=== PATIENT | female | born 1950 | race Caucasian/White ===

== ENCOUNTER 2022-04-27 09:15 | Outpatient (RCR) | payer MEDICARE, BC, SELFPAY | END 2022-07-11 15:43 | disposition home or self-care (01) | PROVIDERS: Visit Provider Family Medicine | DX: M79.605 Pain in left leg (principal); R26.9 Unspecified abnormalities of gait and mobility; Z51.89 Encounter for other specified aftercare | CPT/HCPCS: 97110; 97112 ==

== ENCOUNTER 2022-12-07 07:51 | Outpatient (CLI) | payer MEDICARE, BC, SELFPAY ==
--- NOTE | 2022-12-07 08:15 | CRLHL7_ITS ---
For Patients: As a result of the Century Cures Act, medical imaging exams and procedure reports are released immediately into your electronic medical record. You may view this report before your referring provider. If you have questions, please contact your health care provider. INDICATION: Seizure disorder. Arteriovenous malformation. TECHNIQUE: Multiplanar multisequence MR imaging acquired through the brain prior to and following intravenous contrast. COMPARISON: MRI brain 11/24/2021. FINDINGS: Arteriovenous malformation within the posterolateral left frontal lobe with nidus measuring approximately 1.8 cm in transverse dimension, not significantly changed when accounting for differences in exam and measurement technique. No evidence for recent hemorrhage. Multiple enlarged cortical veins are visualized in the left greater than right cerebral hemispheres. Small adjacent parenchymal gliosis, as well as susceptibility likely related to calcification, are not significantly changed. The ventricles are not enlarged for patient age. No midline shift or hydrocephalus. Stable punctate FLAIR hyperintensity within the right frontal operculum, potentially related to minimal chronic microvascular ischemic change. No recent intracranial hemorrhage or pathologic extra-axial fluid collection. No diffusion restriction to suggest acute infarction. Enhancing 1.1 cm lesion within the right internal auditory canal with extension near the fundus, not significantly changed. The major arterial flow voids of the skullbase are preserved. The globes are symmetric. Mild left maxillary sinus mucosal thickening. The mastoid air cells are clear. IMPRESSION: 1. No acute intracranial abnormality. No significant change compared to 11/24/2021. 2. Stable arteriovenous malformation within the posterolateral left frontal lobe associated with small adjacent parenchymal gliosis. 3. Stable enhancing 1.1 cm lesion within the right internal auditory canal, most compatible with vestibular schwannoma. Dictated by Bret Domínguez MD @ 12/07/2022 5:55:02 PM (Electronically Signed)
== END 2022-12-07 07:52 | disposition home or self-care (01) ==
LOC: MRI 07:54
PROVIDERS: PCP Student in an Organized Health Care Education/Training Program; Visit Provider Student in an Organized Health Care Education/Training Program
DX: G40.909 Epilepsy, unspecified, not intractable, without status epilepticus (principal); G93.9 Disorder of brain, unspecified
CPT/HCPCS: 70553; A9575

== ENCOUNTER 2023-06-02 14:41 | Outpatient (CLI) | payer MEDICARE, BC, SELFPAY | END 2023-06-02 14:42 | disposition home or self-care (01) | LOC: AMB 06-03 08:27 | PROVIDERS: PCP Student in an Organized Health Care Education/Training Program; Visit Provider Family Medicine | DX: R07.89 Other chest pain (principal) | CPT/HCPCS: A0425; A0427 ==

== ENCOUNTER 2023-06-02 15:24 | Observation (INO) | payer MEDICARE, BC, SELFPAY ==
[2023-06-02] VITALS (26 sets, daily range): BP systolic 116–154; BP diastolic 76–90; PULSE 76–115; RESP 16–20; TEMP 36.4–36.7; O2SAT 88–97; BMI 36.0; BMI 35.9
--- NOTE | 2023-06-02 16:11 | CRLHL7_ITS ---
For Patients: As a result of the Century Cures Act, medical imaging exams and procedure reports are released immediately into your electronic medical record. You may view this report before your referring provider. If you have questions, please contact your health care provider. INDICATION: Chest pain TECHNIQUE: Chest 2 views COMPARISON: July 02, 2021 FINDINGS: Cardiovascular and mediastinum: Heart size and vasculature are enlarged in caliber and appearance. Lungs and pleural spaces: Lungs demonstrate increased interstitial density and peripheral Rogelio B-lines, consistent with interstitial/pulmonary edema. Otherwise are clear. No sign of infiltrate or mass. No sign of pleural effusion. No pneumothorax. Bones and soft tissues: Stable thoracolumbar compression deformity. No significant new findings. IMPRESSION: Cardiomegaly and pulmonary interstitial edema, suggesting CHF, clinical correlation recommended. Dictated by Julián Henry MD @ 06/02/2023 6:15:50 PM (Electronically Signed)
[2023-06-02 16:17] LABS: Basophils Absolute Auto 0.04 K/uL (0.00-0.30); Basophils Percent Auto 0.5 % (0.0-3.0); Eosinophils Absolute Auto 0.14 K/uL (0.00-0.50); Eosinophils Percent Auto 1.9 % (0.0-7.0); Hematocrit 38.1 % (33.0-51.0); Hemoglobin* 12.9 gm/dL (12.0-16.0); Immature Granulocytes Abs Auto 0.01 K/uL (0.00-0.30); Immature Granulocytes Pct Auto 0.1 %; Lymphocytes Percent Auto 18.1 % (20-44); Mean Corpuscular HGB Conc 34 gm/dL (32-36); Mean Corpuscular Hemoglobin 32 pg (26-34); Mean Corpuscular Volume 93 fL (80-100); Monocytes Percent Auto 6.2 % (0.0-11.0); Neutrophils Percent Auto 73.2 % (42.0-72.0); Platelet Count* 208 K/uL (140-440); Red Blood Count 4.08 m/uL (4.00-5.20); White Blood Count* 7.53 K/uL (4.50-11.00)
[2023-06-02 16:19] LABS: Albumin* 4.5 g/dL (3.3-5.0); Slide Review Reflex No
[2023-06-02 16:20] LABS: Chloride* 93 mmol/L (96-114); Potassium* 3.8 mmol/L (3.6-5.1); Sodium* 129 mmol/L (135-149)
[2023-06-02 16:22] LABS: Alkaline Phosphatase* 83 U/L (40-150); Anion Gap 7 mEq/L (7-15); Aspartate Amino Transferase* 31 U/L (12-35); Bilirubin Total* 0.9 mg/dL (0.1-1.5); Carbon Dioxide* 29 mmol/L (20-32); Est. Creatinine Clearance* 43.27; Estimated Glomerular Filt Rate 59 ml/min; Total Protein* 7.7 g/dL (6.0-8.3)
[2023-06-02 16:23] LABS: Alanine Aminotransferase* 23 U/L (4-35); Blood Urea Nitrogen* 10 mg/dL (7-30); Calcium* 9.4 mg/dL (8.4-10.6); Glucose* 105 mg/dL (60-115); Magnesium* 1.9 mg/dL (1.5-2.6)
--- NOTE | 2023-06-02 16:24 | ED.GENADULT ---
HPI - General Adult General Date Seen: 06/02/23 Chief complaint: Chest Pain Stated complaint: Difficulty breathing Time Seen by Provider: 06/02/23 16:00 Source: patient Mode of arrival: EMS Limitations: no limitations History of Present Illness HPI narrative: Patient is a 72-year-old female with a history of AFib, hypertension, AV malformation presenting to the emergency department for chest pain, shortness of breath, lightheadedness. Patient states she woke up this morning feeling fine but as the day has been going on she has been having intermittent chest pain, shortness of breath, lightheadedness. States symptoms are worse when she is up and moving around but does note they initially started when she was sitting in a chair. She states when I 1st started she tried to get up but felt very lightheaded. Symptoms have been on and off all day. She states she is currently feeling asymptomatic. She does have AFib but is not on any blood thinners due to AV malformation. She does take aspirin which she states she took today. States she has had symptoms like this in the past roughly a year ago when she was diagnosed with AFib. Denies fevers, chills, chest pain, shortness of breath, abdominal pain, diarrhea, constipation, fevers, chills. She does state she has been having dysuria since this morning and feels like she is having a UTI. She does states she has intermittent lower extremity swelling but is currently not having any swelling. Related Data Home Medications Medication Instructions Recorded Confirmed albuterol sulfate 90 mcg/actuation 1 - 2 puff inhalation Q4H PRN 06/02/23 06/02/23 aerosol inhaler dyspnea alendronate 70 mg tablet 70 mg PO 06/02/23 amlodipine 5 mg tablet 5 mg PO DAILY 06/02/23 06/02/23 aspirin 81 mg capsule 81 mg PO DAILY 06/02/23 06/02/23 atorvastatin 40 mg tablet 40 mg PO QPM 06/02/23 06/02/23 fluticasone propionate 50 2 spray intranasal DAILY 06/02/23 06/02/23 mcg/actuation nasal spray,suspension hydrochlorothiazide 12.5 mg tablet 12.5 mg PO DAILY 06/02/23 06/02/23 lamotrigine 100 mg tablet mg PO 06/02/23 mirtazapine 7.5 mg tablet 7.5 mg PO QPM 06/02/23 06/02/23 Allergies Allergy/AdvReac Type Severity Reaction Status Date / Time No Known Drug Allergies Allergy Verified 06/02/23 15:34 Review of Systems Status of ROS: Reports: 10 or more systems reviewed and unremarkable except as noted in History and below [facility] Medical History (Updated 06/02/23 @ 21:42 by Joel Alatorre MD) Osteoporosis ?M81.0 - Age-related osteoporosis without current pathological fracture (ICD-10) TIA (transient ischemic attack) ?G45.9 - Transient cerebral ischemic attack, unspecified (ICD-10) Atrial fibrillation ?I48.91 - Unspecified atrial fibrillation (ICD-10) Anxiety ?F41.9 - Anxiety disorder, unspecified (ICD-10) Depression ?F32.A - Depression, unspecified (ICD-10) Hypertension ?I10 - Essential (primary) hypertension (ICD-10) 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 of cranial nerves (ICD-10) Lower extremity edema ?R60.0 - Localized edema (ICD-10) Obstructive sleep apnea ?G47.33 - Obstructive sleep apnea (adult) (pediatric) (ICD-10) Seizure disorder ?G40.909 - Epilepsy, unspecified, not intractable, without status epilepticus (ICD-10) AVM (arteriovenous malformation) brain ?Q28.2 - Arteriovenous malformation of cerebral vessels (ICD-10) Surgical History (Updated 06/02/23 @ 21:35 by Joel Alatorre MD) History of tubal ligation ?Z98.51 - Tubal ligation status (ICD-10) History of D&C ?Z98.890 - Other specified postprocedural states (ICD-10) History of breast biopsy ?Z98.890 - Other specified postprocedural states (ICD-10) History of cholecystectomy ?Z90.49 - Acquired absence of other specified parts of digestive tract (ICD-10) History of bilateral hip arthroplasty ?Z96.643 - Presence of artificial hip joint, bilateral (ICD-10) Family History (Updated 06/02/23 @ 21:35 by Joel Alatorre MD) Other High blood pressure Seizure disorder Social History (Updated 06/02/23 @ 21:36 by Joel Alatorre MD) Narrative: She lives independently in her own home in [place]. Her daughter and multiple other family members live nearby. Her daughter Elke is healthcare power of [employer]. Her code status is full. She is a nonsmoker. She does not drink alcohol. She does drive her own car. She does not use assistive device when she walks. She is able to manage her own affairs. Smoking Status: Never smoker How often do you have a drink containing alcohol: never AUDIT-C Alcohol total score: 0 Non-prescribed substance use: denies use service: No Exam Narrative: Exam Narrative: Const: Well-nourished, Well-developed, in mild distress Eyes: PERRL, no conjunctival injection, and symmetrical lids ENMT: Atraumatic external nose and ears. Moist mucous membranes. Neck: Symmetric, trachea midline, No thyromegaly. CVS: RRR, No murmurs or gallops. Peripheral pulses 2+ and equal in all extremities RESP: Unlabored respiratory effort. Clear to auscultation bilaterally. GI: Nontender/Nondistended, No rebound or guarding. MSK:Extremities w/o deformity, Normal Active ROM Skin: Warm, Dry. No rashes or lesions. Neuro: Normal Muscle tone, No focal neurological deficits. Psych: Awake, Alert, & Oriented x3. Appropriate mood and affect. Const: Vital Signs, click to edit/add: Vital Signs - 24 hr 06/02/23 15:30 06/02/23 15:56 06/02/23 16:00 Temperature 97.5 F L Pulse Rate 95 92 Pulse Rate [Pulse Oximeter] 96 Respiratory Rate 16 Blood Pressure Blood Pressure [Ri ght Upper Arm] 129/76 Pulse Oximetry 97 91 91 Oxygen Delivery Me thod Room Air 06/02/23 16:15 06/02/23 16:39 06/02/23 16:45 Temperature Pulse Rate 97 112 H 93 Pulse Rate [Pulse Oximeter] Respiratory Rate Blood Pressure Blood Pressure [Ri ght Upper Arm] Pulse Oximetry 96 92 91 Oxygen Delivery Me thod 06/02/23 17:00 06/02/23 17:15 06/02/23 17:30 Temperature Pulse Rate 115 H 96 81 Pulse Rate [Pulse Oximeter] Respiratory Rate Blood Pressure Blood Pressure [Ri ght Upper Arm] Pulse Oximetry 89 90 93 Oxygen Delivery Me thod 06/02/23 17:45 06/02/23 18:00 06/02/23 18:15 Temperature Pulse Rate 97 109 H 76 Pulse Rate [Pulse Oximeter] Respiratory Rate Blood Pressure Blood Pressure [Ri ght Upper Arm] Pulse Oximetry 90 89 95 Oxygen Delivery Me thod 06/02/23 18:30 06/02/23 18:31 06/02/23 18:45 Temperature Pulse Rate 94 93 97 Pulse Rate [Pulse Oximeter] Respiratory Rate Blood Pressure 154/90 H Blood Pressure [Ri ght Upper Arm] Pulse Oximetry 93 93 93 Oxygen Delivery Me thod 06/02/23 19:00 06/02/23 19:15 06/02/23 19:30 Temperature Pulse Rate 89 101 H 99 Pulse Rate [Pulse Oximeter] Respiratory Rate Blood Pressure Blood Pressure [Ri ght Upper Arm] Pulse Oximetry 96 88 95 Oxygen Delivery Me thod 06/02/23 19:45 06/02/23 20:00 06/02/23 20:15 Temperature Pulse Rate 97 92 98 Pulse Rate [Pulse Oximeter] Respiratory Rate Blood Pressure Blood Pressure [Ri ght Upper Arm] Pulse Oximetry 94 96 92 Oxygen Delivery Me thod 06/02/23 20:30 06/02/23 20:45 Temperature Pulse Rate 92 92 Pulse Rate [Pulse Oximeter] Respiratory Rate Blood Pressure Blood Pressure [Ri ght Upper Arm] Pulse Oximetry 91 96 Oxygen Delivery Me thod Course Vital Signs Vital signs: Initial Vital Signs Temperature 97.5 F L 06/02/23 15:30 Temperature Source Temporal Artery Scan 06/02/23 15:30 Pulse Rate 96 06/02/23 15:30 Pulse Rhythm Regular 06/02/23 15:30 Respiratory Rate 16 06/02/23 15:30 Blood Pressure 129/76 06/02/23 15:30 Blood Pressure Mean 93 06/02/23 15:30 Blood Pressure Position Sitting 06/02/23 15:30 Pulse Oximetry 97 06/02/23 15:30 Oxygen Delivery Method Room Air 06/02/23 15:30 Vital Signs Temperature 97.5 F L 06/02/23 15:30 Pulse Rate 96 06/02/23 15:30 Respiratory Rate 16 06/02/23 15:30 Blood Pressure 129/76 06/02/23 15:30 Pulse Oximetry 97 06/02/23 15:30 Oxygen Delivery Method Room Air 06/02/23 15:30 Temperature 97.5 F L 06/02/23 15:30 Pulse Rate 92 06/02/23 20:45 Respiratory Rate 16 06/02/23 15:30 Blood Pressure 154/90 H 06/02/23 18:30 Pulse Oximetry 96 06/02/23 20:45 Oxygen Delivery Method Room Air 06/02/23 15:30 Medical Decision Making MDM Narrative Medical decision making narrative: Patient is a 72-year-old female presenting to emergency department for chest pain, shortness of breath, lightheadedness. She is currently asymptomatic. Symptoms started this morning intermittent. Most part they are worse when she is up and moving around. She is not on any blood thinners for AFib due to her AV malformation. Differential at this time includes pulmonary embolism, ACS, dehydration, pneumothorax, UTI. Further dysuria urinalysis was ordered. Cardiac workup including EKG, CBC, CMP, troponin, magnesium, Co was as flu, D-dimer all ordered on this patient. Since patient's clinical dehydration has a history of low sodium I did give patient 1 L of normal saline. Chest x-ray returned and showed some signs of CHF and she mentions she is having orthopnea. A BNP was ordered. That returned at 4500. Patient has already received 1 L of fluids by this time. Initial troponin was normal. EKG shows no concerning abnormalities. She does have bigeminy. Repeat troponin was also within normal limits. ACS is unlikely. D-dimer was within normal limits the pulmonary embolism was unlikely. CBC was within normal limits. CMP returned at 0129 for sodium. This is only mildly low as unlikely to be causing his symptoms but she does have a history of hyponatremia. Of note I did review her records on [facility] and her last several sodiums are in the mid 130s. Even though this might be a chronic issue for her I did order lab work for hyponatremia. She does appear to have a UTI based on symptoms and urinalysis. Patient was given 1 dose of Rocephin. I did look their [facility] records again and she had a echo 2 years ago that was normal. Of note she was diagnosed with AFib last year and has not had an echo since then and has never been diagnosed with CHF. She is on hydrochlorothiazide. One dose of Lasix were given. She says she was due for a lamotrigine so that was ordered. COVID/flu was negative. I spoke to the patient about admission versus discharge. She states she is still feeling lightheaded and lives home alone was concerned to go home like this. Do this I did speak to Dr. Alatorre of the hospitalist service and he accepted her for admission. Lab Data Labs: Lab Results 06/02/23 06/02/23 06/02/23 Range/Units 15:50 16:19 16:34 WBC 7.53 (4.50-11.00) K/uL RBC 4.08 (4.00-5.20) m/uL Hgb 12.9 (12.0-16.0) gm/dL Hct 38.1 (33.0-51.0) % MCV 93 (80-100) fL MCH 32 (26-34) pg MCHC 34 (32-36) gm/dL RDW Coeff of Koko 13.0 (11.5-15.5) % Plt Count 208 (140-440) K/uL Neut % (Auto) 73.2 H (42.0-72.0) % Lymph % (Auto) 18.1 L (20-44) % [place] % (Auto) 6.2 (0.0-11.0) % Eos % (Auto) 1.9 (0.0-7.0) % Baso % (Auto) 0.5 (0.0-3.0) % Neut # (Auto) 5.50 (1.7-7.0) K/uL Lymph # (Auto) 1.40 (0.90-2.90) K/uL [place] # (Auto) 0.50 (0.00-0.90) K/UL Eos # (Auto) 0.14 (0.00-0.50) K/uL Baso # (Auto) 0.04 (0.00-0.30) K/uL Abs Immat Gran (auto) 0.01 (0.00-0.30) K/uL Imm/Tot Granulo (auto) 0.1 % D-Dimer Quant (PE/DVT) 0.44 (0.00-0.50) ug/ml Sodium 129 L (135-149) mmol/L Potassium 3.8 (3.6-5.1) mmol/L Chloride 93 L (96-114) mmol/L Carbon Dioxide 29 (20-32) mmol/L Anion Gap 7 (7-15) mEq/L BUN 10 (7-30) mg/dL Creatinine 1.0 (0.5-1.5) mg/dL Estimated Creat Clear 43.27 Estimated GFR 59 ml/min Glucose 105 (60-115) mg/dL Calcium 9.4 (8.4-10.6) mg/dL Magnesium 1.9 (1.5-2.6) mg/dL Total Bilirubin 0.9 (0.1-1.5) mg/dL AST 31 (12-35) U/L ALT 23 (4-35) U/L Alkaline Phosphatase 83 (40-150) U/L Troponin I < 0.01 L (0.01-0.04) ng/mL NT-Pro-B Natriuret Pep 4570 pg/mL Total Protein 7.7 (6.0-8.3) g/dL Albumin 4.5 (3.3-5.0) g/dL TSH 1.600 (0.270-4.20) uIU/mL Urine Color Yellow (Yellow) Urine Appearance Clear (Clear) Urine pH 7.0 (5.0-8.5) Ur Specific [place] 1.010 (1.000-1.030) Urine Protein Negative (Negative) Urine Glucose (UA) Negative (Negative) Urine Ketones Negative (Negative) Urine Blood 2+ A (Negative) Urine Nitrite Negative (Negative) Urine Bilirubin Negative (Negative) Urine Urobilinogen 0.2 (0.2-1.0) Ur Leukocyte Esterase 1+ A (Negative) Urine RBC 5-10 A (0-2) Urine WBC 10-25 A (0-5) Ur Squamous Epith Cells Few (None-Few) Urine Bacteria Few A (None) SARS-CoV-2 (PCR) Negative SARS-CoV-2 (Negative) Influenza Type A (PCR) Negative PCR FLU A (Negative) Influenza Type B (PCR) Negative PCR FLU B (Negative) Lab Acknowledgement 06/02/23 06/02/23 06/02/23 Range/Units 16:44 18:12 18:48 WBC (4.50-11.00) K/uL RBC (4.00-5.20) m/uL Hgb (12.0-16.0) gm/dL Hct (33.0-51.0) % MCV (80-100) fL MCH (26-34) pg MCHC (32-36) gm/dL RDW Coeff of [place] (11.5-15.5) % Plt Count (140-440) K/uL Neut % (Auto) (42.0-72.0) % Lymph % (Auto) (20-44) % [place] % (Auto) (0.0-11.0) % Eos % (Auto) (0.0-7.0) % Baso % (Auto) (0.0-3.0) % Neut # (Auto) (1.7-7.0) K/uL Lymph # (Auto) (0.90-2.90) K/uL [place] # (Auto) (0.00-0.90) K/UL Eos # (Auto) (0.00-0.50) K/uL Baso # (Auto) (0.00-0.30) K/uL Abs Immat Gran (auto) (0.00-0.30) K/uL Imm/Tot Granulo (auto) % D-Dimer Quant (PE/DVT) (0.00-0.50) ug/ml Sodium (135-149) mmol/L Potassium (3.6-5.1) mmol/L Chloride (96-114) mmol/L Carbon Dioxide (20-32) mmol/L Anion Gap (7-15) mEq/L BUN (7-30) mg/dL Creatinine (0.5-1.5) mg/dL Estimated Creat Clear Estimated GFR ml/min Glucose (60-115) mg/dL Calcium (8.4-10.6) mg/dL Magnesium (1.5-2.6) mg/dL Total Bilirubin (0.1-1.5) mg/dL AST (12-35) U/L ALT (4-35) U/L Alkaline Phosphatase (40-150) U/L Troponin I < 0.01 L (0.01-0.04) ng/mL NT-Pro-B Natriuret Pep pg/mL Total Protein (6.0-8.3) g/dL Albumin (3.3-5.0) g/dL TSH (0.270-4.20) uIU/mL Urine Color (Yellow) Urine Appearance (Clear) Urine pH (5.0-8.5) Ur Specific [place] (1.000-1.030) Urine Protein (Negative) Urine Glucose (UA) (Negative) Urine Ketones (Negative) Urine Blood (Negative) Urine Nitrite (Negative) Urine Bilirubin (Negative) Urine Urobilinogen (0.2-1.0) Ur Leukocyte Esterase (Negative) Urine RBC (0-2) Urine WBC (0-5) Ur Squamous Epith Cells (None-Few) Urine Bacteria (None) SARS-CoV-2 (PCR) (Negative) Influenza Type A (PCR) (Negative) Influenza Type B (PCR) (Negative) Lab Acknowledgement Test Added Test Added Imaging Data Chest x-ray: Radiologist's impression: INDICATION: Chest pain TECHNIQUE: Chest 2 views COMPARISON: July 02, 2021 FINDINGS: Cardiovascular and mediastinum: Heart size and vasculature are enlarged in caliber and appearance. Lungs and pleural spaces: Lungs demonstrate increased interstitial density and peripheral Rogelio B-lines, consistent with interstitial/pulmonary edema. Otherwise are clear. No sign of infiltrate or mass. No sign of pleural effusion. No pneumothorax. Bones and soft tissues: Stable thoracolumbar compression deformity. No significant new findings. IMPRESSION: Cardiomegaly and pulmonary interstitial edema, suggesting CHF, clinical correlation recommended. Dictated by Julián Henry MD @ 06/02/2023 6:15:50 PM ECG Data Attestation: I personally reviewed and interpreted this ECG as follows: Prior ECG tracings: not available for review Interpretation: AFib with frequent PVCs an apparent bigeminy pattern, rate of 95 beats per minute. no ST or T-wave abnormalities Discharge Plan Discharge Clinical Impression: Hyponatremia, Acute UTI CHF (congestive heart failure) Qualifiers: Heart failure type: unspecified Heart failure chronicity: acute Qualified Code(s): I50.9 - Heart failure, unspecified
[2023-06-02 16:36] LABS: Troponin I* < 0.01 ng/mL (0.01-0.04)
[2023-06-02 16:42] LABS: Appearance Urine Clear (Clear); Bilirubin Urine Negative (Negative); Blood Urine 2+ (Negative); Color Urine Yellow (Yellow); Glucose Urine Negative (Negative); Ketones Urine Negative (Negative); Leukocyte Esterase Urine 1+ (Negative); Nitrite Urine Negative (Negative); Protein Urine Negative (Negative); Urobilinogen Urine 0.2 (0.2-1.0)
[2023-06-02 16:44] LABS: D Dimer Quantitative* 0.44 ug/ml (0.00-0.50)
[2023-06-02] MEDS: LACTATED RINGERS 1000 ML 1,000 ML IV (16:44)
[2023-06-02 16:55] LABS: Bacteria Urine Few; Squamous Epithelial Cell Urine Few (None-Few)
[2023-06-02 17:02] LABS: PCR FLU A Negative PCR FLU A (Negative); PCR FLU B Negative PCR FLU B (Negative); SARS PCR* Negative SARS-CoV-2 (Negative)
[2023-06-02 17:07] LABS: NT Pro B Type NatriureticPept* 4570 pg/mL
[2023-06-02 19:28] LABS: Troponin I* < 0.01 ng/mL (0.01-0.04)
[2023-06-02] MEDS: lamoTRIgine 100 MG TABLET PO (20:11)
[2023-06-02] MEDS: FUROSEMIDE 10 MG/ML inj 40 MG IVP (20:39)
[2023-06-02] MEDS: cefTRIAXone 1 GM in 0.9 % SODIUM CHLORIDE Mini-bag 100 ML IVPB (20:54)
--- NOTE | 2023-06-02 21:23 | P.IMHP_ITS ---
Hospitalist- H&P: HPI History of Present Illness Date Seen: 06/02/23 Chief complaint: Difficulty breathing Narrative: Lydia Cooper is a 72 year old female with atrial fibrillation, hypertension, seizure disorder, cerebral AV malformation who presents with onset today of feeling chest pain, shortness of breath, lightheadedness and dysuria. She reports she was feeling well yesterday and even felt well when she awoke this morning. Shortly after waking up she noted that she had dysuria. She had urge to void and was able to void but it was uncomfortable. She has not had a fever or flank pain. She does have a history of previous urinary infections. She then noted that she was having some chest pain and some unusual dyspnea. Because of this she presents emergency room for evaluation. She does have a history of chronic atrial fibrillation. She is not on medication for anticoagulation or rate control. She has been told anticoagulation is contraindicated due to her AVM. She has not needed rate control. She does take aspirin daily. She has no history of heart failure. Echocardiogram obtained July of 2021 showed a preserved ejection fraction of 59% without significant valvular disease or other structural abnormalities. She is not aware of having any coronary disease. She does report that she has had a cough that is been going on for about a year. Is relatively nonproductive. It is maybe a little bit worse today. She has not had any other associated pulmonary problems. She denies a history of COPD or asthma. She is on an inhaler that she uses as needed. No other diagnosis of pulmonary disease such as pulmonary fibrosis. No other obvious exposures. She does have a history of chronic lower extremity edema. She has been advised to wear compression stockings but does not tolerate these. She has been on hydrochlorothiazide for blood pressure control and to help her edema. She does have a history of hyponatremia in the past. She has sleep apnea but does not tolerate CPAP Review of Systems Narrative: Prior today she reports she has been feeling well [facility] Medical History (Updated 06/02/23 @ 21:42 by Joel Alatorre MD) Osteoporosis ?M81.0 - Age-related osteoporosis without current pathological fracture (ICD- 10) TIA (transient ischemic attack) ?G45.9 - Transient cerebral ischemic attack, unspecified (ICD-10) Atrial fibrillation ?I48.91 - Unspecified atrial fibrillation (ICD-10) Anxiety ?F41.9 - Anxiety disorder, unspecified (ICD-10) Depression ?F32.A - Depression, unspecified (ICD-10) Hypertension ?I10 - Essential (primary) hypertension (ICD-10) 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 of cranial nerves (ICD-10) Lower extremity edema ?R60.0 - Localized edema (ICD-10) Obstructive sleep apnea ?G47.33 - Obstructive sleep apnea (adult) (pediatric) (ICD-10) Seizure disorder ?G40.909 - Epilepsy, unspecified, not intractable, without status epilepticus (ICD-10) AVM (arteriovenous malformation) brain ?Q28.2 - Arteriovenous malformation of cerebral vessels (ICD-10) Surgical History (Updated 06/02/23 @ 21:35 by Joel Alatorre MD) History of tubal ligation ?Z98.51 - Tubal ligation status (ICD-10) History of D&C ?Z98.890 - Other specified postprocedural states (ICD-10) History of breast biopsy ?Z98.890 - Other specified postprocedural states (ICD-10) History of cholecystectomy ?Z90.49 - Acquired absence of other specified parts of digestive tract (ICD- 10) History of bilateral hip arthroplasty ?Z96.643 - Presence of artificial hip joint, bilateral (ICD-10) Family History (Updated 06/02/23 @ 21:35 by Joel Alatorre MD) Other High blood pressure Seizure disorder Social History (Updated 06/02/23 @ 21:36 by Joel Alatorre MD) Narrative: She lives independently in her own home in [place]. Her daughter and multiple other family members live nearby. Her daughter Elke is [employer] professor. Her code status is full. She is a nonsmoker. She does not drink alcohol. She does drive her own car. She does not use assistive device when she walks. She is able to manage her own affairs. Smoking Status: Never smoker How often do you have a drink containing alcohol: never AUDIT-C Alcohol total score: 0 Non-prescribed substance use: denies use service: No Meds Home Medications and Allergies Home Medications Medication Instructions Recorded Confirmed Type albuterol sulfate 90 mcg/actuation 1 - 2 puff inhalation Q4H PRN 06/02/23 History aerosol inhaler dyspnea alendronate 70 mg tablet 70 mg PO 06/02/23 History amlodipine 5 mg tablet 5 mg PO DAILY 06/02/23 06/02/23 History aspirin 81 mg capsule 81 mg PO DAILY 06/02/23 06/02/23 History atorvastatin 40 mg tablet 40 mg PO QPM 06/02/23 06/02/23 History fluticasone propionate 50 2 spray intranasal DAILY 06/02/23 06/02/23 History mcg/actuation nasal spray,suspension hydrochlorothiazide 12.5 mg tablet 12.5 mg PO DAILY 06/02/23 06/02/23 History lamotrigine 100 mg tablet mg PO 06/02/23 History mirtazapine 7.5 mg tablet 7.5 mg PO QPM 06/02/23 06/02/23 History Allergies Allergy/AdvReac Type Severity Reaction Status Date / Time No Known Drug Allergies Allergy Verified 06/02/23 15:34 Exam Narrative: Exam Narrative: She is alert and appears in no distress. Eyes are normal. Oropharynx with sma ll airway. Neck is supple without mass or adenopathy. No jugular distension. Respirations are clear to auscultation except for a few basilar crackles. No wheezing. Cardiovascular: S1, S2, irregularly irregular. No murmur gallop or rub. Abdomen is soft without tenderness or mass. External genitalia normal. Extremities with 1+ edema bilaterally. She has intact pedal pulses. Skin is without rash. Good peripheral perfusion. Const: Vital Signs, click to edit/add: Vital Signs - 24 hr 06/02/23 15:30 06/02/23 15:56 06/02/23 16:00 Temperature 97.5 F L Pulse Rate 95 92 Pulse Rate [Pulse Oximeter] 96 Respiratory Rate 16 Blood Pressure Blood Pressure [Ri ght Upper Arm] 129/76 Pulse Oximetry 97 91 91 Oxygen Delivery Me thod Room Air 06/02/23 16:15 06/02/23 16:39 06/02/23 16:45 Temperature Pulse Rate 97 112 H 93 Pulse Rate [Pulse Oximeter] Respiratory Rate Blood Pressure Blood Pressure [Ri ght Upper Arm] Pulse Oximetry 96 92 91 Oxygen Delivery Me thod 06/02/23 17:00 06/02/23 17:15 06/02/23 17:30 Temperature Pulse Rate 115 H 96 81 Pulse Rate [Pulse Oximeter] Respiratory Rate Blood Pressure Blood Pressure [Ri ght Upper Arm] Pulse Oximetry 89 90 93 Oxygen Delivery Me thod 06/02/23 17:45 06/02/23 18:00 06/02/23 18:15 Temperature Pulse Rate 97 109 H 76 Pulse Rate [Pulse Oximeter] Respiratory Rate Blood Pressure Blood Pressure [Ri ght Upper Arm] Pulse Oximetry 90 89 95 Oxygen Delivery Me thod 06/02/23 18:30 06/02/23 18:31 06/02/23 18:45 Temperature Pulse Rate 94 93 97 Pulse Rate [Pulse Oximeter] Respiratory Rate Blood Pressure 154/90 H Blood Pressure [Ri ght Upper Arm] Pulse Oximetry 93 93 93 Oxygen Delivery Me thod 06/02/23 19:00 06/02/23 19:15 06/02/23 19:30 Temperature Pulse Rate 89 101 H 99 Pulse Rate [Pulse Oximeter] Respiratory Rate Blood Pressure Blood Pressure [Ri ght Upper Arm] Pulse Oximetry 96 88 95 Oxygen Delivery Me thod 06/02/23 19:45 06/02/23 20:00 06/02/23 20:15 Temperature Pulse Rate 97 92 98 Pulse Rate [Pulse Oximeter] Respiratory Rate Blood Pressure Blood Pressure [Ri ght Upper Arm] Pulse Oximetry 94 96 92 Oxygen Delivery Me thod 06/02/23 20:30 06/02/23 20:45 Temperature Pulse Rate 92 92 Pulse Rate [Pulse Oximeter] Respiratory Rate Blood Pressure Blood Pressure [Ri ght Upper Arm] Pulse Oximetry 91 96 Oxygen Delivery Me thod Documenting provider has reviewed patient's vital signs: yes Hospitalist - H&P: Result Labs Labs: Short CBC 06/02/23 Range/Units 15:50 WBC 7.53 (4.50-11.00) K/uL Hgb 12.9 (12.0-16.0) gm/dL Hct 38.1 (33.0-51.0) % Plt Count 208 (140-440) K/uL BMP 06/02/23 15:50 Sodium 129 L Potassium 3.8 Chloride 93 L Carbon Dioxide 29 BUN 10 Creatinine 1.0 Glucose 105 Calcium 9.4 Cardiac Enzymes 06/02/23 06/02/23 Range/Units 15:50 18:48 Troponin I < 0.01 L < 0.01 L (0.01-0.04) ng/mL Liver Function 06/02/23 Range/Units 15:50 Total Bilirubin 0.9 (0.1-1.5) mg/dL AST 31 (12-35) U/L ALT 23 (4-35) U/L Alkaline Phosphatase 83 (40-150) U/L Albumin 4.5 (3.3-5.0) g/dL Urine 06/02/23 Range/Units 16:34 Urine Color Yellow (Yellow) Urine Appearance Clear (Clear) Urine pH 7.0 (5.0-8.5) Ur Specific [place] 1.010 (1.000-1.030) Urine Protein Negative (Negative) Urine Glucose (UA) Negative (Negative) ECG Attestation: I personally reviewed and interpreted this ECG as follows: (Atrial fibrillation with ventricular bigeminy giving a rate of a approximately 95. No acute ST-T changes) ECG interpretation date: 06/02/23 Imaging Chest x-ray: Radiologist's impression: INDICATION: Chest pain TECHNIQUE: Chest 2 views COMPARISON: July 02, 2021 FINDINGS: Cardiovascular and mediastinum: Heart size and vasculature are enlarged in caliber and appearance. Lungs and pleural spaces: Lungs demonstrate increased interstitial density and peripheral Rogelio B-lines, consistent with interstitial/pulmonary edema. Otherwise are clear. No sign of infiltrate or mass. No sign of pleural effusion. No pneumothorax. Bones and soft tissues: Stable thoracolumbar compression deformity. No significant new findings. IMPRESSION: Cardiomegaly and pulmonary interstitial edema, suggesting CHF, clinical correlation recommended. MR Brain: Radiologist's impression: Brain MRI from November 2022: INDICATION: Seizure disorder. Arteriovenous malformation. TECHNIQUE: Multiplanar multisequence MR imaging acquired through the brain prior to and following intravenous contrast. COMPARISON: MRI brain 11/24/2021. FINDINGS: Arteriovenous malformation within the posterolateral left frontal lobe with nidus measuring approximately 1.8 cm in transverse dimension, not significantly changed when accounting for differences in exam and measurement technique. No evidence for recent hemorrhage. Multiple enlarged cortical veins are visualized in the left greater than right cerebral hemispheres. Small adjacent parenchymal gliosis, as well as susceptibility likely related to calcification, are not significantly changed. The ventricles are not enlarged for patient age. No midline shift or hydrocephalus. Stable punctate FLAIR hyperintensity within the right frontal operculum, potentially related to minimal chronic microvascular ischemic change. No recent intracranial hemorrhage or pathologic extra-axial fluid collection. No diffusion restriction to suggest acute infarction. Enhancing 1.1 cm lesion within the right internal auditory canal with extension near the fundus, not significantly changed. The major arterial flow voids of the skullbase are preserved. The globes are symmetric. Mild left maxillary sinus mucosal thickening. The mastoid air cells are clear. IMPRESSION: 1. No acute intracranial abnormality. No significant change compared to 11/24/2021. 2. Stable arteriovenous malformation within the posterolateral left frontal lobe associated with small adjacent parenchymal gliosis. 3. Stable enhancing 1.1 cm lesion within the right internal auditory canal, most compatible with vestibular schwannoma. Assessment and Plan Assessment and plan (1) CHF (congestive heart failure): Problem comment: Diuresis with IV furosemide and then oral torsemide. Obtain echo. Optimize medications for heart failure management. Status: Acute (2) Atrial fibrillation: Problem comment: Chronic, anticoagulation contraindicated due to AVM. No rate control required. Watchman device recommended. Status: Acute (3) Hyponatremia: Problem comment: Likely due to hydrochlorothiazide. Discontinue hydrochlorothiazide and switch to loop diuretic, torsemide for volume control and blood pressure control. Status: Acute (4) Acute UTI: Problem comment: Given ceftriaxone in the ED. Switch to cephalexin orally pending cultures. Status: Acute (5) AVM (arteriovenous malformation) brain: Problem comment: Thought to be the cause of her seizure disorder. Anticoagulation for AFib is contraindicated due to AVM. Status: Acute (6) Seizure disorder: Problem comment: On Lamictal. No recent seizures. Thought secondary to AVM Status: Acute (7) Lower extremity edema: Problem comment: Does not tolerate compression stockings Status: Acute Plan Patient is admitted for management of heart failure, hyponatremia and UTI with IV furosemide and monitoring of symptoms and vital signs. Possible discharge in 1-2 days depending on clinical course. Total time spent is 70 minutes, 50 minutes in coordination of care discussing with patient and family ongoing evaluation management of heart failure and hyponatremia
[2023-06-02] MEDS: POTASSIUM BICARB 25 MEQ EFFERVESCENT TAB 50 MEQ PO (22:08)
[2023-06-02] MEDS: ATORVASTATIN CALCIUM 40 MG TABLET PO (22:09)
[2023-06-02] MEDS: lamoTRIgine 25 MG TABLET 50 MG PO (22:09)
[2023-06-02] MEDS: MIRTAZAPINE 15 MG TABLET 7.5 MG PO (22:10)
[2023-06-02] MEDS: SODIUM CHLORIDE 0.9 % (FLUSH) 10 ML SYRINGE 5 ML IVF (22:10)
[2023-06-03 03:13] VITALS: BP 114/73; PULSE 81; RESP 18; TEMP 36.4; O2SAT 93
--- NOTE | 2023-06-03 05:14 | PC.NURSE ---
Patient to the unit at 2100. A&Ox3. Denies chest pain/SOB. Diuresed over 3300mL of urine during shift. Independent in room. Denies dizziness/N/V. Denies generalized pain.
[2023-06-03 06:48] LABS: Chloride* 96 mmol/L (96-114); Potassium* 3.3 mmol/L (3.6-5.1); Sodium* 134 mmol/L (135-149)
[2023-06-03 06:51] LABS: Anion Gap 8 mEq/L (7-15); Blood Urea Nitrogen* 9 mg/dL (7-30); Calcium* 9.5 mg/dL (8.4-10.6); Carbon Dioxide* 30 mmol/L (20-32); Est. Creatinine Clearance* 43.27; Estimated Glomerular Filt Rate 59 ml/min; Glucose* 93 mg/dL (60-115)
[2023-06-03 07:00] VITALS: BP 121/90; PULSE 84; RESP 16; TEMP 36.3; O2SAT 93
[2023-06-03 08:07] VITALS: PULSE 94
[2023-06-03] MEDS: polyethylene glycoL 3350 17 GM PACK PO (08:34)
[2023-06-03] MEDS: lamoTRIgine 100 MG TABLET 150 MG PO (08:34)
[2023-06-03] MEDS: cephALEXin 500 MG CAPSULE PO ×2 (08:34→13:52)
[2023-06-03] MEDS: TORSEMIDE 20 MG TABLET PO (08:34)
[2023-06-03] MEDS: POTASSIUM CHLORIDE 10 MEQ CAPSULE ER 20 MEQ PO (08:34)
[2023-06-03] MEDS: ASPIRIN 81 MG TABLET EC PO (08:34)
[2023-06-03] MEDS: SODIUM CHLORIDE 0.9 % (FLUSH) 10 ML SYRINGE 5 ML IVF (08:45)
[2023-06-03 10:47] VITALS: BP 123/79; PULSE 87; RESP 18; TEMP 36.3; O2SAT 94
--- NOTE | 2023-06-03 13:33 | P.IMPN_ITS ---
Progress Note: A&P Assessment and plan (1) CHF (congestive heart failure): Problem details: -BNP 4500, received 1 L NS IVF in the ED for UTI -urine output >3L following IV furosemide -continue oral torsemide, strict I&Os, daily weights -echo today -mild hypokalemia 3.3, replace with oral supplement, recheck in a.m. Status: Acute (2) Acute UTI: Problem details: -UC pending, continue cephalexin following single-dose ceftriaxone in ED Status: Acute (3) Hyponatremia: Problem details: -sodium 134 this morning -Likely due to hydrochlorothiazide - discontinued - switched to torsemide -continue torsemide for volume control and blood pressure control -recheck in a.m. Status: Acute (4) Atrial fibrillation: Problem details: -Chronic, currently rate controlled -anticoagulation contraindicated due to AVM. Consider Watchman device. Follow- up with outpatient Cardiology. Status: Acute (5) Seizure disorder: Problem details: -with history of known AVM (arteriovenous malformation). Anticoagulation contraindicated -On Lamictal. No recent seizures. Thought secondary to AVM Status: Acute Plan CODE: Full VTE PPX: SCDs Disposition: Likely discharge 06/04/2023 Time Spent With Patient Total time spent: Total time spent caring for the patient today was 45 minutes. This includes time spent for the visit reviewing the chart, time spent during the visit, time spent after the visit and documentation and planning in coordination of care. Subjective Date Seen: 06/03/23 Interval history: Patient reports feeling better this morning. Breathing has improved. Denies any chest pain tightness. Denies headache or dizziness. No fevers. Tolerating orals without nausea or vomiting. Following IV diuresis, >3L urine output. Exam Narrative: Exam Narrative: PHYSICAL EXAM General: Pleasant, conversant, NAD HEENT: Normocephalic, atraumatic, sclera white, EOMI, oral mucosa moist Cardiovascular: IRRR. Trace pitting edema Pulmonary: CTA bilaterally without rhonchi, rales, expiratory wheezes. No dyspnea on room air Neurological: Alert, answering questions appropriately, cranial nerves intact, no focal findings Extremities: No gross joint deformity or swelling. AROMI Skin: Warm, dry. No rash Const: Vital Signs, click to edit/add: Vital Signs - 24 hr 06/02/23 15:30 06/02/23 15:56 06/02/23 16:00 Temperature 97.5 F L Pulse Rate 95 92 Pulse Rate [Pulse Oximeter] 96 Respiratory Rate 16 Blood Pressure Blood Pressure [Ri ght Arm] Blood Pressure [Ri ght Upper Arm] 129/76 Pulse Oximetry 97 91 91 Oxygen Delivery Me thod Room Air 06/02/23 16:15 06/02/23 16:39 06/02/23 16:45 Temperature Pulse Rate 97 112 H 93 Pulse Rate [Pulse Oximeter] Respiratory Rate Blood Pressure Blood Pressure [Ri ght Arm] Blood Pressure [Ri ght Upper Arm] Pulse Oximetry 96 92 91 Oxygen Delivery Me thod 06/02/23 17:00 06/02/23 17:15 06/02/23 17:30 Temperature Pulse Rate 115 H 96 81 Pulse Rate [Pulse Oximeter] Respiratory Rate Blood Pressure Blood Pressure [Ri ght Arm] Blood Pressure [Ri ght Upper Arm] Pulse Oximetry 89 90 93 Oxygen Delivery Me thod 06/02/23 17:45 06/02/23 18:00 06/02/23 18:15 Temperature Pulse Rate 97 109 H 76 Pulse Rate [Pulse Oximeter] Respiratory Rate Blood Pressure Blood Pressure [Ri ght Arm] Blood Pressure [Ri ght Upper Arm] Pulse Oximetry 90 89 95 Oxygen Delivery Me thod 06/02/23 18:30 06/02/23 18:31 06/02/23 18:45 Temperature Pulse Rate 94 93 97 Pulse Rate [Pulse Oximeter] Respiratory Rate Blood Pressure 154/90 H Blood Pressure [Ri ght Arm] Blood Pressure [Ri ght Upper Arm] Pulse Oximetry 93 93 93 Oxygen Delivery Me thod 06/02/23 19:00 06/02/23 19:15 06/02/23 19:30 Temperature Pulse Rate 89 101 H 99 Pulse Rate [Pulse Oximeter] Respiratory Rate Blood Pressure Blood Pressure [Ri ght Arm] Blood Pressure [Ri ght Upper Arm] Pulse Oximetry 96 88 95 Oxygen Delivery Me thod 06/02/23 19:45 06/02/23 20:00 06/02/23 20:15 Temperature Pulse Rate 97 92 98 Pulse Rate [Pulse Oximeter] Respiratory Rate Blood Pressure Blood Pressure [Ri ght Arm] Blood Pressure [Ri ght Upper Arm] Pulse Oximetry 94 96 92 Oxygen Delivery Me thod 06/02/23 20:30 06/02/23 20:45 06/02/23 22:00 Temperature 97.6 F Pulse Rate 92 92 Pulse Rate [Pulse Oximeter] 104 H Respiratory Rate 20 Blood Pressure Blood Pressure [Ri ght Arm] 134/87 Blood Pressure [Ri ght Upper Arm] Pulse Oximetry 91 96 96 Oxygen Delivery Me thod Room Air 06/02/23 22:54 06/02/23 23:00 06/03/23 03:13 Temperature 98.1 F 97.5 F L Pulse Rate 107 H Pulse Rate [Pulse Oximeter] 94 81 Respiratory Rate 18 18 Blood Pressure Blood Pressure [Ri ght Arm] 116/83 114/73 Blood Pressure [Ri ght Upper Arm] Pulse Oximetry 94 93 Oxygen Delivery Me thod Room Air Room Air 06/03/23 07:00 06/03/23 08:07 06/03/23 10:47 Temperature 97.4 F L 97.4 F L Pulse Rate 94 Pulse Rate [Pulse Oximeter] 84 87 Respiratory Rate 16 18 Blood Pressure Blood Pressure [Ri ght Arm] 121/90 H 123/79 Blood Pressure [Ri ght Upper Arm] Pulse Oximetry 93 94 Oxygen Delivery Me thod Room Air Room Air Labs Labs: Laboratory Results - last 24 hr 06/02/23 06/02/23 06/02/23 15:50 16:19 16:34 WBC 7.53 RBC 4.08 Hgb 12.9 Hct 38.1 MCV 93 MCH 32 MCHC 34 RDW Coeff of [place]oko 13.0 Plt Count 208 Neut % (Auto) 73.2 H Lymph % (Auto) 18.1 L [place] % (Auto) 6.2 Eos % (Auto) 1.9 Baso % (Auto) 0.5 Neut # (Auto) 5.50 Lymph # (Auto) 1.40 [place] # (Auto) 0.50 Eos # (Auto) 0.14 Baso # (Auto) 0.04 Abs Immat Gran (auto) 0.01 Imm/Tot Granulo (auto) 0.1 D-Dimer Quant (PE/DVT) 0.44 Sodium 129 L Potassium 3.8 Chloride 93 L Carbon Dioxide 29 Anion Gap 7 BUN 10 Creatinine 1.0 Estimated Creat Clear 43.27 Estimated GFR 59 Glucose 105 Calcium 9.4 Magnesium 1.9 Total Bilirubin 0.9 AST 31 ALT 23 Alkaline Phosphatase 83 Troponin I < 0.01 L NT-Pro-B Natriuret Pep 4570 Total Protein 7.7 Albumin 4.5 TSH 1.600 Urine Color Yellow Urine Appearance Clear Urine pH 7.0 Ur Specific [place] 1.010 Urine Protein Negative Urine Glucose (UA) Negative Urine Ketones Negative Urine Blood 2+ A Urine Nitrite Negative Urine Bilirubin Negative Urine Urobilinogen 0.2 Ur Leukocyte Esterase 1+ A Urine RBC 5-10 A Urine WBC 10-25 A Ur Squamous Epith Cells Few Urine Bacteria Few A SARS-CoV-2 (PCR) Negative SARS-CoV-2 Influenza Type A (PCR) Negative PCR FLU A Influenza Type B (PCR) Negative PCR FLU B Lab Acknowledgement 06/02/23 06/02/23 06/02/23 16:44 18:12 18:48 WBC RBC Hgb Hct MCV MCH MCHC RDW Coeff of [place] Plt Count Neut % (Auto) Lymph % (Auto) [place] % (Auto) Eos % (Auto) Baso % (Auto) Neut # (Auto) Lymph # (Auto) [place] # (Auto) Eos # (Auto) Baso # (Auto) Abs Immat Gran (auto) Imm/Tot Granulo (auto) D-Dimer Quant (PE/DVT) Sodium Potassium Chloride Carbon Dioxide Anion Gap BUN Creatinine Estimated Creat Clear Estimated GFR Glucose Calcium Magnesium Total Bilirubin AST ALT Alkaline Phosphatase Troponin I < 0.01 L NT-Pro-B Natriuret Pep Total Protein Albumin TSH Urine Color Urine Appearance Urine pH Ur Specific [place] Urine Protein Urine Glucose (UA) Urine Ketones Urine Blood Urine Nitrite Urine Bilirubin Urine Urobilinogen Ur Leukocyte Esterase Urine RBC Urine WBC Ur Squamous Epith Cells Urine Bacteria SARS-CoV-2 (PCR) Influenza Type A (PCR) Influenza Type B (PCR) Lab Acknowledgement Test Added Test Added 06/03/23 05:48 WBC RBC Hgb Hct MCV MCH MCHC RDW Coeff of [place]oko Plt Count Neut % (Auto) Lymph % (Auto) [place] % (Auto) Eos % (Auto) Baso % (Auto) Neut # (Auto) Lymph # (Auto) [place] # (Auto) Eos # (Auto) Baso # (Auto) Abs Immat Gran (auto) Imm/Tot Granulo (auto) D-Dimer Quant (PE/DVT) Sodium 134 L Potassium 3.3 L Chloride 96 Carbon Dioxide 30 Anion Gap 8 BUN 9 Creatinine 1.0 Estimated Creat Clear 43.27 Estimated GFR 59 Glucose 93 Calcium 9.5 Magnesium Total Bilirubin AST ALT Alkaline Phosphatase Troponin I NT-Pro-B Natriuret Pep Total Protein Albumin TSH Urine Color Urine Appearance Urine pH Ur Specific [place] Urine Protein Urine Glucose (UA) Urine Ketones Urine Blood Urine Nitrite Urine Bilirubin Urine Urobilinogen Ur Leukocyte Esterase Urine RBC Urine WBC Ur Squamous Epith Cells Urine Bacteria SARS-CoV-2 (PCR) Influenza Type A (PCR) Influenza Type B (PCR) Lab Acknowledgement
--- NOTE | 2023-06-03 14:01 | PC.NURSE ---
Shift Summary: Patient pleasant and cooperative. Up independently, calls staff when she voids for measurement. Vitals stable and WNL. Denies pain or nausea. Alert and oriented. Tele continues to show a-fib.
[2023-06-03] MEDS: BENZOCAINE/MENTHOL 1 EACH LOZENGE MUCOUS MEM (14:45)
[2023-06-03 15:00] VITALS: BP 132/102; PULSE 79; RESP 18; TEMP 36.5; O2SAT 95
--- NOTE | 2023-06-03 15:54 | PM.DS1 ---
DS: Providers Provider Date Seen: 06/03/23 Date of admission: 06/02/23 21:06 Primary care physician: ZOLTAN WATKINS DO Admitting Clinician: Joel Alatorre MD Attending Physician on discharge: Madonna Candelaria [facility] Hospitalist Date of Discharge: 06/03/23 DS: Diagnosis Discharge Diagnosis (1) CHF (congestive heart failure): Status: Acute Problem details: -BNP 4500 on admission -urine output >3L following IV furosemide. Hydrochlorothiazide discontinued. -transitioned to oral torsemide and will continue this at discharge. Recommend patient weighing herself daily. -echo on 06/03/2023 shows worsening ejection fraction, 49%. Full detailed report pending at time of discharge. -dietary consult completed, recommending heart healthy low-sodium diet. -mild hypokalemia 3.3, replaced with oral supplement. Discharged with 3 days oral supplementation, to be recheck by PCP. -will need outpatient follow-up with Cardiology - [facility] and PCP (2) Atrial fibrillation: Status: Acute Problem details: -Chronic, currently rate controlled -anticoagulation contraindicated due to AVM. Previously evaluated by [facility] and recommended for Watchmann device, however patient declined. -risk factor for worsening heart failure as well as stroke/heart attack discussed (3) Acute UTI: Status: Acute Problem details: -UC pending at time of discharge -received single dose of IV ceftriaxone in ED, transitioned to oral cephalexin and discharged with same to complete 5 day antibiotic course (4) Hyponatremia: Status: Acute Problem details: -sodium improved to 134, suspected related to hydrochlorothiazide which was discontinued -switched to torsemide -follow-up with recheck with PCP post hospital stay DS: Summary Hospital Course Hospital Course: [age] year old female past medical history significant for atrial fibrillation chronic anticoagulation contraindicated secondary to AVM, hypertension, chronic cough was admitted to the medical floor for chest pain and shortness of breath with bilateral lower extremity edema. Course of care and details as noted above. Remainder of chronic medical comorbidities were monitored and managed with home medications. Status at Discharge Overall status at discharge: patient is back to baseline Time Spent with Patient Time attestation: Total time spent providing and/or coordinating discharge services: Time spent: Greater than 30 minutes Exam Narrative: Exam Narrative: PHYSICAL EXAM General: Pleasant, conversant, NAD HEENT: Normocephalic, atraumatic, sclera white, EOMI, oral mucosa moist Cardiovascular: IRRR. Trace pitting edema Pulmonary: CTA bilaterally without rhonchi, rales, expiratory wheezes. No dyspnea Abdominal: Soft, nondistended, NTTP Neurological: Alert, answering questions appropriately, cranial nerves intact, no focal findings Extremities: No gross joint deformity or swelling. AROMI Skin: Warm, dry. No rash Const: Vital Signs, click to edit/add: Vital Signs - 24 hr 06/02/23 15:56 06/02/23 16:00 06/02/23 16:15 Temperature Pulse Rate 95 92 97 Pulse Rate [Pulse Oximeter] Respiratory Rate Blood Pressure Blood Pressure [Ri ght Arm] Pulse Oximetry 91 91 [facility] 16:39 06/02/23 16:45 06/02/23 17:00 Temperature Pulse Rate 112 H 93 115 H Pulse Rate [Pulse Oximeter] Respiratory Rate Blood Pressure Blood Pressure [Ri ght Arm] Pulse Oximetry 92 91 89 [facility] 06/02/23 17:15 06/02/23 17:30 06/02/23 17:45 Temperature Pulse Rate 96 81 97 Pulse Rate [Pulse Oximeter] Respiratory Rate Blood Pressure Blood Pressure [Ri ght Arm] Pulse Oximetry 90 93 90 [facility] 06/02/23 18:00 06/02/23 18:15 06/02/23 18:30 Temperature Pulse Rate 109 H 76 94 Pulse Rate [Pulse Oximeter] Respiratory Rate Blood Pressure 154/90 H Blood Pressure [Ri ght Arm] Pulse Oximetry 89 95 93 [facility] 06/02/23 18:31 06/02/23 18:45 06/02/23 19:00 Temperature Pulse Rate 93 97 89 Pulse Rate [Pulse Oximeter] Respiratory Rate Blood Pressure Blood Pressure [Ri ght Arm] Pulse Oximetry 93 93 96 [facility] 06/02/23 19:15 06/02/23 19:30 06/02/23 19:45 Temperature Pulse Rate 101 H 99 97 Pulse Rate [Pulse Oximeter] Respiratory Rate Blood Pressure Blood Pressure [Ri ght Arm] Pulse Oximetry 88 95 94 [facility] 06/02/23 20:00 06/02/23 20:15 06/02/23 20:30 Temperature Pulse Rate 92 98 92 Pulse Rate [Pulse Oximeter] Respiratory Rate Blood Pressure Blood Pressure [Ri ght Arm] Pulse Oximetry 96 92 91 Oxygen Delivery Me thod 06/02/23 20:45 06/02/23 22:00 06/02/23 22:54 Temperature 97.6 F 98.1 F Pulse Rate 92 Pulse Rate [Pulse Oximeter] 104 H 94 Respiratory Rate 20 18 Blood Pressure Blood Pressure [Ri ght Arm] 134/87 116/83 Pulse Oximetry 96 96 94 Oxygen Delivery Me thod Room Air Room Air 06/02/23 23:00 06/03/23 03:13 06/03/23 07:00 Temperature 97.5 F L 97.4 F L Pulse Rate 107 H Pulse Rate [Pulse Oximeter] 81 84 Respiratory Rate 18 16 Blood Pressure Blood Pressure [Ri ght Arm] 114/73 121/90 H Pulse Oximetry 93 93 Oxygen Delivery Me thod Room Air Room Air 06/03/23 08:07 06/03/23 10:47 Temperature 97.4 F L Pulse Rate 94 Pulse Rate [Pulse Oximeter] 87 Respiratory Rate 18 Blood Pressure Blood Pressure [Ri ght Arm] 123/79 Pulse Oximetry 94 Oxygen Delivery Me thod Room Air DS: Data Data Completed and Pending Labs on day of discharge: Labs from last 24 hours 06/03/23 06/02/23 06/02/23 05:48 18:48 18:12 WBC RBC Hgb Hct MCV MCH MCHC RDW Coeff of Koko Plt Count Neut % (Auto) Lymph % (Auto) [place] % (Auto) Eos % (Auto) Baso % (Auto) Neut # (Auto) Lymph # (Auto) [place] # (Auto) Eos # (Auto) Baso # (Auto) Abs Immat Gran (auto) Imm/Tot Granulo (auto) D-Dimer Quant (PE/DVT) Sodium 134 L Potassium 3.3 L Chloride 96 Carbon Dioxide 30 Anion Gap 8 BUN 9 Creatinine 1.0 Estimated Creat Clear 43.27 Estimated GFR 59 Glucose 93 Serum Osmolality Calcium 9.5 Magnesium Total Bilirubin AST ALT Alkaline Phosphatase Troponin I < 0.01 L NT-Pro-B Natriuret Pep Total Protein Albumin TSH Urine Color Urine Appearance Urine pH Ur Specific [place]ford Urine Protein Urine Glucose (UA) Urine Ketones Urine Blood Urine Nitrite Urine Bilirubin Urine Urobilinogen Ur Leukocyte Esterase Urine RBC Urine WBC Ur Squamous Epith Cells Urine Bacteria Ur Random Osmolality SARS-CoV-2 (PCR) Influenza Type A (PCR) Influenza Type B (PCR) Lab Acknowledgement Test Added 06/02/23 06/02/23 06/02/23 16:44 16:34 16:19 WBC RBC Hgb Hct MCV MCH MCHC RDW Coeff of Koko Plt Count Neut % (Auto) Lymph % (Auto) [place] % (Auto) Eos % (Auto) Baso % (Auto) Neut # (Auto) Lymph # (Auto) [place] # (Auto) Eos # (Auto) Baso # (Auto) Abs Immat Gran (auto) Imm/Tot Granulo (auto) D-Dimer Quant (PE/DVT) Sodium Potassium Chloride Carbon Dioxide Anion Gap BUN Creatinine Estimated Creat Clear Estimated GFR Glucose Serum Osmolality Calcium Magnesium Total Bilirubin AST ALT Alkaline Phosphatase Troponin I NT-Pro-B Natriuret Pep Total Protein Albumin TSH Urine Color Yellow Urine Appearance Clear Urine pH 7.0 Ur Specific [place] 1.010 Urine Protein Negative Urine Glucose (UA) Negative Urine Ketones Negative Urine Blood 2+ A Urine Nitrite Negative Urine Bilirubin Negative Urine Urobilinogen 0.2 Ur Leukocyte Esterase 1+ A Urine RBC 5-10 A Urine WBC 10-25 A Ur Squamous Epith Cells Few Urine Bacteria Few A Ur Random Osmolality Pending SARS-CoV-2 (PCR) Negative SARS-CoV-2 Influenza Type A (PCR) Negative PCR FLU A Influenza Type B (PCR) Negative PCR FLU B Lab Acknowledgement Test Added 06/02/23 15:50 WBC 7.53 RBC 4.08 Hgb 12.9 Hct 38.1 MCV 93 MCH 32 MCHC 34 RDW Coeff of Koko 13.0 Plt Count 208 Neut % (Auto) 73.2 H Lymph % (Auto) 18.1 L Dup[place] % (Auto) 6.2 Eos % (Auto) 1.9 Baso % (Auto) 0.5 Neut # (Auto) 5.50 Lymph # (Auto) 1.40 [place] # (Auto) 0.50 Eos # (Auto) 0.14 Baso # (Auto) 0.04 Abs Immat Gran (auto) 0.01 Imm/Tot Granulo (auto) 0.1 D-Dimer Quant (PE/DVT) 0.44 Sodium 129 L Potassium 3.8 Chloride 93 L Carbon Dioxide 29 Anion Gap 7 BUN 10 Creatinine 1.0 Estimated Creat Clear 43.27 Estimated GFR 59 Glucose 105 Serum Osmolality Pending Calcium 9.4 Magnesium 1.9 Total Bilirubin 0.9 AST 31 ALT 23 Alkaline Phosphatase 83 Troponin I < 0.01 L NT-Pro-B Natriuret Pep 4570 Total Protein 7.7 Albumin 4.5 TSH 1.600 Urine Color Urine Appearance Urine pH Ur Specific [place] Urine Protein Urine Glucose (UA) Urine Ketones Urine Blood Urine Nitrite Urine Bilirubin Urine Urobilinogen Ur Leukocyte Esterase Urine RBC Urine WBC Ur Squamous Epith Cells Urine Bacteria Ur Random Osmolality SARS-CoV-2 (PCR) Influenza Type A (PCR) Influenza Type B (PCR) Lab Acknowledgement Preliminary micro results at discharge 06/02/23 Unknown Urine Culture - Preliminary Urine,Clean Catch Discharge Plan Discharge Disposition: Home, Self-Care Date of Admission: 06/02/23 21:06 Attending Physician on Admission: Joel Alatorre Attending Provider on Discharge: Madonna Candelaria Primary Care Provider: ZOLTAN WATKINS Condition: Stable Anticipated Discharge Date/Time: 06/03/23 15:42 Discharge Medications: New cephalexin 500 mg Capsule 500 mg PO TID 4 Days Qty: 12 0RF potassium chloride 10 mEq Capsule, Extended Release 20 meq PO DAILYWM 3 Days Qty: 6 0RF torsemide 10 mg tablet 10 mg PO DAILY Qty: 30 0RF Continued atorvastatin 40 mg tablet 40 mg PO HS albuterol sulfate 90 mcg/actuation HFA aerosol inhaler 1 - 2 puff INHALATION Q4H PRN (Reason: dyspnea) fluticasone propionate 50 mcg/actuation spray,suspension 2 spray INTRANASAL DAILY lamotrigine 100 mg tablet 150 mg PO BID mirtazapine 7.5 mg tablet 7.5 mg PO HS aspirin 81 mg capsule 81 mg PO DAILY triamcinolone acetonide 0.1 % cream 1 applic topical 3XD PRN calcium carbonate-vitamin D3 [Calcium 600 + D(3)] 600 mg-10 mcg (400 unit) tablet 1 tab PO BID Prolia 60 mg/mL syringe 60 mg subcut [id number] Discontinued hydrochlorothiazide 12.5 mg tablet 12.5 mg PO DAILY Discharge Orders: Discharge Order (Routine); Ordered 06/03/23 Ordered By: Madonna Candelaria Patient Education: Heart Failure (DC), Urinary Tract Infection in Older Adults (DC) Additional Instructions: Continue to take her torsemide once daily, weighing yourself daily. Follow the heart healthy, low-sodium diet as discussed with the dietitian. You will need outpatient follow-up with your PCP and Cardiology for further evaluation and medication management recommendations for your blood pressure and heart failure. You have been given a short course of potassium replacement as well. You will need your potassium level checked with her PCP. Finish the course of antibiotics for urinary tract infection. A urine culture was pending at the time of discharge. Make sure to get your flu vaccine at your clinic or a local pharmacy. Activity Level: No Restrictions Discharge Diet: Heart Healthy (2 gm sodium, low fat) Diet Detail: per Dietary recommendations Follow Up Appointments: [facility] [Provider Group] - 06/10/23 (Post hospital follow-up heart failure, worsening ejection fraction, medication management) ZOLTAN WATKINS DO [Primary Care Provider] - 06/10/23 (Post hospital follow-up for resolution UTI, further evaluation and management of heart failure. Recheck BMP, potassium. Hypertension management. Recommend outpatient Cardiology follow-up) Forms: NSC Info Instructions Hospital Course: [age] year old female past medical history significant for atrial fibrillation chronic anticoagulation contraindicated secondary to AVM, hypertension, chronic cough was admitted to the medical floor for chest pain and shortness of breath with bilateral lower extremity edema. Course of care and details as noted above. Remainder of chronic medical comorbidities were monitored and managed with home medications.
--- NOTE | 2023-06-03 16:00 | NUTR.NU ---
RDN with nutrition screen for 2gm sodium diet. Nutrition education provided on a low sodium diet related to new diagnosis of congestive heart failure to patient and designated caregiver.? Verbal and written information provided. Recommend limiting sodium to 2,000 mg per day.? Discussed foods recommended and to avoid.? Handouts provided from [facility] on heart failure nutrition therapy, sodium content of foods, heart healthy label reading tips, sodium-free flavoring tips and heart healthy cooking and shopping tips.? Patient and designated caregiver verbalized understanding.?? RDN's contact information was provided and patient was encouraged to call with questions.?
--- NOTE | 2023-06-03 17:55 | PC.NURSE ---
Discharge Note: Pt A&O, pleasant and cooperative. Denies pain, SOB, CP, and N/V. VSS on RA. Tele d/c, read a-fib. IV discontinued with cath intact. Daughter present at discharge, discharge instructions given with pt and pt's daughter acknowledging understanding. All belongings and discharge instructions sent with pt, pt signed pt belongings form. Pt given wheelchair ride out to daughter's vehicle.
[2023-06-05 00:36] LABS: Urine Osmolality 148 mOsm/kg (50-800)
== END 2023-06-03 17:05 | disposition home or self-care (01) ==
LOC: ED 17:00 → MEDSURG 21:07
PROVIDERS: Admitting Provider Family Medicine; Emergency Provider Student in an Organized Health Care Education/Training Program; PCP Student in an Organized Health Care Education/Training Program; Visit Provider Family Medicine
DX: I50.31 Acute diastolic (congestive) heart failure (principal); E87.1 Hypo-osmolality and hyponatremia; N39.0 Urinary tract infection, site not specified; Q28.2 Arteriovenous malformation of cerebral vessels; R60.0 Localized edema; I11.0 Hypertensive heart disease with heart failure; I48.91 Unspecified atrial fibrillation; R30.0 Dysuria; D33.3 Benign neoplasm of cranial nerves; G40.909 Epilepsy, unspecified, not intractable, without status epilepticus; M81.0 Age-related osteoporosis without current pathological fracture; R00.8 Other abnormalities of heart beat; R05.9 Cough, unspecified; R06.01 Orthopnea; G47.33 Obstructive sleep apnea (adult) (pediatric); R07.9 Chest pain, unspecified; R06.02 Shortness of breath; R42 Dizziness and giddiness; Z79.82 Long term (current) use of aspirin; Z98.51 Tubal ligation status; Z98.890 Other specified postprocedural states; Z90.49 Acquired absence of other specified parts of digestive tract; Z96.643 Presence of artificial hip joint, bilateral; Z20.822 Contact with and (suspected) exposure to COVID-19; Z87.440 Personal history of urinary (tract) infections
CPT/HCPCS: 36415; 71046; 80048; 80053; 81001; 82436; 83735; 83880; 83930; 83935; 84133; 84300; 84443; 84484; 85025; 85379; 87086; 87631; 93005; 93306; 96361; 96374; 96375; 99283; 99285; G0378; A9270; J0696; J1940; J7120

== ENCOUNTER 2023-06-08 01:23 | Outpatient (CLI) | payer MEDICARE, BC, SELFPAY | END 2023-06-08 01:24 | disposition home or self-care (01) | LOC: AMB 06-13 14:35 | PROVIDERS: PCP Student in an Organized Health Care Education/Training Program; Visit Provider Family Medicine | DX: R07.89 Other chest pain (principal) | CPT/HCPCS: A0425; A0427 ==

== ENCOUNTER 2023-06-08 02:07 | Emergency (ER) | payer MEDICARE, BC, SELFPAY ==
[2023-06-08] VITALS (10 sets, daily range): BP systolic 107–137; BP diastolic 62–102; PULSE 53–90; RESP 18; TEMP 36.2; O2SAT 93–95
--- NOTE | 2023-06-08 02:33 | CRLHL7_ITS ---
For Patients: As a result of the Cures Act, medical imaging exams and procedure reports are released immediately into your electronic medical record. You may view this report before your referring provider. If you have questions, please contact your health care provider. INDICATION: Chest pain TECHNIQUE: Chest radiograph 2 views COMPARISON: 06/02/2023 FINDINGS: Mediastinum: The mediastinum is normal in appearance. The heart silhouette is normal in size and morphology. Lung: Both lungs are unremarkable in appearance with small lung volumes. No sign of pleural effusion seen. No pneumothorax is identified. Bone and Soft tissue: Unremarkable for age. IMPRESSION: 1. No acute cardiopulmonary disease is seen. Dictated by: Desmond Morales MD @ 06/08/2023 03:12:37 (Electronically Signed)
--- NOTE | 2023-06-08 02:35 | ED_ITS ---
HPI - General Adult General Chief complaint: Chest Pain Stated complaint: chest pain Time Seen by Provider: 06/08/23 02:30 Source: patient Mode of arrival: EMS Limitations: no limitations History of Present Illness HPI narrative: 72-year-old female presents the emergency department for evaluation of chest pain. Chest pain started approximately 1 hour prior to arrival at rest. Located in the right chest, then begin moving to the left side. It then started radiating into the neck and left arm. It is not accompanied by dizziness or shortness of breath. No fevers, no falls or trauma. No cough. She called EMS. She was given aspirin in the rig and 3 nitroglycerin. She reports that those interventions did not help her symptoms but then also tells me that her chest pain is improving, I am not sure what to make of this. Appetite has been fine, no nausea or vomiting. She reports that she was hospitalized last week. She does not remember the details of this but tells me she does not have a history of coronary artery disease. I attempt to probe in ask very specific questions and she is completely unable to answer these. She cannot list her medications and it is clear that she does have some memory lapses. She does not seem surprised by these however. 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 She was diagnosed with congestive heart failure and was diuresed, then started on oral diuretics. It sounds like she might be taking those but when she lists her morning medications for me, she does not list a water pill. I did get the impression that she does not manage her own medications. She cannot give me any more details regarding the chest pain this. Past medical history is reviewed from recent hospitalization and discharge summary. Recent echo reviewed as well, overall reassuring. Past medical history is most notable for hyperlipidemia, AFib, CHF. Sounds like it is night had class 2 at this time. She also reports a history of seizure disorder. No prior coronary artery disease, bypass or stents. ROS is notable for the chest symptoms as described above, otherwise denies times 12 systems. I reviewed her echo as well and this showed an EF of only 48% but was not that dissimilar to the 1 she had had a couple of years prior. No obvious acute valvular disease at that time, it was taken on the day of admission and she was a little fluid overloaded at the time. Related Data Home Medications Medication Instructions Recorded Confirmed albuterol sulfate 90 mcg/actuation 1 - 2 puff inhalation Q4H PRN 06/02/23 06/02/23 aerosol inhaler dyspnea aspirin 81 mg capsule 81 mg PO DAILY 06/02/23 06/02/23 atorvastatin 40 mg tablet 40 mg PO HS 06/02/23 06/03/23 fluticasone propionate 50 2 spray intranasal DAILY 06/02/23 06/02/23 mcg/actuation nasal spray,suspension lamotrigine 100 mg tablet 150 mg PO BID 06/02/23 06/03/23 mirtazapine 7.5 mg tablet 7.5 mg PO HS 06/02/23 06/03/23 calcium carbonate 600 mg-vitamin 1 tab PO BID 06/03/23 06/03/23 D3 10 mcg (400 unit) tablet (Calcium 600 + D(3)) denosumab 60 mg/mL subcutaneous 60 mg subcut [id number] 06/03/23 06/03/23 syringe (Prolia) triamcinolone acetonide 0.1 % 1 applic topical 3XD PRN 06/03/23 06/03/23 topical cream Previous Rx's Medication Instructions Recorded cephalexin 500 mg capsule 500 mg PO TID 4 days #12 caps 06/03/23 potassium chloride 10 mEq 20 meq (2 x 10 mEq) PO DAILYWM 3 06/03/23 capsule,extended release days #6 caps torsemide 10 mg tablet 10 mg PO DAILY #30 tabs 06/03/23 Allergies Allergy/AdvReac Type Severity Reaction Status Date / Time No Known Drug Allergies Allergy Verified 06/02/23 15:34 [facility] Medical History Osteoporosis ?M81.0 - Age-related osteoporosis without current pathological fracture (ICD- 10) TIA (transient ischemic attack) ?G45.9 - Transient cerebral ischemic attack, unspecified (ICD-10) Atrial fibrillation ?I48.91 - Unspecified atrial fibrillation (ICD-10) Anxiety ?F41.9 - Anxiety disorder, unspecified (ICD-10) Depression ?F32.A - Depression, unspecified (ICD-10) Hypertension ?I10 - Essential (primary) hypertension (ICD-10) 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 of cranial nerves (ICD-10) Lower extremity edema ?R60.0 - Localized edema (ICD-10) Obstructive sleep apnea ?G47.33 - Obstructive sleep apnea (adult) (pediatric) (ICD-10) Seizure disorder ?G40.909 - Epilepsy, unspecified, not intractable, without status epilepticus (ICD-10) AVM (arteriovenous malformation) brain ?Q28.2 - Arteriovenous malformation of cerebral vessels (ICD-10) Surgical History History of tubal ligation ?Z98.51 - Tubal ligation status (ICD-10) History of D&C ?Z98.890 - Other specified postprocedural states (ICD-10) History of breast biopsy ?Z98.890 - Other specified postprocedural states (ICD-10) History of cholecystectomy ?Z90.49 - Acquired absence of other specified parts of digestive tract (ICD- 10) History of bilateral hip arthroplasty ?Z96.643 - Presence of artificial hip joint, bilateral (ICD-10) Family History Other High blood pressure Seizure disorder Social History Narrative: She lives independently in her own home in [place]. Her daughter and multiple other family members live nearby. Her daughter Elke is healthcare power of assistant prosecuting attorney. Her code status is full. She is a nonsmoker. She does not drink alcohol. She does drive her own car. She does not use assistive device when she walks. She is able to manage her own affairs. What is your current living situation?: I presently have a place to live Problems where you live: no known problems Problems where you live details: n/a In the past 12 months, utilities in danger of being shut off: no In past 12 months, lack of transportation kept you from medical appts, meetings, work, or getting things needed for daily living: no In the past 12 mos, have been you worried that your food would run out before you had money to buy more?: never true In the past 12 mos, the food you bought just didn't last and you didn't have money to buy more?: never true Highest level of school completed/degree received: high school graduate Smoking Status: Never smoker Do you use any of these nicotine containing products: None How often do you have a drink containing alcohol: never AUDIT-C Alcohol total score: 0 Non-prescribed substance use: denies use Caffeine: Yes How often does anyone, including family, friends and others, physically hurt you : never How often does anyone, including family, friends and others, insult or talk down to you: never How often does anyone, including family, friends and others, threaten you with harm: never How often does anyone, including family, friends and others, scream or curse at you: never service: No Exam Const: Vital Signs, click to edit/add: Vital Signs - 24 hr 06/08/23 02:20 06/08/23 02:32 06/08/23 02:47 Temperature 97.1 F L Pulse Rate 84 55 L Pulse Rate [Right Pulse Oximeter] 86 Respiratory Rate 18 18 18 Blood Pressure 137/76 124/85 Blood Pressure [Le ft Upper Arm] 136/76 Pulse Oximetry 94 94 95 Oxygen Delivery Me thod Room Air 06/08/23 03:02 06/08/23 03:17 06/08/23 03:31 Temperature Pulse Rate 89 89 53 L Pulse Rate [Right Pulse Oximeter] Respiratory Rate 18 18 18 Blood Pressure 128/80 117/64 107/81 Blood Pressure [Le ft Upper Arm] Pulse Oximetry 95 95 93 Oxygen Delivery Me thod 06/08/23 03:47 Temperature Pulse Rate 80 Pulse Rate [Right Pulse Oximeter] Respiratory Rate 18 Blood Pressure 126/71 Blood Pressure [Le ft Upper Arm] Pulse Oximetry 94 Oxygen Delivery Me thod Documenting provider has reviewed patient's vital signs: yes Common normals: no apparent distress and alert Orientation/consciousness: Yes awake Other: Mild memory impairment evident. Appears well-nourished, well-hydrated, no evidence of agitation or delirium. HENMT: Common normals: normocephalic and head/scalp atraumatic Head and scalp: normocephalic and atraumatic Mouth: oral and palatal mucosa normal Eye: Common normals: conjunctivae normal General eye: normal appearance of both eyes Conjunctiva: conjunctiva(e) normal Neck & C-Spine: Common normals: full ROM and no lymphadenopathy Resp: Common normals: normal respiratory effort, no use of accessory muscles and clear to auscultation bilaterally Effort & inspection: able to speak in complete sentences Auscultation: clear to auscultation bilaterally Cardio: Other: Irregularly irregular with positive S1 and S2. No obvious gallop. No murmur. GI: Common normals: Normal to inspection, nondistended, normoactive bowel sounds present, soft to palpation, non-tender, no hepatosplenomegaly and no masses Palpation: soft and no hepatosplenomegaly Extremity: Other: Trace bilateral edema which she states is normal for her. Neuro: Sensorium/orientation: awake and alert Speech: speech normal Motor exam: no movement abnormalities noted Psych: Attitude: engaged Activity/motor behavior: appropriate eye contact Mood and affect: euthymic mood Other: Mild memory impairment Skin: Common normals: no rashes or lesions noted General skin exam: no rashes or lesions noted Course Course ED Course: Chest pain at rest with history of AFib and congestive heart failure, recent hospitalization medication adjustments. Uncertain if she improved with the nitroglycerin based on her description. I do think that her memory impairment is a barrier to interpreting this. Recommend chest x-ray, troponin, serial labs and library monitor. Chest x-ray. Await results. Reevaluation(s) Time of Reevaluation #1: 04:23 Reevaluation #1: Patient reports that the pain has continued to improve and is now gone. Denies heartburn, nausea, dizziness, shortness of breath or any other symptoms. I spent some time reviewing her sodium levels. One hundred twenty-seven is similar to the 129 that she came in with last week to the hospital. She is not showing any signs of significant worsening CHF or fluid overload. At 1:27 a.m. today, she does not meet criteria to come into the hospital. Chest x-ray looks reassuring. EKG does not show any changes. Troponins remained stable. We had her stand for an accurate weight. This is similar to her discharge weight which is down from her previous admission. Family is now present, we discussed the findings. We reviewed the alarm symptoms that would warrant repeat ED presentation, they verbalized understanding and agreement. They are agreeable to keeping their follow-up appointment on Saturday which is 2 days from now to recheck the sodium and potassium levels. They will also recheck weight and blood pressure. She has her cardiology appointment coming up in about 2 weeks. She is to keep a symptom diary and if she continues to have chest pain, make sure she brings it up at that appointment. Any severe symptoms would need to be evaluated right away. No signs of any rapid AFib. Vital Signs Vital signs: Initial Vital Signs Temperature 97.1 F L 06/08/23 02:20 Temperature Source Temporal Artery Scan 06/08/23 02:20 Pulse Rate 86 06/08/23 02:20 Pulse Rhythm Irregular 06/08/23 02:20 Respiratory Rate 18 06/08/23 02:20 Blood Pressure 136/76 06/08/23 02:20 Blood Pressure Mean 96 06/08/23 02:20 Blood Pressure Position Semi-Fowlers 06/08/23 02:20 Pulse Oximetry 94 06/08/23 02:20 Oxygen Delivery Method Room Air 06/08/23 02:20 Vital Signs Temperature 97.1 F L 06/08/23 02:20 Pulse Rate 86 06/08/23 02:20 Respiratory Rate 18 06/08/23 02:20 Blood Pressure 136/76 06/08/23 02:20 Pulse Oximetry 94 06/08/23 02:20 Oxygen Delivery Method Room Air 06/08/23 02:20 Temperature 97.1 F L 06/08/23 02:20 Pulse Rate 80 06/08/23 03:47 Respiratory Rate 18 06/08/23 03:47 Blood Pressure 126/71 06/08/23 03:47 Pulse Oximetry 94 06/08/23 03:47 Oxygen Delivery Method Room Air 06/08/23 02:20 Medical Decision Making Lab Data Lab results reviewed: Yes I reviewed the patient's lab results Labs: Lab Results 06/08/23 06/08/23 Range/Units 02:44 04:15 WBC 5.23 (4.50-11.00) K/uL RBC 4.12 (4.00-5.20) m/uL Hgb 12.9 (12.0-16.0) gm/dL Hct 37.1 (33.0-51.0) % MCV 90 (80-100) fL MCH 31 (26-34) pg MCHC 35 (32-36) gm/dL RDW Coeff of [place] 12.6 (11.5-15.5) % Plt Count 207 (140-440) K/uL Neut % (Auto) 62.6 (42.0-72.0) % Lymph % (Auto) 24.1 (20-44) % [place] % (Auto) 9.8 (0.0-11.0) % Eos % (Auto) 3.1 (0.0-7.0) % Baso % (Auto) 0.4 (0.0-3.0) % Neut # (Auto) 3.28 (1.7-7.0) K/uL Lymph # (Auto) 1.26 (0.90-2.90) K/uL [place] # (Auto) 0.50 (0.00-0.90) K/UL Eos # (Auto) 0.16 (0.00-0.50) K/uL Baso # (Auto) 0.02 (0.00-0.30) K/uL Abs Immat Gran (auto) 0.00 (0.00-0.30) K/uL Imm/Tot Granulo (auto) 0.0 % D-Dimer Quant (PE/DVT) 0.47 (0.00-0.50) ug/ml Sodium 127 L (135-149) mmol/L Potassium 3.9 (3.6-5.1) mmol/L Chloride 93 L (96-114) mmol/L Carbon Dioxide 24 (20-32) mmol/L Anion Gap 10 (7-15) mEq/L BUN 14 (7-30) mg/dL Creatinine 1.1 (0.5-1.5) mg/dL Estimated GFR 53 ml/min Glucose 101 (60-115) mg/dL Calcium 9.5 (8.4-10.6) mg/dL Troponin I < 0.01 L (0.01-0.04) ng/mL NT-Pro-B Natriuret Pep 2510 pg/mL POC Troponin I 0.01 0.00 L (0.01-0.04) ng/ml Imaging Data Chest x-ray: Attestation: I have reviewed the pertinent imaging results. My impression: Normal chest x-ray, less CHF than last week Radiologist's impression: IMPRESSION: 1. No acute cardiopulmonary disease is seen. ECG Data Attestation: I personally reviewed and interpreted this ECG as follows: Prior ECG tracings: available for review (Comparison earlier this month) Interpretation: Sinus rhythm with lots of PVCs, rate 93. [place] is slightly deviated to the left. No obvious ischemic changes compared to last month. Discharge Plan Discharge Clinical Impression: Hyponatremia, Chest pain at rest Patient Disposition: Home w/ Parent or Adult Condition: Improved Instructions: Chest Pain (DC) Additional Instructions: As we discussed, there are no signs of a heart attack or worsening heart failure today. Your sodium levels are a little low which is an ongoing issue for you. I would like these rechecked at your upcoming appointment Saturday. Your potassium levels have improved which is reassuring. Keep taking your water pills and your other medications as prescribed. Your chest x-ray and other labs look great today. I am not sure what caused this episode of chest pain but it could be related to something with the musculoskeletal system, heartburn or a short episode of rapid heart rate from your AFib. Overall though, no changes need to be made. Keep track of any chest pain and update your development professional at your upcoming appointment. If you have any severe chest pain, especially if accompanied by shortness of breath, dizziness or neurological changes, come back to the emergency room. Activity Level: Activity as Tolerated Discharge Diet: Regular Prescriptions: No Action atorvastatin 40 mg tablet 40 mg PO HS albuterol sulfate 90 mcg/actuation HFA aerosol inhaler 1 - 2 puff INHALATION Q4H PRN (Reason: dyspnea) fluticasone propionate 50 mcg/actuation spray,suspension 2 spray INTRANASAL DAILY lamotrigine 100 mg tablet 150 mg PO BID mirtazapine 7.5 mg tablet 7.5 mg PO HS aspirin 81 mg capsule 81 mg PO DAILY triamcinolone acetonide 0.1 % cream 1 applic topical 3XD PRN calcium carbonate-vitamin D3 [Calcium 600 + D(3)] 600 mg-10 mcg (400 unit) tablet 1 tab PO BID Prolia 60 mg/mL syringe 60 mg subcut [id number] cephalexin 500 mg Capsule 500 mg PO TID 4 Days Qty: 12 0RF potassium chloride 10 mEq Capsule, Extended Release 20 meq PO DAILYWM 3 Days Qty: 6 0RF torsemide 10 mg tablet 10 mg PO DAILY Qty: 30 0RF Follow Up/Referrals: ZOLTAN WATKINS DO [Primary Care Provider] - Stand Alone [facility]: [facility] Info Instructions
[2023-06-08 02:51] LABS: Basophils Absolute Auto 0.02 K/uL (0.00-0.30); Basophils Percent Auto 0.4 % (0.0-3.0); Eosinophils Absolute Auto 0.16 K/uL (0.00-0.50); Eosinophils Percent Auto 3.1 % (0.0-7.0); Hematocrit 37.1 % (33.0-51.0); Hemoglobin* 12.9 gm/dL (12.0-16.0); Lymphocytes Absolute Auto 1.26 K/uL (0.90-2.90); Lymphocytes Percent Auto 24.1 % (20-44); Mean Corpuscular HGB Conc 35 gm/dL (32-36); Mean Corpuscular Hemoglobin 31 pg (26-34); Mean Corpuscular Volume 90 fL (80-100); Monocytes Percent Auto 9.8 % (0.0-11.0); Neutrophils Absolute Auto 3.28 K/uL (1.7-7.0); Neutrophils Percent Auto 62.6 % (42.0-72.0); Platelet Count* 207 K/uL (140-440); RDW Coefficient of Variation % 12.6 % (11.5-15.5); Red Blood Count 4.12 m/uL (4.00-5.20); White Blood Count* 5.23 K/uL (4.50-11.00)
[2023-06-08 02:55] LABS: Slide Review Reflex No
[2023-06-08 02:56] LABS: Troponin, Point-of-Care* 0.01 ng/ml (0.01-0.04)
[2023-06-08 03:01] LABS: Chloride* 93 mmol/L (96-114)
[2023-06-08 03:02] LABS: Potassium* 3.9 mmol/L (3.6-5.1); Sodium* 127 mmol/L (135-149)
[2023-06-08 03:04] LABS: Creatinine* 1.1 mg/dL (0.5-1.5); Estimated Glomerular Filt Rate 53 ml/min
[2023-06-08 03:05] LABS: Anion Gap 10 mEq/L (7-15); Blood Urea Nitrogen* 14 mg/dL (7-30); Calcium* 9.5 mg/dL (8.4-10.6); Carbon Dioxide* 24 mmol/L (20-32); Glucose* 101 mg/dL (60-115)
[2023-06-08 03:16] LABS: NT Pro B Type NatriureticPept* 2510 pg/mL
[2023-06-08 03:18] LABS: Troponin I* < 0.01 ng/mL (0.01-0.04)
[2023-06-08 03:39] LABS: D Dimer Quantitative* 0.47 ug/ml (0.00-0.50)
--- NOTE | 2023-06-08 04:55 | PC.NURSE ---
patient DC with family, no further questions. patient ambulatory and alert
== END 2023-06-08 04:54 | disposition home or self-care (01) ==
LOC: ED 04:50
PROVIDERS: Emergency Provider Family Medicine; PCP Student in an Organized Health Care Education/Training Program
DX: R07.9 Chest pain, unspecified (principal); E87.1 Hypo-osmolality and hyponatremia
CPT/HCPCS: 36415; 71046; 80048; 83880; 84484; 85025; 85379; 93005; 99284

== ENCOUNTER 2023-06-20 11:09 | Emergency (ER) | payer MEDICARE, BC, SELFPAY ==
[2023-06-20] VITALS (27 sets, daily range): BP systolic 118–137; BP diastolic 69–90; PULSE 64–89; RESP 18; TEMP 36.5; O2SAT 93–99; BMI 32.3
--- NOTE | 2023-06-20 11:28 | CRLHL7_ITS ---
For Patients: As a result of the Century Cures Act, medical imaging exams and procedure reports are released immediately into your electronic medical record. You may view this report before your referring provider. If you have questions, please contact your health care provider. INDICATION: Chest pain TECHNIQUE: Chest 2 views COMPARISON: 06/08/2023 FINDINGS: Cardiac silhouette is enlarged. Aortic tortuosity. Mild areas of scarring are present bilaterally. No infiltrate or edema. No effusion or pneumothorax. Degenerative changes. IMPRESSION: No acute findings. Dictated by Kwabena Eden MD @ 06/20/2023 12:03:22 PM (Electronically Signed)
--- NOTE | 2023-06-20 11:29 | ED.CHESTPAIN ---
HPI - Chest Pain General Date Seen: 06/20/23 Chief Complaint: Chest Pain Stated Complaint: Chest pain, pain down L arm Time Seen by Provider: 06/20/23 11:16 Source: patient Mode of arrival: ambulatory Limitations: no limitations History of Present Illness HPI narrative: Patient is a 72-year-old female with history of CHF, hyperlipidemia, hypertension presenting to the emergency department for chest pain. Patient states she woke up this morning with right-sided chest pain is radiating into left side of the chest and down her left arm. Since then the left arm numbness and pain has gone away in all the pain is now on the right side of the chest again. She denies having symptoms like this before. Denies fevers, chills, shortness of breath, weakness, fatigue. She does state while she was walking to the ED room she became lightheaded and family states she looked pale. She was sat down and states the lightheadedness is improvement but it is still there. She does states she has been having discolored urine for past few days but does also states she was put on an antibiotic for UTI couple weeks ago. Denies any dysuria. Denies abdominal pain, nausea, vomiting, diarrhea, constipation. Related Data Home Medications Medication Instructions Recorded Confirmed albuterol sulfate 90 mcg/actuation 1 - 2 puff inhalation Q4H PRN 06/02/23 06/02/23 aerosol inhaler dyspnea aspirin 81 mg capsule 81 mg PO DAILY 06/02/23 06/02/23 atorvastatin 40 mg tablet 40 mg PO HS 06/02/23 06/03/23 fluticasone propionate 50 2 spray intranasal DAILY 06/02/23 06/02/23 mcg/actuation nasal spray,suspension lamotrigine 100 mg tablet 150 mg PO BID 06/02/23 06/03/23 mirtazapine 7.5 mg tablet 7.5 mg PO HS 06/02/23 06/03/23 calcium carbonate 600 mg-vitamin 1 tab PO BID 06/03/23 06/03/23 D3 10 mcg (400 unit) tablet (Calcium 600 + D(3)) denosumab 60 mg/mL subcutaneous 60 mg subcut [id number] 06/03/23 06/03/23 syringe (Prolia) triamcinolone acetonide 0.1 % 1 applic topical 3XD PRN 06/03/23 06/03/23 topical cream Previous Rx's Medication Instructions Recorded cephalexin 500 mg capsule 500 mg PO TID 4 days #12 caps 06/03/23 potassium chloride 10 mEq 20 meq (2 x 10 mEq) PO DAILYWM 3 06/03/23 capsule,extended release days #6 caps torsemide 10 mg tablet 10 mg PO DAILY #30 tabs 06/03/23 Allergies Allergy/AdvReac Type Severity Reaction Status Date / Time No Known Drug Allergies Allergy Verified 06/02/23 15:34 Review of Systems Status of ROS Reports: 10 or more systems reviewed and unremarkable except as noted in History and below [facility] Medical History Osteoporosis ?M81.0 - Age-related osteoporosis without current pathological fracture (ICD-10) TIA (transient ischemic attack) ?G45.9 - Transient cerebral ischemic attack, unspecified (ICD-10) Atrial fibrillation ?I48.91 - Unspecified atrial fibrillation (ICD-10) Anxiety ?F41.9 - Anxiety disorder, unspecified (ICD-10) Depression ?F32.A - Depression, unspecified (ICD-10) Hypertension ?I10 - Essential (primary) hypertension (ICD-10) 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 of cranial nerves (ICD-10) Lower extremity edema ?R60.0 - Localized edema (ICD-10) Obstructive sleep apnea ?G47.33 - Obstructive sleep apnea (adult) (pediatric) (ICD-10) Seizure disorder ?G40.909 - Epilepsy, unspecified, not intractable, without status epilepticus (ICD-10) AVM (arteriovenous malformation) brain ?Q28.2 - Arteriovenous malformation of cerebral vessels (ICD-10) Surgical History History of tubal ligation ?Z98.51 - Tubal ligation status (ICD-10) History of D&C ?Z98.890 - Other specified postprocedural states (ICD-10) History of breast biopsy ?Z98.890 - Other specified postprocedural states (ICD-10) History of cholecystectomy ?Z90.49 - Acquired absence of other specified parts of digestive tract (ICD-10) History of bilateral hip arthroplasty ?Z96.643 - Presence of artificial hip joint, bilateral (ICD-10) Family History Other High blood pressure Seizure disorder Social History Narrative: She lives independently in her own home in [place]. Her daughter and multiple other family members live nearby. Her daughter Elke is healthcare power of machine operator hop picker. Her code status is full. She is a nonsmoker. She does not drink alcohol. She does drive her own car. She does not use assistive device when she walks. She is able to manage her own affairs. What is your current living situation?: I presently have a place to live Problems where you live: no known problems Problems where you live details: n/a In the past 12 months, utilities in danger of being shut off: no In past 12 months, lack of transportation kept you from medical appts, meetings, work, or getting things needed for daily living: no In the past 12 mos, have been you worried that your food would run out before you had money to buy more?: never true In the past 12 mos, the food you bought just didn't last and you didn't have money to buy more?: never true Highest level of school completed/degree received: high school graduate Smoking Status: Never smoker Do you use any of these nicotine containing products: None How often do you have a drink containing alcohol: never AUDIT-C Alcohol total score: 0 Non-prescribed substance use: denies use Caffeine: Yes How often does anyone, including family, friends and others, physically hurt you: never How often does anyone, including family, friends and others, insult or talk down to you: never How often does anyone, including family, friends and others, threaten you with harm: never How often does anyone, including family, friends and others, scream or curse at you: never service: No Exam Narrative Exam Narrative: Const: Well-nourished, Well-developed, in mild distress Eyes: PERRL, no conjunctival injection, and symmetrical lids HENT: Atraumatic external nose and ears. Moist mucous membranes. Neck: Symmetric, trachea midline, No thyromegaly. CVS: RRR, No murmurs or gallops. Peripheral pulses 2+ and equal in all extremities RESP: Unlabored respiratory effort. Clear to auscultation bilaterally. GI: Suprapubic tenderness, Nondistended, No rebound or guarding. MSK:Extremities w/o deformity, Normal Active ROM Skin: Warm, Dry. No rashes or lesions. Neuro: Normal Muscle tone, No focal neurological deficits. Psych: Awake, Alert, & Oriented x3. Appropriate mood and affect. Const Vital Signs, click to edit/add: Vital Signs - 24 hr 06/20/23 11:17 06/20/23 11:33 06/20/23 11:45 Temperature 97.7 F Pulse Rate 64 81 Pulse Rate [Right Pulse Oximeter] 70 Respiratory Rate 18 Blood Pressure Blood Pressure [Right Upper Arm] 137/90 H Pulse Oximetry 97 97 96 Oxygen Delivery Method Room Air 06/20/23 11:48 06/20/23 11:56 06/20/23 12:00 Temperature Pulse Rate 88 79 Pulse Rate [Right Pulse Oximeter] Respiratory Rate Blood Pressure 134/79 Blood Pressure [Right Upper Arm] Pulse Oximetry 98 97 Oxygen Delivery Method 06/20/23 12:02 06/20/23 12:15 06/20/23 12:30 Temperature Pulse Rate 75 79 82 Pulse Rate [Right Pulse Oximeter] Respiratory Rate Blood Pressure 125/84 Blood Pressure [Right Upper Arm] Pulse Oximetry 98 97 98 Oxygen Delivery Method 06/20/23 12:32 06/20/23 12:45 06/20/23 13:00 Temperature Pulse Rate 81 76 89 Pulse Rate [Right Pulse Oximeter] Respiratory Rate Blood Pressure 122/73 Blood Pressure [Right Upper Arm] Pulse Oximetry 96 96 98 Oxygen Delivery Method 06/20/23 13:02 06/20/23 13:03 06/20/23 13:15 Temperature Pulse Rate 78 81 77 Pulse Rate [Right Pulse Oximeter] Respiratory Rate Blood Pressure 132/90 H Blood Pressure [Right Upper Arm] Pulse Oximetry 97 98 Oxygen Delivery Method 06/20/23 13:34 06/20/23 13:35 06/20/23 13:45 Temperature Pulse Rate 67 77 69 Pulse Rate [Right Pulse Oximeter] Respiratory Rate Blood Pressure 136/72 Blood Pressure [Right Upper Arm] Pulse Oximetry 98 98 98 Oxygen Delivery Method 06/20/23 14:00 06/20/23 14:02 06/20/23 14:15 Temperature Pulse Rate 70 84 85 Pulse Rate [Right Pulse Oximeter] Respiratory Rate Blood Pressure 126/75 Blood Pressure [Right Upper Arm] Pulse Oximetry 98 96 98 Oxygen Delivery Method 06/20/23 14:30 06/20/23 14:32 06/20/23 14:45 Temperature Pulse Rate 69 83 86 Pulse Rate [Right Pulse Oximeter] Respiratory Rate Blood Pressure 118/71 Blood Pressure [Right Upper Arm] Pulse Oximetry 96 99 96 Oxygen Delivery Method Course Vital Signs Vital signs: Initial Vital Signs Temperature 97.7 F 06/20/23 11:17 Temperature Source Temporal Artery Scan 06/20/23 11:17 Pulse Rate 70 06/20/23 11:17 Respiratory Rate 18 06/20/23 11:17 Blood Pressure 137/90 H 06/20/23 11:17 Blood Pressure Mean 105 06/20/23 11:17 Blood Pressure Position Sitting 06/20/23 11:17 Pulse Oximetry 97 06/20/23 11:17 Oxygen Delivery Method Room Air 06/20/23 11:17 Vital Signs Temperature 97.7 F 06/20/23 11:17 Pulse Rate 70 06/20/23 11:17 Respiratory Rate 18 06/20/23 11:17 Blood Pressure 137/90 H 06/20/23 11:17 Pulse Oximetry 97 06/20/23 11:17 Oxygen Delivery Method Room Air 06/20/23 11:17 Temperature 97.7 F 06/20/23 11:17 Pulse Rate 86 06/20/23 14:45 Respiratory Rate 18 06/20/23 11:17 Blood Pressure 118/71 06/20/23 14:32 Pulse Oximetry 96 06/20/23 14:45 Oxygen Delivery Method Room Air 06/20/23 11:17 MDM - Chest Pain MDM Narrative Medical decision making narrative: Patient 72-year-old female presented emergency department for chest pain. Pain is in the right side of the chest initially went to the left-sided dominant left arm. That has since resolved and now she just has the right-sided chest pain again. She is tender palpation the chest in when I pressed on her chest she states that reproduces symptoms exactly. We will do a cardiac workup to rule out ACS. PE seems unlikely at this time. She is otherwise a good stable aortic dissection appears unlikely. Chest x-ray will be ordered to rule out pneumothorax and pneumonia which both seem unlikely. COVID and flu also ordered. CBC, CMP, urinalysis, COVID/flu also no concerning abnormalities. BNP was ordered and was same as it was a few weeks ago. She is not having any signs of CHF. EKG appears similar to previous EKGs on file His troponin within normal limits. We did do a repeat delta troponin that was also normal. The repeat troponin had to be a point of care because the machine was down would be done several hours. She states the symptoms have fully resolved and she feels well. Considering the symptoms and appears to be most more likely musculoskeletal. She probably has been over working herself at work since she just started up again over the past couple days. She will be discharged home she agrees with this plan. Lab Data Labs: Lab Results 06/20/23 06/20/23 06/20/23 Range/Units 11:20 11:35 14:44 WBC 5.71 (4.50-11.00) K/uL RBC 4.54 (4.00-5.20) m/uL Hgb 14.1 (12.0-16.0) gm/dL Hct 42.3 (33.0-51.0) % MCV 93 (80-100) fL MCH 31 (26-34) pg MCHC 33 (32-36) gm/dL RDW Coeff of [place] 13.2 (11.5-15.5) % Plt Count 300 (140-440) K/uL Neut % (Auto) 66.0 (42.0-72.0) % Lymph % (Auto) 24.5 (20-44) % [place] % (Auto) 6.1 (0.0-11.0) % Eos % (Auto) 3.0 (0.0-7.0) % Baso % (Auto) 0.4 (0.0-3.0) % Neut # (Auto) 3.77 (1.7-7.0) K/uL Lymph # (Auto) 1.40 (0.90-2.90) K/uL [place] # (Auto) 0.30 (0.00-0.90) K/UL Eos # (Auto) 0.17 (0.00-0.50) K/uL Baso # (Auto) 0.02 (0.00-0.30) K/uL Abs Immat Gran (auto) 0.00 (0.00-0.30) K/uL Imm/Tot Granulo (auto) 0.0 % Sodium 136 (135-149) mmol/L Potassium 4.1 (3.6-5.1) mmol/L Chloride 100 (96-114) mmol/L Carbon Dioxide 26 (20-32) mmol/L Anion Gap 10 (7-15) mEq/L BUN 16 (7-30) mg/dL Creatinine 1.3 (0.5-1.5) mg/dL Estimated Creat Clear 36.08 Estimated GFR 43 ml/min Glucose 96 (60-115) mg/dL Calcium 9.5 (8.4-10.6) mg/dL Magnesium 2.2 (1.5-2.6) mg/dL Total Bilirubin 1.2 (0.1-1.5) mg/dL AST 27 (12-35) U/L ALT 19 (4-35) U/L Alkaline Phosphatase 65 (40-150) U/L Troponin I < 0.01 L (0.01-0.04) ng/mL NT-Pro-B Natriuret Pep 2610 pg/mL Total Protein 8.3 (6.0-8.3) g/dL Albumin 4.9 (3.3-5.0) g/dL Urine Color Yellow (Yellow) Urine Appearance Clear (Clear) Urine pH 6.5 (5.0-8.5) Ur Specific [place] <= 1.005 (1.000-1.030) Urine Protein Negative (Negative) Urine Glucose (UA) Negative (Negative) Urine Ketones Negative (Negative) Urine Blood Negative (Negative) Urine Nitrite Negative (Negative) Urine Bilirubin Negative (Negative) Urine Urobilinogen 0.2 (0.2-1.0) Ur Leukocyte Esterase Trace A (Negative) Urine RBC 0-2 (0-2) Urine WBC 2-5 (0-5) Ur Squamous Epith Cells Few (None-Few) Urine Bacteria None (None) SARS-CoV-2 (PCR) Negative SARS-CoV-2 (Negative) Influenza Type A (PCR) Negative PCR FLU A (Negative) Influenza Type B (PCR) Negative PCR FLU B (Negative) POC Troponin I 0.00 L (0.01-0.04) ng/ml Imaging Data Chest x-ray: Radiologist's impression: INDICATION: Chest pain TECHNIQUE: Chest 2 views COMPARISON: 06/08/2023 FINDINGS: Cardiac silhouette is enlarged. Aortic tortuosity. Mild areas of scarring are present bilaterally. No infiltrate or edema. No effusion or pneumothorax. Degenerative changes. IMPRESSION: No acute findings. Dictated by Kwabena Eden MD @ 06/20/2023 12:03:22 PM ECG Data Attestation: I personally reviewed and interpreted this ECG as follows: Prior ECG tracings: available for review Interpretation: A flutter with a variable AV block with a rate of 83 beats per minute, otherwise normal intervals, normal axis, no ST or T-wave abnormalities. Occasional PVCs the the similar previous EKG Discharge Plan Discharge Clinical Impression: Costalchondritis Patient Disposition: Home, Self-Care Condition: Improved Instructions: Costochondritis (ED) Additional Instructions: If symptoms continue to follow-up with the primary care provider. Take Tylenol and ibuprofen for pain. Your pain appears to be musculoskeletal in nature it is likely associated with your recent restart and activity. Prescriptions: No Action atorvastatin 40 mg tablet 40 mg PO HS albuterol sulfate 90 mcg/actuation HFA aerosol inhaler 1 - 2 puff INHALATION Q4H PRN (Reason: dyspnea) fluticasone propionate 50 mcg/actuation spray,suspension 2 spray INTRANASAL DAILY lamotrigine 100 mg tablet 150 mg PO BID mirtazapine 7.5 mg tablet 7.5 mg PO HS aspirin 81 mg capsule 81 mg PO DAILY triamcinolone acetonide 0.1 % cream 1 applic topical 3XD PRN calcium carbonate-vitamin D3 [Calcium 600 + D(3)] 600 mg-10 mcg (400 unit) tablet 1 tab PO BID Prolia 60 mg/mL syringe 60 mg subcut [id number] cephalexin 500 mg Capsule 500 mg PO TID 4 Days Qty: 12 0RF potassium chloride 10 mEq Capsule, Extended Release 20 meq PO DAILYWM 3 Days Qty: 6 0RF torsemide 10 mg tablet 10 mg PO DAILY Qty: 30 0RF Follow Up/Referrals: ZOLTAN WATKINS DO [Primary Care Provider] - Stand Alone Forms: MyHealth Info Instructions
[2023-06-20 12:06] LABS: Basophils Absolute Auto 0.02 K/uL (0.00-0.30); Basophils Percent Auto 0.4 % (0.0-3.0); Eosinophils Absolute Auto 0.17 K/uL (0.00-0.50); Hematocrit 42.3 % (33.0-51.0); Hemoglobin* 14.1 gm/dL (12.0-16.0); Lymphocytes Percent Auto 24.5 % (20-44); Mean Corpuscular HGB Conc 33 gm/dL (32-36); Mean Corpuscular Hemoglobin 31 pg (26-34); Mean Corpuscular Volume 93 fL (80-100); Monocytes Percent Auto 6.1 % (0.0-11.0); Neutrophils Absolute Auto 3.77 K/uL (1.7-7.0); RDW Coefficient of Variation % 13.2 % (11.5-15.5); Red Blood Count 4.54 m/uL (4.00-5.20); White Blood Count* 5.71 K/uL (4.50-11.00)
[2023-06-20 12:11] LABS: Albumin* 4.9 g/dL (3.3-5.0); Chloride* 100 mmol/L (96-114); Potassium* 4.1 mmol/L (3.6-5.1); Sodium* 136 mmol/L (135-149)
[2023-06-20 12:11] LABS: Appearance Urine Clear (Clear); Bilirubin Urine Negative (Negative); Blood Urine Negative (Negative); Color Urine Yellow (Yellow); Glucose Urine Negative (Negative); Ketones Urine Negative (Negative); Leukocyte Esterase Urine Trace (Negative); Nitrite Urine Negative (Negative); Protein Urine Negative (Negative); Specific Gravity Urine <= 1.005 (1.000-1.030); Urobilinogen Urine 0.2 (0.2-1.0); pH Urine 6.5 (5.0-8.5)
[2023-06-20 12:13] LABS: Creatinine* 1.3 mg/dL (0.5-1.5); Est. Creatinine Clearance* 36.08; Estimated Glomerular Filt Rate 43 ml/min
[2023-06-20 12:14] LABS: Alanine Aminotransferase* 19 U/L (4-35); Alkaline Phosphatase* 65 U/L (40-150); Anion Gap 10 mEq/L (7-15); Aspartate Amino Transferase* 27 U/L (12-35); Bilirubin Total* 1.2 mg/dL (0.1-1.5); Blood Urea Nitrogen* 16 mg/dL (7-30); Calcium* 9.5 mg/dL (8.4-10.6); Carbon Dioxide* 26 mmol/L (20-32); Glucose* 96 mg/dL (60-115); Total Protein* 8.3 g/dL (6.0-8.3)
[2023-06-20 12:15] LABS: Magnesium* 2.2 mg/dL (1.5-2.6)
[2023-06-20 12:25] LABS: NT Pro B Type NatriureticPept* 2610 pg/mL
[2023-06-20 12:28] LABS: Troponin I* < 0.01 ng/mL (0.01-0.04)
[2023-06-20 12:32] LABS: RBC Urine 0-2 (0-2); Squamous Epithelial Cell Urine Few (None-Few)
[2023-06-20 12:36] LABS: Platelet Count* 300 K/uL (140-440)
[2023-06-20 12:37] LABS: PCR FLU A Negative PCR FLU A (Negative); PCR FLU B Negative PCR FLU B (Negative)
[2023-06-20 12:40] LABS: SARS PCR* Negative SARS-CoV-2 (Negative)
--- NOTE | 2023-06-20 14:52 | ED.NURSE ---
Lab draw troponin switched to POC trop result 0.00. okay without lab draw troponin level. Pt continues to decline CP at time.
[2023-06-20 16:36] LABS: Slide Review Reflex No
== END 2023-06-20 15:08 | disposition home or self-care (01) ==
PROVIDERS: Emergency Provider Student in an Organized Health Care Education/Training Program; PCP Student in an Organized Health Care Education/Training Program
DX: M94.0 Chondrocostal junction syndrome [Tietze] (principal)
CPT/HCPCS: 36415; 71046; 80053; 81001; 83735; 83880; 84484; 85025; 87631; 93005; 99283; 99284; 99285

== ENCOUNTER 2023-09-10 10:33 | Outpatient (CLI) | payer MEDICARE, BC, SELFPAY ==
--- OUTSIDE RECORDS SUMMARY | 2023-10-07 11:04 | XMS_ITS | Clinical Summary ---
Author Name Unknown Organization [facility] Address [place], [place] [address] Care Team Providers Care Bait Man Name Role Phone Vincent Dawkins DO Primary Care Provider [phone] Allergies Active Allergy Reactions Criticality Noted Date Comments Amlodipine Edema Medium 04/03/2023 Latex *Unknown 02/06/2015 Per outside notes Lisinopril Cough Low 04/03/2023 Losartan Cough Low 04/03/2023 Adhesive Rash 07/09/2014 Medications Medication Sig Dispensed Refills Start Date End Date Status albuterol HFA (PRO-AIR; VENTOLIN; PROVENTIL) 90 mcg/actuation inhalerIndications:C hronic cough Inhale 1-2 Puffs by mouth every 4 hours while awake. 8.5 g 0 08/23/2023 Active aspirin chewable 81 mg chewable tabletIndications:Pa roxysmal atrial fibrillation (HC),Transient ischemic attack Chew 1 Tablet (81 mg) by mouth once daily with a meal. 90 Tablet 3 08/23/2023 Active atorvastatin (LIPITOR) 40 mg tabletIndications:Hy perlipidemia, unspecified hyperlipidemia type Take 1 Tablet (40 mg) by mouth at bedtime. 90 Tablet 2 08/23/2023 Active fluticasone (50 mcg per actuation) nasal solution (FLONASE)Indications :Nasal congestion,Postnasal drip Inhale 2 Sprays to both nostrils once daily. 48 g 0 08/23/2023 Active furosemide (LASIX) 20 mg tabletIndications:Ac [place] on chronic systolic CHF (congestive heart failure) (HC) Take 1 Tablet (20 mg) by mouth every morning. 30 Tablet 2 08/23/2023 Active inhalational spacing deviceIndications:Ch ronic cough For home use. 1 Each 0 08/23/2023 Active lamoTRIgine (LAMICTAL) 100 mg tabletIndications:Se izure disorder (HC) Take 1.5 Tablets (150 mg) by mouth two times daily. 270 Tablet 0 08/23/2023 Active mirtazapine (REMERON) 7.5 mg tabletIndications:De pression, major, single episode, moderate (HC),Depression, major, in remission (HC) Take 1 Tablet (7.5 mg) by mouth at bedtime. 60 Tablet 0 08/23/2023 Active potassium chloride (Klor-Con M20) 20 mEq extended-release tablet (part/cryst)Indicati ons:Irregular heart rhythm Take 1 Tablet (20 mEq) by mouth once daily with a meal. 90 Tablet 2 08/23/2023 Active triamcinolone (ARISTOCORT; KENALOG) 0.1 % creamIndications:Maxwell matitis Apply topically to affected area(s) three times daily. 80 g 0 08/23/2023 Active calcium carbonate-vitamin D3, 600 mg-400 unit, (Calcium 600 + D) 600 mg-10 mcg (400 unit) tabletIndications:Ag e-related osteoporosis without current pathological fracture Take 1 Tablet by mouth two times daily with meals. 60 Tablet 11 08/23/2023 Active metoprolol succinate (Toprol XL) 25 mg Sustained-Release tabletIndications:PV C's (premature ventricular contractions) Take 0.5 Tablets (12.5 mg) by mouth once daily. 90 Tablet 3 08/23/2023 Active amiodarone (CORDARONE) 200 mg tabletIndications:Pa roxysmal atrial fibrillation (HC),PVC's (premature ventricular contractions) Take 1 Tablet (200 mg) by mouth once daily. Take two tablets (400 mg) for 14 days and then take one tablet (200 mg) daily 90 Tablet 3 09/23/2023 Active amiodarone (CORDARONE) 200 mg tabletIndications:Pa roxysmal atrial fibrillation (HC),PVC's (premature ventricular contractions) Take 1 Tablet (200 mg) by mouth once daily. Take two tablets (400 mg) for 14 days and then take one tablet (200 mg) daily 60 Tablet 1 08/30/2023 Discontinue d(Reorder (E-cancel not sent)) Hospital, Clinic, or Other Facility Administered Medication Ordered Dose Route Frequency Start Date End Date Status denosumab (PROLIA) injection 60 mgIndications:Age-re lated osteoporosis without current pathological fracture 60 mg SubQ Q 6 MONTHS (24 WEEKS) 02/09/2023 09/13/2023 Ended Active Problems Problem Noted Date Diagnosed Date Stage 3b chronic kidney disease 04/03/2023 Age-related osteoporosis wit hout current pathological fracture 02/08/2023 Overview: Currently on Fosamax. Transitioning to prolia Anxiety 08/03/2021 Afib 08/03/2021 Transient ischemic attack 08/03/2021 Reflux laryngitis 08/03/2021 Dysarthria 08/03/2021 Depression, major, in remission 03/01/2021 Essential hypertension 01/30/2021 Vestibular schwannoma 07/26/2020 Health care directive on file 06/12/2019 MINDI 08/10/2017 AHI/RDI:52 08/15/2017 H/O total hip arthroplasty 01/19/2016 Fracture of bone of hip 02/05/2015 Thrombocytopenia 02/05/2015 AVM (arteriovenous malformation) 07/10/2014 Seizure disorder 07/10/2014 Encounters Date Type Department Care Team Description 09/24/2023 Telephone [facility] [address] [place] [address] Dr Hendrickson [facility] [place] [address] Clementine Watson NP OTHER (Chest discomfort/possible Rx SE) 09/23/2023 1:40 PM AUTOMOTIVE MACHINIST APPRENTICE Office Visit [facility] [address] [place] [address] Vincent Dawkins DO ER Follow up (09.10.23, [place], chest pain) 09/23/2023 Travel 09/19/2023 Telephone [facility] [address] [place] [address] Vincent Dawkins DO Results 09/13/2023 10:45 AM AUTOMOTIVE MACHINIST APPRENTICE Nurse/Clinic Staff Only [facility] [address] [facility] [address] Immunization/Injecti on (PROLIA) 09/12/2023 1:00 PM AUTOMOTIVE MACHINIST APPRENTICE Ancillary Procedure [facility] [address] [place] [address] 09/12/2023 Travel 09/10/2023 Orders Only [facility] Scanner 1 scan: (1-Ord) DELL, CHEST 1VW, 09/10/2023 09/10/2023 Nurse Triage [facility] [address] [place] [facility] [address] Vincent Dawkins DO Chest Pain (/) 09/10/2023 Telephone [facility] [address] [address] [place] [facility] [place] [address] Vincent Dawkins DO Medication Management (amiodarone (CORDARONE) 200 mg tablet //) 09/04/[address] H[address] [facility] [place] [address] Clementine Watson, VERONIKA Results 08/30/2023 3:30 PM AUTOMOTIVE MACHINIST APPRENTICE Office Visit [address] [place] [address] Clementine Watson, VERONIKA CV General Cardiology Est (F/u to review testing. Reports some chest discomfort but attributes to medications, reports feeling lightheaded on occ. ) 08/30/2023 Travel 08/23/2023 10:10 AM AUTOMOTIVE MACHINIST APPRENTICE Office Visit [facility] [address] Vincent Dawkins DO Medicare ANNUAL (subsequent) Visit (72 year old) 08/23/2023 9:40 AM AUTOMOTIVE MACHINIST APPRENTICE Ancillary Procedure [facility] [place] [address] 08/23/2023 Travel 08/07/2023 Refill [facility] [address] Vincent Dawkins DO Refill Request (Torsemide) 07/19/2023 Refill [facility] [address] [place] [address] Vincent Dawkins DO Refill Request (Klor-con M20, Mirtazapine, Atorvastatin, Lamotrigine) 07/19/2023 Telephone [facility] [address] [place] [address] Vincent Dawkins DO Results 07/16/2023 Telephone [facility] [address] [place] [address] Vincent Dawkins DO Medication Management (metoprolol succinate (Toprol XL) 25 mg Sustained-Release tablet) 07/12/2023 2:05 PM CDT Office Visit [facility] [address] [place] [address] Vincent Dawkins DO Follow Up 07/12/2023 Travel 07/09/2023 Telephone [facility] [address] [place] [address] Dr Ibrahim [place] [facility] [place] [address] Clementine Watson, VERONIKA Results from Last 3 Months Immunizations Name Administration Dates Next Due COVID-19 Vaccine Spikevax (M oderna 50mcg/0.5mL) 12YO+ [id number] Formula PF 07/12/2023 COVID-19 vaccine (gokit-Bio NTech 30mcg/0.3mL) 12YO+ BIVALENT PF, MDV 08/10/2022 COVID-19 vaccine (gokit-Bio NTech 30mcg/0.3mL) PF, MDV 07/06/2021,12/09/2020,11/18/2020 Influenza Virus, Unspecified 06/16/2013 Influenza, High-dose Inactivated 06/22/2016,10/2014,06/16/2013 Influenza, High-dose Quadriv alent Inactivated 07/03/2021 Influenza, IIV3 (Age >=3 years) 06/01/20 14,06/26/2013,06/20/2012,06/15,06/09/2010,06/07/2008 Influenza, Inactivated AIIV4 (Age 65+ Years) Preserv Free 06/10/2023,08/10/2022,07/26/2020 Influenza, Inactivated IIV3 (Age 65+ Years) Preserv Free 07/14/2019,07/04/2018,06/19/2017 Pneumococcal Poly,23-Valent (Pneumovax) 06/22/2016 Pneumococcal conj 13-Valent (Prevnar 13) 06/17/2015 RSV, Recombinant ADJ Reconst ituted (Arexvy 120MCG/0.5mL) 07/21/2023 Tdap 08/04/2021,03/15/2008 Zoster (Shingrix-RZV, recombinant) 02/18/2021, Zoster (Zostavax-ZVL, live) 07/06/2017 Family History Medical History Relation Name Comments Hypertension Father Other Father possible bowel obstruction Other Mother gastric cancer, Seizures Mother Arthritis Other rheumatoid Cancer-breast No Family History Relation Name Status Comments Father Mother Other Social History Tobacco Use Types Packs/Day Years Used Date Smoking Tobacco: Never Smokeless Tobacco: Never Tobacco Cessation:Counseling Given: Yes Alcohol Use Standard Drinks/Week Comments No 0 (1 standard drink = 0.6 oz pur e alcohol) PHQ-2 Answer Date Recorded PHQ-2 TOTAL SCORE 1 08/23/2023 Social Connections Answer Date Recorded Frequency of Communication with Friends and Fami ly Not on file 05/07/2023 Financial Resource Strain Answer Date R ecorded Difficulty of Paying Living Expenses 3 04/27/2022 Difficulty of Paying Living Expenses Not on file 04/27/2022 Food Insecurity Answer Date Recorded Worried About Running Out of Food in the Last Ye ar 1 04/27/2022 Transportation Needs Answer Date Record ed Lack of Transportation (Medical) 1 04/27/2022 Housing Stability Answer Date Recorded Unable to Pay for Housing in the Last Year 1 04/27/2022 Sex and Gender Information Value Date Recorded Sex Assigned at Not on file Gender Identity Not on file Sexual Orientation Not on file Obstetrics History Para Term AB IAB SAB Ectopic Multiple Livin g Live Births 2 2 Date Outcome GA Total Labor Labor/2nd/3rd Weight Sex Delivery Anes PTL Ree A1 A5 Name Cl in Para Para Last Filed Vital Signs Vital Sign Reading Time Taken Comments Blood Pressure 135/72 09/23/2023 1:37 PM AUTOMOTIVE MACHINIST APPRENTICE Pulse 80 09/23/2023 1:37 PM AUTOMOTIVE MACHINIST APPRENTICE Temperature 36.4 ??C (97.6 ??F) 09/23/2023 1:37 PM CS T Respiratory Rate 16 11/01/2021 8:22 AM AUTOMOTIVE MACHINIST APPRENTICE Oxygen Saturation 97% 09/23/2023 1:37 PM AUTOMOTIVE MACHINIST APPRENTICE Inhaled Oxygen Concentration - - Weight 90.4 kg (199 lb 6.4 oz) 09/23/2023 1:37 P M AUTOMOTIVE MACHINIST APPRENTICE Height 162.6 cm (5' 4) 09/23/2023 1:37 PM AUTOMOTIVE MACHINIST APPRENTICE Body Mass Index 34.23 09/23/2023 1:37 PM AUTOMOTIVE MACHINIST APPRENTICE Plan of Treatment Upcoming Encounters Date Type Department Care Team (Late st Contact Info) Description 11/13/2023 8:00 AM AUTOMOTIVE MACHINIST APPRENTICE Office Visit [facility] [address] [facility] [address] [place] [address] Teofilo Rey MD [address] [facility] [address] [place] [address] 11/21/2023 10:35 AM AUTOMOTIVE MACHINIST APPRENTICE Office Visit [facility] [address] [place] [address] Vincent Dawkins DO [address] [place] [address] 01/07/2024 10:00 AM CDT Office Visit [facility] [address] [place] [address] Teofilo Narvaez MD [address] [place] [address] Health Maintenance Due Date Last Done Comments Medicare Wellness for age 65+ 08/22/2024, 08/10/2022, 08/03/2021, Additional history exists Depression screening for age 12+ 08/23/2024 08/23/2023, 08/10/2022, 08/10/2022, Additional history exists Mammogram for age 45-75 08/23/2024 08/23/20 23, 08/10/2022, 08/03/2021, Additional history exists BMI (ht and wt on same day) for age 18+ 09/23/2024 09/23/2023, 08/30/2023, 08/23/2023, Additional history exists Lipids for age 45-75 06/17/2025 06/17/2020, 07/14/2019, 06/22/2016, Additional history exists Fecal testing sDNA-FIT (Cologuard) for age 45-75 06/16/2026 06/16/2023 Tetanus booster 08/04/2031 08/04/2021, 03/15/2008 Pneumococcal series for age 65+ Completed 6, 06/17/2015 Zoster (shingles) series for age 50+ Completed 02/18/2021, 08/26/2020, 07/06/2017 Hepatitis C screening for ag e 18-79 Completed 08/03/2021 Tdap Completed 08/04/2021, 02/16, 03/15/2008 (Completed outside of [facility]) Fecal testing non-DNA (FIT,FOBT,iFOBT) for age 45-75 Discontinued 05/06/2022, 08/26/2020, 07/16/2019, Additional history exists Influenza for age 65+ Completed 06/10/2023 , 08/10/2022, 07/03/2021, Additional history exists COVID-19 vaccine series Completed 07/12/20 23, 08/10/2022, 07/06/2021, Additional history exists DEXA/DXA scan for age 65+ Completed 2022, 08/03/2021, 06/30/2015, Additional history exists Medical Devices Implanted Type Area Hard Metals Engraver Hand Device Identifier Shelf Expiration Date Model / Serial / Lot Screw Sm Joint 6.5x25mm Canclls Bone - [id number] Implanted:Qty: 1 on 02/06/[address] [facility] Ortho Imp.,Screw s & Plates Right: Hip [employer] [id number] -1# / / [id number] Shell Hip Od50mm Trident Psl Cluster Arias - [id number] Implanted:Qty: 1 on 02/06/[address] [facility] Right: Hip [employer] 542-11-50 E# / / [id number] Screw Sm Joint 6.5x50mm Canclls Bone - [id number] Implanted:Qty: 1 on 02/06/[address] [facility] Right: Hip [employer] [id number] -1# / / [id number] Liner Hip Id36mm Lolly 0deg Trident X3 - [id number] Implanted:Qty: 1 on 02/06/[address] [facility] Right: Hip [employer] 623-00-36 E# / / [id number] Stem Hip Sz7 127deg Accolade Ii - [id number] Implanted:Qty: 1 on 02/06/[address] [facility] Right: Hip [employer] [id number] # / / [id number] Head Hip Od36mm +5 Biolox Delta C-Taper Alumina Cer - [id number] Implanted:Qty: 1 on 02/06/[address] [facility] Right: Hip [employer] 6570-0-23 6# / / [id number] Procedures Procedure Name Priority Date/Time Associated Diagnosis Comments XR DXA BONE DENSITY 1 SITE AXIAL AND 1 SITE PERIPHERAL Routine 09/12/2023 1:30 PM AUTOMOTIVE MACHINIST APPRENTICE Age related osteoporosis, unspecified pathological fracture presence SCAN-RADIOLOGY REPORT 09/10/2023 12:00 AM AUTOMOTIVE MACHINIST APPRENTICE HEPATIC FUNCTION PANEL Routine 08/30/2023 4:23 PM AUTOMOTIVE MACHINIST APPRENTICE Paroxysmal atrial fibrillation (HC) PVC's (premature ventricular contractions) TSH Routine 08/30/2023 4:23 PM AUTOMOTIVE MACHINIST APPRENTICE Paroxysmal atrial fibrillation (HC) PVC's (premature ventricular contractions) BASIC METABOLIC PANEL Routine 08/23/2023 11:11 AM AUTOMOTIVE MACHINIST APPRENTICE Stage 3b chronic kidney disease (HC) XR MAMMO JOLIE BILAT SCREEN Routine 08/23/2023 9:55 AM AUTOMOTIVE MACHINIST APPRENTICE Visit for screening mammogram BASIC METABOLIC PANEL Routine 07/12/2023 3:03 PM CDT Elevated serum creatinine from Last 3 Months Results * (ABNORMAL) XR DXA BONE DENSITY 1 SITE AXIAL AND 1 SITE PERIPHERAL (09/12/2023 1:30 PM AUTOMOTIVE MACHINIST APPRENTICE) Anatomical Region Laterality Modality LUMBAR SPINE Other Impressions 09/18/2023 4:42 PM AUTOMOTIVE MACHINIST APPRENTICE Osteoporosis. Due to the stability of the bone density, continue present medication if indicated. RECOMMENDATIONS: The National Osteoporosis Foundation recommends pharmacologic treatment for patients with T-scores of -2.5 or less, patients with prior history of fragility fractures, or patients with 10-year probability of greater than 3% at hips or greater than 20% of suffering major osteoporotic fractures. Recommend continued optimization of calcium and vitamin D intake through dietary means and/or supplementation and regular exercise. Continue current Denosumab (Prolia) medication treatment. ??Repeat scan in 2 years. Allison Tran PA-C [facility] 09/18/2023 Narrative 09/18/2023 4:42 PM AUTOMOTIVE MACHINIST APPRENTICE For Patients: Results are automatically released to your [facility] ([facility]) account once available, in compliance with federal regulations. This means that you may see your results before your provider has had a chance to review them. Please allow 2-3 business days for your provider to comment on the results. XR DXA Bone Mineral Density (BMD) EXAM LOCATION: [address] [address] PATIENT NAME: Lydia Cooper DATE OF : 1950 EXAM DATE: 09/12/2023 REQUESTING PROVIDER: Vincent Dawkins DO GENDER AT : female HEIGHT: 5' 4.02 (08/30/2023) WEIGHT: ??197 lb 3.2 oz (08/30/2023) MENOPAUSAL STATUS: Postmenopausal RACE/ETHNICITY: White RISK FACTORS: Alcohol > 3 drinks/day (prior), Height Loss (2 inches or more), and White Race CURRENT MEDICATION FOR BONE LOSS: Denosumab (Prolia) INDICATION: Follow-up of existing osteoporosis COMPARISON DATE(S): 2020 DXA scans are compared to prior studies for a patient only when the two (or more) studies were performed on the same scanner. It is not possible to compare data generated on one scanner to data from another because there are not standards in DXA equipment. This applies even if the two scanners are made by the same physicist solid earth. PROCEDURE: Dual-energy x-ray absorptiometry performed with routine technique. Reporting is completed in the form of a T-score. The T-score represents the standard deviation from peak bone mass based on young healthy adult. A Z-score is used for diagnosis in premenopausal women, and for men under the age of 50. FINDINGS: RESULT LUMBAR SPINE L1 - L4 BMD: 0.941 g/cm2 T-Score: - 2.1 Z-Score: - 1.1 Change from prior in 2020: ??Increase 8.2%. RESULT FOREARM Left Forearm distal radius BMD: 0.535 g/cm2 T-Score: - 2.3 Z-Score: - 0.1 Change from prior in 2020: ??Increase 9.6%. WHO criteria: Normal: T-score at or above -1 SD Osteopenia: T-score between -1.1 and -2.4 SD Osteoporosis: T-score at or below -2.5 SD Vincent Dawkins DO DEXA * SCAN-RADIOLOGY REPORT (09/10/2023 12:00 AM AUTOMOTIVE MACHINIST APPRENTICE) Anatomical Region Laterality Modality Other Scanner OTHER * TSH (08/30/2023 4:23 PM AUTOMOTIVE MACHINIST APPRENTICE) TSH 1.99 0.27 - 4.20 uIU/mL 09/02/2023 1:39 PM AUTOMOTIVE MACHINIST APPRENTICE [facility] Blood BLOOD SPECIMEN / Unknown Venipuncture / Unknown 08/30/2023 4:23 PM AUTOMOTIVE MACHINIST APPRENTICE 08/30/2023 4:23 PM AUTOMOTIVE MACHINIST APPRENTICE Narrative [facility] - 09/02/2023 1:39 PM AUTOMOTIVE MACHINIST APPRENTICE In Adults, TSH values between 5.00 and 10.00 uIU/ml do not necessarily indicate the presence of Hypothyroidism. Correlation with clinical findings such as presence of goiter and/or Thyroperoxidase (TPO) Antibody may be helpful. For more information please refer to ANNE-MARIE 2004; 291: [phone]. Clementine Watson NP CHEMISTRY [facility] [address] [place] [address], * HEPATIC FUNCTION PANEL (08/30/2023 4:23 PM AUTOMOTIVE MACHINIST APPRENTICE) ALBUMIN 4.6 4.0 - 4.9 g/dL 09/02/2023 1:39 PM AUTOMOTIVE MACHINIST APPRENTICE [facility] PROTEIN,TOTAL 7.4 6.0 - 8.0 g/dL 09/02/2023 1:39 PM AUTOMOTIVE MACHINIST APPRENTICE [facility] BILIRUBIN,TOTAL 0.5 0.0 - 1.2 mg/dL 09/02/2023 1:39 PM AUTOMOTIVE MACHINIST APPRENTICE [facility] BILIRUBIN,DIRECT <0.2 0.0 - 0.3 mg/dL 09/02/2023 1:39 PM AUTOMOTIVE MACHINIST APPRENTICE [facility] BILIRUBIN,INDIRE CT 09/02/2023 1:39 PM AUTOMOTIVE MACHINIST APPRENTICE [facility] Comment:Unable to calculate, Direct Bili <0.2 ALK PHOSPHATASE 74 35 - 104 IU/L 09/02/2023 1:39 PM AUTOMOTIVE MACHINIST APPRENTICE [facility] ALT (SGPT) 19 10 - 35 IU/L 09/02/2023 1:39 PM AUTOMOTIVE MACHINIST APPRENTICE [facility] AST (SGOT) 28 10 - 35 IU/L 09/02/2023 1:39 PM AUTOMOTIVE MACHINIST APPRENTICE [facility] Blood BLOOD SPECIMEN / Unknown Venipuncture / Unknown 08/30/2023 4:23 PM AUTOMOTIVE MACHINIST APPRENTICE 08/30/2023 4:23 PM AUTOMOTIVE MACHINIST APPRENTICE Clementine Watson NP CHEMISTRY [facility] [address] [place] [address], * (ABNORMAL) BASIC METABOLIC PANEL (08/23/2023 11:11 AM AUTOMOTIVE MACHINIST APPRENTICE) Only the most recent of2 resultswithin the time period is included. SODIUM 139 136 - 145 mmol/L 08/23/2023 4:30 PM AUTOMOTIVE MACHINIST APPRENTICE [facility] POTASSIUM 5.1 3.5 - 5.1 mmol/L 08/23/2023 4:30 PM [facility] CHLORIDE 101 98 - 107 mmol/L 08/23/2023 4:30 PM [facility] CO2,TOTAL 28 22 - 29 mmol/L 08/23/2023 4:30 PM [facility] ANION GAP 10 5 - 18 08/23/2023 4:30 PM [facility] GLUCOSE 97 70 - 99 mg/dL 08/23/2023 4:30 PM [facility] CALCIUM 10.4(H) 8.8 - 10.2 mg/dL 08/23/2023 4:30 PM [facility] BUN 20 8 - 23 mg/dL 08/23/2023 4:30 PM [facility] CREATININE 1.33(H) 0.50 - 0.90 mg/dL 08/23/2023 4:30 PM [facility] BUN/CREAT RATIO 15 10 - 20 4:30 PM [facility] eGFR 42(L) >90 mL/min/1.7 3m2 08/23/2023 4:30 PM [facility] Comment:As of 2021, eG FR is calculated by the CKD-EPI creatinine equation without race adjustment. ??eGFR can be influenced by muscle mass, exercise, and diet. ??The reported eGFR is an estimation only and is only applicable if the renal function is stable. Blood BLOOD SPECIMEN / Unknown Venipuncture / Unknown 08/23/2023 11:11 AM AUTOMOTIVE MACHINIST APPRENTICE 08/23/2023 11:11 AM AUTOMOTIVE MACHINIST APPRENTICE Vincent Dawkins DO CHEMISTRY [facility] [address] [place] [address], [place] * XR MAMMO JOLIE BILAT SCREEN (08/23/2023 9:55 AM AUTOMOTIVE MACHINIST APPRENTICE) Anatomical Region Laterality Modality BREASTS, Breast Left, Breast Right Bilateral Mammography Impressions 08/23/2023 3:47 PM AUTOMOTIVE MACHINIST APPRENTICE ??There is no radiographic evidence for malignancy. ??Recommend annual mammograms. MAMMOGRAM ASSESSMENT: ??ACR 1 Negative PATIENTS: You will also receive a letter with your examination results in an easy to read format. ??If you have questions about your results, please contact your referring provider. Narrative 08/23/2023 3:47 PM AUTOMOTIVE MACHINIST APPRENTICE For Patients: As a result of the Century Cures Act, medical imaging exams and procedure reports are released immediately into your electronic medical record. You may view this report before your referring provider. If you have questions, please contact your health care provider. XR MAMMO JOLIE BILAT SCREEN [[id number]] CLINICAL HISTORY: ??This is an asymptomatic 72 y.o. patient. INDICATION FOR EXAM: Mammogram Screening. TECHNIQUE: CC & MLO views were obtained. ??This study was evaluated with the assistance of Computer-Aided Detection. Breast Tomosynthesis was used in interpretation. COMPARISON FILM: Yes 08/10/22 [facility] 08/03/21 [facility] FINDINGS: ??The breasts are heterogeneously dense, which may obscure small masses. There are no dominant masses, suspicious micro calcifications or areas of architectural distortion. Vincent Dawkins DO MAMMO from Last 3 Months Additional Health Concerns Infection Onset Date Last Indicated Rule-Out C.diff 08/06/2019 08/06/2019 Advance Directives Documents on File Type Date Recorded Patient Flap Presser Expl anation Healthcare Directive 02/05/2015 12:00 AM 1 11/02/2013 Latest Code Status on File Code Status Date Activated Date Inactivated Comments Full Code 02/06/2015 5:21 PM 02/09/2015 3:42 PM Code Status History Code Status Date Activated Date Inactivated Comments Full Code 02/06/2015 9:39 AM 02/06/2015 5:21 PM Full Code 02/05/2015 10:47 PM 02/06/2015 9:39 AM Question Answer Comments Code Status Discussion: Discussed Care Teams Bait Man Relationship Specialty Start Date End Date Vincent Dawkins DO [address] [facility] [address] PCP - General Family Practice 04/06/22
== END 2023-09-10 10:34 | disposition home or self-care (01) ==
LOC: AMB 10-07 10:51
PROVIDERS: PCP Student in an Organized Health Care Education/Training Program; Visit Provider Emergency Medicine Emergency Medical Services
DX: R07.89 Other chest pain (principal)
CPT/HCPCS: A0425; A0427

== ENCOUNTER 2023-09-10 11:06 | Emergency (ER) | payer MEDICARE, BC, SELFPAY ==
[2023-09-10] VITALS (30 sets, daily range): BP systolic 112–146; BP diastolic 77–89; PULSE 68–86; RESP 16; TEMP 36.7; O2SAT 93–99; BMI 29.3
--- NOTE | 2023-09-10 11:37 | CRLHL7_ITS ---
For Patients: As a result of the Cures Act, medical imaging exams and procedure reports are released immediately into your electronic medical record. You may view this report before your referring provider. If you have questions, please contact your health care provider. INDICATION: Chest pain. TECHNIQUE: Chest 1 views. COMPARISON: June 2023. FINDINGS: Lungs: Lower lung volumes. No consolidation. The tracheobronchial tree and hilar structures are unremarkable. Pleura: No pleural effusion or pneumothorax. Heart and Mediastinum: Normal heart size. The great vessels of the thorax are unremarkable. Bones: No acute displaced osseous process. IMPRESSION: No consolidation. Dictated by Kwabena Cloud MD @ 09/10/2023 1:10:32 PM (Electronically Signed)
--- NOTE | 2023-09-10 11:47 | ED.GENADULT ---
HPI - General Adult General Date Seen: 09/10/23 Chief complaint: Chest Pain Stated complaint: Chest pain Time Seen by Provider: 09/10/23 11:25 Source: patient, family and EMS Mode of arrival: EMS Limitations: no limitations History of Present Illness HPI narrative: Patient is a 73-year-old woman who presents via EMS for evaluation of chest tightness which started last night. Initially she says she thought it was may be stomach acid but she tried some acid medicines and says she did not improve. She says she tossed and turned all night. She further tells me that this feels similar to the previous times that we have seen her here for chest pain, workup at those times has been unrevealing. She had an echo in May which was reassuring. She saw Cardiology mid August for her atrial fibrillation and was started on amiodarone, she is on day 10. She is wondering if the amiodarone or her atrial fibrillation might be causing her symptoms. She says she always has pain in the left side of her chest when she leans forward to tie her shoes but does not always have chest tightness like this. She denies difficulty breathing, cough, fever, leg swelling or pain, nausea or vomiting. She feels that her blood pressure has been quite elevated and that that is probably also contributing to her symptoms. Family does note that she has some anxiety that sometimes presents with similar symptoms. She does not smoke. Lives independently. She is not anticoagulated secondary to underlying AVM in the brain. She is slated to follow up with Cardiology in October, daughter believes that they were considering some procedure, not sure what that was, patient says they do not want to do an ablation as she cannot be anticoagulated. Related Data Home Medications Medication Instructions Recorded Confirmed albuterol sulfate 90 mcg/actuation 1 - 2 puff inhalation Q4H PRN 06/02/23 06/02/23 aerosol inhaler dyspnea aspirin 81 mg capsule 81 mg PO DAILY 06/02/23 06/02/23 atorvastatin 40 mg tablet 40 mg PO HS 06/02/23 06/03/23 fluticasone propionate 50 2 spray intranasal DAILY 06/02/23 06/02/23 mcg/actuation nasal spray,suspension lamotrigine 100 mg tablet 150 mg PO BID 06/02/23 06/03/23 mirtazapine 7.5 mg tablet 7.5 mg PO HS 06/02/23 06/03/23 calcium carbonate 600 mg-vitamin 1 tab PO BID 06/03/23 06/03/23 D3 10 mcg (400 unit) tablet (Calcium 600 + D(3)) denosumab 60 mg/mL subcutaneous 60 mg subcut [id number] 06/03/23 06/03/23 syringe (Prolia) triamcinolone acetonide 0.1 % 1 applic topical 3XD PRN 06/03/23 06/03/23 topical cream Previous Rx's Medication Instructions Recorded potassium chloride 10 mEq 20 meq (2 x 10 mEq) PO DAILYWM 3 06/03/23 capsule,extended release days #6 caps torsemide 10 mg tablet 10 mg PO DAILY #30 tabs 06/03/23 Allergies Allergy/AdvReac Type Severity Reaction Status Date / Time No Known Drug Allergies Allergy Verified 06/02/23 15:34 Review of Systems Status of ROS: Reports: 10 or more systems reviewed and unremarkable except as noted in History and below [facility] Medical History Osteoporosis ?M81.0 - Age-related osteoporosis without current pathological fracture (ICD-10) TIA (transient ischemic attack) ?G45.9 - Transient cerebral ischemic attack, unspecified (ICD-10) Atrial fibrillation ?I48.91 - Unspecified atrial fibrillation (ICD-10) Anxiety ?F41.9 - Anxiety disorder, unspecified (ICD-10) Depression ?F32.A - Depression, unspecified (ICD-10) Hypertension ?I10 - Essential (primary) hypertension (ICD-10) 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 of cranial nerves (ICD-10) Lower extremity edema ?R60.0 - Localized edema (ICD-10) Obstructive sleep apnea ?G47.33 - Obstructive sleep apnea (adult) (pediatric) (ICD-10) Seizure disorder ?G40.909 - Epilepsy, unspecified, not intractable, without status epilepticus (ICD-10) AVM (arteriovenous malformation) brain ?Q28.2 - Arteriovenous malformation of cerebral vessels (ICD-10) Surgical History History of tubal ligation ?Z98.51 - Tubal ligation status (ICD-10) History of D&C ?Z98.890 - Other specified postprocedural states (ICD-10) History of breast biopsy ?Z98.890 - Other specified postprocedural states (ICD-10) History of cholecystectomy ?Z90.49 - Acquired absence of other specified parts of digestive tract (ICD-10) History of bilateral hip arthroplasty ?Z96.643 - Presence of artificial hip joint, bilateral (ICD-10) Family History Other High blood pressure Seizure disorder Social History Narrative: She lives independently in her own home in [place]. Her daughter and multiple other family members live nearby. Her daughter Elke is healthcare power of ip attorney. Her code status is full. She is a nonsmoker. She does not drink alcohol. She does drive her own car. She does not use assistive device when she walks. She is able to manage her own affairs. What is your current living situation?: I presently have a place to live Problems where you live: no known problems Problems where you live details: n/a In the past 12 months, utilities in danger of being shut off: no In past 12 months, lack of transportation kept you from medical appts, meetings, work, or getting things needed for daily living: no In the past 12 mos, have been you worried that your food would run out before you had money to buy more?: never true In the past 12 mos, the food you bought just didn't last and you didn't have money to buy more?: never true Highest level of school completed/degree received: high school graduate Smoking Status: Never smoker Do you use any of these nicotine containing products: None How often do you have a drink containing alcohol: never AUDIT-C Alcohol total score: 0 Non-prescribed substance use: denies use Caffeine: Yes How often does anyone, including family, friends and others, physically hurt you: never How often does anyone, including family, friends and others, insult or talk down to you: never How often does anyone, including family, friends and others, threaten you with harm: never How often does anyone, including family, friends and others, scream or curse at you: never service: No Exam Narrative: Exam Narrative: Vital signs as noted above. In general, an alert, well-appearing patient. Head: Normocephalic, atraumatic. Eyes: Pupils are equal reactive. Extraocular movements are full. Conjunctivae are normal. ENT: Mucous membranes are moist. Throat is normal. Neck: Supple without lymphadenopathy. Heart: Irregularly irregular, rate controlled. No significant murmur. Lungs: Clear bilaterally. No increased work of breathing, crackles or wheezes. Abdomen: Soft and nontender. No organomegaly. Extremities: Well perfused. No edema. No calf tenderness. Pulses intact. Neurologic: Patient is alert and oriented to person and place. Speech is fluent. Face is symmetric. Moves all extremities equally. Affect: Normal. Skin: Warm and dry. Well perfused. Const: Vital Signs, click to edit/add: Vital Signs - 24 hr 09/10/23 11:14 09/10/23 11:15 09/10/23 11:16 Temperature 98.0 F Pulse Rate 79 84 Pulse Rate [Pulse Oximeter] 83 Respiratory Rate 16 Blood Pressure 141/89 H Blood Pressure [Ri ght Upper Arm] 141/89 H Pulse Oximetry 96 97 97 Oxygen Delivery Me thod Room Air 09/10/23 11:30 09/10/23 11:45 09/10/23 12:00 Temperature Pulse Rate 86 78 78 Pulse Rate [Pulse Oximeter] Respiratory Rate Blood Pressure Blood Pressure [Ri ght Upper Arm] Pulse Oximetry 95 98 98 Oxygen Delivery Me thod 09/10/23 12:19 09/10/23 12:24 09/10/23 12:31 Temperature Pulse Rate 86 85 81 Pulse Rate [Pulse Oximeter] Respiratory Rate Blood Pressure 135/80 142/81 H Blood Pressure [Ri ght Upper Arm] Pulse Oximetry 95 93 98 Oxygen Delivery Me thod 09/10/23 12:32 09/10/23 12:45 09/10/23 12:46 Temperature Pulse Rate 76 78 80 Pulse Rate [Pulse Oximeter] Respiratory Rate Blood Pressure 123/88 Blood Pressure [Ri ght Upper Arm] Pulse Oximetry 97 96 97 Oxygen Delivery Me thod 09/10/23 12:47 09/10/23 13:00 09/10/23 13:01 Temperature Pulse Rate 76 76 83 Pulse Rate [Pulse Oximeter] Respiratory Rate Blood Pressure 127/81 Blood Pressure [Ri ght Upper Arm] Pulse Oximetry 96 96 95 Oxygen Delivery Me thod 09/10/23 13:15 09/10/23 13:16 09/10/23 13:17 Temperature Pulse Rate 77 83 75 Pulse Rate [Pulse Oximeter] Respiratory Rate Blood Pressure 112/82 Blood Pressure [Ri ght Upper Arm] Pulse Oximetry 94 94 97 Oxygen Delivery Me thod 09/10/23 13:30 09/10/23 13:31 09/10/23 13:45 Temperature Pulse Rate 74 73 72 Pulse Rate [Pulse Oximeter] Respiratory Rate Blood Pressure 126/77 Blood Pressure [Ri ght Upper Arm] Pulse Oximetry 95 95 95 Oxygen Delivery Me thod 09/10/23 13:46 09/10/23 13:47 09/10/23 14:00 Temperature Pulse Rate 68 75 75 Pulse Rate [Pulse Oximeter] Respiratory Rate Blood Pressure 134/80 Blood Pressure [Ri ght Upper Arm] Pulse Oximetry 97 95 95 Oxygen Delivery Me thod 09/10/23 14:01 09/10/23 14:16 09/10/23 14:40 Temperature Pulse Rate 71 80 Pulse Rate [Pulse Oximeter] Respiratory Rate Blood Pressure 131/89 127/78 Blood Pressure [Ri ght Upper Arm] Pulse Oximetry 99 96 Oxygen Delivery Me thod 09/10/23 14:45 09/10/23 14:46 Temperature Pulse Rate 72 74 Pulse Rate [Pulse Oximeter] Respiratory Rate Blood Pressure 146/89 H Blood Pressure [Ri ght Upper Arm] Pulse Oximetry 98 97 Oxygen Delivery Me thod Documenting provider has reviewed patient's vital signs: yes Course Course ED Course: EKG by my review showed atrial fibrillation, controlled rate of 88 beats per minute. No acute ST segment changes. I reviewed her records, previous EKGs, echo. Diagnostic considerations include acute coronary syndrome or angina, pneumonia, pneumothorax, PE, reflux, GI sources felt to be less likely such as pancreatitis, cholecystitis, etcetera in the absence of abdominal pain or tenderness. Workup here fairly unremarkable. Initial troponin was 0, 2 hour point of care troponin was 0.06 but a repeat lab draw was 0 so I think that the point of care troponin was erroneously mildly elevated. Other labs show normal white blood cell count and hemoglobin, D-dimer was 0.43, metabolic panel entirely within normal limits. LFTs normal, CRP 0.6. She improved in terms of how she was feeling, i.e. gave her some nitroglycerin although she was not sure that that really made a difference. At some point however her chest symptoms did improve. Discussed with her that at this point I do not have any evidence to suggest that this is related to myocardial ischemia, would recommend that she try a trial of Prilosec to see if this improves her symptoms. Primary care follow-up if not improved over the next week or so, Cardiology follow-up regarding her atrial fibrillation/amiodarone as planned in October. Vital Signs Vital signs: Initial Vital Signs Temperature 98.0 F 09/10/23 11:14 Temperature Source Temporal Artery Scan 09/10/23 11:14 Pulse Rate 83 09/10/23 11:14 Pulse Rhythm Regular 09/10/23 11:14 Respiratory Rate 16 09/10/23 11:14 Blood Pressure 141/89 H 09/10/23 11:14 Blood Pressure Mean 106 H 09/10/23 11:14 Blood Pressure Position Sitting 09/10/23 11:14 Pulse Oximetry 96 09/10/23 11:14 Oxygen Delivery Method Room Air 09/10/23 11:14 Vital Signs Temperature 98.0 F 09/10/23 11:14 Pulse Rate 83 09/10/23 11:14 Respiratory Rate 16 09/10/23 11:14 Blood Pressure 141/89 H 09/10/23 11:14 Pulse Oximetry 96 09/10/23 11:14 Oxygen Delivery Method Room Air 09/10/23 11:14 Temperature 98.0 F 09/10/23 11:14 Pulse Rate 74 09/10/23 14:46 Respiratory Rate 16 09/10/23 11:14 Blood Pressure 146/89 H 09/10/23 14:46 Pulse Oximetry 97 09/10/23 14:46 Oxygen Delivery Method Room Air 09/10/23 11:14 Medications Administered Medications: Discontinued Medications Generic Name Dose Route Start Last Admin Trade Name Freq PRN Reason Stop Dose Admin Aspirin 324 mg 09/10/23 11:37 09/10/23 12:16 Aspirin 81 Mg Tab.Chew PO 09/10/23 11:38 324 mg ONCE ONE Administration Nitroglycerin 0.4 mg 09/10/23 11:37 09/10/23 12:15 Nitroglycerin 0.4 Mg Tab.Subl SUBLINGUAL 09/10/23 11:38 0.4 mg ONCE ONE Administration Medical Decision Making Lab Data Labs: Lab Results 09/10/23 09/10/23 09/10/23 Range/Units 11:38 12:25 13:40 WBC 6.26 (4.50-11.00) K/uL RBC 4.52 (4.00-5.20) m/uL Hgb 14.7 (12.0-16.0) gm/dL Hct 43.0 (33.0-51.0) % MCV 95 (80-100) fL MCH 33 (26-34) pg MCHC 34 (32-36) gm/dL RDW Coeff of Koko 13.6 (11.5-15.5) % Plt Count 254 (140-440) K/uL Neut % (Auto) 70.2 (42.0-72.0) % Lymph % (Auto) 21.7 (20-44) % Burke % (Auto) 5.3 (0.0-11.0) % Eos % (Auto) 2.1 (0.0-7.0) % Baso % (Auto) 0.5 (0.0-3.0) % Neut # (Auto) 4.40 (1.7-7.0) K/uL Lymph # (Auto) 1.36 (0.90-2.90) K/uL Burke # (Auto) 0.30 (0.00-0.90) K/UL Eos # (Auto) 0.13 (0.00-0.50) K/uL Baso # (Auto) 0.03 (0.00-0.30) K/uL Abs Immat Gran (auto) 0.01 (0.00-0.30) K/uL Imm/Tot Granulo (auto) 0.2 % D-Dimer Quant (PE/DVT) 0.43 (0.00-0.50) ug/ml Sodium 139 (135-149) mmol/L Potassium 4.5 (3.6-5.1) mmol/L Chloride 102 (96-114) mmol/L Carbon Dioxide 28 (20-32) mmol/L Anion Gap 9 (7-15) mEq/L BUN 16 (7-30) mg/dL Creatinine 1.2 (0.5-1.5) mg/dL Estimated Creat Clear 32.53 Estimated GFR 48 ml/min Glucose 97 (60-115) mg/dL Calcium 10.6 (8.4-10.6) mg/dL Total Bilirubin 0.8 (0.1-1.5) mg/dL Direct Bilirubin 0.0 (0.0-0.5) mg/dL AST 23 (12-35) U/L ALT 21 (4-35) U/L Alkaline Phosphatase 79 (40-150) U/L C-Reactive Protein 0.6 (0.5-1.0) mg/dL Total Protein 8.2 (6.0-8.3) g/dL Albumin 5.0 (3.3-5.0) g/dL POC Troponin I 0.00 L 0.06 H (0.01-0.04) ng/ml 09/10/23 Range/Units 14:00 WBC (4.50-11.00) K/uL RBC (4.00-5.20) m/uL Hgb (12.0-16.0) gm/dL Hct (33.0-51.0) % MCV (80-100) fL MCH (26-34) pg MCHC (32-36) gm/dL RDW Coeff of Koko (11.5-15.5) % Plt Count (140-440) K/uL Neut % (Auto) (42.0-72.0) % Lymph % (Auto) (20-44) % Burke % (Auto) (0.0-11.0) % Eos % (Auto) (0.0-7.0) % Baso % (Auto) (0.0-3.0) % Neut # (Auto) (1.7-7.0) K/uL Lymph # (Auto) (0.90-2.90) K/uL Burke # (Auto) (0.00-0.90) K/UL Eos # (Auto) (0.00-0.50) K/uL Baso # (Auto) (0.00-0.30) K/uL Abs Immat Gran (auto) (0.00-0.30) K/uL Imm/Tot Granulo (auto) % D-Dimer Quant (PE/DVT) (0.00-0.50) ug/ml Sodium (135-149) mmol/L Potassium (3.6-5.1) mmol/L Chloride (96-114) mmol/L Carbon Dioxide (20-32) mmol/L Anion Gap (7-15) mEq/L BUN (7-30) mg/dL Creatinine (0.5-1.5) mg/dL Estimated Creat Clear Estimated GFR ml/min Glucose (60-115) mg/dL Calcium (8.4-10.6) mg/dL Total Bilirubin (0.1-1.5) mg/dL Direct Bilirubin (0.0-0.5) mg/dL AST (12-35) U/L ALT (4-35) U/L Alkaline Phosphatase (40-150) U/L C-Reactive Protein (0.5-1.0) mg/dL Total Protein (6.0-8.3) g/dL Albumin (3.3-5.0) g/dL POC Troponin I 0.00 L (0.01-0.04) ng/ml Discharge Plan Discharge Clinical Impression: Atrial fibrillation, chronic, Chest pain Patient Disposition: Home, Self-Care Condition: Improved Instructions: Chest Pain (DC) Additional Instructions: Your evaluation today is reassuring, I do not see any evidence of heart attack, pneumonia, blood clot or other serious problem. Follow-up with cardiology as planned, continue your current medications. Return for new or worsening symptoms. Prescriptions: No Action atorvastatin 40 mg tablet 40 mg PO HS albuterol sulfate 90 mcg/actuation HFA aerosol inhaler 1 - 2 puff INHALATION Q4H PRN (Reason: dyspnea) fluticasone propionate 50 mcg/actuation spray,suspension 2 spray INTRANASAL DAILY lamotrigine 100 mg tablet 150 mg PO BID mirtazapine 7.5 mg tablet 7.5 mg PO HS aspirin 81 mg capsule 81 mg PO DAILY triamcinolone acetonide 0.1 % cream 1 applic topical 3XD PRN calcium carbonate-vitamin D3 [Calcium 600 + D(3)] 600 mg-10 mcg (400 unit) tablet 1 tab PO BID Prolia 60 mg/mL syringe 60 mg subcut [id number] potassium chloride 10 mEq Capsule, Extended Release 20 meq PO DAILYWM 3 Days Qty: 6 0RF torsemide 10 mg tablet 10 mg PO DAILY Qty: 30 0RF Follow Up/Referrals: ZOLTAN WATKINS DO [Primary Care Provider] - Stand Alone Forms: [employer] Info Instructions
[2023-09-10] MEDS: NITROGLYCERIN 0.4 MG TAB.SUBL SUBLINGUAL (12:15)
[2023-09-10] MEDS: ASPIRIN 81 MG TAB.CHEW 324 MG PO (12:16)
[2023-09-10 12:31] LABS: Basophils Absolute Auto 0.03 K/uL (0.00-0.30); Basophils Percent Auto 0.5 % (0.0-3.0); Eosinophils Absolute Auto 0.13 K/uL (0.00-0.50); Eosinophils Percent Auto 2.1 % (0.0-7.0); Hemoglobin* 14.7 gm/dL (12.0-16.0); Immature Granulocytes Abs Auto 0.01 K/uL (0.00-0.30); Immature Granulocytes Pct Auto 0.2 %; Lymphocytes Absolute Auto 1.36 K/uL (0.90-2.90); Lymphocytes Percent Auto 21.7 % (20-44); Mean Corpuscular HGB Conc 34 gm/dL (32-36); Mean Corpuscular Hemoglobin 33 pg (26-34); Mean Corpuscular Volume 95 fL (80-100); Monocytes Percent Auto 5.3 % (0.0-11.0); Neutrophils Percent Auto 70.2 % (42.0-72.0); Platelet Count* 254 K/uL (140-440); RDW Coefficient of Variation % 13.6 % (11.5-15.5); Red Blood Count 4.52 m/uL (4.00-5.20); White Blood Count* 6.26 K/uL (4.50-11.00)
[2023-09-10 12:34] LABS: Slide Review Reflex No
[2023-09-10 12:47] LABS: Chloride* 102 mmol/L (96-114); Potassium* 4.5 mmol/L (3.6-5.1); Sodium* 139 mmol/L (135-149)
[2023-09-10 12:49] LABS: Alkaline Phosphatase* 79 U/L (40-150); Aspartate Amino Transferase* 23 U/L (12-35); Bilirubin Total* 0.8 mg/dL (0.1-1.5); Total Protein* 8.2 g/dL (6.0-8.3)
[2023-09-10 12:50] LABS: Alanine Aminotransferase* 21 U/L (4-35); Creatinine* 1.2 mg/dL (0.5-1.5); Est. Creatinine Clearance* 32.53; Estimated Glomerular Filt Rate 48 ml/min
[2023-09-10 12:51] LABS: Anion Gap 9 mEq/L (7-15); Blood Urea Nitrogen* 16 mg/dL (7-30); Calcium* 10.6 mg/dL (8.4-10.6); Carbon Dioxide* 28 mmol/L (20-32); Glucose* 97 mg/dL (60-115)
[2023-09-10 12:53] LABS: C Reactive Protein* 0.6 mg/dL (0.5-1.0); D Dimer Quantitative* 0.43 ug/ml (0.00-0.50)
[2023-09-10 13:47] LABS: Troponin, Point-of-Care* 0.06 ng/ml (0.01-0.04)
--- NOTE | 2023-09-10 13:59 | ED.NURSE ---
POC trop drawn off IV was 0.06. Lab coming down to redraw off stick.
== END 2023-09-10 15:04 | disposition home or self-care (01) ==
PROVIDERS: Emergency Provider Emergency Medicine; PCP Student in an Organized Health Care Education/Training Program
DX: I48.20 Chronic atrial fibrillation, unspecified (principal); R07.9 Chest pain, unspecified
CPT/HCPCS: 36415; 71045; 80048; 80076; 84484; 85025; 85379; 86140; 94761; 99284; A9270

== ENCOUNTER 2023-10-14 07:54 | Emergency (ER) | payer MEDICARE, BC, SELFPAY ==
[2023-10-14] VITALS (15 sets, daily range): BP systolic 119–138; BP diastolic 72–91; PULSE 66–99; RESP 18; TEMP 36.9; O2SAT 84–99; BMI 32.4
--- NOTE | 2023-10-14 08:16 | CRLHL7_ITS ---
For Patients: As a result of the Cures Act, medical imaging exams and procedure reports are released immediately into your electronic medical record. You may view this report before your referring provider. If you have questions, please contact your health care provider. INDICATION: Chest pain TECHNIQUE: Chest 1 view COMPARISON: 09/10/2023 FINDINGS: Cardiac silhouette enlarged. Aortic tortuosity. Degenerative changes. Stable right main PA. Mild areas of atelectasis/scarring. Low lung volumes. No pleural effusion. No pneumothorax. IMPRESSION: No acute findings. Dictated by Kwabena Eden MD @ 10/14/2023 8:53:07 AM (Electronically Signed)
[2023-10-14 08:25] LABS: Basophils Absolute Auto 0.02 K/uL (0.00-0.30); Basophils Percent Auto 0.4 % (0.0-3.0); Eosinophils Absolute Auto 0.22 K/uL (0.00-0.50); Eosinophils Percent Auto 4.1 % (0.0-7.0); Hematocrit 41.1 % (33.0-51.0); Hemoglobin* 13.6 gm/dL (12.0-16.0); Immature Granulocytes Abs Auto 0.01 K/uL (0.00-0.30); Immature Granulocytes Pct Auto 0.2 %; Mean Corpuscular HGB Conc 33 gm/dL (32-36); Mean Corpuscular Hemoglobin 32 pg (26-34); Mean Corpuscular Volume 97 fL (80-100); Monocytes Percent Auto 7.6 % (0.0-11.0); Neutrophils Absolute Auto 3.32 K/uL (1.7-7.0); Neutrophils Percent Auto 61.7 % (42.0-72.0); Platelet Count* 216 K/uL (140-440); RDW Coefficient of Variation % 13.4 % (11.5-15.5); Red Blood Count 4.25 m/uL (4.00-5.20); White Blood Count* 5.38 K/uL (4.50-11.00)
[2023-10-14 08:27] LABS: Slide Review Reflex No
--- OUTSIDE RECORDS SUMMARY | 2023-10-14 08:36 | XMS_ITS | Clinical Summary ---
Author Name Unknown Organization [facility] Address [place], [place] [address] Care Team Providers Care Office Automation Technician Name Role Phone Vincent Dawkins DO Primary Care Provider [phone] Allergies Active Allergy Reactions Criticality Noted Date [...] 08/23/2023 Active furosemide (LASIX) 20 mg tabletIndications:Ac douglas on chronic systolic CHF (congestive heart failure) [...] (200 mg) daily 60 Tablet 1 08/30/2023 4 Discontinue d(Reorder (E-cancel not sent)) Active Problems Problem Noted Date Diagnosed Date [...] Encounters Date Type Department Care Team Description 10/09/2023 Nurse Triage [facility] [address] [place] [address] Vincent Dawkins DO Rectal Pain 09/24/[address] Houser [address] [place] [id number] Clementine Watson NP OTHER (Chest discomfort/possible Rx SE) 09/23/2023 1:40 PM SENIOR TALENT ACQUISITION SPECIALIST Office Visit [facility] [address] [place] [address] Vincent Dawkins, ER Follow up (09.10., [place], chest pain) 09/23/2023 Travel 09/19/[address] [address] Vincent Dawkins DO Results 09/13/2023 10:45 AM SENIOR TALENT ACQUISITION SPECIALIST Nurse/Clinic Staff Only [facility] [address] [place] [address] Immunization/Injecti on (PROLIA) 09/12/2023 1:00 PM SENIOR TALENT ACQUISITION SPECIALIST Ancillary Procedure [facility] [address] [facility] [address] 09/12/2023 Travel 09/10/2023 Orders Only [facility] Scanner 1 scan: (1-Ord) EDUARD, CHEST 1VW, 09/10/2023 09/10/2023 Nurse Triage [facility] [address] [facility] [place] [address] Vincent Dawkins DO Chest Pain (/) 09/10/[address] [facility] [place] [address] Vincent Dawkins DO Medication Management (amiodarone (CORDARONE) 200 mg tablet //) 09/04/[address]er [address] [place] [address] Clementine Watson NP Results 08/30/2023 3:30 PM SENIOR TALENT ACQUISITION SPECIALIST Office Visit [address] Houser [address] [place] [address] Clementine Watson NP CV General Cardiology Est (F/u to review testing. Reports some chest discomfort but attributes to medications, reports feeling lightheaded on occ. ) 08/30/2023 Travel 08/23/2023 10:10 AM SENIOR TALENT ACQUISITION SPECIALIST Office Visit [facility] Jessy [facility] [place] [address] Vincent Dawkins DO Medicare ANNUAL (subsequent) Visit (72 year old) 08/23/2023 9:40 AM SENIOR TALENT ACQUISITION SPECIALIST Ancillary Procedure [facility] [place] [address] 08/23/2023 Travel 08/07/[address] [facility] [place] [address] Vincent Dawkins DO Refill Request (Torsemide) 07/19/[address] [facility] [place] [address] Vincent Dawkins, Refill Request (Klor-con M20, Mirtazapine, Atorvastatin, Lamotrigine) 07/19/2023 Telephone [facility] [address] [place] [address] Vincent Dawkins, Results 07/16/2023 Telephone [facility] [address] [place] [address] Vincent Dawkins, Medication Management (metoprolol succinate (Toprol XL) 25 mg Sustained-Release tablet) from Last 3 Months Immunizations Name Administration Dates Next Due COVID-19 Vaccine Spikevax (M oderna 50mcg/0.5mL) 12YO+ 5911-9965 Formula PF 07/12/2023 COVID-19 vaccine (Pfizer-Bio NTech 30mcg/0.3mL) 12YO+ BIVALENT PF, MDV 08/10/2022 COVID-19 vaccine (Pfizer-Bio NTech 30mcg/0.3mL) PF, MDV 07/06/2021,12/09/2020,11/18/2020 Influenza Virus, [...] Comments Blood Pressure 135/72 09/23/2023 1:37 PM SENIOR TALENT ACQUISITION SPECIALIST Pulse 80 09/23/2023 1:37 PM SENIOR TALENT ACQUISITION SPECIALIST Temperature 36.4 ??C (97.6 ??F) 09/23/2023 1:37 PM CS T Respiratory Rate 16 11/01/2021 8:22 AM SENIOR TALENT ACQUISITION SPECIALIST Oxygen Saturation 97% 09/23/2023 1:37 PM SENIOR TALENT ACQUISITION SPECIALIST Inhaled Oxygen Concentration - - Weight 90.4 kg (199 lb 6.4 oz) 09/23/2023 1:37 P M SENIOR TALENT ACQUISITION SPECIALIST Height 162.6 cm (5' 4) 09/23/2023 1:37 PM SENIOR TALENT ACQUISITION SPECIALIST Body Mass Index 34.23 09/23/2023 1:37 PM SENIOR TALENT ACQUISITION SPECIALIST Plan of Treatment Upcoming Encounters Date Type Department Care Team (Late st Contact Info) Description 11/13/2023 8:00 AM SENIOR TALENT ACQUISITION SPECIALIST Office Visit [facility] [address] [place] [address] Teofilo Rey MD [address] [place] [address] 11/21/2023 10:35 AM SENIOR TALENT ACQUISITION SPECIALIST Office Visit [facility] [address] [place] [address] Vincent Dawkins DO [address] [place] [address] 01/07/2024 10:00 AM CDT Office Visit [facility] [address] [place] [address] Teofilo Narvaez MD [address] [place] [address] Health Maintenance Due Date Last Done Comments Medicare Wellness for age 65+ 08/22/2024, 08/10/2022, 08/03/2021, Additional history exists Depression screening for age 12+ 08/23/2024 08/23/2023, 08/10/2022, 08/10/2022, Additional history exists Mammogram for age 45-75 08/23/2024 08/23/20, 08/10/2022, 08/03/2021, Additional history exists BMI (ht [...] Completed 08/04/2021, 02/16, 03/15/2008 (Completed outside of [facility]) Fecal testing non-DNA (FIT,FOBT,iFOBT) for age 45-75 Discontinued 05/06/2022, 08/26/2020, 07/16/2019, Additional history exists Influenza for age 65+ Completed 06/10/2023 , 08/10/2022, 07/03/2021, Additional history exists COVID-19 vaccine series Completed 07/12/20, 08/10/2022, 07/06/2021, Additional history exists DEXA/DXA scan for age 65+ Completed 2022, 08/03/2021, 06/30/2015, Additional history exists Medical Devices Implanted Type Area Sheet Ironworker Device Identifier Shelf Expiration Date Model / Serial / Lot Screw Sm Joint 6.5x25mm Canclls Bone - [id number] Implanted:Qty: 1 on 02/06/[address] [facility] Ortho Imp.,Screw s & Plates Right: Hip [employer] [id number] -1# / / [id number] Shell Hip Od50mm Trident Psl Cluster Arias - [id number] Implanted:Qty: 1 on 02/06/[address] [facility] Right: Hip [facility] [employer] 542-11-50 E# / / [id number] Screw Sm Joint 6.5x50mm Canclls Bone - [id number] Implanted:Qty: 1 on 02/06/[address] [facility] Right: Hip [employer] [id number] -1# / / [id number] Liner Hip Id36mm Lolly 0deg Trident X3 - [id number] Implanted:Qty: 1 on 02/06/[address] [facility] Right: Hip [facility] [employer] 623-00-36 E# / / [id number] Stem Hip Sz7 127deg Accolade Ii - [id number] Implanted:Qty: 1 on 02/06/[address] [facility] Right: Hip Whi [id number] # / / [id number] Head Hip Od36mm +5 Biolox Delta C-Taper Alumina Cer - [id number] Implanted:Qty: 1 on 02/06/[address] [facility] Right: Hip [facility] 6570-0-23 6# / / [id number] Procedures Procedure Name Priority Date/Time Associated Diagnosis Comments XR DXA BONE DENSITY 1 SITE AXIAL AND 1 SITE PERIPHERAL Routine 09/12/2023 1:30 PM SENIOR TALENT ACQUISITION SPECIALIST Age related osteoporosis, unspecified pathological fracture presence SCAN-RADIOLOGY REPORT 09/10/2023 12:00 AM SENIOR TALENT ACQUISITION SPECIALIST HEPATIC FUNCTION PANEL Routine 08/30/2023 4:23 PM SENIOR TALENT ACQUISITION SPECIALIST Paroxysmal atrial fibrillation (HC) PVC's (premature ventricular contractions) TSH Routine 08/30/2023 4:23 PM SENIOR TALENT ACQUISITION SPECIALIST Paroxysmal atrial fibrillation (HC) PVC's (premature ventricular contractions) BASIC METABOLIC PANEL Routine 08/23/2023 11:11 AM SENIOR TALENT ACQUISITION SPECIALIST Stage 3b chronic kidney disease (HC) XR MAMMO JOLIE BILAT SCREEN Routine 08/23/2023 9:55 AM SENIOR TALENT ACQUISITION SPECIALIST Visit for screening mammogram from Last 3 Months Results * (ABNORMAL) XR DXA BONE DENSITY 1 SITE AXIAL AND 1 SITE PERIPHERAL (09/12/2023 1:30 PM SENIOR TALENT ACQUISITION SPECIALIST) Anatomical Region Laterality Modality LUMBAR SPINE Other Impressions 09/18/2023 4:42 PM SENIOR TALENT ACQUISITION SPECIALIST Osteoporosis. Due to the stability of the [...] scan in 2 years. Allison Tran PA-C [facility] 09/18/2023 Narrative 09/18/2023 4:42 PM SENIOR TALENT ACQUISITION SPECIALIST For Patients: Results are automatically released to your [facility] ([employer]) account once available, in compliance with federal regulations. This means that you may see your results before your provider has had a chance to review them. Please allow 2-3 business days for your provider to comment on the results. XR DXA Bone Mineral Density (BMD) EXAM LOCATION: [facility] [address] [facility] [address] PATIENT NAME: Lydia Cooper DATE OF : [...] two scanners are made by the same entry level sales associate. PROCEDURE: Dual-energy x-ray absorptiometry performed with routine [...] Osteoporosis: T-score at or below -2.5 SD Yeseniai Uvaldoeneida DO DEXA * SCAN-RADIOLOGY REPORT (09/10/2023 12:00 AM SENIOR TALENT ACQUISITION SPECIALIST) Anatomical Region Laterality Modality Other Scanner OTHER * TSH (08/30/2023 4:23 PM SENIOR TALENT ACQUISITION SPECIALIST) TSH 1.99 0.27 - 4.20 uIU/mL 09/02/2023 1:39 PM SENIOR TALENT ACQUISITION SPECIALIST [facility] Blood BLOOD SPECIMEN / Unknown Venipuncture / Unknown 08/30/2023 4:23 PM SENIOR TALENT ACQUISITION SPECIALIST 08/30/2023 4:23 PM SENIOR TALENT ACQUISITION SPECIALIST Narrative [facility] - 09/02/2023 1:39 PM SENIOR TALENT ACQUISITION SPECIALIST In Adults, TSH values between 5.00 and 10.00 uIU/ml do not necessarily indicate the presence of Hypothyroidism. Correlation with clinical findings such as presence of goiter and/or Thyroperoxidase (TPO) Antibody may be helpful. For more information please refer to ANNE-MARIE 2004; 291: 228-238. Clementine Watson NP CHEMISTRY [facility] [address] [place] [address], * HEPATIC FUNCTION PANEL (08/30/2023 4:23 PM SENIOR TALENT ACQUISITION SPECIALIST) ALBUMIN 4.6 4.0 - 4.9 g/dL 09/02/2023 1:39 PM SENIOR TALENT ACQUISITION SPECIALIST [facility] PROTEIN,TOTAL 7.4 6.0 - 8.0 g/dL 09/02/2023 1:39 PM SENIOR TALENT ACQUISITION SPECIALIST [facility] BILIRUBIN,TOTAL 0.5 0.0 - 1.2 mg/dL 09/02/2023 1:39 PM SENIOR TALENT ACQUISITION SPECIALIST [facility] BILIRUBIN,DIRECT <0.2 0.0 - 0.3 mg/dL 09/02/2023 1:39 PM SENIOR TALENT ACQUISITION SPECIALIST [facility] BILIRUBIN,INDIRE CT 09/02/2023 1:39 PM SENIOR TALENT ACQUISITION SPECIALIST [facility] Comment:Unable to calculate, Direct Bili <0.2 ALK PHOSPHATASE 74 35 - 104 IU/L 09/02/2023 1:39 PM SENIOR TALENT ACQUISITION SPECIALIST [facility] ALT (SGPT) 19 10 - 35 IU/L 09/02/2023 1:39 PM SENIOR TALENT ACQUISITION SPECIALIST [facility] AST (SGOT) 28 10 - 35 IU/L 09/02/2023 1:39 PM SENIOR TALENT ACQUISITION SPECIALIST [facility] Blood BLOOD SPECIMEN / Unknown Venipuncture / Unknown 08/30/2023 4:23 PM SENIOR TALENT ACQUISITION SPECIALIST 08/30/2023 4:23 PM SENIOR TALENT ACQUISITION SPECIALIST Clementine Watson NP CHEMISTRY [facility] [address] [place] [address], * (ABNORMAL) BASIC METABOLIC PANEL (08/23/2023 11:11 AM SENIOR TALENT ACQUISITION SPECIALIST) SODIUM 139 136 - 145 mmol/L 08/23/2023 4:30 PM [facility] POTASSIUM 5.1 3.5 - 5.1 mmol/L 08/23/2023 4:30 PM [facility] CHLORIDE 101 98 - 107 mmol/L 08/23/2023 4:30 PM [facility] CO2,TOTAL 28 22 - 29 mmol/L 08/23/2023 4:30 PM SENIOR TALENT ACQUISITION SPECIALIST [facility] ANION GAP 10 5 - 18 08/23/2023 4:30 PM [facility] GLUCOSE 97 70 - 99 mg/dL 08/23/2023 4:30 PM [facility] CALCIUM 10.4(H) 8.8 - 10.2 mg/dL 08/23/2023 4:30 PM [facility] BUN 20 8 - 23 mg/dL 08/23/2023 4:30 PM SENIOR TALENT ACQUISITION SPECIALIST [facility] CREATININE 1.33(H) 0.50 - 0.90 mg/dL 08/23/2023 4:30 PM SENIOR TALENT ACQUISITION SPECIALIST [facility] BUN/CREAT RATIO 15 10 - 20 3 4:30 PM SENIOR TALENT ACQUISITION SPECIALIST [facility] eGFR 42(L) >90 mL/min/1.7 3m2 08/23/2023 4:30 PM SENIOR TALENT ACQUISITION SPECIALIST [facility] Comment:As of 2021, eG FR is calculated by the CKD-EPI creatinine equation without race adjustment. ??eGFR can be influenced by muscle mass, exercise, and diet. ??The reported eGFR is an estimation only and is only applicable if the renal function is stable. Blood BLOOD SPECIMEN / Unknown Venipuncture / Unknown 08/23/2023 11:11 AM SENIOR TALENT ACQUISITION SPECIALIST 08/23/2023 11:11 AM SENIOR TALENT ACQUISITION SPECIALIST Vincent Dawkins DO [facility] [address] [place] [address], [place] * XR MAMMO JOLIE BILAT SCREEN (08/23/2023 9:55 AM SENIOR TALENT ACQUISITION SPECIALIST) Anatomical Region Laterality Modality BREASTS, Breast Left, Breast Right Bilateral Mammography Impressions 08/23/2023 3:47 PM SENIOR TALENT ACQUISITION SPECIALIST ??There is no radiographic evidence for malignancy. ??Recommend annual mammograms. MAMMOGRAM ASSESSMENT: ??ACR 1 Negative PATIENTS: You will also receive a letter with your examination results in an easy to read format. ??If you have questions about your results, please contact your referring provider. Narrative 08/23/2023 3:47 PM SENIOR TALENT ACQUISITION SPECIALIST For Patients: As a result of the 21st Century Cures Act, medical imaging exams and procedure reports are released immediately into your electronic medical record. You may view this report before your referring provider. If you have questions, please contact your health care provider. XR MAMMO JOLIE BILAT SCREEN [[id number]] CLINICAL HISTORY: ??This is an asymptomatic 72 [...] micro calcifications or areas of architectural distortion. 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
[2023-10-14 08:39] LABS: Albumin* 4.5 g/dL (3.3-5.0); Chloride* 99 mmol/L (96-114); Sodium* 135 mmol/L (135-149)
[2023-10-14 08:41] LABS: Creatinine* 1.4 mg/dL (0.5-1.5); Estimated Glomerular Filt Rate 39 ml/min
[2023-10-14 08:42] LABS: Alanine Aminotransferase* 20 U/L (4-35); Alkaline Phosphatase* 55 U/L (40-150); Anion Gap 9 mEq/L (7-15); Aspartate Amino Transferase* 24 U/L (12-35); Bilirubin Direct* 0.1 mg/dL (0.0-0.5); Bilirubin Total* 0.9 mg/dL (0.1-1.5); Blood Urea Nitrogen* 18 mg/dL (7-30); Carbon Dioxide* 27 mmol/L (20-32); Glucose* 103 mg/dL (60-115); Total Protein* 7.4 g/dL (6.0-8.3)
--- NOTE | 2023-10-14 08:42 | ED.GENADULT ---
HPI - General Adult General Date Seen: 10/14/23 Chief complaint: Chest Pain Stated complaint: chest pain Time Seen by Provider: 10/14/23 08:12 Source: patient, family, RN notes reviewed and old records reviewed Mode of arrival: ambulatory Limitations: no limitations History of Present Illness HPI narrative: Patient is a 73-year-old woman with underlying CHF and atrial fibrillation here for burning chest pain that started at about 5:00 a.m.. She says it woke her from sleep. She presents to the ER several hours later with his daughter for evaluation. She does have a history of multiple visits to the ER for similar symptoms, I saw her about a month ago and workup was negative. She has an upcoming appointment with cardiology in October, continues to take amiodarone for her atrial fibrillation. Her daughter does note that her weight is up several lb over the past couple of days and wonders about her CHF. Patient says she was feeling a little short of breath earlier but not now. She was also little dizzy earlier but not now. Notes a burning-type chest pain. Related Data Home Medications Medication Instructions Recorded Confirmed albuterol sulfate 90 mcg/actuation 1 - 2 puff inhalation Q4H PRN 06/02/23 10/14/23 aerosol inhaler dyspnea aspirin 81 mg capsule 81 mg PO DAILY 06/02/23 10/14/23 atorvastatin 40 mg tablet 40 mg PO HS 06/02/23 10/14/23 fluticasone propionate 50 2 spray intranasal DAILY 06/02/23 10/14/23 mcg/actuation nasal spray,suspension lamotrigine 100 mg tablet 150 mg PO BID 06/02/23 10/14/23 mirtazapine 7.5 mg tablet 7.5 mg PO HS 06/02/23 10/14/23 calcium carbonate 600 mg-vitamin 1 tab PO BID 06/03/23 10/14/23 D3 10 mcg (400 unit) tablet (Calcium 600 + D(3)) denosumab 60 mg/mL subcutaneous 60 mg subcut [id number] 06/03/23 10/14/23 syringe (Prolia) triamcinolone acetonide 0.1 % 1 applic topical 3XD PRN 06/03/23 06/03/23 topical cream Previous Rx's Medication Instructions Recorded potassium chloride 10 mEq 20 meq (2 x 10 mEq) PO DAILYWM 3 06/03/23 capsule,extended release days #6 caps torsemide 10 mg tablet 10 mg PO DAILY #30 tabs 06/03/23 Allergies Allergy/AdvReac Type Severity Reaction Status Date / Time No Known Drug Allergies Allergy Verified 06/02/23 15:34 Review of Systems Status of ROS: Reports: 10 or more systems reviewed and unremarkable except as noted in History and below [facility] Medical History Osteoporosis ?M81.0 - Age-related osteoporosis without current pathological fracture (ICD-10) TIA (transient ischemic attack) ?G45.9 - Transient cerebral ischemic attack, unspecified (ICD-10) Atrial fibrillation ?I48.91 - Unspecified atrial fibrillation (ICD-10) Anxiety ?F41.9 - Anxiety disorder, unspecified (ICD-10) Depression ?F32.A - Depression, unspecified (ICD-10) Hypertension ?I10 - Essential (primary) hypertension (ICD-10) 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 of cranial nerves (ICD-10) Lower extremity edema ?R60.0 - Localized edema (ICD-10) Obstructive sleep apnea ?G47.33 - Obstructive sleep apnea (adult) (pediatric) (ICD-10) Seizure disorder ?G40.909 - Epilepsy, unspecified, not intractable, without status epilepticus (ICD-10) AVM (arteriovenous malformation) brain ?Q28.2 - Arteriovenous malformation of cerebral vessels (ICD-10) Surgical History History of tubal ligation ?Z98.51 - Tubal ligation status (ICD-10) History of D&C ?Z98.890 - Other specified postprocedural states (ICD-10) History of breast biopsy ?Z98.890 - Other specified postprocedural states (ICD-10) History of cholecystectomy ?Z90.49 - Acquired absence of other specified parts of digestive tract (ICD-10) History of bilateral hip arthroplasty ?Z96.643 - Presence of artificial hip joint, bilateral (ICD-10) Family History Other High blood pressure Seizure disorder Social History Narrative: She lives independently in her own home in [place]. Her daughter and multiple other family members live nearby. Her daughter Elke is healthcare power of patent prosecution attorney. Her code status is full. She is a nonsmoker. She does not drink alcohol. She does drive her own car. She does not use assistive device when she walks. She is able to manage her own affairs. What is your current living situation?: I presently have a place to live Problems where you live: no known problems Problems where you live details: n/a In the past 12 months, utilities in danger of being shut off: no In past 12 months, lack of transportation kept you from medical appts, meetings, work, or getting things needed for daily living: no In the past 12 mos, have been you worried that your food would run out before you had money to buy more?: never true In the past 12 mos, the food you bought just didn't last and you didn't have money to buy more?: never true Highest level of school completed/degree received: high school graduate Smoking Status: Never smoker Do you use any of these nicotine containing products: None How often do you have a drink containing alcohol: never AUDIT-C Alcohol total score: 0 Non-prescribed substance use: denies use Caffeine: Yes How often does anyone, including family, friends and others, physically hurt you: never How often does anyone, including family, friends and others, insult or talk down to you: never How often does anyone, including family, friends and others, threaten you with harm: never How often does anyone, including family, friends and others, scream or curse at you: never service: No Exam Narrative: Exam Narrative: Vital signs as noted above. In general, an alert, well-appearing patient. Looks comfortable, breathing easily. Head: Normocephalic, atraumatic. Eyes: Pupils are equal reactive. Extraocular movements are full. Conjunctivae are normal. ENT: Mucous membranes are moist. Throat is normal. Neck: Supple without lymphadenopathy. Heart: Regular rate and rhythm. No murmur or rub. Lungs: Clear bilaterally. No increased work of breathing, crackles or wheezes. Abdomen: Soft and nontender. No organomegaly. Extremities: Well perfused. No edema. No calf tenderness. Pulses intact. Neurologic: Patient is alert and oriented to person and place. Speech is fluent. Face is symmetric. Moves all extremities equally. Affect: Normal. Skin: Warm and dry. Well perfused. Const: Vital Signs, click to edit/add: Vital Signs - 24 hr 10/14/23 08:02 10/14/23 08:22 10/14/23 09:14 Temperature 98.4 F Pulse Rate 70 Pulse Rate [Right Pulse Oximeter] 71 Respiratory Rate 18 Blood Pressure Blood Pressure [Ri ght Upper Arm] 138/91 H Pulse Oximetry 99 99 94 Oxygen Delivery Me od Room Air 10/14/23 09:15 10/14/23 09:30 10/14/23 09:32 Temperature Pulse Rate 70 76 66 Pulse Rate [Right Pulse Oximeter] Respiratory Rate Blood Pressure 131/72 Blood Pressure [Ri ght Upper Arm] Pulse Oximetry 91 85 L 95 Oxygen Delivery Me thod 10/14/23 09:32 10/14/23 09:32 10/14/23 09:45 Temperature Pulse Rate 66 66 72 Pulse Rate [Right Pulse Oximeter] Respiratory Rate Blood Pressure 131/72 131/72 Blood Pressure [Ri ght Upper Arm] Pulse Oximetry 95 [address] [facility] 10/14/23 10:00 10/14/23 10:02 10/14/23 10:15 Temperature Pulse Rate 70 73 99 Pulse Rate [Right Pulse Oximeter] Respiratory Rate Blood Pressure 125/81 Blood Pressure [Ri ght Upper Arm] Pulse Oximetry 90 98 84 L Oxygen Delivery Me od 10/14/23 10:30 Temperature Pulse Rate 76 Pulse Rate [Right Pulse Oximeter] Respiratory Rate Blood Pressure Blood Pressure [Ri ght Upper Arm] Pulse Oximetry [address] [facility] Documenting provider has reviewed patient's vital signs: yes Course Course ED Course: EKG by my review done on arrival shows atrial flutter with a controlled ventricular rate, variable block, 66 beats per minute. No acute ST segment changes, T-waves unremarkable. Will evaluate for possible acute coronary syndrome, check a troponin, D-dimer, get a chest x-ray. I also ordered BNP, do note that her lungs are clear, I do not see peripheral edema and her O2 sats are normal. Labs are wants more reassuring, initial troponin is 0, 2 hour troponin is 0. CRP is less than 0.5, D-dimer is 0.38. White count is normal, hemoglobin normal, metabolic panel entirely within normal limits as are LFTs. Her BNP is elevated at 19 90 but looking back through her records this is actually slightly better than usual. Clinically, I do not see any evidence of congestive heart failure exacerbation. I did recommend that she check her weight daily, if it is continuing to trend up or she is noticing swelling in her legs difficulty breathing etcetera, she can double up on her Lasix or return for re-evaluation. Otherwise I would recommend cardiology follow-up as planned, discussed with her that her cardiac workup today is again reassuring but I would mention these episodes of chest pain to her white hat hacker when she sees them as well. Vital Signs Vital signs: Initial Vital Signs Temperature 98.4 F 10/14/23 08:02 Temperature Source Temporal Artery Scan 10/14/23 08:02 Pulse Rate 71 10/14/23 08:02 Respiratory Rate 18 10/14/23 08:02 Blood Pressure 138/91 H 10/14/23 08:02 Blood Pressure Mean 106 H 10/14/23 08:02 Blood Pressure Position Sitting 10/14/23 08:02 Pulse Oximetry 99 10/14/23 08:02 Oxygen Delivery Method Room Air 10/14/23 08:02 Vital Signs Temperature 98.4 F 10/14/23 08:02 Pulse Rate 71 10/14/23 08:02 Respiratory Rate 18 10/14/23 08:02 Blood Pressure 138/91 H 10/14/23 08:02 Pulse Oximetry 99 10/14/23 08:02 Oxygen Delivery Method Room Air 10/14/23 08:02 Temperature 98.4 F 10/14/23 08:02 Pulse Rate 76 10/14/23 10:30 Respiratory Rate 18 10/14/23 08:02 Blood Pressure 125/81 10/14/23 10:02 Pulse Oximetry 94 10/14/23 10:30 Oxygen Delivery Method Room Air 10/14/23 08:02 Medical Decision Making Lab Data Labs: Lab Results 10/14/23 10/14/23 10/14/23 Range/Units 08:12 08:15 10:04 WBC 5.38 (4.50-11.00) K/uL RBC 4.25 (4.00-5.20) m/uL Hgb 13.6 (12.0-16.0) gm/dL Hct 41.1 (33.0-51.0) % MCV 97 (80-100) fL MCH 32 (26-34) pg MCHC 33 (32-36) gm/dL RDW Coeff of Koko 13.4 (11.5-15.5) % Plt Count 216 (140-440) K/uL Neut % (Auto) 61.7 (42.0-72.0) % Lymph % (Auto) 26.0 (20-44) % Jenkins % (Auto) 7.6 (0.0-11.0) % Eos % (Auto) 4.1 (0.0-7.0) % Baso % (Auto) 0.4 (0.0-3.0) % Neut # (Auto) 3.32 (1.7-7.0) K/uL Lymph # (Auto) 1.40 (0.90-2.90) K/uL Jenkins # (Auto) 0.40 (0.00-0.90) K/UL Eos # (Auto) 0.22 (0.00-0.50) K/uL Baso # (Auto) 0.02 (0.00-0.30) K/uL Abs Immat Gran (auto) 0.01 (0.00-0.30) K/uL Imm/Tot Granulo (auto) 0.2 % D-Dimer Quant (PE/DVT) 0.38 (0.00-0.50) ug/ml Sodium 135 (135-149) mmol/L Potassium 4.0 (3.6-5.1) mmol/L Chloride 99 (96-114) mmol/L Carbon Dioxide 27 (20-32) mmol/L Anion Gap 9 (7-15) mEq/L BUN 18 (7-30) mg/dL Creatinine 1.4 (0.5-1.5) mg/dL Estimated Creat Clear 33.00 Estimated GFR 39 ml/min Glucose 103 (60-115) mg/dL Calcium 9.5 (8.4-10.6) mg/dL Total Bilirubin 0.9 (0.1-1.5) mg/dL Direct Bilirubin 0.1 (0.0-0.5) mg/dL AST 24 (12-35) U/L ALT 20 (4-35) U/L Alkaline Phosphatase 55 (40-150) U/L C-Reactive Protein < 0.5 L (0.5-1.0) mg/dL NT-Pro-B Natriuret Pep 1990 pg/mL Total Protein 7.4 (6.0-8.3) g/dL Albumin 4.5 (3.3-5.0) g/dL POC Troponin I 0.00 L 0.00 L (0.01-0.04) ng/ml Discharge Plan Discharge Clinical Impression: Chest pain Patient Disposition: Home, Self-Care Condition: Improved Instructions: Chest Pain (DC) Additional Instructions: Follow-up in clinic as planned. Your evaluation here today is reassuring, I do not see any specific evidence of problems with your heart, but I would recommend that you discuss her chest pain with her white hat hacker. Check your weight daily, if it continues to trend up or you notice swelling in her legs, shortness of breath anything like that, either return for evaluation or double up on your Lasix for a few days. As of today, I do not see any evidence of worsening heart failure. Prescriptions: No Action atorvastatin 40 mg tablet 40 mg PO HS albuterol sulfate 90 mcg/actuation HFA aerosol inhaler 1 - 2 puff INHALATION Q4H PRN (Reason: dyspnea) fluticasone propionate 50 mcg/actuation spray,suspension 2 spray INTRANASAL DAILY lamotrigine 100 mg tablet 150 mg PO BID mirtazapine 7.5 mg tablet 7.5 mg PO HS aspirin 81 mg capsule 81 mg PO DAILY triamcinolone acetonide 0.1 % cream 1 applic topical 3XD PRN calcium carbonate-vitamin D3 [Calcium 600 + D(3)] 600 mg-10 mcg (400 unit) tablet 1 tab PO BID Prolia 60 mg/mL syringe 60 mg subcut [id number] potassium chloride 10 mEq Capsule, Extended Release 20 meq PO DAILYWM 3 Days Qty: 6 0RF torsemide 10 mg tablet 10 mg PO DAILY Qty: 30 0RF Follow Up/Referrals: ZOLTAN WATKINS DO [Primary Care Provider] - Stand Alone Forms: MyHealth Info Instructions
[2023-10-14 08:43] LABS: Calcium* 9.5 mg/dL (8.4-10.6)
[2023-10-14 08:44] LABS: D Dimer Quantitative* 0.38 ug/ml (0.00-0.50)
[2023-10-14 08:45] LABS: C Reactive Protein* < 0.5 mg/dL (0.5-1.0)
[2023-10-14 08:51] LABS: NT Pro B Type NatriureticPept* 1990 pg/mL
== END 2023-10-14 11:12 | disposition home or self-care (01) ==
PROVIDERS: Emergency Provider Emergency Medicine; PCP Student in an Organized Health Care Education/Training Program
DX: R07.9 Chest pain, unspecified (principal)
CPT/HCPCS: 36415; 71045; 80048; 80076; 83880; 84484; 85025; 85379; 86140; 93005; 94761; 99284; 99285

== ENCOUNTER 2024-01-02 08:06 | Outpatient (CLI) | payer MEDICARE, BC, SELFPAY ==
--- OUTSIDE RECORDS SUMMARY | 2024-01-02 08:09 | XMS_ITS | Clinical Summary ---
Author Name Unknown Organization [facility] Address [place], [place] [address] Care Team Providers Care Cardroom Attendant Name Role Phone Vincent Dawkins DO Primary Care Provider [phone] Allergies Active Allergy Reactions Criticality Noted Date Comments Amlodipine Edema Medium 04/03/2023 Latex *Unknown 02/06/2015 Per outside notes Lisinopril Cough Low 04/03/2023 Losartan Cough Low 04/03/2023 Adhesive Rash 07/09/2014 Medications Medication Sig Dispensed Refills Start Date End Date Status albuterol HFA (PRO-AIR; VENTOLIN; PROVENTIL) 90 mcg/actuation inhalerIndications: Chronic cough Inhale 1-2 Puffs by mouth every 4 hours while awake. 8.5 g 08/23/2023 Active aspirin chewable 81 mg chewable tabletIndications:P aroxysmal atrial fibrillation (HC),Transient ischemic attack Chew 1 Tablet (81 mg) by mouth once daily with a meal. 90 Tablet 3 08/23/2023 Active atorvastatin (LIPITOR) 40 mg tabletIndications:H yperlipidemia, unspecified hyperlipidemia type Take 1 Tablet (40 mg) by mouth at bedtime. 90 Tablet 2 08/23/2023 Active fluticasone (50 mcg per actuation) nasal solution (FLONASE)Indication s:Nasal congestion,Postnasa l drip Inhale 2 Sprays to both nostrils once daily. 48 g 08/23/2023 Active inhalational spacing deviceIndications:C hronic cough For home use. 1 Each 08/23/2023 Active potassium chloride (Klor-Con M20) 20 mEq extended-release tablet (part/cryst)Indicat ions:Irregular heart rhythm Take 1 Tablet (20 mEq) by mouth once daily with a meal. 90 Tablet 2 08/23/2023 Active triamcinolone (ARISTOCORT; KENALOG) 0.1 % creamIndications:De rmatitis Apply topically to affected area(s) three times daily. 80 g 08/23/2023 Active calcium carbonate-vitamin D3, 600 mg-400 unit, (Calcium 600 + D) 600 mg-10 mcg (400 unit) tabletIndications:A ge-related osteoporosis without current pathological fracture Take 1 Tablet by mouth two times daily with meals. 60 Tablet 11 08/23/2023 08/17/20 24 Active metoprolol succinate (Toprol XL) 25 mg Sustained-Release tabletIndications:P VC's (premature ventricular contractions) Take 0.5 Tablets (12.5 mg) by mouth once daily. 90 Tablet 3 08/23/2023 Active amiodarone (CORDARONE) 200 mg tabletIndications:P aroxysmal atrial fibrillation (HC),PVC's (premature ventricular contractions) Take 1 Tablet (200 mg) by mouth once daily. Take two tablets (400 mg) for 14 days and then take one tablet (200 mg) daily 90 Tablet 3 09/23/2023 Active furosemide (LASIX) 20 mg tabletIndications:A cute on chronic systolic CHF (congestive heart failure) (HC) Take 1 Tablet (20 mg) by mouth every morning. 90 Tablet 2 11/21/2023 Active potassium chloride (K-ALEXI) 20 mEq packetIndications:H ypokalemia Mix 1 Packet (20 mEq) in liquid then take by mouth once daily with a meal. 90 Packet 3 11/21/2023 Active mirtazapine (REMERON) 7.5 mg tabletIndications:D epression, major, single episode, moderate (HC),Depression, major, in remission (HC) TAKE ONE TABLET BY MOUTH AT BEDTIME 30 Tablet 12/13/2023 Active lamoTRIgine (LAMICTAL) 100 mg tabletIndications:S eizure disorder (HC) TAKE ONE AND ONE-HALF TABLETS BY MOUTH TWICE DAILY 270 Tablet 1 12/13/2023 Active lamoTRIgine (LAMICTAL) 100 mg tabletIndications:S eizure disorder (HC) Take 1.5 Tablets (150 mg) by mouth two times daily. 270 Tablet 08/23/2023 12/13/19 24 Discontinued mirtazapine (REMERON) 7.5 mg tabletIndications:D epression, major, single episode, moderate (HC),Depression, major, in remission (HC) Take 1 Tablet (7.5 mg) by mouth at bedtime. 60 Tablet 08/23/2023 12/13/19 24 Discontinued Active Problems Problem Noted Date Diagnosed Date Acute on chronic systolic CHF (congestive heart failure) 11/13/2023 Depression, major, single episode, moderate 10/18 Stage 3b chronic kidney disease 04/03/2023 Age-related [...] Encounters Date Type Department Care Team Description 12/27/2023 Telephone [facility] [address] [place] [address] Vincent Dawkins DO other 12/12/2023 Refill [facility] [address] [place] [address] Vincent Dawkins DO Refill Request (Mirtazapine, Lamotrigine) 11/21/2023 10:35 AM FEDERAL APPELLATE LAW CLERK Office Visit [facility] [address] [facility] [place] [address] Vincent Dawkins DO Follow Up 11/21/2023 Travel 11/13/2023 8:00 AM FEDERAL APPELLATE LAW CLERK Office Visit [facility] [address] [place] [address] Teofilo Rey MD Consult (Initial Consult for PVCs/A Fib. ); Medication Management (Discuss Amiodarone) 11/13/2023 Travel 10/14/2023 Orders Only [facility] Scanner 1 scan: (1-Ord) [facility], XR CHEST 1V PORTABLE, 10/14/2023 10/09/2023 Nurse Triage [facility] [address] [place] [address] Vincent Dawkins, Rectal Pain from Last 3 Months Immunizations Name Administration Dates Next Due COVID-19 Vaccine Spikevax (M oderna 50mcg/0.5mL) 12YO+ [id number] Formula PF 07/12/2023 COVID-19 vaccine (bigtincan-Bio NTech 30mcg/0.3mL) 12YO+ BIVALENT PF, MDV 08/10/2022 [...] Sign Reading Time Taken Comments Blood Pressure 120/80 11/21/2023 10:43 AM FEDERAL APPELLATE LAW CLERK Pulse 77 11/21/2023 10:43 AM FEDERAL APPELLATE LAW CLERK Temperature 36.4 ??C (97.6 ??F) 09/23/2023 1:37 PM CS T Respiratory Rate 16 11/01/2021 8:22 AM FEDERAL APPELLATE LAW CLERK Oxygen Saturation 98% 11/21/2023 10:43 AM FEDERAL APPELLATE LAW CLERK Inhaled Oxygen Concentration - - Weight 91.8 kg (202 lb 4.8 oz) 11/21/2023 10:43 AM FEDERAL APPELLATE LAW CLERK Height 162.6 cm (5' 4) 11/13/2023 7:49 AM FEDERAL APPELLATE LAW CLERK Body Mass Index 34.72 11/13/2023 7:49 AM FEDERAL APPELLATE LAW CLERK Plan of Treatment Upcoming Encounters Date Type Department Care Team (Late st Contact Info) Description 01/07/2024 10:00 AM CDT Office Visit [facility] [place] [facility] [address] [place] [address] Teofilo Narvaez MD [address] [place] [address] Health Maintenance Due Date Last Done Comments Influenza for age 65+ 05/17/2024 06/10/2023 , 08/10/2022, 07/03/2021, Additional history exists Depression screening for age 12+ 08/23/2024 08/23/2023, 08/10/2022, 08/10/2022, Additional history exists Mammogram for age 45-75 08/23/2024 08/23/20, 08/10/2022, 08/03/2021, Additional history exists Medicare Wellness for age 65+ 08/23/2024, 08/10/2022, 08/03/2021, Additional history exists BMI (ht and wt on same day) for age 18+ 11/13/2024 11/13/2023, 09/23/2023, 08/30/2023, Additional history exists Lipids for age 45-75 06/17/2025 06/17/2020, 07/14/2019, 06/22/2016, Additional history exists Fecal testing sDNA-FIT (Cologuard) for age 45-75 06/16/2026 06/16/2023 Tetanus booster 08/04/2031 08/04/2021, 03/15/2008 Pneumococcal series for age 65+ Completed 6, 06/17/2015 Zoster (shingles) series for age 50+ Completed 02/18/2021, 08/26/2020, 07/06/2017 Hepatitis C screening for ag e 18-79 Completed 08/03/2021 Tdap Completed 08/04/2021, 02/16, 03/15/2008 (Completed outside of [facility]) Fecal testing non-DNA (FIT,FOBT,iFOBT) for age 45-75 Discontinued 05/06/2022, 08/26/2020, 07/16/2019, Additional history exists COVID-19 vaccine series Completed 07/12/20, 08/10/2022, 07/06/2021, Additional history exists DEXA/DXA scan for age 65+ Completed 2022, 08/03/2021, 06/30/2015, Additional history exists Medical Devices Implanted Type Area Animal Researcher Device Identifier Shelf Expiration Date Model / Serial / Lot Screw Sm Joint 6.5x25mm Canclls Bone - [id number] Implanted:Qty: 1 on 02/06/2015 at [facility] Ortho Imp.,Screw s & Plates Right: Hip [employer] [id number] -1# / / [id number] Shell Hip Od50mm Trident Psl Cluster Arias - [id number] Implanted:Qty: 1 on 02/06/2015 at [facility] Right: Hip [employer] 542-11-50 E# / / [id number] Screw Sm Joint 6.5x50mm Canclls Bone - [id number] Implanted:Qty: 1 on 02/06/2015 at [facility] Right: Hip [employer] [id number] -1# / / [id number] Liner Hip Id36mm Lolly 0deg Trident X3 - [id number] Implanted:Qty: 1 on 02/06/2015 at [facility] Right: Hip [employer] 623-00-36 E# / / [id number] Stem Hip Sz7 127deg Accolade Ii - [id number] Implanted:Qty: 1 on 02/06/2015 at [facility] Right: Hip [employer] [id number] # / / [id number] Head Hip Od36mm +5 Biolox Delta C-Taper Alumina Cer - [id number] Implanted:Qty: 1 on 02/06/2015 at [facility] Right: Hip [employer] 6570-0-23 6# / / [id number] Procedures Procedure Name Priority Date/Time Associated Diagnosis Comments EKG 12 LEAD Routine 11/14/2023 Paroxysmal atrial fibrillation (HC) PVC's (premature ventricular contractions) SCAN-RADIOLOGY REPORT 10/14/2023 12:00 AM FEDERAL APPELLATE LAW CLERK XR DXA BONE DENSITY 1 SITE AXIAL AND 1 SITE PERIPHERAL Routine 09/12/2023 1:30 PM FEDERAL APPELLATE LAW CLERK Age related osteoporosis, unspecified pathological fracture presence XR MAMMO JOLIE BILAT SCREEN Routine 08/23/2023 9:55 AM FEDERAL APPELLATE LAW CLERK Visit for screening mammogram SDNA-FIT EXTERNAL (COLOGUARD) Routine 06/16/2023 8:00 AM CDT Screening for colon cancer OCCULT BLOOD IFOBT STOOL Routine 05/06/2022 12:31 PM CDT Screening for colon cancer ANTI HCV Routine 08/03/2021 10:21 AM FEDERAL APPELLATE LAW CLERK Need for hepatitis C screening test LIPID PANEL W REFLEX MEASURED LDL Routine 06/17/2020 11:00 AM CDT Hyperlipidemia, unspecified hyperlipidemia type from Last 3 Months or Most Recently Relevant to Health Maintenance Results * EKG 12 LEAD (11/14/2023) Teofilo Rey MD EKG ORD * SCAN-RADIOLOGY REPORT (10/14/2023 12:00 AM FEDERAL APPELLATE LAW CLERK) Anatomical Region Laterality Modality Other Scanner OTHER * (ABNORMAL) XR DXA BONE DENSITY 1 SITE AXIAL AND 1 SITE PERIPHERAL (09/12/2023 1:30 PM FEDERAL APPELLATE LAW CLERK) Anatomical Region Laterality Modality LUMBAR SPINE Other Impressions 09/18/2023 4:42 PM FEDERAL APPELLATE LAW CLERK Osteoporosis. Due to the stability of the [...] scan in 2 years. Allison Tran PA-C [facility] 09/18/2023 Narrative 09/18/2023 4:42 PM FEDERAL APPELLATE LAW CLERK For Patients: Results are automatically released to your [facility] ([facility]) account once available, in compliance with federal regulations. This means that you may see your results before your provider has had a chance to review them. Please allow 2-3 business days for your provider to comment on the results. XR DXA Bone Mineral Density (BMD) EXAM LOCATION: [facility] [address] [facility] [address] PATIENT NAME: Lydia Cooper DATE OF : [...] two scanners are made by the same salesperson parts. PROCEDURE: Dual-energy x-ray absorptiometry performed with routine [...] T-score at or below -2.5 SD Yeseniai Uvaldoq DO DEXA * XR MAMMO JOLIE BILAT SCREEN (08/23/2023 9:55 AM FEDERAL APPELLATE LAW CLERK) Anatomical Region Laterality Modality BREASTS, Breast Left, Breast Right Bilateral Mammography Impressions 08/23/2023 3:47 PM FEDERAL APPELLATE LAW CLERK ??There is no radiographic evidence for malignancy. ??Recommend annual mammograms. MAMMOGRAM ASSESSMENT: ??ACR 1 Negative PATIENTS: You will also receive a letter with your examination results in an easy to read format. ??If you have questions about your results, please contact your referring provider. Narrative 08/23/2023 3:47 PM FEDERAL APPELLATE LAW CLERK For Patients: As a result of the Century Cures Act, medical imaging exams and procedure reports are released immediately into your electronic medical record. You may view this report before your referring provider. If you have questions, please contact your health care provider. XR MAMMO JOLIE BILAT SCREEN [[id number]] CLINICAL HISTORY: ??This is an asymptomatic 72 [...] micro calcifications or areas of architectural distortion. Yeseniasahara Bailonwilliam DO MAMMO * sDNA-FIT External (Cologuard) [[id number]] (06/16/2023 8:00 AM CDT) NONINV COLON CA DNA+OCC BLD SCRN STL-IMP Negative Negative 06/26/2023 4:34 PM CDT [employer] (CLIA #:[id number]) Comment: NEGATIVE TEST RESULT. A negative Cologuard result indicates a low likelihood that a colorectal cancer (CRC) or advanced adenoma (adenomatous polyps with more advanced pre-malignant features) ??is present. The chance that a person with a negative Cologuard test has a colorectal cancer is less than 1 in 1500 (negative predictive value >99.9%) or has an ??advanced adenoma is less than ??5.3% (negative predictive value 94.7%). These data are based on a prospective cross-sectional study of 10,000 individuals at average risk for colorectal cancer who were screened with both Cologuard and colonoscopy. (Nick Diaz et al, N Engl J Med 2014;370(14):1286- 1297) The normal value (reference range) for this assay is negative. COLOGUARD RE-SCREENING RECOMMENDATION: Periodic colorectal cancer screening is an important part of preventive healthcare for asymptomatic individuals at average risk for colorectal cancer. ??Following a negative Cologuard result, the [place] [employer] and U.S. Multi-Society Task Force screening guidelines recommend a Cologuard re-screening interval of 3 years. References: [place] [employer] Guideline for Colorectal Cancer Screening: https://www.cancer.org/cancer/omdcv-tkxhqi-ihptxu/tflhzznpl-nkfipuqrd-ovlpyku/ac s-rec ommendations.html.; Zaheer DEGROOT, Sam MARIEE, Gail TellezK, Colorectal Cancer Screening: Recommendations for Physicians and Patients from the U.S. Multi-Society Task Force on Colorectal Cancer Screening , Am J Gastroenterology 2017; 112:1621-4359. TEST DESCRIPTION: Composite algorithmic analysis of stool DNA-biomarkers with hemoglobin immunoassay. ?? Quantitative values of individual biomarkers are not reportable and are not associated with individual biomarker result reference ranges. Cologuard is intended for colorectal cancer screening of adults of either sex, 45 years or older, who are at average-risk for colorectal cancer (CRC). Cologuard has been approved for use by the U.S. FDA. The performance of Cologuard was established in a cross sectional study of average-risk adults aged 50-84. Cologuard performance in patients ages 45 to 49 years was estimated by sub-group analysis of near-age groups. Colonoscopies performed for a positive result may find as the most clinically significant lesion: colorectal cancer [4.0%], advanced adenoma (including sessile serrated polyps greater than or equal to 1cm diameter) [20%] or non- advanced adenoma [31%]; or no colorectal neoplasia [45%]. These estimates are derived from a prospective cross-sectional screening study of 10,000 individuals at average risk for colorectal cancer who were screened with both Cologuard and colonoscopy. (Nick Hill al, N Engl J Med 2014;370(14):7397-4300.) Cologuard may produce a false negative or false positive result (no colorectal cancer or precancerous polyp present at colonoscopy follow up). A negative Cologuard test result does not guarantee the absence of CRC or advanced adenoma (pre-cancer). The current Cologuard screening interval is every 3 years. ([place] [employer] and U.S. Multi-Society Task Force). Cologuard performance data in a 10,000 patient pivotal study using colonoscopy as the reference method can be accessed at the following location: www.coRank/results. Additional description of the Cologuard test process, warnings and precautions can be found at www.cologuard.com. Stool specimen (specimen) (Rectum) 06/16/2023 8:00 AM CDT 06/18/2023 11:01 PM CDT Vincent Dawkins DO URINE [employer] (CLIA #:[id number]) [place] [address], * OCCULT BLOOD IFOBT STOOL [[id number]] (05/06/2022 12:31 PM CDT) STOOL BLOOD ,IFOBT Negative Negative 05/11/2022 9:58 AM CDT [facility] Stool STOOL SPECIMEN / Unknown Non-Blood / Unknown 05/06/2022 12:31 PM CDT 05/09/2022 12:31 PM CDT Vincent Dawkins DO LABORATORY [facility] [address] [place] [address], * ANTI HCV (08/03/2021 10:21 AM FEDERAL APPELLATE LAW CLERK) HEPATITIS C ANTIBODY Non-React arnol Non-React arnol 08/03/2021 7:04 PM FEDERAL APPELLATE LAW CLERK [facility] Comment:Antibodies to HCV no t detected; does not exclude the possibility of exposure to HCV. Blood BLOOD SPECIMEN / Unknown Venipuncture / Unknown 08/03/2021 10:21 AM FEDERAL APPELLATE LAW CLERK 08/03/2021 10:24 AM FEDERAL APPELLATE LAW CLERK Vincent Dawkins DO SEND OUTS Performing Organization Address City/[facility]/ZIP Co de Phone Number [facility] [address] [place] [address], * LIPID PANEL W REFLEX MEASURED LDL (06/17/2020 11:00 AM CDT) CHOLESTEROL,TOTAL 141 100 - 199 mg/dL 06/17/2020 6:12 PM CDT [facility] LAB[facility]AT[facility] TRIGLYCERIDES 50 <150 mg/dL 06/17/2020 6:12 PM CDT [facility] HDL CHOLESTEROL 65 >40 mg/dL 0 6:12 PM CDT [facility] NON-HDL CHOLESTEROL 76 <145 mg/dl 06/17/2020 6:12 PM CDT [facility] CHOL/HDL RATIO 2.17 <4.50 06/17/2020 6:12 PM CDT [facility] LDL CHOLESTEROL 66 <=130 mg/dL 06/17/2020 6:12 PM CDT [facility] TR[facility] PROVIDER ORDERED STATUS RANDOM 06/17/2020 6:12 PM CDT [facility] TR[facility] LAB[facility] Blood BLOOD SPECIMEN / Unknown Venipuncture / Unknown 06/17/2020 11:00 AM CDT 06/17/2020 11:07 AM CDT Kwabena Trejo MD CHEMISTRY [facility] [address] [place] [address], from Last 3 Months or Most Recently Relevant to Health Maintenance Additional Health Concerns Infection Onset Date Last Indicated Rule-Out C.diff 08/06/2019 08/06/2019 Advance Directives Documents on File Type Date Recorded Patient Telephone Station Installer Expl anation Healthcare Directive 02/05/2015 12:00 AM 1 11/02/2013 * Full Code (Latest Code Status on File) Date Activated Date Inactivated Comments 02/06/2015 5:21 PM 02/09/2015 3:42 PM * Full Code Date Activated Date Inactivated Comments 02/06/2015 9:39 AM 02/06/2015 5:21 PM * Full Code Date Activated Date Inactivated Comments 02/05/2015 10:47 PM 02/06/2015 9:39 AM Question Answer Comments Code Status Discussion: Discussed Care Teams Cardroom Attendant Relationship Specialty Start Date End Date [place] [address] PCP - General Family Practice 04/06/22
--- NOTE | 2024-01-02 08:15 | MR_ITS ---
Patient: RAFFI Shaw GEO Facility:?[facility] RIS Patient ID:?[id number] Site Patient ID:?[id number]. Site :?[id number] Study:?MRI-Head W/ and W/O Cont 20 CC DOATERM-01/02/2024 10:08:59 AM Ordering Physician:?CATHLEEN CORREIA Final Report: INDICATION: Vestibular schwannoma. Comparison 12/07/2022. TECHNIQUE: Multiplanar T1, T2, FLAIR and diffusion-weighted imaging.. Post gadolinium T1 weighted sequences. 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 Multiple prominent draining cortical veins. Surrounding T2/FLAIR signal hyperintensity consistent with gliosis. Otherwise, mild generalized volume loss. Scattered patchy foci of T2/FLAIR signal hyperintensity within the white matter both supra hemispheres most consistent with chronic deep white matter small ischemic changes. No intracranial hemorrhage. No abnormal ventricular dilatation. No mass effect. No midline shift. No restricted diffusion to suggest acute ischemia. Post gadolinium imaging again demonstrates a 11 x 4 mm enhancing lesion within the right IAC consistent with a vestibular schwannoma. Bilateral orbits are unremarkable. Normal appearing sella. Visualized paranasal sinuses and mastoid air cells are unremarkable. IMPRESSION: 1. No interval change 2. 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 Stable surrounding gliotic change in the adjacent parenchyma 3. No acute intracranial abnormality. 4. Stable vestibular schwannoma within the right IAC. Dictated by Miah Dooley MD @ 01/02/2024 12:57:24 PM Signed by:?Miah Dooley MD @01/02/2024 12:57:24 PM (Electronic Signature)
== END 2024-01-02 08:07 | disposition home or self-care (01) ==
PROVIDERS: PCP Student in an Organized Health Care Education/Training Program; Visit Provider Psychiatry & Neurology Neurology
DX: D33.3 Benign neoplasm of cranial nerves (principal)
CPT/HCPCS: 70553; A9575

== ENCOUNTER 2024-02-21 12:22 | Emergency (ER) | payer MEDICARE, BC, SELFPAY ==
[2024-02-21] VITALS (10 sets, daily range): BP systolic 121–135; BP diastolic 83–90; PULSE 67–83; RESP 16–18; TEMP 36.8; O2SAT 94–98; BMI 34.1
--- NOTE | 2024-02-21 13:08 | ED_ITS ---
HPI - General Adult General Chief complaint: Cough Stated complaint: Chest pain, light headed, cough Time Seen by Provider: 02/21/24 12:52 History of Present Illness HPI narrative: This 73-year-old female comes in reporting some congestion and occasional cough that began at about 2:00 a.m. this morning, about 10 hours prior to arrival here. She states that she felt some intermittent chest tightness that was sometimes related to coughing. She does not report any nausea, vomiting, li ghtheadedness, shortness of breath, or diaphoresis. She has not had any exercise intolerance. She does report a history of atrial fibrillation. Related Data Home Medications ?Medication ?Instructions ?Recorded ?Confirmed albuterol sulfate 90 mcg/actuation 1 - 2 puff inhalation Q4H PRN 06/02/23 10/14/23 aerosol inhaler dyspnea aspirin 81 mg capsule 81 mg PO DAILY 06/02/23 10/14/23 atorvastatin 40 mg tablet 40 mg PO HS 06/02/23 10/14/23 fluticasone propionate 50 2 spray intranasal DAILY 06/02/23 10/14/23 mcg/actuation nasal spray,suspension lamotrigine 100 mg tablet 150 mg PO BID 06/02/23 10/14/23 mirtazapine 7.5 mg tablet 7.5 mg PO HS 06/02/23 10/14/23 calcium carbonate 600 mg-vitamin 1 tab PO BID 06/03/23 10/14/23 D3 10 mcg (400 unit) tablet (Calcium 600 + D(3)) denosumab 60 mg/mL subcutaneous 60 mg subcut [id number] 06/03/23 10/14/23 syringe (Prolia) triamcinolone acetonide 0.1 % 1 applic topical 3XD PRN 06/03/23 06/03/23 topical cream Previous Rx's ?Medication ?Instructions ?Recorded potassium chloride 10 mEq 20 meq (2 x 10 mEq) PO DAILYWM 3 06/03/23 capsule,extended release days #6 caps torsemide 10 mg tablet 10 mg PO DAILY #30 tabs 06/03/23 Allergies Allergy/AdvReac Type Severity Reaction Status Date / Time No Known Drug Allergies Allergy Verified 06/02/23 15:34 Review of Systems Status of ROS: Reports: 10 or more systems reviewed and unremarkable except as noted in History and below Narrative: Constitutional: No fevers, no weight gain or loss. Eyes: No discharge. No vision changes. HENT: No congestion, no sore throat, no ear pain. Cardiovascular: No palpitations. Respiratory: No shortness of breath, no wheezes. Cough with congestion. Gastrointestinal: No abdominal pain, no vomiting, no diarrhea. Genitourinary: No dysuria, no hematuria. Musculoskeletal: Normal range of motion. Skin: No rashes, no pruritis. Neurological: No dizziness, weakness, sensory change, speech change. Endo/Heme/Allergies: No bruising or bleeding. No polydipsia. Pysch: no suicidality, no anxiety, no insomnia. All other systems reviewed and are negative. 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 cranial nerves (ICD-10) Lower extremity edema ?R60.0 - Localized edema (ICD-10) Obstructive sleep apnea ?G47.33 - Obstructive sleep apnea (adult) (pediatric) (ICD-10) Seizure disorder ?G40.909 - Epilepsy, unspecified, not intractable, without status epilepticus (ICD-10) AVM (arteriovenous malformation) brain ?Q28.2 - Arteriovenous malformation of cerebral vessels (ICD-10) Surgical History History of tubal ligation ?Z98.51 - Tubal ligation status (ICD-10) History of D&C ?Z98.890 - Other specified postprocedural states (ICD-10) History of breast biopsy ?Z98.890 - Other specified postprocedural states (ICD-10) History of cholecystectomy ?Z90.49 - Acquired absence of other specified parts of digestive tract (ICD- 10) History of bilateral hip arthroplasty ?Z96.643 - Presence of artificial hip joint, bilateral (ICD-10) Family History Other High blood pressure Seizure disorder Social History Narrative: She lives independently in her own home in [place]. Her daughter and multiple other family members live nearby. Her daughter Elke is healthcare power of assistant district attorney. Her code status is full. She is a nonsmoker. She does not drink alcohol. She does drive her own car. She does not use assistive device w hen she walks. She is able to manage her own affairs. What is your current living situation?: I presently have a place to live Problems where you live: no known problems Problems where you live details: n/a In the past 12 months, utilities in danger of being shut off: no In past 12 months, lack of transportation kept you from medical appts, meetings, work, or getting things needed for daily living: no In the past 12 mos, have been you worried that your food would run out before you had money to buy more?: never true In the past 12 mos, the food you bought just didn't last and you didn't have money to buy more?: never true Highest level of school completed/degree received: high school graduate Smoking Status: Never smoker Do you use any of these nicotine containing products: None How often do you have a drink containing alcohol: never AUDIT-C Alcohol total score: 0 Non-prescribed substance use: denies use Caffeine: Yes How often does anyone, including family, friends and others, physically hurt you : never How often does anyone, including family, friends and others, insult or talk down to you: never How often does anyone, including family, friends and others, threaten you with harm: never How often does anyone, including family, friends and others, scream or curse at you: never service: No Exam Narrative: Exam Narrative: Constitutional: Well-developed, well-nourished, no acute distress. HEENT: Normocephalic, atraumatic. Neck: Normal range of motion. Nontender. Supple. Heart: Regular. No murmurs. Normal rate. Intact distal pulses. Lungs: Clear to auscultation. No wheezes, rhonchi, or rales. Abdomen: Normal bowel sounds. Nontender. No rebound tenderness. Genitalia: Deferred. Back: No midline tenderness. Normal range of motion. Extremities: Normal range of motion. No injury. Skin: Intact. No rash. Warm. No erythema or pallor. Neurologic: No altered sensation. No weakness. Alert and oriented. Psychiatric: No suicidality. No anxiety or depression. No insomnia. Nursing notes and vitals signs are reviewed. Const: Vital Signs, click to edit/add: Vital Signs - 24 hr 02/21/24 12:24 Temperature 98.3 F Pulse Rate [Right Pulse Oximeter] 83 Respiratory Rate 18 Blood Pressure [Ri ght Upper Arm] 135/83 Pulse Oximetry 96 Oxygen Delivery Me thod Room Air Course Vital Signs Vital signs: Initial Vital Signs Temperature 98.3 F 02/21/24 12:24 Temperature Source Temporal Artery Scan 02/21/24 12:24 Pulse Rate 83 02/21/24 12:24 Respiratory Rate 18 02/21/24 12:24 Blood Pressure 135/83 02/21/24 12:24 Blood Pressure Mean 100 02/21/24 12:24 Blood Pressure Position Sitting 02/21/24 12:24 Pulse Oximetry 96 02/21/24 12:24 Oxygen Delivery Method Room Air 02/21/24 12:24 Vital Signs Temperature 98.3 F 02/21/24 12:24 Pulse Rate 83 02/21/24 12:24 Respiratory Rate 18 02/21/24 12:24 Blood Pressure 135/83 02/21/24 12:24 Pulse Oximetry 96 02/21/24 12:24 Oxygen Delivery Method Room Air 02/21/24 12:24 Temperature 98.3 F 02/21/24 12:24 Pulse Rate 83 02/21/24 12:24 Respiratory Rate 18 02/21/24 12:24 Blood Pressure 135/83 02/21/24 12:24 Pulse Oximetry 96 02/21/24 12:24 Oxygen Delivery Method Room Air 02/21/24 12:24 Medical Decision Making MDM Narrative Medical decision making narrative: This patient comes in reporting some cough and congestion reports some associated chest discomfort in the upper sternal area. She arrives here with normal vital signs. Her exam is also normal. EKG does show atrial fibrillation but rate is controlled. There are no signs of ST or T-wave abnormalities. Labs are acquired also and these returned with normal findings. Her troponin returns at 0. She does not have an elevated white count. Nasal pharyngeal swab is negative for viruses tested. The patient states that she is feeling better. She is reassured with these results and is okay to be discharged home. Her chest symptoms seem to be more musculoskeletal in nature. Lab Data Labs: Lab Results 02/21/24 02/21/24 02/21/24 Range/Units 13:07 13:17 13:22 WBC 5.67 (4.50-11.00) K/uL RBC 4.17 (4.00-5.20) m/uL Hgb 13.4 (12.0-16.0) gm/dL Hct 40.0 (33.0-51.0) % MCV 96 (80-100) fL MCH 32 (26-34) pg MCHC 34 (32-36) gm/dL RDW Coeff of Koko 13.1 (11.5-15.5) % Plt Count 193 (140-440) K/uL Neut % (Auto) 59.1 (42.0-72.0) % Lymph % (Auto) 26.8 (20-44) % Gilchrist % (Auto) 9.5 (0.0-11.0) % Eos % (Auto) 3.5 (0.0-7.0) % Baso % (Auto) 0.4 (0.0-3.0) % Neut # (Auto) 3.35 (1.7-7.0) K/uL Lymph # (Auto) 1.52 (0.90-2.90) K/uL Gilchrist # (Auto) 0.50 (0.00-0.90) K/UL Eos # (Auto) 0.20 (0.00-0.50) K/uL Baso # (Auto) 0.02 (0.00-0.30) K/uL Abs Immat Gran (auto) 0.04 (0.00-0.30) K/uL Imm/Tot Granulo (auto) 0.7 % Sodium 137 (135-149) mmol/L Potassium 4.5 (3.6-5.1) mmol/L Chloride 103 (96-114) mmol/L Carbon Dioxide 31 (20-32) mmol/L Anion Gap 3 L (7-15) mEq/L BUN 21 (7-30) mg/dL Creatinine 1.2 (0.5-1.5) mg/dL Estimated Creat Clear 37.01 Estimated GFR 48 ml/min Glucose 92 (60-115) mg/dL Calcium 9.8 (8.4-10.6) mg/dL SARS-CoV-2 (PCR) Negative SARS-CoV-2 (Negative) Influenza Type A (PCR) Negative PCR FLU A (Negative) Influenza Type B (PCR) Negative PCR FLU B (Negative) RSV (PCR) Negative PCR RSV (Negative) POC Troponin I 0.00 L (0.01-0.04) ng/ml ECG Data Attestation: I personally reviewed and interpreted this ECG as follows: Interpretation: Atrial fibrillation, rate 73 beats per minute. There are no specific ST or T- wave abnormalities. Discharge Plan Discharge Clinical Impression: Acute chest wall pain Patient Disposition: Home, Self-Care Condition: Stable Additional Instructions: Continue current plans. Follow up with MD or return if worsening. Prescriptions: No Action atorvastatin 40 mg tablet 40 mg PO HS albuterol sulfate 90 mcg/actuation HFA aerosol inhaler 1 - 2 puff INHALATION Q4H PRN (Reason: dyspnea) fluticasone propionate 50 mcg/actuation spray,suspension 2 spray INTRANASAL DAILY lamotrigine 100 mg tablet 150 mg PO BID mirtazapine 7.5 mg tablet 7.5 mg PO HS aspirin 81 mg capsule 81 mg PO DAILY triamcinolone acetonide 0.1 % cream 1 applic topical 3XD PRN calcium carbonate-vitamin D3 [Calcium 600 + D(3)] 600 mg-10 mcg (400 unit) tablet 1 tab PO BID Prolia 60 mg/mL syringe 60 mg subcut [id number] potassium chloride 10 mEq Capsule, Extended Release 20 meq PO DAILYWM 3 Days Qty: 6 0RF torsemide 10 mg tablet 10 mg PO DAILY Qty: 30 0RF Follow Up/Referrals: ZOLTAN WATKINS DO [Primary Care Provider] - Stand Alone Forms: MyHealth Info Instructions
[2024-02-21 13:25] LABS: Basophils Absolute Auto 0.02 K/uL (0.00-0.30); Basophils Percent Auto 0.4 % (0.0-3.0); Eosinophils Percent Auto 3.5 % (0.0-7.0); Hemoglobin* 13.4 gm/dL (12.0-16.0); Immature Granulocytes Abs Auto 0.04 K/uL (0.00-0.30); Immature Granulocytes Pct Auto 0.7 %; Lymphocytes Absolute Auto 1.52 K/uL (0.90-2.90); Lymphocytes Percent Auto 26.8 % (20-44); Mean Corpuscular HGB Conc 34 gm/dL (32-36); Mean Corpuscular Hemoglobin 32 pg (26-34); Mean Corpuscular Volume 96 fL (80-100); Monocytes Percent Auto 9.5 % (0.0-11.0); Neutrophils Absolute Auto 3.35 K/uL (1.7-7.0); Neutrophils Percent Auto 59.1 % (42.0-72.0); Platelet Count* 193 K/uL (140-440); RDW Coefficient of Variation % 13.1 % (11.5-15.5); Red Blood Count 4.17 m/uL (4.00-5.20); White Blood Count* 5.67 K/uL (4.50-11.00)
[2024-02-21 13:31] LABS: Slide Review Reflex No
[2024-02-21 13:39] LABS: Chloride* 103 mmol/L (96-114); Potassium* 4.5 mmol/L (3.6-5.1); Sodium* 137 mmol/L (135-149)
[2024-02-21 13:42] LABS: Anion Gap 3 mEq/L (7-15); Blood Urea Nitrogen* 21 mg/dL (7-30); Calcium* 9.8 mg/dL (8.4-10.6); Carbon Dioxide* 31 mmol/L (20-32); Creatinine* 1.2 mg/dL (0.5-1.5); Est. Creatinine Clearance* 37.01; Estimated Glomerular Filt Rate 48 ml/min; Glucose* 92 mg/dL (60-115)
--- OUTSIDE RECORDS SUMMARY | 2024-02-21 13:50 | XMS_ITS | Clinical Summary ---
Author Organization [facility] Address [place], [place] [address] Care Team Providers Care Android Ios Developer Name Role Phone Vincent Dawkins DO Primary Care Provider [phone] Allergies Active Allergy Reactions Criticality Noted Date [...] a meal. 90 Packet 3 11/21/2023 Active lamoTRIgine (LAMICTAL) 100 mg tabletIndications:S eizure disorder (HC) TAKE ONE AND ONE-HALF TABLETS BY MOUTH TWICE DAILY 270 Tablet 1 12/13/2023 Active mirtazapine (REMERON) 7.5 mg tabletIndications:D epression, major, single episode, moderate (HC),Depression, major, in remission (HC) Take 1 Tablet (7.5 mg) by mouth at bedtime. 30 Tablet 02/18/2024 Active mirtazapine (REMERON) 7.5 mg tabletIndications:D epression, major, single episode, moderate (HC),Depression, major, in remission (HC) TAKE ONE TABLET BY MOUTH AT BEDTIME 30 Tablet 12/13/2023 02/18/20 24 Discontinued Active Problems Problem Noted Date [...] Encounters Date Type Department Care Team Description 02/16/2024 Refill [facility] [address] [place] [address] Vincent Dawkins DO Refill Request (Mirtazapine) 01/21/2024 4:10 PM CDT Office Visit [facility] [address] [place] [address] Vincent Dawkins DO Concerns (Opinions on the watchmen ) 01/21/2024 Travel 01/16/2024 3:15 PM CDT Ancillary Procedure [facility] [address] [place] [address] 01/16/2024 2:30 PM CDT Ancillary Procedure [facility] [address] [place] [address] 01/16/2024 2:15 PM CDT Ancillary Procedure [facility] [address] [place] [address] 01/16/2024 1:40 PM CDT Office Visit [facility] [address] [place] [address] Marisol Carr PA Foot Problem 01/16/2024 Travel 01/07/2024 10:00 AM CDT Office Visit [facility] [address] [place] [address] Teofilo Narvaez MD Follow Up (Follow up vestibular schwannoma ) 01/07/2024 Travel 01/02/2024 Orders Only [facility] Scanner 1 scan: (1-Ord) [facility], HEAD W/AND W/O CONT, 01/02/2024 12/27/2023 Telephone [facility] [address] [place] [address] Vincent Dawkins DO other 12/12/2023 [facility] [address] [facility] [address] Vincent Dawkins DO Refill Request (Mirtazapine, Lamotrigine) 11/21/2023 10:35 AM [employer] Office Visit [facility] [address] [place] [address] Vincent Dawkins DO Follow Up 11/21/2023 Travel from Last 3 Months Immunizations Name Administration Dates Next Due COVID-19 Vaccine Spikevax (M oderna 50mcg/0.5mL) 12YO+ 7606-2571 Formula PF 07/12/2023 COVID-19 vaccine (Pfizer-Bio NTech [...] of Communication with Friends and Fami ly 0 01/16/2024 Financial Resource Strain Answer Date R ecorded Difficulty of Paying Living Expenses 3 01/16/2024 Difficulty of Paying Living Expenses Not on file 01/16/2024 Food Insecurity Answer Date Recorded Worried About Running Out of Food in the Last Ye ar 1 01/16/2024 Transportation Needs Answer Date Record ed Lack of Transportation (Medical) 1 01/16/2024 Housing Stability Answer Date Recorded Unable to Pay for Housing in the Last Year 1 01/16/2024 Sex and Gender Information Value Date Recorded [...] Sign Reading Time Taken Comments Blood Pressure 122/78 01/21/2024 4:06 PM CDT Pulse 80 01/21/2024 4:06 PM CDT Temperature 36.3 ??C (97.4 ??F) 01/16/2024 1:50 PM CD T Respiratory Rate 16 11/01/2021 8:22 AM [employer] SMO[employer] Oxygen Saturation 98% 01/21/2024 4:06 PM CDT Inhaled Oxygen Concentration - - Weight 93.5 kg (206 lb 3.2 oz) 01/21/2024 4:06 P M CDT Height 162.6 cm (5' 4) 11/13/2023 7:49 AM [employer] Body Mass Index 35.39 11/13/2023 7:49 AM [employer] Plan of Treatment Health Maintenance Due Date Last Done Comments Influenza for age 65+ 05/17/2024 06/10/2023 , 08/10/2022, 07/03/2021, Additional history exists Depression screening for age 12+ 08/23/2024 08/23/2023, 08/10/2022, 08/10/2022, Additional history exists Mammogram for age 45-75 08/23/2024 08/23/20 23, 08/10/2022, 08/03/2021, Additional history exists Medicare Wellness [...] Completed 08/04/2021, 02/16, 03/15/2008 (Completed outside of [facility]) Fecal testing non-DNA (FIT,FOBT,iFOBT) for age 45-75 Discontinued 05/06/2022, 08/26/2020, 07/16/2019, Additional history exists COVID-19 vaccine series Completed 07/12/20, 08/10/2022, 07/06/2021, Additional history exists DEXA/DXA scan for age 65+ Completed 2022, 08/03/2021, 06/30/2015, Additional history exists Medical Devices Implanted Type Area Internet Designer Device Identifier Shelf Expiration Date Model / Serial / Lot Screw Sm Joint 6.5x25mm Canclls Bone - [id number] Implanted:Qty: 1 on 02/06/[address] [facility] Ortho Imp.,Screw s & Plates Right: Hip [employer] [id number] -1# / / [id number] Shell Hip Od50mm Trident Psl Cluster Arias - [id number] Implanted:Qty: 1 on 02/06/[address] [facility] Right: Hip [employer] 542-11-50 E# / / [id number] Screw Sm Joint 6.5x50mm Canclls Bone - [id number] Implanted:Qty: 1 on 02/06/[address] [facility] Right: Hip [employer] [id number] -1# / / [id number] Liner Hip Id36mm Lolly 0deg Trident X3 - [id number] Implanted:Qty: 1 on 02/06/[address] [facility] Right: Hip [employer] 623-00-36 E# / / [id number] Stem Hip Sz7 127deg Accolade Ii - [id number] Implanted:Qty: 1 on 02/06/[address] [facility] Right: Hip MLW Squared [id number] # / / [id number] Head Hip Od36mm +5 Biolox Delta C-Taper Alumina Cer - [id number] Implanted:Qty: 1 on 02/06/[address] [facility] Right: Hip [employer] 6570-0-23 6# / / [id number] Procedures Procedure Name Priority Date/Time Associated Diagnosis Comments XR HIP 1 VIEW W PELVIS LEFT Routine 01/16/2024 2:47 PM CDT Left leg pain XR TIBIA AND FIBULA 2 VIEWS LEFT Routine 01/16/2024 2:47 PM CDT Left leg pain US VENOUS LOWER EXTREMITY LEFT Routine 01/16/2024 2:39 PM CDT Left leg pain SCAN-MRI INTERPRETATION 01/02/2024 12:00 AM CDT XR DXA BONE DENSITY 1 SITE AXIAL AND 1 SITE PERIPHERAL Routine 09/12/2023 1:30 PM [employer] Age related osteoporosis, unspecified pathological fracture presence XR MAMMO JOLIE BILAT SCREEN Routine 08/23/2023 9:55 AM [employer] SMO[employer] Visit for screening mammogram SDNA-FIT EXTERNAL (COLOGUARD) Routine 06/16/2023 8:00 AM CDT Screening for colon cancer OCCULT BLOOD IFOBT STOOL Routine 05/06/2022 12:31 PM CDT Screening for colon cancer ANTI HCV Routine 08/03/2021 10:21 AM [employer]TER SMO[employer] Need for hepatitis C screening test LIPID PANEL W REFLEX MEASURED LDL Routine 06/17/2020 11:00 AM CDT Hyperlipidemia, unspecified hyperlipidemia type from Last 3 Months or Most Recently Relevant to Health Maintenance Results * XR HIP 1 VIEW W PELVIS LEFT (01/16/2024 2:47 PM CDT) Anatomical Region Laterality Modality HIPS, HIPL, Pelvis Computed Radi ography 01/16/2024 3:48 PM CDT Narrative 01/16/2024 3:48 PM CDT For Patients: ??As a result of the 21st Century Cures Act, medical imaging exams and procedure reports are released immediately into your electronic medical record. ??You may view this report before your referring provider. ??If you have questions, please contact your health care provider. Indication: Left leg pain Technique: AP pelvis and one view left hip Comparison: 02/06/2022 Findings/Impression: Hardware from a joint arthroplasty is in satisfactory position without evidence of loosening or infection. Alignment is normal. No sign of acute fracture. No significant changes from the prior exam. Dictated by Kwabena Eden MD @ 01/16/2024 3:48:18 PM (Electronically Signed) Procedure Note Kwabena Eden MD - 01/16/2024 For Patients: As a result of the s , medical imagingexams and procedure reports are released immediately into your electronicmedical record. You may view this report before your referring provider.If you have questions, please contact your health care provider. Indication: Left leg pain Technique: AP pelvis and one view left hip Comparison: 02/06/2022 Findings/Impression: Hardware from a joint arthroplasty is in satisfactory position withoutevidence of loosening or infection. Alignment is normal. No sign of acutefracture. No significant changes from the prior exam. Dictated by Kwabena Eden MD @ 01/16/2024 3:48:18 PM (Electronically Signed) [facility] * XR TIBIA AND FIBULA 2 VIEWS LEFT (01/16/2024 2:47 PM CDT) Anatomical Region Laterality Modality Tibia Computed Radiogr aphy 01/16/2024 3:49 PM CDT Narrative 01/16/2024 3:49 PM CDT For Patients: ??As a result of the s , medical imaging exams and procedure reports are released immediately into your electronic medical record. ??You may view this report before your referring provider. ??If you have questions, please contact your health care provider. Indication: Left leg pain Technique: Two views left tibia and fibula Comparison: None Findings: No fracture or intrinsic lesion. Mild degenerative changes at the knee. Impression: No acute or significant findings. Dictated by Kwabena Eden MD @ 01/16/2024 3:49:06 PM (Electronically Signed) Procedure Note Kwabena Eden MD - 01/16/2024 For Patients: As a result of the Cures Act, medical imagingexams and procedure reports are released immediately into your electronicmedical record. You may view this report before your referring provider.If you have questions, please contact your health care provider. Indication: Left leg pain Technique: Two views left tibia and fibula Comparison: None Findings: No fracture or intrinsic lesion. Mild degenerative changes at the knee. Impression: No acute or significant findings. Dictated by Kwabena Eden MD @ 01/16/2024 3:49:06 PM (Electronically Signed) [facility] * US VENOUS LOWER EXTREMITY LEFT (01/16/2024 2:39 PM CDT) Anatomical Region Laterality Modality LEGS, LEG L, Abdomen Ultrasound 01/16/2024 3:47 PM CDT Impressions 01/16/2024 3:47 PM CDT No evidence of deep vein thrombosis within the left lower extremity. Dictated by Kwabena Eden MD @ 01/16/2024 3:47:16 PM (Electronically Signed) Narrative 01/16/2024 3:47 PM CDT For Patients: ??As a result of the Cures Act, medical imaging exams and procedure reports are released immediately into your electronic medical record. ??You may view this report before your referring provider. ??If you have questions, please contact your health care provider. INDICATION: Left leg pain COMPARISON: None. TECHNIQUE: A compression venous ultrasound exam was performed of the left lower extremity using cano-scale imaging, color Doppler and spectral Doppler analysis. FINDINGS: Sonographic imaging of the left lower extremity demonstrates normal compressibility and color Doppler venous blood flow within the common femoral vein, deep femoral vein, and the proximal greater saphenous vein. Within the thigh, the femoral vein is patent and compressible. At a lower level, the popliteal and posterior tibial veins also show normal compressibility and color Doppler venous blood flow. Limited imaging of the contralateral groin demonstrates a normal spectral waveform and color Doppler venous blood flow within the right common femoral vein. ?? Procedure Note Kwabena Eden MD - 01/16/2024 For Patients: As a result of the Cures Act, medical imagingexams and procedure reports are released immediately into your electronicmedical record. You may view this report before your referring provider.If you have questions, please contact your health care provider. INDICATION: Left leg pain COMPARISON: None. TECHNIQUE: A compression venous ultrasound exam was performed of the left lowerextremity using cano-scale imaging, color Doppler and spectral Doppleranalysis. FINDINGS: Sonographic imaging of the left lower extremity demonstrates normalcompressibility and color Doppler venous blood flow within the commonfemoral vein, deep femoral vein, and the proximal greater saphenous vein.Within the thigh, the femoral vein is patent and compressible. At a lowerlevel, the popliteal and posterior tibial veins also show normalcompressibility and color Doppler venous blood flow. Limited imaging of the contralateral groin demonstrates a normal spectralwaveform and color Doppler venous blood flow within the right commonfemoral vein. IMPRESSION: No evidence of deep vein thrombosis within the left lower extremity. Dictated by Kwabena Eden MD @ 01/16/2024 3:47:16 PM (Electronically Signed) [facility] * SCAN-MRI INTERPRETATION (01/02/2024 12:00 AM CDT) Anatomical Region Laterality Modality Other Scanner OTHER * (ABNORMAL) XR DXA BONE DENSITY 1 SITE AXIAL AND 1 SITE PERIPHERAL (09/12/2023 1:30 PM [employer] SMO[employer] PIPE) Anatomical Region Laterality Modality LUMBAR SPINE Other Impressions 09/18/2023 4:42 PM [employer] Osteoporosis. Due to the stability of the [...] scan in 2 years. Allison Tran PA-C [facility] 09/18/2023 Narrative 09/18/2023 4:42 PM [employer]OUNTER SMO[employer]IPE For Patients: Results are automatically released to your [facility] ([employer]) account once available, in compliance with federal regulations. This means that you may see your results before your provider has had a chance to review them. Please allow 2-3 business days for your provider to comment on the results. XR DXA Bone Mineral Density (BMD) EXAM LOCATION: [facility] [address] [facility] [address] PATIENT NAME: Lydia Cooper DATE OF : [...] two scanners are made by the same instrument shop supervisor. PROCEDURE: Dual-energy x-ray absorptiometry performed with routine [...] T-score at or below -2.5 SD Yeseniai Uvaldowilliam DO DEXA * XR MAMMO JOLIE BILAT SCREEN (08/23/2023 9:55 AM M[employer]TER SMOKING PIPE) Anatomical Region Laterality Modality BREASTS, Breast Left, Breast Right Bilateral Mammography Impressions 08/23/2023 3:47 PM MOUNTER SMO[employer] PIPE ??There is no radiographic evidence for malignancy. ??Recommend annual mammograms. MAMMOGRAM ASSESSMENT: ??ACR 1 Negative PATIENTS: You will also receive a letter with your examination results in an easy to read format. ??If you have questions about your results, please contact your referring provider. Narrative 08/23/2023 3:47 PM [employer] For Patients: As a result of the Century Cures Act, medical imaging exams and procedure reports are released immediately into your electronic medical record. You may view this report before your referring provider. If you have questions, please contact your health care provider. XR MAMMO JOLIE BILAT SCREEN [[id number]] CLINICAL HISTORY: ??This is an asymptomatic 72 y.o. patient. INDICATION FOR EXAM: Mammogram Screening. TECHNIQUE: CC & MLO views were obtained. ??This study was evaluated with the assistance of Computer-Aided Detection. Breast Tomosynthesis was used in interpretation. COMPARISON FILM: Yes 08/10/22 [facility] 08/03/21 [facility] FINDINGS: ??The breasts are heterogeneously dense, which may obscure small masses. There are no dominant masses, suspicious micro calcifications or areas of architectural distortion. Yeseniai Uvaldoq DO MAMMO * sDNA-FIT External (Cologuard) [[id number]] (06/16/2023 8:00 AM CDT) NONINV COLON CA DNA+OCC BLD SCRN STL-IMP Negative Negative 06/26/2023 4:34 PM CDT [facility] (CLIA #:[id number]) Comment: NEGATIVE TEST RESULT. A negative Cologuard [...] cancer. ??Following a negative Cologuard result, the [place] [employer] and U.S. Multi-Society Task Force screening guidelines recommend a Cologuard re-screening interval of 3 years. References: [place] [employer] Guideline for Colorectal Cancer Screening: https://www.cancer.org/cancer/vvklu-bqosgl-hwginl/curwhamhs-cokjgjidq-ufpvrce/ac s-rec ommendations.html.; Zaheer DEGROOT, Sam MARIEE, Gail TellezK, Colorectal Cancer Screening: Recommendations for Physicians and Patients from the U.S. Multi-Society Task Force on Colorectal Cancer Screening , Am J Gastroenterology 2017; 112:6476-9347. TEST DESCRIPTION: Composite algorithmic analysis of stool [...] Diaz et al, N Engl J Med 2014;370(14):9394-1559.) Cologuard may produce a false negative or false positive result (no colorectal cancer or precancerous polyp present at colonoscopy follow up). A negative Cologuard test result does not guarantee the absence of CRC or advanced adenoma (pre-cancer). The current Cologuard screening interval is every 3 years. ([place] [employer] and U.S. Multi-Society Task Force). Cologuard performance data in a 10,000 patient pivotal study using colonoscopy as the reference method can be accessed at the following location: www.[employer]/results. Additional description of the Cologuard test process, warnings and precautions can be found at www.cologuard.com. Stool specimen (specimen) (Rectum) 06/16/2023 8:00 AM CDT 06/18/2023 11:01 PM CDT Vincent Dawkins DO URINE [facility] (CLIA #:[id number]) [place] [address], * OCCULT BLOOD IFOBT STOOL [[id number]] (05/06/2022 12:31 PM CDT) STOOL BLOOD ,IFOBT Negative Negative 05/11/2022 9:58 AM CDT [facility] Stool STOOL SPECIMEN / Unknown Non-Blood / Unknown 05/06/2022 12:31 PM CDT 05/09/2022 12:31 PM CDT Vincent Dawkins DO LABORATORY [facility] [address] [place] [address], * ANTI HCV (08/03/2021 10:21 AM M[employer] SMO[employer]) HEPATITIS C ANTIBODY Non-React arnol Non-React arnol 08/03/2021 7:04 PM [employer] [facility] Comment:Antibodies to HCV no t detected; does not exclude the possibility of exposure to HCV. Blood BLOOD SPECIMEN / Unknown Venipuncture / Unknown 08/03/2021 10:21 AM [employer] 08/03/2021 10:24 AM [employer] SMO[employer] PIPE Vincent Dawkins DO SEND OUTS [facility] [address] [place] [address], [place] * LIPID PANEL W REFLEX MEASURED LDL (06/17/2020 11:00 AM CDT) CHOLESTEROL,TOTAL 141 100 - 199 mg/dL 06/17/2020 6:12 PM CDT [facility] TRIGLYCERIDES 50 <150 mg/dL 06/17/2020 6:12 PM CDT [facility] HDL CHOLESTEROL 65 >40 mg/dL 0 6:12 PM CDT [facility] NON-HDL CHOLESTEROL 76 <145 mg/dl 06/17/2020 6:12 PM CDT [facility] CHOL/HDL RATIO 2.17 <4.50 06/17/2020 6:12 PM CDT [facility] LDL CHOLESTEROL 66 <=130 mg/dL 06/17/2020 6:12 PM CDT [facility] PROVIDER ORDERED STATUS RANDOM 06/17/2020 6:12 PM CDT [facility] Blood BLOOD SPECIMEN / Unknown Venipuncture / Unknown 06/17/2020 11:00 AM CDT 06/17/2020 11:07 AM CDT Kwabena Trejo MD CHEMISTRY [facility] [address] [place] [address], from Last 3 Months or Most Recently Relevant to Health Maintenance Additional Health Concerns Infection Onset Date Last Indicated Rule-Out C.diff 08/06/2019 08/06/2019 Advance Directives Documents on File Type Date Recorded Patient Uniform Cap Operator Expl anation Healthcare Directive 02/05/2015 12:00 AM [...] Comments Code Status Discussion: Discussed Care Teams Android Ios Developer Relationship Specialty Start Date End Date [place] [address] PCP - General Family Practice 04/06/22
[2024-02-21 14:17] LABS: PCR FLU A Negative PCR FLU A (Negative); PCR FLU B Negative PCR FLU B (Negative); PCR RSV Negative PCR RSV (Negative); SARS PCR* Negative SARS-CoV-2 (Negative)
== END 2024-02-21 15:03 | disposition home or self-care (01) ==
PROVIDERS: Emergency Provider Emergency Medicine Emergency Medical Services; PCP Student in an Organized Health Care Education/Training Program
DX: R07.89 Other chest pain (principal)
CPT/HCPCS: 36415; 80048; 84484; 85025; 87631; 93005; 99284

== ENCOUNTER 2024-03-04 13:00 | Outpatient (RCR) | payer MEDICARE, BC, SELFPAY | END 2024-05-29 14:19 | disposition home or self-care (01) | PROVIDERS: PCP Student in an Organized Health Care Education/Training Program; Visit Provider Physician Assistant | DX: M79.605 Pain in left leg (principal); Z74.09 Other reduced mobility; R26.9 Unspecified abnormalities of gait and mobility; R29.898 Other symptoms and signs involving the musculoskeletal system; Z51.89 Encounter for other specified aftercare | CPT/HCPCS: 97110; 97140; 97161; 97530 ==

== ENCOUNTER 2024-04-23 13:41 | Outpatient (CLI) | payer MEDICARE, BC, SELFPAY ==
--- OUTSIDE RECORDS SUMMARY | 2024-04-25 13:38 | XMS_ITS | Clinical Summary ---
Author Organization [employer] [facility] Address [place], [place] [address] Care Team Providers Care Suction Drum Drier Operator Name Role Phone Vincent Dawkins DO Primary Care Provider [phone] Allergies Active Allergy Reactions Criticality Noted Date [...] Date Type Department Care Team Description 04/23/2024 Orders Only [facility] Scanner 1 scan: (1-Ord) SHERMAN, XR CHEST 2V, 04/23/2024 04/23/2024 Nurse Triage [facility] [address] [place] [address] Vincent Dawkins DO Medication Management (furosemide (LASIX) 20 mg tablet); Chest Pain/problem (CP all am. ) 04/15/2024 Refill [facility] [address] [place] [address] Vincent Dawkins DO Refill Request (Mirtazapine) 02/16/2024 Refill [facility] [address] [place] [address] Vincent Dawkins DO Refill Request (Mirtazapine) from Last 3 Months Immunizations Name Administration Dates Next Due COVID-19 Vaccine Spikevax (M oderna 50mcg/0.5mL) 12YO+ 8540-3004 Formula PF 07/12/2023 COVID-19 vaccine (PlumWillow NTech 30mcg/0.3mL) 12YO+ BIVALENT PF, MDV 08/10/2022 COVID-19 vaccine (Prime Focus TechnologiesBio NTech 30mcg/0.3mL) PF, MDV 07/06/2021,12/09/2020,11/18/2020 Influenza Virus, [...] T Respiratory Rate 16 11/01/2021 8:22 AM SHORE WORKING SUPERVISOR Oxygen Saturation 98% 01/21/2024 4:06 PM CDT Inhaled Oxygen Concentration - - Weight 93.5 kg (206 lb 3.2 oz) 01/21/2024 4:06 P M CDT Height 162.6 cm (5' 4) 11/13/2023 7:49 AM SHORE WORKING SUPERVISOR Body Mass Index 35.39 11/13/2023 7:49 AM SHORE WORKING SUPERVISOR Plan of Treatment Health Maintenance Due Date [...] 08/04/2021, 02/16, 03/15/2008 [facility] Fecal testing non-DNA (FIT,FOBT,iFOBT) for age 45-75 Discontinued 05/06/2022, 08/26/2020, 07/16/2019, Additional history exists DEXA/DXA scan for age 65+ Completed 2022, 08/03/2021, 06/30/2015, Additional history exists Medical Devices Implanted Type Area Short Order Cook Device Identifier Shelf Expiration Date Model / Serial / Lot Screw Sm Joint 6.5x25mm Canclls Bone - [id number] Implanted:Qty: 1 on 02/06/2015 at [facility] Ortho Imp.,Screw s & Plates Right: Hip [employer] [id number] -1# / / [id number] Shell Hip Od50mm Trident Psl Cluster Arias - [id number] Implanted:Qty: 1 on 02/06/2015 at [facility] Right: Hip [employer] 542-11-50 E# / / [id number] Screw Sm Joint 6.5x50mm Canclls Bone - [id number] Implanted:Qty: 1 on 02/06/2015 at [facility] Right: Hip [employer] [id number] -1# / / [id number] Liner Hip Id36mm Lolly 0deg Trident X3 - [id number] Implanted:Qty: 1 on 02/06/2015 at [facility] Right: Hip [employer] [id number] E# / / [id number] Stem Hip Sz7 127deg Accolade Ii - [id number] Implanted:Qty: 1 on 02/06/2015 at [facility] Right: Hip [employer] [id number] # / / [id number] Head Hip Od36mm +5 Biolox Delta C-Taper Alumina Cer - [id number] Implanted:Qty: 1 on 02/06/2015 at [facility] Right: Hip [employer] 6570-0-23 6# / / [id number] Procedures Procedure Name Priority Date/Time Associated Diagnosis Comments SCAN-RADIOLOGY REPORT 04/23/2024 12:00 AM CDT XR DXA BONE DENSITY 1 SITE AXIAL AND 1 SITE PERIPHERAL Routine 09/12/2023 1:30 PM SHORE WORKING SUPERVISOR Age related osteoporosis, unspecified pathological fracture presence XR MAMMO JOLIE BILAT SCREEN Routine 08/23/2023 9:55 AM SHORE WORKING SUPERVISOR Visit for screening mammogram SDNA-FIT EXTERNAL (COLOGUARD) Routine 06/16/2023 8:00 AM CDT Screening for colon cancer OCCULT BLOOD IFOBT STOOL Routine 05/06/2022 12:31 PM CDT Screening for colon cancer ANTI HCV Routine 08/03/2021 10:21 AM SHORE WORKING SUPERVISOR Need for hepatitis C screening test LIPID PANEL W REFLEX MEASURED LDL Routine 06/17/2020 11:00 AM CDT Hyperlipidemia, unspecified hyperlipidemia type from Last 3 Months or Most Recently Relevant to Health Maintenance Results * SCAN-RADIOLOGY REPORT (04/23/2024 12:00 AM CDT) Anatomical Region Laterality Modality Other Scanner OTHER * (ABNORMAL) XR DXA BONE DENSITY 1 SITE AXIAL AND 1 SITE PERIPHERAL (09/12/2023 1:30 PM SHORE WORKING SUPERVISOR) Anatomical Region Laterality Modality LUMBAR SPINE Other Impressions 09/18/2023 4:42 PM SHORE WORKING SUPERVISOR Osteoporosis. Due to the stability of the [...] scan in 2 years. Allison Tran PA-C [facility] 09/18/2023 Narrative 09/18/2023 4:42 PM SHORE WORKING SUPERVISOR For Patients: Results are automatically released to your [facility] account once available, in compliance with federal regulations. This means that you may see your results before your provider has had a chance to review them. Please allow 2-3 business days for your provider to comment on the results. XR DXA Bone Mineral Density (BMD) EXAM LOCATION: [address] [address] PATIENT NAME: Lydia Cooper DATE OF : 1950 EXAM DATE: 09/12/2023 REQUESTING PROVIDER: Vincent Dawkins, DO GENDER AT : female HEIGHT: 5' [...] two scanners are made by the same cast associate. PROCEDURE: Dual-energy x-ray absorptiometry performed with [...] T-score at or below -2.5 SD Vincent Uvaldowilliam DO DEXA * XR MAMMO JOLIE BILAT SCREEN (08/23/2023 9:55 AM SHORE WORKING SUPERVISOR) Anatomical Region Laterality Modality BREASTS, Breast Left, Breast Right Bilateral Mammography Impressions 08/23/2023 3:47 PM SHORE WORKING SUPERVISOR ??There is no radiographic evidence for malignancy. ??Recommend annual mammograms. MAMMOGRAM ASSESSMENT: ??ACR 1 Negative PATIENTS: You will also receive a letter with your examination results in an easy to read format. ??If you have questions about your results, please contact your referring provider. Narrative 08/23/2023 3:47 PM SHORE WORKING SUPERVISOR For Patients: As a result of the 21st Century Cures Act, medical imaging exams and procedure reports are released immediately into your electronic medical record. You may view this report before your referring provider. If you have questions, please contact your health care provider. XR MAMMO JOLIE BILAT SCREEN [[id number]] CLINICAL HISTORY: ??This is an asymptomatic 72 [...] of architectural distortion. Adei Mariza DO MAMMO * sDNA-FIT External (Cologuard) [[id number]] (06/16/2023 8:00 AM CDT) NONINV COLON CA DNA+OCC BLD SCRN STL-IMP Negative Negative 06/26/2023 4:34 PM CDT Close (CLIA #:[id number]) Comment: NEGATIVE TEST RESULT. A negative Cologuard [...] cancer. ??Following a negative Cologuard result, the [place] [employer] Society and U.S. Multi-Society Task Force screening guidelines recommend a Cologuard re-screening interval of 3 years. References: [place] [employer] Guideline for Colorectal Cancer Screening: https://www.cancer.org/cancer/qucod-quxxbp-mjhgxc/yzlofgdbi-oydeccssn-ieycxdl/ac s-rec ommendations.html.; Zaheer DK, Sam CR, Gail COHEN, Colorectal Cancer Screening: Recommendations for Physicians and Patients from the U.S. Multi-Society Task Force on Colorectal Cancer Screening , Am J Gastroenterology 2017; 112:3709-9069. TEST DESCRIPTION: Composite algorithmic analysis of stool [...] Cameron. et al, N Engl J Med 2014;370(14):2494-5616.) Cologuard may produce a false negative or false positive result (no colorectal cancer or precancerous polyp present at colonoscopy follow up). A negative Cologuard test result does not guarantee the absence of CRC or advanced adenoma (pre-cancer). The current Cologuard screening interval is every 3 years. ([place] [employer] Society and U.S. Multi-Society Task Force). Cologuard performance data in a 10,000 patient pivotal study using colonoscopy as the reference method can be accessed at the following location: www.[employer] [facility].24/7 Card/results. Additional description of the Cologuard test process, warnings and precautions can be found at www.[employer].com. Stool specimen (specimen) (Rectum) 06/16/2023 8:00 AM CDT 06/18/2023 11:01 PM CDT Vincent Dawkins DO URINE Performing Organization Address City/[facility]/ZIP Co de Phone Number [phone] (CLIA #:[id number]) [place] [address], * OCCULT BLOOD IFOBT STOOL [[id number]] (05/06/2022 12:31 PM CDT) STOOL BLOOD ,IFOBT Negative Negative 05/11/2022 9:58 AM CDT [place] Stool STOOL SPECIMEN / Unknown Non-Blood / Unknown 05/06/2022 12:31 PM CDT 05/09/2022 12:31 PM CDT [facility] LABORATORY Performing Organization Address City/[facility] Co de Phone Number [place] [address] [place] [address], * ANTI HCV (08/03/2021 10:21 AM SHORE WORKING SUPERVISOR) HEPATITIS C ANTIBODY Non-React arnol Non-React arnol 08/03/2021 7:04 PM SHORE WORKING SUPERVISOR [facility] Comment:Antibodies to HCV no t detected; does not exclude the possibility of exposure to HCV. Blood BLOOD SPECIMEN / Unknown Venipuncture / Unknown 08/03/2021 10:21 AM SHORE WORKING SUPERVISOR 08/03/2021 10:24 AM SHORE WORKING SUPERVISOR Yesen[facility] Bailonwilliam [facility] [employer] [employer] Performing Organization Address City/[facility]/ZIP Co de Phone Number [facility] [address] [place] [address], [place] * LIPID PANEL W REFLEX MEASURED LDL (06/17/2020 11:00 AM CDT) CHOLESTEROL,TOTAL 141 100 - 199 mg/dL 06/17/2020 6:12 PM CDT [facility] TRIGLYCERIDES 50 <150 mg/dL 06/17/2020 6:12 PM CDT [facility] HDL CHOLESTEROL 65 >40 mg/dL 0 6:12 PM CDT [facility] NON-HDL CHOLESTEROL 76 <145 mg/dl 06/17/2020 6:12 PM CDT [facility] CHOL/HDL RATIO 2.17 <4.50 06/17/2020 6:12 PM CDT [facility] LDL CHOLESTEROL 66 <=130 mg/dL 06/17/2020 6:12 PM CDT [facility] PROVIDER ORDERED STATUS RANDOM 06/17/2020 6:12 PM CDT [facility] Blood BLOOD SPECIMEN / Unknown Venipuncture / Unknown 06/17/2020 11:00 AM CDT 06/17/2020 11:07 AM CDT Kwabena Trejo MD CHEMISTRY [facility] [address] [place] [address], from Last 3 Months or Most Recently Relevant to Health Maintenance Additional Health Concerns Infection Onset Date Last Indicated Rule-Out C.diff 08/06/2019 08/06/2019 Advance Directives Documents on File Type Date Recorded Patient Nitrocellulose Maker Expl anation Healthcare Directive 02/05/2015 12:00 AM [...] Comments Code Status Discussion: Discussed Care Teams Suction Drum Drier Operator Relationship Specialty Start Date End Date Vincent Dawkins DO [place] [address] PCP - General Family Practice 04/06/22
== END 2024-04-23 13:42 | disposition home or self-care (01) ==
LOC: AMB 04-25 13:37
PROVIDERS: PCP Student in an Organized Health Care Education/Training Program; Visit Provider Student in an Organized Health Care Education/Training Program
DX: R07.89 Other chest pain (principal)
CPT/HCPCS: A0425; A0427

== ENCOUNTER 2024-04-23 14:29 | Emergency (ER) | payer MEDICARE, BC, SELFPAY ==
[2024-04-23] VITALS (15 sets, daily range): BP systolic 121–149; BP diastolic 72–86; PULSE 68–88; RESP 16; TEMP 37; O2SAT 90–98; BMI 36.7
--- NOTE | 2024-04-23 14:56 | CRLHL7_ITS ---
For Patients: As a result of the Cures Act, medical imaging exams and procedure reports are released immediately into your electronic medical record. You may view this report before your referring provider. If you have questions, please contact your health care provider. INDICATION: Chest pain. TECHNIQUE: Chest 2 views. COMPARISON: September 2023. FINDINGS: Lungs: Normal lung volume. No consolidation. The tracheobronchial tree and hilar structures are unremarkable. Pleura: No pleural effusion or pneumothorax. Heart and Mediastinum: Normal heart size. The great vessels of the thorax are unremarkable. Bones: No acute displaced osseous process. IMPRESSION: No consolidation. Dictated by Kwabena Cloud MD @ 04/23/2024 3:30:49 PM (Electronically Signed)
--- OUTSIDE RECORDS SUMMARY | 2024-04-23 15:00 | XMS_ITS | Clinical Summary ---
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 30 Tablet 02/18/2024 04/17/20 24 Discontinued Active Problems Problem Noted Date [...] Encounters Date Type Department Care Team Description 04/23/2024 Nurse Triage [facility] [address] [place] [address] Vincent Dawkins DO Medication Management (furosemide (LASIX) 20 mg tablet); Chest Pain/problem (CP all am. ) 04/15/2024 Refill [facility] [address] [place] [address] Vincent Dawkins DO Refill Request (Mirtazapine) 02/16/2024 Refill [facility] [address] [place] [address] Vincent Dawkins DO Refill Request (Mirtazapine) from Last 3 Months Immunizations Name Administration Dates Next Due COVID-19 Vaccine Spikevax (M oderna 50mcg/0.5mL) 12YO+ [id number] Formula PF 07/12/2023 COVID-19 vaccine (Yar[employer]aBio NTech 30mcg/0.3mL) 12YO+ BIVALENT PF, MDV 08/10/2022 COVID-19 vaccine ([employer]-Bio NTech 30mcg/0.3mL) PF, MDV 07/06/2021,12/09/2020,11/18/2020 Influenza Virus, [...] Outcome GA Total Labor Labor/2nd/3rd Weight Sex Type Anes PTL Ree A1 A5 Name Clin Para Para Last Filed Vital Signs Vital Sign Reading Time Taken Comments Blood Pressure 122/78 01/21/2024 4:06 PM CDT Pulse 80 01/21/2024 4:06 PM CDT Temperature 36.3 ??C (97.4 ??F) 01/16/2024 1:50 PM CD T Respiratory Rate 16 11/01/2021 8:22 AM ORE MIXER Oxygen Saturation 98% 01/21/2024 4:06 PM CDT Inhaled Oxygen Concentration - - Weight 93.5 kg (206 lb 3.2 oz) 01/21/2024 4:06 P M CDT Height 162.6 cm (5' 4) 11/13/2023 7:49 AM ORE MIXER Body Mass Index 35.39 11/13/2023 7:49 AM ORE MIXER Plan of Treatment Health Maintenance Due Date Last Done Comments COVID-19 vaccine series ( season) 2023 07/12/2023, 08/10/2022, 07/06/2021, Additional history exists Influenza for age 65+ 05/17/2024 06/10/2023 , [...] Completed 08/04/2021, 02/16, 03/15/2008 ([facility] Fecal testing non-DNA (FIT,FOBT,iFOBT) for age 45-75 Discontinued 05/06/2022, 08/26/2020, 07/16/2019, Additional history exists DEXA/DXA scan for age 65+ Completed 2022, 08/03/2021, 06/30/2015, Additional history exists Medical Devices Implanted Type Area Medical Scheduler Device Identifier Shelf Expiration Date Model / Serial / Lot Screw Sm Joint 6.5x25mm Canclls Bone - [id number] Implanted:Qty: 1 on 02/06/2015 at [facility] Ortho Imp.,Screw s & Plates Right: Hip [employer] [id number] -1# / / [id number] Shell Hip Od50mm Trident Psl Cluster Arias - [id number] Implanted:Qty: 1 on 02/06/2015 at [facility] Right: Hip [employer] 542-11-50 E# / / [id number] Screw Sm Joint 6.5x50mm Canclls Bone - [id number] Implanted:Qty: 1 on 02/06/2015 at [facility] Right: Hip [employer] [id number] -1# / / [id number] Liner Hip Id36mm Lolly 0deg Trident X3 - [id number] Implanted:Qty: 1 on 02/06/2015 at [facility] Right: Hip [employer] 623-00-36 E# / / [id number] Stem Hip Sz7 127deg Accolade Ii - [id number] Implanted:Qty: 1 on 02/06/2015 at [facility] Right: Hip [employer] [id number] # / / [id number] Head Hip Od36mm +5 Biolox Delta C-Taper Alumina Cer - [id number] Implanted:Qty: 1 on 02/06/2015 at [facility] Right: Hip [employer] 6570-0-23 6# / / [id number] Procedures Procedure Name Priority Date/Time Associated Diagnosis Comments XR DXA BONE DENSITY 1 SITE AXIAL AND 1 SITE PERIPHERAL Routine 09/12/2023 1:30 PM ORE MIXER Age related osteoporosis, unspecified pathological fracture presence XR MAMMO JOLIE BILAT SCREEN Routine 08/23/2023 9:55 AM ORE MIXER Visit for screening mammogram SDNA-FIT EXTERNAL (COLOGUARD) Routine 06/16/2023 8:00 AM CDT Screening for colon cancer OCCULT BLOOD IFOBT STOOL Routine 05/06/2022 12:31 PM CDT Screening for colon cancer ANTI HCV Routine 08/03/2021 10:21 AM ORE MIXER Need for hepatitis C screening test LIPID PANEL W REFLEX MEASURED LDL Routine 06/17/2020 11:00 AM CDT Hyperlipidemia, unspecified hyperlipidemia type from Last 3 Months or Most Recently Relevant to Health Maintenance Results * (ABNORMAL) XR DXA BONE DENSITY 1 SITE AXIAL AND 1 SITE PERIPHERAL (09/12/2023 1:30 PM ORE MIXER) Anatomical Region Laterality Modality LUMBAR SPINE Other Impressions 09/18/2023 4:42 PM ORE MIXER Osteoporosis. Due to the stability of the [...] scan in 2 years. Allison Tran PA-C [facility] 09/18/2023 Narrative 09/18/2023 4:42 PM ORE MIXER For Patients: Results are automatically released to your [facility] account once available, in compliance with federal regulations. This means that you may see your results before your provider has had a chance to review them. Please allow 2-3 business days for your provider to comment on the results. XR DXA Bone Mineral Density (BMD) EXAM LOCATION: [address] [address] PATIENT NAME: Lydia Cooper DATE OF : 1950 EXAM DATE: 09/12/2023 REQUESTING PROVIDER: Vincent Dawkins, GENDER AT : female HEIGHT: 5' 4.02 [...] two scanners are made by the same medical laboratory technicians. PROCEDURE: Dual-energy x-ray absorptiometry performed with routine [...] Osteoporosis: T-score at or below -2.5 SD Adei Shaqra DO DEXA * XR MAMMO JOLIE BILAT SCREEN (08/23/2023 9:55 AM ORE MIXER) Anatomical Region Laterality Modality BREASTS, Breast Left, Breast Right Bilateral Mammography Impressions 08/23/2023 3:47 PM ORE MIXER ??There is no radiographic evidence for malignancy. ??Recommend annual mammograms. MAMMOGRAM ASSESSMENT: ??ACR 1 Negative PATIENTS: You will also receive a letter with your examination results in an easy to read format. ??If you have questions about your results, please contact your referring provider. Narrative 08/23/2023 3:47 PM ORE MIXER For Patients: As a result of the Century Cures Act, medical imaging exams and procedure reports are released immediately into your electronic medical record. You may view this report before your referring provider. If you have questions, please contact your health care provider. XR MAMMO JOLIE BILAT SCREEN [[id number]] CLINICAL HISTORY: ??This is an asymptomatic 72 y.o. patient. INDICATION FOR EXAM: Mammogram Screening. TECHNIQUE: CC & MLO views were obtained. ??This study was evaluated with the assistance of Computer-Aided Detection. Breast Tomosynthesis was used in interpretation. COMPARISON FILM: Yes 08/10/22 [email or web address] 08/03/21 [facility] FINDINGS: ??The breasts are heterogeneously dense, which may obscure small masses. There are no dominant masses, suspicious micro calcifications or areas of architectural distortion. Adei Shaqra DO MAMMO * sDNA-FIT External (Cologuard) [[id number]] (06/16/2023 8:00 AM CDT) NONINV COLON CA DNA+OCC BLD SCRN STL-IMP Negative Negative 06/26/2023 4:34 PM CDT [employer] (CLIA #:[id number]) Comment: NEGATIVE TEST RESULT. A negative Cologuard [...] screened with both Cologuard and colonoscopy. (Nick Cameron. et al, N Engl J Med 2014;370(14):1286- 1297) The normal value (reference range) for this assay is negative. COLOGUARD RE-SCREENING RECOMMENDATION: Periodic colorectal cancer screening is an important part of preventive healthcare for asymptomatic individuals at average risk for colorectal cancer. ??Following a negative Cologuard result, the [place] Cancer Society and U.S. Multi-Society Task Force screening guidelines recommend a Cologuard re-screening interval of 3 years. References: [place] [employer] Guideline for Colorectal Cancer Screening: https://www.cancer.org/cancer/isgek-ewbdze-kyzrvw/aynihnikr-fowpxgkqe-hgkytvq/ac s-rec ommendations.html.; Zaheer DEGROOT, Sam MARIEE, Gail TellezK, Colorectal Cancer Screening: Recommendations for Physicians and Patients from the U.S. Multi-Society Task Force on Colorectal Cancer Screening , Am J Gastroenterology 2017; 112:6375-3322. TEST DESCRIPTION: Composite algorithmic analysis of stool [...] (Nick Hill al, N Engl J Med 2014;370(14):7597-5566.) Cologuard may produce a false negative or false positive result (no colorectal cancer or precancerous polyp present at colonoscopy follow up). A negative Cologuard test result does not guarantee the absence of CRC or advanced adenoma (pre-cancer). The current Cologuard screening interval is every 3 years. ([place] [employer] Society and U.S. Multi-Society Task Force). Cologuard performance data in a 10,000 patient pivotal study using colonoscopy as the reference method can be accessed at the following location: www.[employer]/results. Additional description of the Cologuard test process, warnings and precautions can be found at www.[employer].com. Stool specimen (specimen) (Rectum) 06/16/2023 8:00 AM CDT 06/18/2023 11:01 PM CDT Vincent Dawkins DO URINE [employer] (CLIA #:[id number]) [place] [address], * OCCULT BLOOD IFOBT STOOL [[id number]] (05/06/2022 12:31 PM CDT) STOOL BLOOD ,IFOBT Negative Negative 05/11/2022 9:58 AM CDT [facility] Stool STOOL SPECIMEN / Unknown Non-Blood / Unknown 05/06/2022 12:31 PM CDT 05/09/2022 12:31 PM CDT Vincent Dawkins DO LABORATORY [facility] [address] [place] [address], * ANTI HCV (08/03/2021 10:21 AM ORE MIXER) HEPATITIS C ANTIBODY Non-React arnol Non-React arnol 08/03/2021 7:04 PM ORE MIXER [facility] Comment:Antibodies to HCV no t detected; does not exclude the possibility of exposure to HCV. Blood BLOOD SPECIMEN / Unknown Venipuncture / Unknown 08/03/2021 10:21 AM ORE MIXER 08/03/2021 10:24 AM ORE MIXER Vincent Dawkins DO [facility] [address] [place] [address], * LIPID PANEL W REFLEX MEASURED LDL (06/17/2020 11:00 AM CDT) CHOLESTEROL,TOTAL 141 100 - 199 mg/dL 06/17/2020 6:12 PM CDT [facility] TRIGLYCERIDES 50 <150 mg/dL 06/17/2020 6:12 PM CDT [facility] HDL CHOLESTEROL 65 >40 mg/dL 0 6:12 PM CDT [facility] NON-HDL CHOLESTEROL 76 <145 mg/dl 06/17/2020 6:12 PM CDT [facility] CHOL/HDL RATIO 2.17 <4.50 06/17/2020 6:12 PM CDT [facility] LDL CHOLESTEROL 66 <=130 mg/dL 06/17/2020 6:12 PM CDT [facility] PROVIDER ORDERED STATUS RANDOM 06/17/2020 6:12 PM CDT [facility] Blood BLOOD SPECIMEN / Unknown Venipuncture / Unknown 06/17/2020 11:00 AM CDT 06/17/2020 11:07 AM CDT Kwabena Trejo MD CHEMISTRY [facility] [address] [place] [address], from Last 3 Months or Most Recently Relevant to Health Maintenance Additional Health Concerns Infection Onset Date Last Indicated Rule-Out C.diff 08/06/2019 08/06/2019 Advance Directives Documents on File Type Date Recorded Patient Entry Level Account Representative Expl anation Healthcare Directive 02/05/2015 12:00 AM [...] Comments Code Status Discussion: Discussed Care Teams Sewing Machinist Relationship Specialty Start Date End Date Vincent Dawkins DO [address] [place] [address] PCP - General Family Practice 04/06/22
--- NOTE | 2024-04-23 15:05 | ED.CHESTPAIN ---
HPI - Chest Pain General Chief Complaint: Chest Pain <Chino Lopez DO - Last Filed: 04/23/24 16:02> Stated Complaint: chest pain <Chino Lopez DO - Last Filed: 04/23/24 16:02> Time Seen by Provider: 04/23/24 14:33 <Chino Lopez DO - Last Filed: 04/23/24 16:02> Source: patient and EMS <Chino Lopez DO - Last Filed: 04/23/24 16:02> Mode of arrival: EMS <Chino Lopez - Last Filed: 04/23/24 16:02> Limitations: no limitations <Chino Lopez DO - Last Filed: 04/23/24 16:02> History of Present Illness HPI narrative: Patient is a 73-year-old female presenting to the emergency department with chest pain. Chest pain started around 08:00. Symptoms have not been improving so she came into the emergency department. Vital signs were stable for EMS. She states she has had chest pain at this before. Last had an echo May 2023. Her daughter states that she has had symptoms like this before and was from fluid overload from her heart failure. Last time she does had an extra 20 mg of Lasix and symptoms improved. Do note that she has gone up from 207-211 lb over the past day or 2. She weighs herself daily. No history of blood clots. No history of heart disease. States it feels like a pressure sensation in her chest. Denies shortness of breath. Does not radiate anywhere. Nothing seems to make the pain better or worse. He denies headache, lightheadedness, dizziness, weakness numbness, abdominal pain, diarrhea, constipation, fevers, chills. She is on aspirin for her AFib but is not on a blood thinner because of an AVM. Last our emergency care attendant in either November or December of 2023. <Chino Lopez DO - Last Filed: 04/23/24 16:02> Related Data Home Medications: Home Medications ?Medication ?Instructions ?Recorded ?Confirmed albuterol sulfate 90 mcg/actuation 1 - 2 puff inhalation Q4H PRN 06/02/23 10/14/23 aerosol inhaler dyspnea aspirin 81 mg capsule 81 mg PO DAILY 06/02/23 10/14/23 atorvastatin 40 mg tablet 40 mg PO HS 06/02/23 10/14/23 fluticasone propionate 50 2 spray intranasal DAILY 06/02/23 10/14/23 mcg/actuation nasal spray,suspension lamotrigine 100 mg tablet 150 mg PO BID 06/02/23 10/14/23 mirtazapine 7.5 mg tablet 7.5 mg PO HS 06/02/23 10/14/23 calcium carbonate 600 mg-vitamin 1 tab PO BID 06/03/23 10/14/23 D3 10 mcg (400 unit) tablet (Calcium 600 + D(3)) denosumab 60 mg/mL subcutaneous 60 mg subcut [id number] 06/03/23 10/14/23 syringe (Prolia) triamcinolone acetonide 0.1 % 1 applic topical 3XD PRN 06/03/23 06/03/23 topical cream Previous Rx's ?Medication ?Instructions ?Recorded potassium chloride 10 mEq 20 meq (2 x 10 mEq) PO DAILYWM 3 06/03/23 capsule,extended release days #6 caps torsemide 10 mg tablet 10 mg PO DAILY #30 tabs 06/03/23 <Chino Lopez DO - Last Filed: 04/23/24 16:02> Allergies/Adverse Reactions: Allergies Allergy/AdvReac Type Severity Reaction Status Date / Time No Known Drug Allergies Allergy Verified 06/02/23 15:34 <Chino Lopez DO - Last Filed: 04/23/24 16:02> Review of Systems Status of ROS Reports: 10 or more systems reviewed and unremarkable except as noted in History and below <Chino Lopez DO - Last Filed: 04/23/24 16:02> 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 of cranial nerves (ICD-10) Lower extremity edema ?R60.0 - Localized edema (ICD-10) Obstructive sleep apnea ?G47.33 - Obstructive sleep apnea (adult) (pediatric) (ICD-10) Seizure disorder ?G40.909 - Epilepsy, unspecified, not intractable, without status epilepticus (ICD-10) AVM (arteriovenous malformation) brain ?Q28.2 - Arteriovenous malformation of cerebral vessels (ICD-10) <Chino Lopez DO - Last Filed: 04/23/24 16:02> Surgical History: Surgical History History of tubal ligation ?Z98.51 - Tubal ligation status (ICD-10) History of D&C ?Z98.890 - Other specified postprocedural states (ICD-10) History of breast biopsy ?Z98.890 - Other specified postprocedural states (ICD-10) History of cholecystectomy ?Z90.49 - Acquired absence of other specified parts of digestive tract (ICD-10) History of bilateral hip arthroplasty ?Z96.643 - Presence of artificial hip joint, bilateral (ICD-10) <Chino Lopez DO - Last Filed: 04/23/24 16:02> Family History: Family History Other High blood pressure Seizure disorder <Chino Lopez DO - Last Filed: 04/23/24 16:02> Social History: Social History Narrative: She lives independently in her own home in [place]. Her daughter and multiple other family members live nearby. Her daughter Elke is healthcare power of commercial litigation attorney. Her code status is full. She is a nonsmoker. She does not drink alcohol. She does drive her own car. She does not use assistive device when she walks. She is able to manage her own affairs. What is your current living situation?: I presently have a place to live Problems where you live: no known problems Problems where you live details: n/a In the past 12 months, utilities in danger of being shut off: no In past 12 months, lack of transportation kept you from medical appts, meetings, work, or getting things needed for daily living: no In the past 12 mos, have been you worried that your food would run out before you had money to buy more?: never true In the past 12 mos, the food you bought just didn't last and you didn't have money to buy more?: never true Highest level of school completed/degree received: high school graduate Smoking Status: Never smoker Do you use any of these nicotine containing products: None How often do you have a drink containing alcohol: never AUDIT-C Alcohol total score: 0 Non-prescribed substance use: denies use Caffeine: Yes How often does anyone, including family, friends and others, physically hurt you: never How often does anyone, including family, friends and others, insult or talk down to you: never How often does anyone, including family, friends and others, threaten you with harm: never How often does anyone, including family, friends and others, scream or curse at you: never service: No <Chino Lopez DO - Last Filed: 04/23/24 16:02> Exam Narrative Exam Narrative: Const: Well-nourished, Well-developed, in mild distress Eyes: PERRL, no conjunctival injection, and symmetrical lids HENT: Atraumatic external nose and ears. Moist mucous membranes. Neck: Symmetric, trachea midline, No thyromegaly. CVS: RRR, No murmurs or gallops. Peripheral pulses 2+ and equal in all extremities RESP: Unlabored respiratory effort. Clear to auscultation bilaterally. GI: Nontender/Nondistended, No rebound or guarding. MSK:Extremities w/o deformity, Normal Active ROM Skin: Warm, Dry. No rashes or lesions. Neuro: Normal Muscle tone, No focal neurological deficits. Psych: Awake, Alert, & Oriented x3. Appropriate mood and affect. <Chino Lopez DO - Last Filed: 04/23/24 16:02> Const Vital Signs, click to edit/add: Vital Signs - 24 hr 04/23/24 14:33 04/23/24 14:37 04/23/24 14:45 Temperature 98.6 F Pulse Rate 73 68 Pulse Rate [Right Pulse Oximeter] 88 Respiratory Rate 16 Blood Pressure Blood Pressure [Right Upper Arm] 149/72 H Pulse Oximetry 96 90 97 Oxygen Delivery Method Room Air 04/23/24 15:00 04/23/24 15:15 04/23/24 15:30 Temperature Pulse Rate 77 79 84 Pulse Rate [Right Pulse Oximeter] Respiratory Rate Blood Pressure Blood Pressure [Right Upper Arm] Pulse Oximetry 95 95 93 Oxygen Delivery Method 04/23/24 15:45 04/23/24 16:00 04/23/24 16:11 Temperature Pulse Rate 77 83 71 Pulse Rate [Right Pulse Oximeter] Respiratory Rate Blood Pressure 122/81 Blood Pressure [Right Upper Arm] Pulse Oximetry 97 95 93 Oxygen Delivery Method 04/23/24 16:15 04/23/24 16:30 04/23/24 16:36 Temperature Pulse Rate 75 70 80 Pulse Rate [Right Pulse Oximeter] Respiratory Rate Blood Pressure 121/86 Blood Pressure [Right Upper Arm] Pulse Oximetry 97 96 96 Oxygen Delivery Method 04/23/24 16:45 04/23/24 17:00 04/23/24 17:15 Temperature Pulse Rate 70 73 79 Pulse Rate [Right Pulse Oximeter] Respiratory Rate Blood Pressure Blood Pressure [Right Upper Arm] Pulse Oximetry 97 98 94 Oxygen Delivery Method <Chino Lopez, DO - Last Filed: 04/23/24 16:02> Vital Signs - 24 hr 04/23/24 14:33 04/23/24 14:37 04/23/24 14:45 Temperature 98.6 F Pulse Rate 73 68 Pulse Rate [Right Pulse Oximeter] 88 Respiratory Rate 16 Blood Pressure Blood Pressure [Right Upper Arm] 149/72 H Pulse Oximetry 96 90 97 Oxygen Delivery Method Room Air 04/23/24 15:00 04/23/24 15:15 04/23/24 15:30 Temperature Pulse Rate 77 79 84 Pulse Rate [Right Pulse Oximeter] Respiratory Rate Blood Pressure Blood Pressure [Right Upper Arm] Pulse Oximetry 95 95 93 Oxygen Delivery Method 04/23/24 15:45 04/23/24 16:00 04/23/24 16:11 Temperature Pulse Rate 77 83 71 Pulse Rate [Right Pulse Oximeter] Respiratory Rate Blood Pressure 122/81 Blood Pressure [Right Upper Arm] Pulse Oximetry 97 95 93 Oxygen Delivery Method 04/23/24 16:15 04/23/24 16:30 04/23/24 16:36 Temperature Pulse Rate 75 70 80 Pulse Rate [Right Pulse Oximeter] Respiratory Rate Blood Pressure 121/86 Blood Pressure [Right Upper Arm] Pulse Oximetry 97 96 96 Oxygen Delivery Method 04/23/24 16:45 04/23/24 17:00 04/23/24 17:15 Temperature Pulse Rate 70 73 79 Pulse Rate [Right Pulse Oximeter] Respiratory Rate Blood Pressure Blood Pressure [Right Upper Arm] Pulse Oximetry 97 98 94 Oxygen Delivery Method <Alba Lugo MD - Last Filed: 04/23/24 17:53> Course Course ED Course: I was asked to Follow-up on the lab results of this patient. BNP around her baseline. D-dimer was within normal limits. Repeat troponin which was unremarkable. Re-evaluation reveals the patient is completely chest pain free. Patient discharged home at this time. <Alba Lugo MD - Last Filed: 04/23/24 17:53> Vital Signs Vital signs: Initial Vital Signs Temperature 98.6 F 04/23/24 14:33 Temperature Source Temporal Artery Scan 04/23/24 14:33 Pulse Rate 88 04/23/24 14:33 Pulse Rhythm Regular 04/23/24 14:33 Pulse Strength 3+ Normal 04/23/24 14:33 Respiratory Rate 16 04/23/24 14:33 Blood Pressure 149/72 H 04/23/24 14:33 Blood Pressure Mean 97 04/23/24 14:33 Blood Pressure Position Semi-Fowlers 04/23/24 14:33 Pulse Oximetry 96 04/23/24 14:33 Oxygen Delivery Method Room Air 04/23/24 14:33 Vital Signs Temperature 98.6 F 04/23/24 14:33 Pulse Rate 88 04/23/24 14:33 Respiratory Rate 16 04/23/24 14:33 Blood Pressure 149/72 H 04/23/24 14:33 Pulse Oximetry 96 04/23/24 14:33 Oxygen Delivery Method Room Air 04/23/24 14:33 Temperature 98.6 F 04/23/24 14:33 Pulse Rate 79 04/23/24 17:15 Respiratory Rate 16 04/23/24 14:33 Blood Pressure 121/86 04/23/24 16:36 Pulse Oximetry 94 04/23/24 17:15 Oxygen Delivery Method Room Air 04/23/24 14:33 <Chino Lopez DO - Last Filed: 04/23/24 16:02> Initial Vital Signs Temperature 98.6 F 04/23/24 14:33 Temperature Source Temporal Artery Scan 04/23/24 14:33 Pulse Rate 88 04/23/24 14:33 Pulse Rhythm Regular 04/23/24 14:33 Pulse Strength 3+ Normal 04/23/24 14:33 Respiratory Rate 16 04/23/24 14:33 Blood Pressure 149/72 H 04/23/24 14:33 Blood Pressure Mean 97 04/23/24 14:33 Blood Pressure Position Semi-Fowlers 04/23/24 14:33 Pulse Oximetry 96 04/23/24 14:33 Oxygen Delivery Method Room Air 04/23/24 14:33 Vital Signs Temperature 98.6 F 04/23/24 14:33 Pulse Rate 88 04/23/24 14:33 Respiratory Rate 16 04/23/24 14:33 Blood Pressure 149/72 H 04/23/24 14:33 Pulse Oximetry 96 04/23/24 14:33 Oxygen Delivery Method Room Air 04/23/24 14:33 Temperature 98.6 F 04/23/24 14:33 Pulse Rate 79 04/23/24 17:15 Respiratory Rate 16 04/23/24 14:33 Blood Pressure 121/86 04/23/24 16:36 Pulse Oximetry 94 04/23/24 17:15 Oxygen Delivery Method Room Air 04/23/24 14:33 <Alba Lugo MD - Last Filed: 04/23/24 17:53> MDM - Chest Pain MDM Narrative Medical decision making narrative: Patient is a 73-year-old female presenting to emergency department for chest pain. This chest pain started this morning about 08:00. She has had chest pain like this before and had an echo done and 2022 that showed mildly reduced global systolic function compared to previously at an EF of 40% and severely enlarged left atrium. No other concerning abnormality seen on it. Has not had a stress test for a while she states. The differential diagnosis of chest pain is broad and includes common etiologies such as musculoskeletal strain, GERD, pneumonia, etc. More serious etiologies considered include PE, coronary artery disease, pneumothorax, aortic dissection, aortic aneurysm. Chest x-ray will be ordered along with a D-dimer, BMP, magnesium, CBC, COVID/flu/RSV, BNP, troponin, EKG. The patient's chest is tender to palpation but this is not reproducing his symptoms she was having. Initial troponin showed no concerning abnormalities. Will repeat at 02:00 hours. EKG shows no concerning abnormalities. Appears similar to previous EKG on file. I went to re-evaluate the patient she says her symptoms have all resolved. <Chino Lopez, DO - Last Filed: 04/23/24 16:02> Lab Data Labs: Lab Results 04/23/24 04/23/24 04/23/24 Range/Units 14:56 15:30 15:30 WBC 5.96 (4.50-11.00) K/uL RBC 4.11 (4.00-5.20) m/uL Hgb 13.0 (12.0-16.0) gm/dL Hct 39.2 (33.0-51.0) % MCV 95 (80-100) fL MCH 32 (26-34) pg MCHC 33 (32-36) gm/dL RDW Coeff of Koko 12.5 (11.5-15.5) % Plt Count 208 (140-440) K/uL Neut % (Auto) 63.3 (42.0-72.0) % Lymph % (Auto) 24.7 (20-44) % [place] % (Auto) 8.6 (0.0-11.0) % Eos % (Auto) 2.9 (0.0-7.0) % Baso % (Auto) 0.3 (0.0-3.0) % Neut # (Auto) 3.78 (1.7-7.0) K/uL Lymph # (Auto) 1.47 (0.90-2.90) K/uL [place] # (Auto) 0.50 (0.00-0.90) K/UL Eos # (Auto) 0.17 (0.00-0.50) K/uL Baso # (Auto) 0.02 (0.00-0.30) K/uL Abs Immat Gran (auto) 0.01 (0.00-0.30) K/uL Imm/Tot Granulo (auto) 0.2 % D-Dimer Quant (PE/DVT) 0.29 (0.00-0.50) ug/ml Sodium 132 L (135-149) mmol/L Potassium 4.5 (3.6-5.1) mmol/L Chloride 96 (96-114) mmol/L Carbon Dioxide 28 (20-32) mmol/L Anion Gap 8 (7-15) mEq/L BUN 18 (7-30) mg/dL Creatinine 1.2 (0.5-1.5) mg/dL Estimated Creat Clear 35.52 Estimated GFR 48 ml/min Glucose 93 (60-115) mg/dL Calcium 9.9 (8.4-10.6) mg/dL Magnesium 1.8 (1.5-2.6) mg/dL NT-Pro-B Natriuret Pep 2600 Cancelled pg/mL SARS-CoV-2 (PCR) Negative SARS-CoV-2 (Negative) Influenza Type A (PCR) Negative PCR FLU A (Negative) Influenza Type B (PCR) Negative PCR FLU B (Negative) RSV (PCR) Negative PCR RSV (Negative) POC Troponin I 0.00 L (0.01-0.04) ng/ml 04/23/24 Range/Units 17:30 WBC (4.50-11.00) K/uL RBC (4.00-5.20) m/uL Hgb (12.0-16.0) gm/dL Hct (33.0-51.0) % MCV (80-100) fL MCH (26-34) pg MCHC (32-36) gm/dL RDW Coeff of Koko (11.5-15.5) % Plt Count (140-440) K/uL Neut % (Auto) (42.0-72.0) % Lymph % (Auto) (20-44) % [place] % (Auto) (0.0-11.0) % Eos % (Auto) (0.0-7.0) % Baso % (Auto) (0.0-3.0) % Neut # (Auto) (1.7-7.0) K/uL Lymph # (Auto) (0.90-2.90) K/uL [place] # (Auto) (0.00-0.90) K/UL Eos # (Auto) (0.00-0.50) K/uL Baso # (Auto) (0.00-0.30) K/uL Abs Immat Gran (auto) (0.00-0.30) K/uL Imm/Tot Granulo (auto) % D-Dimer Quant (PE/DVT) (0.00-0.50) ug/ml Sodium (135-149) mmol/L Potassium (3.6-5.1) mmol/L Chloride (96-114) mmol/L Carbon Dioxide (20-32) mmol/L Anion Gap (7-15) mEq/L BUN (7-30) mg/dL Creatinine (0.5-1.5) mg/dL Estimated Creat Clear Estimated GFR ml/min Glucose (60-115) mg/dL Calcium (8.4-10.6) mg/dL Magnesium (1.5-2.6) mg/dL NT-Pro-B Natriuret Pep pg/mL SARS-CoV-2 (PCR) (Negative) Influenza Type A (PCR) (Negative) Influenza Type B (PCR) (Negative) RSV (PCR) (Negative) POC Troponin I 0.01 (0.01-0.04) ng/ml <Chino Lopez, DO - Last Filed: 04/23/24 16:02> Lab Results 04/23/24 04/23/24 04/23/24 Range/Units 14:56 15:30 15:30 WBC 5.96 (4.50-11.00) K/uL RBC 4.11 (4.00-5.20) m/uL Hgb 13.0 (12.0-16.0) gm/dL Hct 39.2 (33.0-51.0) % MCV 95 (80-100) fL MCH 32 (26-34) pg MCHC 33 (32-36) gm/dL RDW Coeff of Koko 12.5 (11.5-15.5) % Plt Count 208 (140-440) K/uL Neut % (Auto) 63.3 (42.0-72.0) % Lymph % (Auto) 24.7 (20-44) % [place] % (Auto) 8.6 (0.0-11.0) % Eos % (Auto) 2.9 (0.0-7.0) % Baso % (Auto) 0.3 (0.0-3.0) % Neut # (Auto) 3.78 (1.7-7.0) K/uL Lymph # (Auto) 1.47 (0.90-2.90) K/uL [place] # (Auto) 0.50 (0.00-0.90) K/UL Eos # (Auto) 0.17 (0.00-0.50) K/uL Baso # (Auto) 0.02 (0.00-0.30) K/uL Abs Immat Gran (auto) 0.01 (0.00-0.30) K/uL Imm/Tot Granulo (auto) 0.2 % D-Dimer Quant (PE/DVT) 0.29 (0.00-0.50) ug/ml Sodium 132 L (135-149) mmol/L Potassium 4.5 (3.6-5.1) mmol/L Chloride 96 (96-114) mmol/L Carbon Dioxide 28 (20-32) mmol/L Anion Gap 8 (7-15) mEq/L BUN 18 (7-30) mg/dL Creatinine 1.2 (0.5-1.5) mg/dL Estimated Creat Clear 35.52 Estimated GFR 48 ml/min Glucose 93 (60-115) mg/dL Calcium 9.9 (8.4-10.6) mg/dL Magnesium 1.8 (1.5-2.6) mg/dL NT-Pro-B Natriuret Pep 2600 Cancelled pg/mL SARS-CoV-2 (PCR) Negative SARS-CoV-2 (Negative) Influenza Type A (PCR) Negative PCR FLU A (Negative) Influenza Type B (PCR) Negative PCR FLU B (Negative) RSV (PCR) Negative PCR RSV (Negative) POC Troponin I 0.00 L (0.01-0.04) ng/ml 04/23/24 Range/Units 17:30 WBC (4.50-11.00) K/uL RBC (4.00-5.20) m/uL Hgb (12.0-16.0) gm/dL Hct (33.0-51.0) % MCV (80-100) fL MCH (26-34) pg MCHC (32-36) gm/dL RDW Coeff of Koko (11.5-15.5) % Plt Count (140-440) K/uL Neut % (Auto) (42.0-72.0) % Lymph % (Auto) (20-44) % [place] % (Auto) (0.0-11.0) % Eos % (Auto) (0.0-7.0) % Baso % (Auto) (0.0-3.0) % Neut # (Auto) (1.7-7.0) K/uL Lymph # (Auto) (0.90-2.90) K/uL [place] # (Auto) (0.00-0.90) K/UL Eos # (Auto) (0.00-0.50) K/uL Baso # (Auto) (0.00-0.30) K/uL Abs Immat Gran (auto) (0.00-0.30) K/uL Imm/Tot Granulo (auto) % D-Dimer Quant (PE/DVT) (0.00-0.50) ug/ml Sodium (135-149) mmol/L Potassium (3.6-5.1) mmol/L Chloride (96-114) mmol/L Carbon Dioxide (20-32) mmol/L Anion Gap (7-15) mEq/L BUN (7-30) mg/dL Creatinine (0.5-1.5) mg/dL Estimated Creat Clear Estimated GFR ml/min Glucose (60-115) mg/dL Calcium (8.4-10.6) mg/dL Magnesium (1.5-2.6) mg/dL NT-Pro-B Natriuret Pep pg/mL SARS-CoV-2 (PCR) (Negative) Influenza Type A (PCR) (Negative) Influenza Type B (PCR) (Negative) RSV (PCR) (Negative) POC Troponin I 0.01 (0.01-0.04) ng/ml <Alba Lugo MD - Last Filed: 04/23/24 17:53> Imaging Data Chest x-ray: Attestation: I have reviewed the pertinent imaging results. <Chino Lopez DO - Last Filed: 04/23/24 16:02> Radiologist's impression: No consolidation. Dictated by Kwabena Cloud MD @ 04/23/2024 3:30:49 PM <Chino Lopez DO - Last Filed: 04/23/24 16:02> ECG Data Attestation: I personally reviewed and interpreted this ECG as follows: <Chino Lopez DO - Last Filed: 04/23/24 16:02> Prior ECG tracings: available for review <Chino Lopez DO - Last Filed: 04/23/24 16:02> Interpretation: Atrial fibrillation at a rate 76 beats per minute, normal intervals, normal axis, no ST or T-wave abnormalities. Appears similar previous EKG on 5. There is some difficulty clearly seen T-waves due to the AFib and some artifact. <Chino Lopez DO - Last Filed: 04/23/24 16:02> Discharge Plan Discharge Clinical Impression: Atypical chest pain <Chino Lopez DO - Last Filed: 04/23/24 16:02> Patient Disposition: Home, Self-Care <Chino Lopez DO - Last Filed: 04/23/24 16:02> Condition: Improved <Chino Lopez DO - Last Filed: 04/23/24 16:02> Additional Instructions: Follow-up with primary care provider as needed. <Chino Lopez DO - Last Filed: 04/23/24 16:02> Prescriptions: No Action atorvastatin 40 mg tablet 40 mg PO HS albuterol sulfate 90 mcg/actuation HFA aerosol inhaler 1 - 2 puff INHALATION Q4H PRN (Reason: dyspnea) fluticasone propionate 50 mcg/actuation spray,suspension 2 spray INTRANASAL DAILY lamotrigine 100 mg tablet 150 mg PO BID mirtazapine 7.5 mg tablet 7.5 mg PO HS aspirin 81 mg capsule 81 mg PO DAILY triamcinolone acetonide 0.1 % cream 1 applic topical 3XD PRN calcium carbonate-vitamin D3 [Calcium 600 + D(3)] 600 mg-10 mcg (400 unit) tablet 1 tab PO BID Prolia 60 mg/mL syringe 60 mg subcut [id number] potassium chloride 10 mEq Capsule, Extended Release 20 meq PO DAILYWM 3 Days Qty: 6 0RF torsemide 10 mg tablet 10 mg PO DAILY Qty: 30 0RF <Chino Lopez DO - Last Filed: 04/23/24 16:02> Follow Up/Referrals: ZOLTAN WATKINS DO [Primary Care Provider] - <Chino Lopez DO - Last Filed: 04/23/24 16:02> Stand Alone Forms: MyHealth Info Instructions <Chino Lopez DO - Last Filed: 04/23/24 16:02>
[2024-04-23 15:38] LABS: Basophils Absolute Auto 0.02 K/uL (0.00-0.30); Basophils Percent Auto 0.3 % (0.0-3.0); Eosinophils Absolute Auto 0.17 K/uL (0.00-0.50); Eosinophils Percent Auto 2.9 % (0.0-7.0); Hematocrit 39.2 % (33.0-51.0); Immature Granulocytes Abs Auto 0.01 K/uL (0.00-0.30); Immature Granulocytes Pct Auto 0.2 %; Lymphocytes Absolute Auto 1.47 K/uL (0.90-2.90); Lymphocytes Percent Auto 24.7 % (20-44); Mean Corpuscular HGB Conc 33 gm/dL (32-36); Mean Corpuscular Hemoglobin 32 pg (26-34); Mean Corpuscular Volume 95 fL (80-100); Monocytes Percent Auto 8.6 % (0.0-11.0); Neutrophils Absolute Auto 3.78 K/uL (1.7-7.0); Neutrophils Percent Auto 63.3 % (42.0-72.0); Platelet Count* 208 K/uL (140-440); RDW Coefficient of Variation % 12.5 % (11.5-15.5); Red Blood Count 4.11 m/uL (4.00-5.20); White Blood Count* 5.96 K/uL (4.50-11.00)
[2024-04-23 15:48] LABS: PCR FLU A Negative PCR FLU A (Negative); PCR FLU B Negative PCR FLU B (Negative); PCR RSV Negative PCR RSV (Negative); SARS PCR* Negative SARS-CoV-2 (Negative)
[2024-04-23 15:52] LABS: Chloride* 96 mmol/L (96-114); Sodium* 132 mmol/L (135-149)
[2024-04-23 15:53] LABS: Potassium* 4.5 mmol/L (3.6-5.1)
[2024-04-23 15:55] LABS: Creatinine* 1.2 mg/dL (0.5-1.5); Est. Creatinine Clearance* 35.52; Estimated Glomerular Filt Rate 48 ml/min
[2024-04-23 15:56] LABS: Anion Gap 8 mEq/L (7-15); Blood Urea Nitrogen* 18 mg/dL (7-30); Calcium* 9.9 mg/dL (8.4-10.6); Carbon Dioxide* 28 mmol/L (20-32); Glucose* 93 mg/dL (60-115); Magnesium* 1.8 mg/dL (1.5-2.6)
[2024-04-23 15:58] LABS: D Dimer Quantitative* 0.29 ug/ml (0.00-0.50)
[2024-04-23 16:01] LABS: Slide Review Reflex No
[2024-04-23 16:13] LABS: NT Pro B Type NatriureticPept* 2600 pg/mL
[2024-04-23 17:43] LABS: Troponin, Point-of-Care* 0.01 ng/ml (0.01-0.04)
== END 2024-04-23 18:00 | disposition home or self-care (01) ==
PROVIDERS: Student in an Organized Health Care Education/Training Program; Emergency Provider Family Medicine; PCP Student in an Organized Health Care Education/Training Program
DX: R07.9 Chest pain, unspecified (principal)
CPT/HCPCS: 36415; 71046; 80048; 83735; 83880; 84484; 85025; 85379; 87631; 93005; 99284

== ENCOUNTER 2024-09-03 22:50 | Emergency (ER) | payer MEDICARE, BC, SELFPAY ==
[2024-09-03 23:04] VITALS: BP 152/116; PULSE 90; RESP 22; TEMP 36.7; O2SAT 96; BMI 31.6
[2024-09-03 23:18] LABS: Basophils Absolute Auto 0.03 K/uL (0.00-0.30); Basophils Percent Auto 0.5 % (0.0-3.0); Eosinophils Absolute Auto 0.28 K/uL (0.00-0.50); Eosinophils Percent Auto 4.2 % (0.0-7.0); Hematocrit 40.4 % (33.0-51.0); Hemoglobin* 13.4 gm/dL (12.0-16.0); Immature Granulocytes Abs Auto 0.01 K/uL (0.00-0.30); Immature Granulocytes Pct Auto 0.2 %; Lymphocytes Percent Auto 33.1 % (20-44); Mean Corpuscular HGB Conc 33 gm/dL (32-36); Mean Corpuscular Hemoglobin 32 pg (26-34); Mean Corpuscular Volume 96 fL (80-100); Monocytes Percent Auto 9.8 % (0.0-11.0); Neutrophils Absolute Auto 3.47 K/uL (1.7-7.0); Neutrophils Percent Auto 52.2 % (42.0-72.0); Platelet Count* 216 K/uL (140-440); Red Blood Count 4.21 m/uL (4.00-5.20); White Blood Count* 6.64 K/uL (4.50-11.00)
[2024-09-03 23:21] LABS: Slide Review Reflex No
[2024-09-03 23:29] VITALS: PULSE 80; O2SAT 97
[2024-09-03 23:36] LABS: Chloride* 103 mmol/L (96-114); Potassium* 4.3 mmol/L (3.6-5.1); Sodium* 134 mmol/L (135-149)
[2024-09-03 23:39] LABS: Anion Gap 7 mEq/L (7-15); Blood Urea Nitrogen* 19 mg/dL (7-30); Carbon Dioxide* 24 mmol/L (20-32); Creatinine* 1.1 mg/dL (0.5-1.5); Est. Creatinine Clearance* 39.76; Estimated Glomerular Filt Rate 52 ml/min; Glucose* 101 mg/dL (60-115)
[2024-09-03 23:40] VITALS: PULSE 79; O2SAT 96
[2024-09-03 23:40] LABS: Calcium* 9.3 mg/dL (8.4-10.6)
[2024-09-03 23:41] VITALS: BP 128/85; PULSE 77; O2SAT 96
[2024-09-03 23:42] VITALS: PULSE 72; O2SAT 95
[2024-09-03 23:55] LABS: PCR FLU A Negative PCR FLU A (Negative); PCR FLU B Negative PCR FLU B (Negative); PCR RSV Negative PCR RSV (Negative); SARS PCR* Negative SARS-CoV-2 (Negative)
[2024-09-04] VITALS (14 sets, daily range): BP systolic 111–130; BP diastolic 73–84; PULSE 71–82; O2SAT 92–98
[2024-09-04 00:06] LABS: NT Pro B Type NatriureticPept* 1650 pg/mL; Troponin I* < 0.01 ng/mL (0.01-0.04)
--- NOTE | 2024-09-04 00:52 | ED_ITS ---
HPI - Chest Pain General Chief Complaint: Chest Pain Stated Complaint: Chest pain Time Seen by Provider: 09/03/24 23:45 Source: patient Mode of arrival: ambulatory Limitations: no limitations History of Present Illness HPI narrative: Patient is a 74-year-old female presenting to the emergency department for chest pain. She states chest pain started about 2 hours prior to arrival. She states that is somewhat improved since then but is still there. She states it is a midsternal pressure sensation. It does not radiate anywhere. Denies symptoms like this before. She has been seen in this emergency department several times within the past year for chest pain. Denies any history of heart disease other than CHF and AFib with she is taking medication for. She states with the symptoms started she was initially feeling short of breath but that has since resolved. Denies any lightheadedness, dizziness, weakness, numbness, headache, vision changes, abdominal pain. She states he was relaxing when symptoms began. She took an aspirin this morning. No other concerns noted. Her last echocardiogram was May 2023 Related Data Home Medications ?Medication ?Instructions ?Recorded ?Confirmed albuterol sulfate 90 mcg/actuation 1 - 2 puff inhalation Q4H PRN 06/02/23 10/14/23 aerosol inhaler dyspnea aspirin 81 mg capsule 81 mg PO DAILY 06/02/23 10/14/23 atorvastatin 40 mg tablet 40 mg PO HS 06/02/23 10/14/23 fluticasone propionate 50 2 spray intranasal DAILY 06/02/23 10/14/23 mcg/actuation nasal spray,suspension lamotrigine 100 mg tablet 150 mg PO BID 06/02/23 10/14/23 mirtazapine 7.5 mg tablet 7.5 mg PO HS 06/02/23 10/14/23 calcium 600 mg (as 1 tab PO BID 06/03/23 10/14/23 carbonate)-vitamin D3 10 mcg (400 unit) tablet (Calcium 600 + D(3)) denosumab 60 mg/mL subcutaneous 60 mg subcut [id number] 06/03/23 10/14/23 syringe (Prolia) triamcinolone acetonide 0.1 % 1 applic topical 3XD PRN 06/03/23 06/03/23 topical cream Previous Rx's ?Medication ?Instructions ?Recorded potassium chloride 10 mEq 20 meq (2 x 10 mEq) PO DAILYWM 3 09/18/23 capsule,extended release days #6 caps torsemide 10 mg tablet 10 mg PO DAILY #30 tabs 06/03/23 Allergies Allergy/AdvReac Type Severity Reaction Status Date / Time No Known Drug Allergies Allergy Verified 06/02/23 15:34 Review of Systems Status of ROS Reports: 10 or more systems reviewed and unremarkable except as noted in History and below [facility] Medical History Osteoporosis ?M81.0 - Age-related osteoporosis without current pathological fracture (ICD- 10) TIA (transient ischemic attack) ?G45.9 - Transient cerebral ischemic attack, unspecified (ICD-10) Atrial fibrillation ?I48.91 - Unspecified atrial fibrillation (ICD-10) Anxiety ?F41.9 - Anxiety disorder, unspecified (ICD-10) Depression ?F32.A - Depression, unspecified (ICD-10) Hypertension ?I10 - Essential (primary) hypertension (ICD-10) 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 of cranial nerves (ICD-10) Lower extremity edema ?R60.0 - Localized edema (ICD-10) Obstructive sleep apnea ?G47.33 - Obstructive sleep apnea (adult) (pediatric) (ICD-10) Seizure disorder ?G40.909 - Epilepsy, unspecified, not intractable, without status epilepticus (ICD-10) AVM (arteriovenous malformation) brain ?Q28.2 - Arteriovenous malformation of cerebral vessels (ICD-10) Surgical History History of tubal ligation ?Z98.51 - Tubal ligation status (ICD-10) History of D&C ?Z98.890 - Other specified postprocedural states (ICD-10) History of breast biopsy ?Z98.890 - Other specified postprocedural states (ICD-10) History of cholecystectomy ?Z90.49 - Acquired absence of other specified parts of digestive tract (ICD- 10) History of bilateral hip arthroplasty ?Z96.643 - Presence of artificial hip joint, bilateral (ICD-10) Family History Other High blood pressure Seizure disorder Social History Narrative: She lives independently in her own home in [place]. Her daughter and multiple other family members live nearby. Her daughter Elke is healthcare power of credit assessment analyst. Her code status is full. She is a nonsmoker. She does not drink alcohol. She does drive her own car. She does not use assistive device when she walks. She is able to manage her own affairs. What is your current living situation?: I presently have a place to live Problems where you live: no known problems Problems where you live details: n/a In the past 12 months, utilities in danger of being shut off: no In past 12 months, lack of transportation kept you from medical appts, meetings, work, or getting things needed for daily living: no In the past 12 mos, have been you worried that your food would run out before you had money to buy more?: never true In the past 12 mos, the food you bought just didn't last and you didn't have money to buy more?: never true Highest level of school completed/degree received: high school graduate Smoking Status: Never smoker Do you use any of these nicotine containing products: None How often do you have a drink containing alcohol: never AUDIT-C Alcohol total score: 0 Non-prescribed substance use: denies use Caffeine: Yes How often does anyone, including family, friends and others, physically hurt you : never How often does anyone, including family, friends and others, insult or talk down to you: never How often does anyone, including family, friends and others, threaten you with harm: never How often does anyone, including family, friends and others, scream or curse at you: never service: No Exam Narrative Exam Narrative: Const: Well-nourished, Well-developed, in mild distress Eyes: PERRL, no conjunctival injection, and symmetrical lids HENT: Atraumatic external nose and ears. Moist mucous membranes. Neck: Symmetric, trachea midline, No thyromegaly. CVS: RRR, No murmurs or gallops. Peripheral pulses 2+ and equal in all extremities RESP: Unlabored respiratory effort. Clear to auscultation bilaterally. GI: Nontender/Nondistended, No rebound or guarding. MSK:Extremities w/o deformity, Normal Active ROM Skin: Warm, Dry. No rashes or lesions. Neuro: Normal Muscle tone, No focal neurological deficits. Psych: Awake, Alert, & Oriented x3. Appropriate mood and affect. Const Vital Signs, click to edit/add: Vital Signs - 24 hr 09/03/24 23:04 09/03/24 23:29 09/03/24 23:40 Temperature 98.0 F Pulse Rate 80 79 Pulse Rate [Apical] 90 Respiratory Rate 22 Blood Pressure Blood Pressure [Left Upper Arm] 152/116 H Pulse Oximetry 96 97 96 Oxygen Delivery Method Room Air 09/03/24 23:41 Temperature Pulse Rate 77 Pulse Rate [Apical] Respiratory Rate Blood Pressure 128/85 Blood Pressure [Left Upper Arm] Pulse Oximetry 96 Oxygen Delivery Method Course Vital Signs Vital signs: Initial Vital Signs Temperature 98.0 F 09/03/24 23:04 Temperature Source Temporal Artery Scan 09/03/24 23:04 Pulse Rate 90 09/03/24 23:04 Pulse Rhythm Irregular 09/03/24 23:04 Respiratory Rate 22 09/03/24 23:04 Blood Pressure 152/116 H 09/03/24 23:04 Blood Pressure Mean 128 H 09/03/24 23:04 Blood Pressure Position Sitting 09/03/24 23:04 Pulse Oximetry 96 09/03/24 23:04 Oxygen Delivery Method Room Air 09/03/24 23:04 Vital Signs Temperature 98.0 F 09/03/24 23:04 Pulse Rate 90 09/03/24 23:04 Respiratory Rate 22 09/03/24 23:04 Blood Pressure 152/116 H 09/03/24 23:04 Pulse Oximetry 96 09/03/24 23:04 Oxygen Delivery Method Room Air 09/03/24 23:04 Temperature 98.0 F 09/03/24 23:04 Pulse Rate 77 09/03/24 23:41 Respiratory Rate 22 09/03/24 23:04 Blood Pressure 128/85 09/03/24 23:41 Pulse Oximetry 96 09/03/24 23:41 Oxygen Delivery Method Room Air 09/03/24 23:04 MDM - Chest Pain MDM Narrative Medical decision making narrative: Patient is a 74-year-old female presenting for chest pain. The differential diagnosis of chest pain is broad and includes common etiologies such as musculoskeletal strain, GERD, pneumonia, etc. More serious etiologies considered include PE, coronary artery disease, pneumothorax, aortic dissection, aortic aneurysm. Will do a COVID/flu/RSV swab. Will also do a BNP, BMP, CBC, troponin, EKG. Patient's EKG and initial troponin shows no concerning abnormalities. Other lab work shows no concerning abnormalities. BNP is actually improved compared to previously. She does not appear to be and heart failure. No signs of acute MO at this time. Viral swab are negative. Will repeat troponin. Her chest pain has resolved at this time. She is seeing Cardiology and scheduled to get a watchmen procedure in September. Repeat troponin and chest x-ray results signed out to my colleague, Dr. Roper, at the end of my shift Lab Data Labs: Lab Results 09/03/24 09/03/24 Range/Units 23:10 23:14 WBC 6.64 (4.50-11.00) K/uL RBC 4.21 (4.00-5.20) m/uL Hgb 13.4 (12.0-16.0) gm/dL Hct 40.4 (33.0-51.0) % MCV 96 (80-100) fL MCH 32 (26-34) pg MCHC 33 (32-36) gm/dL RDW Coeff of Koko 13.0 (11.5-15.5) % Plt Count 216 (140-440) K/uL Neut % (Auto) 52.2 (42.0-72.0) % Lymph % (Auto) 33.1 (20-44) % [place] % (Auto) 9.8 (0.0-11.0) % Eos % (Auto) 4.2 (0.0-7.0) % Baso % (Auto) 0.5 (0.0-3.0) % Neut # (Auto) 3.47 (1.7-7.0) K/uL Lymph # (Auto) 2.20 (0.90-2.90) K/uL [place] # (Auto) 0.70 (0.00-0.90) K/UL Eos # (Auto) 0.28 (0.00-0.50) K/uL Baso # (Auto) 0.03 (0.00-0.30) K/uL Abs Immat Gran (auto) 0.01 (0.00-0.30) K/uL Imm/Tot Granulo (auto) 0.2 % Sodium 134 L (135-149) mmol/L Potassium 4.3 (3.6-5.1) mmol/L Chloride 103 (96-114) mmol/L Carbon Dioxide 24 (20-32) mmol/L Anion Gap 7 (7-15) mEq/L BUN 19 (7-30) mg/dL Creatinine 1.1 (0.5-1.5) mg/dL Estimated Creat Clear 39.76 Estimated GFR 52 ml/min Glucose 101 (60-115) mg/dL Calcium 9.3 (8.4-10.6) mg/dL Troponin I < 0.01 L (0.01-0.04) ng/mL NT-Pro-B Natriuret Pep 1650 pg/mL SARS-CoV-2 (PCR) Negative SARS-CoV-2 (Negative) Influenza Type A (PCR) Negative PCR FLU A (Negative) Influenza Type B (PCR) Negative PCR FLU B (Negative) RSV (PCR) Negative PCR RSV (Negative) ECG Data Attestation: I personally reviewed and interpreted this ECG as follows: Prior ECG tracings: available for review Interpretation: AFib with a rate of 84 beats per minute, normal QT interval, no ST or T-wave abnormalities. Appears similar previous EKGs on file Discharge Plan Discharge Clinical Impression: Chest pain Qualifiers: Chest pain type: unspecified Qualified Code(s): R07.9 - Chest pain, unspecified Patient Disposition: Home, Self-Care Condition: Improved Instructions: Chest Pain (ED) Additional Instructions: Have close follow-up with her primary care provider. Return to emergency department for new or worsening symptoms. Prescriptions: No Action atorvastatin 40 mg tablet 40 mg PO HS albuterol sulfate 90 mcg/actuation HFA aerosol inhaler 1 - 2 puff INHALATION Q4H PRN (Reason: dyspnea) fluticasone propionate 50 mcg/actuation spray,suspension 2 spray INTRANASAL DAILY lamotrigine 100 mg tablet 150 mg PO BID mirtazapine 7.5 mg tablet 7.5 mg PO HS aspirin 81 mg capsule 81 mg PO DAILY triamcinolone acetonide 0.1 % cream 1 applic topical 3XD PRN calcium carbonate-vitamin D3 [Calcium 600 + D(3)] 600 mg-10 mcg (400 unit) tablet 1 tab PO BID Prolia 60 mg/mL syringe 60 mg subcut [id number] potassium chloride 10 mEq Capsule, Extended Release 20 meq PO DAILYWM 3 Days Qty: 6 0RF torsemide 10 mg tablet 10 mg PO DAILY Qty: 30 0RF Follow Up/Referrals: ZOLTAN WATKINS DO [Primary Care Provider] - Stand Alone Forms: MyHealth Info Instructions
--- NOTE | 2024-09-04 00:55 | CRLHL7_ITS ---
For Patients: As a result of the Century Cures Act, medical imaging exams and procedure reports are released immediately into your electronic medical record. You may view this report before your referring provider. If you have questions, please contact your health care provider. INDICATION: Chest pain. TECHNIQUE: Chest 2 view. COMPARISON: Chest radiograph 04/23/2024. FINDINGS: Cardiovascular: Stable mild cardiomegaly. Pulmonary vasculature is within normal limits. Tortuous aorta. Lungs and pleural spaces: Low lung volumes. Linear atelectasis or scarring in the lung bases. No focal consolidation. No sign of pleural effusion. No pneumothorax identified. Bones and soft tissues: No significant findings. IMPRESSION: Mild cardiomegaly with low lung volumes. No other acute findings. Dictated by Deloris Sweeney MD @ 09/04/2024 1:33:32 AM (Electronically Signed)
[2024-09-04 02:44] LABS: Troponin I* < 0.01 ng/mL (0.01-0.04)
== END 2024-09-04 03:15 | disposition home or self-care (01) ==
PROVIDERS: Emergency Provider Student in an Organized Health Care Education/Training Program; PCP Student in an Organized Health Care Education/Training Program
DX: R07.89 Other chest pain (principal)
CPT/HCPCS: 36415; 71046; 80048; 83880; 84484; 85025; 87631; 93005; 96374; 99284; 99285

== ENCOUNTER 2024-09-30 08:21 | Emergency (ER) | payer MEDICARE, BC, SELFPAY ==
[2024-09-30] VITALS (21 sets, daily range): BP systolic 110–139; BP diastolic 63–91; PULSE 67–85; RESP 18; TEMP 36.2; O2SAT 91–98; BMI 32.4
--- OUTSIDE RECORDS SUMMARY | 2024-09-30 08:23 | XMS_ITS | Clinical Summary ---
Author Organization [facility] Address [place], [place] [address] Care Team Providers Care Special Deputy Sheriff Name Role Phone Vincent Dawkins DO Primary Care Provider [phone] Allergies Active Allergy Reactions Criticality Noted Date Comments Amlodipine Edema Medium 04/03/2023 Latex *Unknown 02/06/2015 Per outside notes Lisinopril Cough Low 04/03/2023 Losartan Cough Low 04/03/2023 Adhesive Rash 07/09/2014 Medications albuterol HFA (PRO-AIR; VENTOLIN; PROVENTIL) 90 mcg/actuation inhalerIndication s:Chronic cough INHALE ONE OR TWO PUFFS BY MOUTH EVERY FOUR HOURS WHILE AWAKRE 8.5 g 024 Active furosemide (LASIX) 20 mg tabletIndications :Acute on chronic systolic CHF (congestive heart failure) (HC) Take 1 Tablet (20 mg) by mouth once daily in the morning. 90 Tablet 024 Active metoprolol succinate (Toprol XL) 25 mg Sustained-Release tabletIndications :PVC's (premature ventricular contractions) Take 0.5 Tablets (12.5 mg) by mouth once daily. 90 Tablet 3 024 Active mirtazapine (REMERON) 7.5 mg tabletIndications :Depression, major, single episode, moderate (HC),Depression, major, in remission (HC) Take 1 Tablet (7.5 mg) by mouth at bedtime. 90 Tablet 3 024 Active atorvastatin (LIPITOR) 40 mg tabletIndications :Hyperlipidemia, unspecified hyperlipidemia type Take 1 Tablet (40 mg) by mouth at bedtime. 90 Tablet 3 024 Active potassium chloride (Klor-Con M20) 20 mEq extended-release tablet (part/cryst)Indic ations:Irregular heart rhythm Take 1 Tablet (20 mEq) by mouth once daily with a meal. 90 Tablet 3 024 Active lamoTRIgine 100 mg tabletIndications :Seizure disorder (HC) take 1.5 tablets (150mg) by mouth twice daily. 270 Tablet 1 024 Active polyethylene glycoL (Miralax) 17 gram/scoop powder Mix 1 scoop in liquid then take by mouth once daily if needed for Constipation. Active acetaminophen (TYLENOL EXTRA STRGTH) 500 mg tablet Take 500 mg by mouth every 6 hours if needed for Pain. Max acetaminophen dose: 4000mg in 24 hrs. Active clotrimazole (LOTRIMIN) 1 % cream Apply topically to affected area(s) 2 times daily if needed. Active fluticasone (50 mcg per actuation) nasal solution (FLONASE) Inhale 1 [place] in both nostrils once daily if needed for Rhinitis. Active triamcinolone (ARISTOCORT; KENALOG) 0.1 % cream Apply topically to affected area(s) once daily if needed. Active apixaban (ELIQUIS) 5 mg tabletIndications :prevent thromboembolism in chronic atrial fibrillation Take 1 Tablet (5 mg) by mouth two times daily. 100 Tablet 025 Active fluticasone (50 mcg per actuation) nasal solution (FLONASE)Indicati ons:Nasal congestion,Postna chacha drip Inhale 2 Sprays to both nostrils once daily. 48 g 023 2024 Discontinued(P harmacist change per medication history (E-cancel not sent)) inhalational spacing deviceIndications :Chronic cough For home use. 1 Each 023 2024 Discontinued(O ther - add note to specify (E-cancel not sent)) triamcinolone (ARISTOCORT; KENALOG) 0.1 % creamIndications: Dermatitis Apply topically to affected area(s) three times daily. 80 g 023 2024 Discontinued(P harmacist change per medication history (E-cancel not sent)) lamoTRIgine 100 mg tabletIndications :Seizure disorder (HC) take 1.5 tablets (150mg) by mouth twice daily. 270 Tablet 024 2023 Discontinued clotrimazole (LOTRIMIN) 1 % creamIndications: Tinea Apply topically to affected area(s) two times daily. 45 g 024 2024 Discontinued(P harmacist change per medication history (E-cancel not sent)) aspirin chewable 81 mg chewable tabletIndications :Paroxysmal atrial fibrillation (HC),Transient ischemic attack Chew 1 Tablet (81 mg) by mouth once daily with a meal. 90 Tablet 3 024 2024 Discontinued(* IP Discontinued) Hospital, Clinic, or Other Facility Administered Medication Ordered Dose Route Frequency Start Date End Date Status denosumab (PROLIA) injection 60 mgIndications:Age-re lated osteoporosis without current pathological fracture 60 mg SubQ Q 6 MONTHS (24 WEEKS) 05/22/2024 04/22/2025 Active Active Problems Problem Noted Date Diagnosed Date Acute on chronic systolic CHF (congestive heart failure) 11/13/2023 Depression, major, single episode, moderate 10/18 Stage 3b chronic kidney disease 04/03/2023 Age-related osteoporosis wit hout current pathological fracture 02/08/2023 Overview (02/08/2023): Currently on Fosamax. Transitioning to prolia Anxiety [...] Encounters Date Type Department Care Team Description 09/28/2024 1:40 PM CERTIFIED PHYSICIAN'S ASSISTANT Office Visit [facility] [address] [place] [address] Vincent Dawkins DO Hospital F/U (Afib, ANW, 09/22/24, watchman placed) 09/28/2024 Travel 09/24/2024 Patient Outreach [facility] [address] [place] [address] Summer Vargas, RN Student Primary RN Care Management; Hospital F/U (Lace=34) 09/22/2024 2:12 PM CERTIFIED PHYSICIAN'S ASSISTANT Anesthesia Event [facility] [address] [place] [address] Tonny Shi MD Elvester, Danica K, YOKER 09/22/2024 12:45 PM CERTIFIED PHYSICIAN'S ASSISTANT - 09/22/2024 11:59 PM CERTIFIED PHYSICIAN'S ASSISTANT Hospital Encounter [facility] [address] [place] [address] Jose Armando Miller MD, PhD Persistent atrial fibrillation (HC) 09/22/2024 11:12 AM CERTIFIED PHYSICIAN'S ASSISTANT - 09/23/2024 11:05 AM CERTIFIED PHYSICIAN'S ASSISTANT Hospital Encounter [facility] [address] [place] [address] Jamar Boss MD Kushins, Stephen Isaac, MD Schlatter, Charles Patrick, CRNA Paroxysmal atrial fibrillation (HC) (Primary Dx); Presence of Watchman left atrial appendage closure device Discharge Disposition: Home Self Care 09/22/2024 Travel 09/17/2024 Telephone [facility] [address] [facility] [address] [place] [phone] Barbie Hawthorne RN Pre Watchman Call 09/15/2024 10:45 AM CERTIFIED PHYSICIAN'S ASSISTANT Ancillary Procedure [facility] [address] [place] [address] 09/15/2024 10:10 AM CERTIFIED PHYSICIAN'S ASSISTANT Office Visit [facility] [address] [place] [address] Vincent Dawkins DO Hospital F/U 09/15/2024 Travel 09/05/2024 Refill [facility] [address] [place] [address] Vincent Dawkins DO Refill Request (Lamotrigine) 09/04/2024 Orders Only [facility] HIM SERVICES Scanner 1 scan: (1-Ord) [facility], XR CHEST 2V, 09/04/2024 08/26/2024 Telephone [facility] [address] [place] [address] Vincent Dawkins DO Follow Up (Missed call ) 08/24/2024 8:30 AM CERTIFIED PHYSICIAN'S ASSISTANT Office Visit [facility] [address] [place] [address] Vincent Dawkins DO Medicare ANNUAL (subsequent) Visit (73 year old ) 08/24/2024 7:40 AM CERTIFIED PHYSICIAN'S ASSISTANT Ancillary Procedure [facility] [address] [place] [address] 08/24/2024 Travel 08/07/2024 4:00 PM CERTIFIED PHYSICIAN'S ASSISTANT Telemedicine [facility] [address] [place] [address] Vicky Prince MD Virtual visit 08/04/2024 2:00 PM CERTIFIED PHYSICIAN'S ASSISTANT Ancillary Procedure [facility] [address] [facility] [address] [place] [address] 08/04/2024 1:40 PM CERTIFIED PHYSICIAN'S ASSISTANT Orders Only On License Of [facility] [address] [facility] [address] [place] [address] Lab 08/04/2024 Travel 08/03/2024 Refill [facility] [address] [place] [address] Vincent Dawkins DO Refill Request (Torsemide) 07/31/2024 Refill [facility] [address] [place] [address] Vincent Dawkins DO Refill Request (Furosemide) 07/31/2024 Telephone [facility] [address] [place] [address] Barbie Hawthorne RN Reschedule Watchman 07/27/2024 Telephone [facility] [address] [place] [phone] Barbie Hawthorne RN Watchman 07/22/2024 1:00 PM CERTIFIED PHYSICIAN'S ASSISTANT Office Visit [facility] [address] [place] [address] Teofilo Rey MD CV Electrophysiology Est (Discuss pos watchman device. Neurology cleared for watchman. ) 07/22/2024 Travel 07/08/2024 Telephone [facility] [address] [place] [phone] Teofilo Rey MD Cardiology Appointment 07/06/2024 2:05 PM CDT Office Visit [facility] [address] [place] [address] Vincent Dawkins, DO Derm Problem (A couple spots on her face - notices they are dry - would like them looked at ) 07/06/2024 Travel from Last 3 Months Immunizations Name Administration Dates Next Due COVID-19 VACCINE SPIKEVAX (M ODERNA 50MCG/0.5ML) 12YO+ PFS 07/06/2024,07/12/2023 COVID-19 vaccine (Pfizer-Bio NTech 30mcg/0.3mL) 12YO+ BIVALENT PF, MDV 08/10/2022 COVID-19 vaccine (Pfizer-Bio NTech 30mcg/0.3mL) PF, MDV 07/06/2021,12/09/2020,11/18/2020 Influenza Virus, Unspecified 06/16/2013 Influenza, High-dose Inactivated 06/22/2016,10/2014,06/16/2013 Influenza, High-dose Quadriv alent Inactivated 07/03/2021 Influenza, IIV3 (Age >=3 years) 06/01/20 14,06/26/2013,06/20/2012,06/15,06/09/2010,06/07/2008 Influenza, Inactivated AIIV4 (Age 65+ Years) Preserv Free 06/10/2023,08/10/2022,07/26/2020 Influenza, Inactivated IIV3 (Age 65+ Years) Preserv Free 07/06/2024,07/14/2019,07/04/2018,06/19 Pneumococcal Poly,23-Valent (Pneumovax) 06/22/2016 Pneumococcal conj 13-Valent [...] drink = 0.6 oz pur e alcohol) C Utilities Answer Date Recorded Do you have trouble paying f or utilities (for example, heat, electricity, water, phone)? Yes 01/16/2024 PHQ-2 Answer Date Recorded PHQ-2 TOTAL SCORE 0 08/24/2024 Social Connections Answer Date Recorded Do you often feel lonely or isolated from those around you? 0 01/16/2024 Financial Resource Strain Answer Date R ecorded Difficulty of Paying Living Expenses 3 01/16/2024 Difficulty of Paying Living Expenses Not on file 01/16/2024 Food Insecurity Answer Date Recorded Do you worry your food will run out before you are able to buy more? 1 01/16/2024 Transportation Needs Answer Date Record ed Does lack of transportation keep you from medica l appointments? 1 01/16/2024 Does lack of transportation keep you from work, meetings or getting things that you need? 1 01/16/2024 Housing Stability Answer Date Recorded What is your housing situation today? 1 01/16/2024 Interpersonal Safety Answer Date Record ed Are you being hit, kicked, p ushed or yelled at (see row info)? No 09/23/2024 Interpersonal Safety Abuse 12 - 18 Not on file 09/23/2024 Interpersonal Safety Ambulatory Vulnerability No t on file 09/23/2024 Comments No Sex and Gender Information Value Date Recorded Sex Assigned at Not on file Legal Sex Female 5:35 PM CDT Gender Identity Not on file Sexual Orientation Not on file Obstetrics History Para Term AB IAB SAB Ectopic Multiple Livin g Live Births 2 2 Date Outcome GA Total Labor Labor/2nd/3rd Weight Sex Type Anes PTL Ree A1 A5 Name Clin Para Para Last Filed Vital Signs Vital Sign Reading Time Taken Comments Blood Pressure 143/88 09/28/2024 1:35 PM CERTIFIED PHYSICIAN'S ASSISTANT Pulse 83 09/28/2024 1:35 PM CERTIFIED PHYSICIAN'S ASSISTANT Temperature 36.8 C (98.2 F) 09/28/2024 1:35 PM CERTIFIED PHYSICIAN'S ASSISTANT Respiratory Rate 16 09/23/2024 8:57 AM CERTIFIED PHYSICIAN'S ASSISTANT Oxygen Saturation 99% 09/28/2024 1:35 PM CERTIFIED PHYSICIAN'S ASSISTANT Inhaled Oxygen Concentration - - Weight 91.3 kg (201 lb 3.2 oz) 09/28/2024 1:35 P M CERTIFIED PHYSICIAN'S ASSISTANT Height 167.6 cm (5' 6) 09/22/2024 12:42 PM CERTIFIED PHYSICIAN'S ASSISTANT Body Mass Index 32.47 09/22/2024 12:42 PM CERTIFIED PHYSICIAN'S ASSISTANT Plan of Treatment Upcoming Encounters Date Type Department Care Team (Late st Contact Info) Description 11/10/2024 1:40 PM CERTIFIED PHYSICIAN'S ASSISTANT Orders Only On License Of [facility] [address] [facility] [address] [place] [address] 11/10/2024 2:00 PM CERTIFIED PHYSICIAN'S ASSISTANT Ancillary Procedure [facility] [address] [facility] [address] [place] [address] 11/11/2024 1:30 PM CERTIFIED PHYSICIAN'S ASSISTANT Office Visit [facility] [address] [facility] [address] [place] [address] [place] [address] [facility] [address] [place] [address] 01/04/2025 11:00 AM CDT Office Visit [facility] [address] [place] [address] Vincent Dawkins DO [address] [place] [address] 01/06/2025 9:00 AM CDT Office Visit [facility] [place] [facility] [address] [place] [address] Teofilo Narvaez MD [address] [place] [address] Health Maintenance Due Date Last Done Comments BMI (ht and wt on same day) for age 18+ 08/24/2025 08/24/2024, 07/22/2024, 11/13/2023, Additional history exists Medicare Wellness for age 65+ 08/25/2025, 08/23/2023, 08/10/2022, Additional history exists Depression screening for age 12+ 09/22/2025 09/22/2024, 08/26/2024, 08/24/2024, Additional history exists Fecal testing sDNA-FIT ([place] guard) for age 45-75 06/16/2026 06/16/2023 Lipids for age 45-75 08/24/2029 08/24/2024, 06/17/2020, 07/14/2019, Additional history exists Tetanus booster 08/04/2031 08/04/2021, 03/15/2008 Pneumococcal series for age 50+ Completed 6, 06/17/2015 Zoster (shingles) series for age 50+ Completed 02/18/2021, 08/26/2020, 07/06/2017 Hepatitis C screening for ag e 18-79 Completed 08/03/2021 Tdap Completed 08/04/2021, 02/16, 03/15/2008 (Completed outside of [facility]) RSV vaccine for adults or Completed 07/21/2023 DEXA/DXA scan for age 65+ Completed 2022, 08/03/2021, 06/30/2015, Additional history exists COVID-19 vaccine series Completed 07/06/20 24, 07/12/2023, 08/10/2022, Additional history exists Influenza for age 65+ Completed 07/06/2024 , 06/10/2023, 08/10/2022, Additional history exists Medical Devices Implanted Type Area Bundle Person Device Identifier Shelf Expiration Date Model / Serial / Lot Screw Sm Joint 6.5x25mm Canclls Bone - [id number] Implanted:Qty: 1 on 02/06/2015 at [facility] Ortho Imp.,Screw s & Plates Right: Hip [employer] [id number] -1# / / [id number] Shell Hip Od50mm Trident Psl Cluster Arias - [id number] Implanted:Qty: 1 on 02/06/2015 at [facility] Right: Hip [employer] 542-11-50 E# / / [id number] Screw Sm Joint 6.5x50mm Canclls Bone - [id number] Implanted:Qty: 1 on 02/06/2015 at [facility] Right: Hip [employer] [id number] -1# / / [id number] Liner Hip Id36mm Lolly 0deg Trident X3 - [id number] Implanted:Qty: 1 on 02/06/2015 at [facility] Right: Hip [employer] [id number] E# / / [id number] Stem Hip Sz7 127deg Accolade Ii - [id number] Implanted:Qty: 1 on 02/06/2015 at [facility] Right: Hip [employer] [id number] # / / [id number] Head Hip Od36mm +5 Biolox Delta C-Taper Alumina Cer - [id number] Implanted:Qty: 1 on 02/06/2015 at [facility] Right: Hip [employer] 6570-0-23 6# / / [id number] Procedures Procedure Name Priority Date/Time Associated Diagnosis Comments SCAN-CARDIAC STRIP 09/23/2024 7: 33 AM CERTIFIED PHYSICIAN'S ASSISTANT SCAN-CARDIAC STRIP 09/22/2024 11 :12 PM CERTIFIED PHYSICIAN'S ASSISTANT SCAN-CARDIAC STRIP 09/22/2024 6: 28 PM CERTIFIED PHYSICIAN'S ASSISTANT HCHG ACTIVATED CLOTTING TM CV Timed 09/22/2024 3:46 PM CERTIFIED PHYSICIAN'S ASSISTANT HCHG ACTIVATED CLOTTING TM CV Timed 09/22/2024 3:17 PM CERTIFIED PHYSICIAN'S ASSISTANT HCHG ACTIVATED CLOTTING TM CV Timed 09/22/2024 3:00 PM CERTIFIED PHYSICIAN'S ASSISTANT EP OTHER PROCEDURE Routine 09/22/2024 2: 43 PM CERTIFIED PHYSICIAN'S ASSISTANT ENDOTRACHEAL TUBE Routine 09/22/2024 2:2 7 PM CERTIFIED PHYSICIAN'S ASSISTANT ENDOTRACHEAL TUBE Routine 09/22/2024 2:2 7 PM CERTIFIED PHYSICIAN'S ASSISTANT ECHO SARAVANAN TRANSCATHETER INTRAOP PROCEDURE Routine 09/22/2024 1:22 PM CERTIFIED PHYSICIAN'S ASSISTANT Persistent atrial fibrillation (HC) BASIC METABOLIC PANEL Preop 09/22/2024 1:05 PM CERTIFIED PHYSICIAN'S ASSISTANT CBC W PLT NO DIFF Preop 09/22/2024 1:0 5 PM CERTIFIED PHYSICIAN'S ASSISTANT EXTRA TUBE GOLD/SST Today 09/22/2024 1 :01 PM CERTIFIED PHYSICIAN'S ASSISTANT EKG 12 LEAD Preop 09/22/2024 12:54 PM CERTIFIED PHYSICIAN'S ASSISTANT [facility] AN IV START Routine 09/22/2024 12:41 PM CERTIFIED PHYSICIAN'S ASSISTANT [facility] AN IV START Routine 09/22/2024 12:41 PM CERTIFIED PHYSICIAN'S ASSISTANT [facility] AN IV START Routine 09/22/2024 12:41 PM CERTIFIED PHYSICIAN'S ASSISTANT [facility] AN IV START Routine 09/22/2024 12:41 PM CERTIFIED PHYSICIAN'S ASSISTANT SCAN-CARDIAC STRIP 09/22/2024 12 :00 AM CERTIFIED PHYSICIAN'S ASSISTANT XR CHEST 2 VIEWS PA AND LATERAL Routine 09/15/2024 10:33 AM CERTIFIED PHYSICIAN'S ASSISTANT Chronic cough SCAN-RADIOLOGY REPORT 09/04/2024 12:00 AM CERTIFIED PHYSICIAN'S ASSISTANT LAMOTRIGINE (LAMICTAL) Routine 08/24/2024 9:43 AM CERTIFIED PHYSICIAN'S ASSISTANT Seizure disorder (HC) HEPATIC FUNCTION PANEL Routine 08/24/2024 9:43 AM CERTIFIED PHYSICIAN'S ASSISTANT Seizure disorder (HC) LIPID PANEL W REFLEX MEASURED LDL Routine 08/24/2024 9:43 AM CERTIFIED PHYSICIAN'S ASSISTANT Lipid screening BASIC METABOLIC PANEL Routine 08/24/2024 9:43 AM CERTIFIED PHYSICIAN'S ASSISTANT Medicare annual wellness visit, subsequent CBC WITH AUTO DIFFERENTIAL Routine 08/24/2024 9:43 AM CERTIFIED PHYSICIAN'S ASSISTANT Pre-op evaluation XR MAMMO JOLIE BILAT SCREEN Routine 08/24/2024 7:54 AM CERTIFIED PHYSICIAN'S ASSISTANT Visit for screening mammogram CT CARDIAC MORPHOLOGY W DUAL READ HUGO 08/04/2024 3:01 PM CERTIFIED PHYSICIAN'S ASSISTANT Persistent atrial fibrillation (HC) CREATININE,ISTAT Routine 08/04/2024 1:23 PM CERTIFIED PHYSICIAN'S ASSISTANT Persistent atrial fibrillation (HC) EKG 12 LEAD Routine 07/22/2024 12:50 PM CERTIFIED PHYSICIAN'S ASSISTANT Persistent atrial fibrillation (HC) XR DXA BONE DENSITY 1 SITE AXIAL AND 1 SITE PERIPHERAL Routine 09/12/2023 1:30 PM CERTIFIED PHYSICIAN'S ASSISTANT Age related osteoporosis, unspecified pathological fracture presence SDNA-FIT EXTERNAL (COLOGUARD) Routine 06/16/2023 8:00 AM CDT Screening for colon cancer ANTI HCV Routine 08/03/2021 10:21 AM CERTIFIED PHYSICIAN'S ASSISTANT Need for hepatitis C screening test from Last 3 Months or Most Recently Relevant to Health Maintenance Results * SCAN-CARDIAC STRIP (09/23/2024 7:33 AM CERTIFIED PHYSICIAN'S ASSISTANT) us Scanner OTHER Final Result * SCAN-CARDIAC STRIP (09/22/2024 11:12 PM CERTIFIED PHYSICIAN'S ASSISTANT) us Scanner OTHER Final Result * SCAN-CARDIAC STRIP (09/22/2024 6:28 PM CERTIFIED PHYSICIAN'S ASSISTANT) Scanner OTHER Final Result * ACTIVATED CLOTTING TIME [id number] ACT (09/22/2024 3:46 PM CERTIFIED PHYSICIAN'S ASSISTANT) Only the most recent of3 resultswithin the time period is included. ACTIVATED CLOTTING TIME, POCT 113 74 - 125 sec 09/22/2024 4:11 PM CERTIFIED PHYSICIAN'S ASSISTANT [facility] Blood BLOOD SPECIMEN / Unknown 09/22/2024 3:46 PM CERTIFIED PHYSICIAN'S ASSISTANT 09/22/2024 4:11 PM CERTIFIED PHYSICIAN'S ASSISTANT Jamar Boss MD HEMATOLOGY Final Result [facility] [address] [place] [id number], * EP OTHER PROCEDURE (09/22/2024 2:43 PM CERTIFIED PHYSICIAN'S ASSISTANT) Anatomical Region Laterality Modality X-Ray Angiograph y, X-Ray Angiography 09/22/2024 2:43 PM CERTIFIED PHYSICIAN'S ASSISTANT Jose Armando Miller MD, PhD CV IMAGING Fin al Result * HCHG TUBE PR1, HCHG STYLET PR1 (09/22/2024 2:27 PM CERTIFIED PHYSICIAN'S ASSISTANT) Narrative Selene Sheets CRNA - 09/22/2024 2:27 PM CERTIFIED PHYSICIAN'S ASSISTANT Selene Sheets CRNA 09/22/2024 2:28 PM Procedure: ETT Patient location during procedure: OR ETT Properties Mask Ventilation: oral airway Final Technique: direct laryngoscopy Type: straight Location: oral Cuffed: yes Tube Size: 6.5 mm Stylet: yes Laryngoscope Blade: Garcia Blade Size: 2 Cormack-Lehane Grade View: 1 Insertion Attempts: 1 Placement Verification: auscultation, end tidal CO2 and symmetrical chest wall movement Assessment: pharynx clear, atraumatic and dentition unchanged Secured at: 22 Measured From: teeth Difficulty: 0 (not difficult) Tonny Shi MD ANESTHESIA PX NOTE ORDE ANIKA Final Result * ECHO SARAVANAN TRANSCATHETER INTRAOP PROCEDURE (09/22/2024 1:22 PM CERTIFIED PHYSICIAN'S ASSISTANT) EJECTION FRACTION 55 - 60% Anatomical Region Laterality Modality HEART Ultrasound 09/22/2024 3:31 PM CERTIFIED PHYSICIAN'S ASSISTANT Narrative 09/23/2024 1:21 PM CERTIFIED PHYSICIAN'S ASSISTANT TRANSESOPHAGEAL ECHOCARDIOGRAM RAFFI COOPER : 1950 74 years Study Date: 09/22/2024 3:31:54 PM Gender: F BP: 120/70 mmHg Height: 163.00 cm BSA: 1.98 m Weight: 93.00 kg Tech: Referring MD: JOSE ARMANDO MILLER Site: [facility] Reading Location: [facility] Patient Location: Procedure: SARAVANAN, Color Doppler, Spectral Doppler and 3D Imaging. Indication for study: Intra-Procedural SARAVANAN for #35mm Watchman FLX Cardiac Rhythm: Regular.Study quality: Good. Final Impressions: 1. Normal left ventricular size, normal global systolic function with an estimated EF of 55 - 60%. 2. Moderately enlarged left atrium. 3. The left atrial appendage is single lobe structure with prominent pectinate ridges. At 0 degrees, orifice width = 2.4 cm, and appendage length = 2.4cm. At 45 degrees, orifice width = 2.3 cm, and appendage length = 1.9 cm. At 90 degrees, RON orifice width= 2.2 cm, and appendage length = 1.9 cm. At 135 degrees, orifice width = 1.8 cm and appendage length = 2.2 cm. Appendage orifice is elliptical and longest dimension = 2.6 cm and shortest dimension = 2.3 cm. 4. Atrial septum is intact. 5. No evidence of thrombus present in the left atrial appendage. 6. No pericardial effusion. 7. Intra-Procedural SARAVANAN: A transeptal puncture was guided by 2D/3D imaging. The Watchman delivery catheter was positioned within the left atrial appendange. A #35 mm Watchman FLX device was positioned using 2D/3D (biplane) guidance. Prior to release the following was assessed: 1) Position of the device was parallel to the long-axis of the RON and covering the orifice 2) Anchoring was confirmed with a tug test 3) Size of the device was appropriate with >20% compression 4) Seal was confirmed with no color Doppler flow outside the device. The device was released and repeat measurements were performed. At 0 degrees, gncwqgue-af-bixjbdoq width = 2.4cm At 45 degrees, nijgtzrj-ma-ckppsqbh width = 2.4cm At 90 degrees, xezaqdna-wm-xsmzafbd width = 2.4cm At 135 degrees, npptydsp-bb-alsqcyek width = 2.5cm Pulmonary vein flows were normal. LV and RV function remained unchanged. By the end of the study, there was no pericardial effusion. A small defect in the inter-atrial septum was seen by Color Doppler with left to right shunt. Procedure comments: Indications, goals, risks and alternatives of the procedure were discussed with the patient and informed consent was obtained. The patient received general anesthesia. See procedural record for anesthesia details. Prior to performance of procedure, time out was called to accurately identify the patient and procedure. The X8-2T probe was passed without difficulty. SARAVANAN, Color Doppler, Spectral Doppler and 3D Imaging was performed. The patient developed no apparent complications during the procedure. Estimated Blood Loss: 0 ml Versed: Specimen Collected: Proceduralist: Mehnaz Hale MD Post Procedure Findings Chamber Sizes and Function Normal left ventricular size, normal global systolic function with an estimated EF of 55 - 60%. No resting regional wall motion abnormality visualized. Left atrial size is moderately enlarged. The left atrial appendage is well visualized and there is no evidence of thrombus present. Not well visualized left atrial appendage flow velocities. Masses, Effusion, Shunts There is no pericardial effusion. Atrial septum is intact. Agitated saline injection not done. MEASUREMENTS AND CALCULATIONS 2-D Measurements and LV Function: HR 82 bpm . Final (Updated) Procedure Note Mehnaz Hale, [facility] - 09/23/2024 TRANSESOPHAGEAL ECHOCARDIOGRAM RAFFI COOPER : 1950 74 years Study Date: 09/22/2024 3:31:54 PM Gender: F BP: 120/70 mmHg Height: 163.00 cm BSA: 1.98 m Weight: 93.00 kg Tech: Referring MD: JOSE ARMANDO MILLER Site: [facility] Reading Location: [facility] Patient Location: Procedure: SARAVANAN, Color Doppler, Spectral Doppler and 3D Imaging. Indication for study: Intra-Procedural SARAVANAN for #35mm Watchman FLX Cardiac Rhythm: Regular.Study quality: Good. Final Impressions: 1. Normal left ventricular size, normal global systolic function with anestimated EF of 55 - 60%. 2. Moderately enlarged left atrium. 3. The left atrial appendage is single lobe structure with prominentpectinate ridges. At 0 degrees, orifice width = 2.4 cm, and appendage length = 2.4cm. At 45 degrees, orifice width = 2.3 cm, and appendage length = 1.9cm. At 90 degrees, RON orifice width= 2.2 cm, and appendage length = 1.9cm. At 135 degrees, orifice width = 1.8 cm and appendage length = 2.2cm. Appendage orifice is elliptical and longest dimension = 2.6 cm andshortest dimension = 2.3 cm. 4. Atrial septum is intact. 5. No evidence of thrombus present in the left atrial appendage. 6. No pericardial effusion. 7. Intra-Procedural SARAVANAN: A transeptal puncture was guided by 2D/3Dimaging. The Watchman delivery catheter was positioned within the leftatrial appendange. A #35 mm Watchman FLX device was positioned using 2D/3D(biplane) guidance. Prior to release the following was assessed: 1) Position of the device was parallel to the long-axis of the RON andcovering the orifice 2) Anchoring was confirmed with a tug test 3) Size of the device was appropriate with >20% compression 4) Seal was confirmed with no color Doppler flow outside the device. The device was released and repeat measurements were performed. At 0 degrees, rdyiuhxa-ac-kdzpczhm width = 2.4cm At 45 degrees, ycndokac-nk-xzljiyft width = 2.4cm At 90 degrees, ymmqnfub-cy-vnusaryi width = 2.4cm At 135 degrees, pmgvuftg-mx-crpkpnal width = 2.5cm Pulmonary vein flows were normal. LV and RV function remainedunchanged. By the end of the study, there was no pericardial effusion. A small defect in the inter-atrial septum was seen by Color Dopplerwith left to right shunt. Procedure comments: Indications, goals, risks and alternatives of theprocedure were discussed with the patient and informed consent wasobtained. The patient received general anesthesia. See procedural recordfor anesthesia details. Prior to performance of procedure, time out wascalled to accurately identify the patient and procedure. The X8-2T probewas passed without difficulty. SARAVANAN, Color Doppler, Spectral Doppler and 3DImaging was performed. The patient developed no apparent complicationsduring the procedure. Estimated Blood Loss: 0 ml Versed: Specimen Collected: Proceduralist: Mehnaz Hale MD Post Procedure Findings Chamber Sizes and Function Normal left ventricular size, normal global systolic function with anestimated EF of 55 - 60%. No resting regional wall motion abnormalityvisualized. Left atrial size is moderately enlarged. The left atrialappendage is well visualized and there is no evidence of thrombus present.Not well visualized left atrial appendage flow velocities. Masses, Effusion, Shunts There is no pericardial effusion. Atrial septum is intact. Agitated salineinjection not done. MEASUREMENTS AND CALCULATIONS 2-D Measurements and LV Function: HR 82 bpm . Final (Updated) Jose Armando Miller MD, PhD ECHO ORD Elieser jason Result - Final * CBC with Platelets no Differential (09/22/2024 1:05 PM CERTIFIED PHYSICIAN'S ASSISTANT) WHITE BLOOD COUNT 5.8 4.5 - 11.0 thou/cu mm 09/22/2024 1:19 PM [facility] RED BLOOD COUNT 4.14 4.00 - 5.20 mil/cu mm 09/22/2024 1:19 PM [facility] HEMOGLOBIN 12.9 12.0 - 16.0 g/dL 09/22/2024 1:19 PM [facility] HEMATOCRIT 39.0 33.0 - 51.0 % 09/22/2024 1:19 PM [facility] MCV 94 80 - 100 fL 09/22/2024 1:19 PM [facility] MCH 31.2 26.0 - 34.0 pg 09/22/2024 1:19 PM [facility] MCHC 33.1 32.0 - 36.0 g/dL 09/22/2024 1:19 PM [facility] RDW 13.1 11.5 - 15.5 % 09/22/2024 1:19 PM [facility] PLATELET COUNT 236 140 - 440 thou/cu mm 09/22/2024 1:19 PM [facility] MPV 8.5 6.5 - 11.0 fL 09/22/2024 1:19 PM CERTIFIED PHYSICIAN'S ASSISTANT [facility] NRBC 0.0 % 09/22/2024 1:19 PM CERTIFIED PHYSICIAN'S ASSISTANT [facility] ABS NRBC 0.0 thou /cu mm 09/22/2024 1:19 PM [facility] Blood BLOOD SPECIMEN / Unknown Venipuncture / Unknown 09/22/2024 1:05 PM CERTIFIED PHYSICIAN'S ASSISTANT 09/22/2024 1:12 PM [facility] us Jamar Boss MD HEMATOLOGY Final Result [facility] [address] [place] [address], * (ABNORMAL) Basic Metabolic Panel (09/22/2024 1:05 PM CERTIFIED PHYSICIAN'S ASSISTANT) Only the most recent of2 resultswithin the time period is included. SODIUM 138 136 - 145 mmol/L 09/22/2024 1:46 PM [facility] POTASSIUM 4.3 3.5 - 5.1 mmol/L 09/22/2024 1:46 PM [facility] CHLORIDE 104 98 - 107 mmol/L 09/22/2024 1:46 PM [facility] CO2,TOTAL 23 22 - 29 mmol/L 09/22/2024 1:46 PM [facility] ANION GAP 11 5 - 18 09/22/2024 1:46 PM [facility] GLUCOSE 93 70 - 99 mg/dL 09/22/2024 1:46 PM [facility] CALCIUM 9.8 8.8 - 10.4 mg/dL 09/22/2024 1:46 PM [facility] Comment: Reference ranges for this test were updated on 07/21/2024 to reflect our healthy population more accurately. Reference range changes are not retroactively applied to results, but previous results using the same methodology can be interpreted in the context of the new reference range. BUN 15 8 - 23 mg/dL 09/22/2024 1:46 PM [facility] CREATININE 1.15(H) 0.50 - 0.90 mg/dL 09/22/2024 1:46 PM [facility] BUN/CREAT RATIO 13 10 - 20 1:46 PM [facility] eGFR 50(L) >90 mL/min/1. 73m2 09/22/2024 1:46 PM [facility] Comment:As of 2021, eG FR is calculated by the CKD-EPI creatinine equation without race adjustment. eGFR can be influenced by muscle mass, exercise, and diet. The reported eGFR is an estimation only and is only applicable if the renal function is stable. Blood BLOOD SPECIMEN / Unknown Venipuncture / Unknown 09/22/2024 1:05 PM CERTIFIED PHYSICIAN'S ASSISTANT 09/22/2024 1:12 PM CERTIFIED PHYSICIAN'S ASSISTANT us Jamar Boss MD CHEMISTRY Final Result Performing Organization Address City/[facility]/ZIP Co de Phone Number [facility] [address] [address], [place] * EXTRA TUBE GOLD/SST (09/22/2024 1:01 PM CERTIFIED PHYSICIAN'S ASSISTANT) Blood BLOOD SPECIMEN / Unknown Venipuncture / Unknown 09/22/2024 1:01 PM CERTIFIED PHYSICIAN'S ASSISTANT 09/22/2024 1:14 PM CERTIFIED PHYSICIAN'S ASSISTANT us Jamar Boss MD LABORATORY Final Result [facility] [address] [address], [place] * 12 Lead EKG (09/22/2024 12:54 PM CERTIFIED PHYSICIAN'S ASSISTANT) Only the most recent of2 resultswithin the time period is included. Interpretation Atrial flutter with variable A-V block Low voltage QRS Nonspecific ST and T wave abnormality Abnormal ECG When compared with ECG of 22-Jul-2024 12:50, Atrial flutter has replaced Atrial fibrillation Questionable change in QRS axis T wave inversion no longer evident in Anterolateral leads BEYOND NOW Ventricular Rate 85 BPM BEYOND NOW Atrial Rate 365 BPM BEYOND NOW P-R Interval ms BEYOND NOW QRS Duration 90 ms BEYOND NOW QT 356 ms BEYOND NOW QTc 423 ms BEYOND NOW P [place] degrees BEYOND NOW R [place] 21 degrees BEYOND NOW T [place] -18 degrees BEYOND NOW 09/22/2024 12:5 4 PM CERTIFIED PHYSICIAN'S ASSISTANT 09/23/2024 2:18 PM CERTIFIED PHYSICIAN'S ASSISTANT Narrative BEYOND NOW - 09/23/2024 2:18 PM CERTIFIED PHYSICIAN'S ASSISTANT Test Indication: PREOP us Jamar Boss MD EKG ORD Final Result BEYOND NOW [place], [place] * HCHG TUBING PR1, HCHG KIT PR1, HCHG NDL PR1, HCHG NDL PR1 (09/22/2024 12:41 PM CERTIFIED PHYSICIAN'S ASSISTANT) Narrative Tonny Shi MD - 09/22/2024 12:41 PM CERTIFIED PHYSICIAN'S ASSISTANT Tonny Shi MD 09/22/2024 12:54 PM IV Start Patient location during procedure: OR Start time: 09/22/2024 12:41 PM End time: 09/22/2024 12:44 PM Nursing unable to start IV: Yes Requesting provider: Jamar Boss MD PIV Site was prepped per hospital policy Laterality: left Local Anesthetic: lidocaine 1%. Needle Size: 18 G Site: hand Insertion Technique: anatomical landmarks Supplies Used: set primary IV tubing us Tonny Shi MD ANESTHESIA PX NOTE ORDE RABLES Final Result * SCAN-CARDIAC STRIP (09/22/2024 12:00 AM CERTIFIED PHYSICIAN'S ASSISTANT) Narrative 09/22/2024 12:00 AM CERTIFIED PHYSICIAN'S ASSISTANT Ordered by an unspecified provider. us Other Clinical Staff OTHER Final Resul t * XR CHEST 2 VIEWS PA AND LATERAL (09/15/2024 10:33 AM CERTIFIED PHYSICIAN'S ASSISTANT) Anatomical Region Laterality Modality CHEST, THORAX, Lung, HEART Compu jason Radiography 09/15/2024 3:04 PM CERTIFIED PHYSICIAN'S ASSISTANT Impressions 09/15/2024 3:04 PM CERTIFIED PHYSICIAN'S ASSISTANT No airspace disease or fibrosis. Dictated by Kwabena Eden MD @ 09/15/2024 3:04:39 PM (Electronically Signed) Narrative 09/15/2024 3:04 PM CERTIFIED PHYSICIAN'S ASSISTANT For Patients: As a result of the Cures Act, medical imaging exams and procedure reports are released immediately into your electronic medical record. You may view this report before your referring provider. If you have questions, please contact your health care provider. INDICATION: Chronic cough TECHNIQUE: Chest 2 views COMPARISON: 04/13/2022 FINDINGS: Mediastinal contours are similar. No infiltrate or edema. No effusion or pneumothorax. Chronic wedging L1. Procedure Note Kwabena Eden MD - 09/15/2024 For Patients: As a result of the Cures Act, medical imagingexams and procedure reports are released immediately into your electronicmedical record. You may view this report before your referring provider.If you have questions, please contact your health care provider. INDICATION: Chronic cough TECHNIQUE: Chest 2 views COMPARISON: 04/13/2022 FINDINGS: Mediastinal contours are similar. No infiltrate or edema. No effusion orpneumothorax. Chronic wedging L1. IMPRESSION: No airspace disease or fibrosis. Dictated by Kwabena Eden MD @ 09/15/2024 3:04:39 PM (Electronically Signed) us Yeseniai Mariza DO GENERAL IMAGING Final Result * SCAN-RADIOLOGY REPORT (09/04/2024 12:00 AM CERTIFIED PHYSICIAN'S ASSISTANT) Anatomical Region Laterality Modality Other us Scanner OTHER Final Result * LAMOTRIGINE (LAMICTAL) (08/24/2024 9:43 AM CERTIFIED PHYSICIAN'S ASSISTANT) LAMOTRIGINE 9.4 2.5 - 15.0 mcg/mL [facility] Comment: This test was developed and its analytical performance characteristics have been determined by [facility] [place], [place]. It has not been cleared or approved by the U.S. Food and Drug Administration. This assay has been validated pursuant to the CLIA regulations and is used for clinical purposes. Blood BLOOD SPECIMEN / Unknown 08/24/2024 9:43 AM CERTIFIED PHYSICIAN'S ASSISTANT 08/24/2024 9:44 AM CERTIFIED PHYSICIAN'S ASSISTANT us Yeseniasahara Bailoneneida DO SEND OUTS Final Result [facility] [address] [place], [place] , [facility] [address] [place], [place] * LIPID PANEL W REFLEX MEASURED LDL (08/24/2024 9:43 AM CERTIFIED PHYSICIAN'S ASSISTANT) [facility] Signature CHOLESTEROL, TOTAL 146 <200 mg/dL [facility] HDL CHOLESTEROL 65 > OR = 50 mg/dL [facility] TRIGLYCERIDES 69 <150 mg/dL [facility] LDL-CHOLESTEROL 66 mg/dL (calc) [facility] Comment: Reference range: <100 Desirable range <100 mg/dL for primary prevention; <70 mg/dL for patients with CHD or diabetic patients with > or = 2 CHD risk factors. LDL-C is now calculated using the Katey calculation, which is a validated novel method providing better accuracy than the Friedewald equation in the estimation of LDL-C. Jc SARAVIA et al. ANNE-MARIE. 2013;310(19): 7094-1736 (http://education.Blackberry.Notizza/faq/SNO925) CHOL/HDLC RATIO 2.2 <5.0 (calc) [facility] NON HDL CHOLESTEROL 81 <130 mg/dL (calc) [facility] Comment: For patients with diabetes plus 1 major ASCVD risk factor, treating to a non-HDL-C goal of <100 mg/dL (LDL-C of <70 mg/dL) is considered a therapeutic option. Blood BLOOD SPECIMEN / Unknown 08/24/2024 9:43 AM CERTIFIED PHYSICIAN'S ASSISTANT 08/24/2024 9:44 AM CERTIFIED PHYSICIAN'S ASSISTANT Yeseniasahara Bailonwilliam DO CHEMISTRY Final Result [facility] [address] [place] [address], [facility] [address] [place] [address] * (ABNORMAL) CBC AND DIFFERENTIAL (08/24/2024 9:43 AM CERTIFIED PHYSICIAN'S ASSISTANT) WHITE BLOOD CELL COUNT 5.2 3.8 - 10.8 Thousand/u L [facility] RED BLOOD CELL COUNT 4.10 3.80 - 5.10 Million/uL [facility] HEMOGLOBIN 13.7 11.7 - 15.5 g/dL [facility] HEMATOCRIT 39.6 35.0 - 45.0 % [facility] MCV 96.6 80.0 - 100.0 fL [facility] MCH 33.4(H) 27.0 - 33.0 pg [facility] MCHC 34.6 32.0 - 36.0 g/dL [facility] Comment: For adults, a slight decrease in the calculated MCHC value (in the range of 30 to 32 g/dL) is most likely not clinically significant; however, it should be interpreted with caution in correlation with other red cell parameters and the patient's clinical condition. RDW 12.3 11.0 - 15.0 % [facility] PLATELET COUNT 248 140 - 400 Thousand/u L [facility] MPV 9.6 7.5 - 12.5 fL [facility] ABSOLUTE NEUTROPHILS 2,980 1,500 - 7,800 cells/uL [facility] ABSOLUTE LYMPHOCYTES 1,461 850 - 3,900 cells/uL [facility] ABSOLUTE MONOCYTES 478 200 - 950 cells/uL [facility] ABSOLUTE EOSINOPHILS 229 15 - 500 cells/uL [facility] ABSOLUTE BASOPHILS 52 0 - 200 cells/uL [facility] NEUTROPHILS 57.3 % [facility] LYMPHOCYTES 28.1 % [facility] MONOCYTES 9.2 % [facility] EOSINOPHILS 4.4 % [facility] BASOPHILS 1.0 % [facility] Blood BLOOD SPECIMEN / Unknown 08/24/2024 9:43 AM CERTIFIED PHYSICIAN'S ASSISTANT 08/24/2024 9:44 AM CERTIFIED PHYSICIAN'S ASSISTANT us Vincent Dawkins DO HEMATOLOGY Final Result [facility] [address] [place] [address], [facility] [address] [place] [address] * HEPATIC FUNCTION PANEL (08/24/2024 9:43 AM CERTIFIED PHYSICIAN'S ASSISTANT) PROTEIN, TOTAL 7.3 6.1 - 8.1 g/dL [facility] ALBUMIN 4.6 3.6 - 5.1 g/dL [facility] GLOBULIN 2.7 1.9 - 3.7 g/dL (calc) [facility] ALBUMIN/GLOBULIN RATIO 1.7 1.0 - 2.5 (calc) [facility] BILIRUBIN, TOTAL 1.0 0.2 - 1.2 mg/dL [facility] BILIRUBIN, DIRECT 0.2 < OR = 0.2 mg/dL [facility] BILIRUBIN, INDIRECT 0.8 0.2 - 1.2 mg/dL (calc) [facility] ALKALINE PHOSPHATASE 98 37 - 153 U/L [facility] AST 20 10 - 35 U/L [facility] ALT 17 6 - 29 U/L [facility] Blood BLOOD SPECIMEN / Unknown 08/24/2024 9:43 AM CERTIFIED PHYSICIAN'S ASSISTANT 08/24/2024 9:44 AM CERTIFIED PHYSICIAN'S ASSISTANT us Adei Shaqra DO CHEMISTRY Final Result [facility] [address] [place] [address], [place] [phone] [facility] [address] [place] [address] * XR MAMMO JOLIE BILAT SCREEN (08/24/2024 7:54 AM CERTIFIED PHYSICIAN'S ASSISTANT) Anatomical Region Laterality Modality BREASTS, Breast Left, Breast Right Bilateral Mammography Impressions 08/24/2024 2:20 PM CERTIFIED PHYSICIAN'S ASSISTANT There is no radiographic evidence for malignancy. Recommend annual mammograms. MAMMOGRAM ASSESSMENT: ACR 1 Negative PATIENTS: You will also receive a letter with your examination results in an easy to read format. If you have questions about your results, please contact your referring provider. Narrative 08/24/2024 2:20 PM CERTIFIED PHYSICIAN'S ASSISTANT For Patients: As a result of the Century Cures Act, medical imaging exams and procedure reports are released immediately into your electronic medical record. You may view this report before your referring provider. If you have questions, please contact your health care provider. XR MAMMO JOLIE BILAT SCREEN [[id number]] CLINICAL HISTORY: This is an asymptomatic 73 y.o. patient. INDICATION FOR EXAM: Mammogram Screening. TECHNIQUE: CC & MLO views were obtained. This study was evaluated with the assistance of Computer-Aided Detection. Breast Tomosynthesis was used in interpretation. COMPARISON FILM: Yes 08/23/23 [facility] 08/10/22 [facility] FINDINGS: The breasts are heterogeneously dense, which may obscure small masses. There are no dominant masses, suspicious micro calcifications or areas of architectural distortion. us Adei Uvaldoqra DO MAMMO Final Result * CT CARDIAC MORPHOLOGY W DUAL READ (08/04/2024 3:01 PM CERTIFIED PHYSICIAN'S ASSISTANT) Anatomical Region Laterality Modality HEART Computed Tomogra phy Impressions 08/05/2024 10:29 AM CERTIFIED PHYSICIAN'S ASSISTANT 1. Please see dedicated cardiac imaging report 2. Right side pulmonary micronodule. Optional follow-up CT scan in the presence of any significant risk factor (i.e. history of smoking or previous neoplasm). Please note that all CT scans at this facility use dose modulation, iterative reconstruction, and/or weight-based dosing when appropriate to reduce radiation dose to as low as reasonably achievable. Dictated by: Tonny Paul MD @ 08/04/2024 16:17:03 Narrative 08/05/2024 10:29 AM CERTIFIED PHYSICIAN'S ASSISTANT STUDY: CT CARDIAC MORPHOLOGY Study date: 08/04/2024 Indication: 73 year-old female with AF under consideration for percutaneous atrial appendage occluder device implantation has been referred for evaluation of left atrial size and morphology. STUDY PARAMETERS: Scanner: Siemens Definition Force Contrast: 80 ml of Omnipaque 350 Scan protocol: seq x2 Radiation dose length product: 199 Image quality: Excellent FINDINGS: Left atrium: Appendage: Appendage exhibits normal contrast opacification. Appendage shape: Windsock Appendage ostium measurements: Diameter 31 x 24 mm, perimeter 86 mm, area 576 mm2 Appendage landing zone measurements: Diameter 25 x 21 mm, perimeter 75 mm, area 431 mm2 Maximum appendage depth at simulated SARAVANAN 0 : 29 mm Maximum appendage depth at simulated SARAVANAN 45 : 27 mm Maximum appendage depth at simulated SARAVANAN 90 : 31 mm Maximum appendage depth at simulated SARAVANAN 135 : 32 mm Pulmonary veins: Normal anatomy with 2 right-sided and common left-sided veins Pericardium: Normal without effusion. Esophagus: Positioned directly posterior to the insertion sites of the left-sided pulmonary veins. Thoracic aorta: No acute pathology Noncardiac findings: Please see separate radiology report. FINAL IMPRESSIONS: No evidence of thrombus in the left atrium. Appendage ostial diameters are 31 x 24 mm. Occluder implantation planning measurements are detailed in Findings section. Normal pulmonary vein anatomy. Normal pericardium. FOR PATIENT: Results are automatically released to your [facility] ([employer]) account once available, in compliance with federal regulations. This means that you may see your results before your provider has had a chance to review them. Please allow 2-3 business days for your provider to comment on the results. Stephen Steven MD [facility] For Patients: As a result of the Century Cures Act, medical imaging exams and procedure reports are released immediately into your electronic medical record. You may view this report before your referring provider. If you have questions, please contact your health care provider. OVER-READ OVER-READ OVER-READ OVER-READ: DETAILED RADIOLOGY EXTRACARDIAC OVER-READ OF CARDIAC CT 06/22/2024 TECHNIQUE: Please see cardiology report for technical information. 80 mL of Omnipaque 350. INDICATION: Cardiac over-read. This exam is being performed in conjunction with the services provided by the [facility] ([facility]). COMPARISON: None. FINDINGS Mediastinal structures: No suspicious adenopathy. Pulmonary arteries: Bolus timing limits evaluation. Lungs and pleura: Micronodule right anterior lung series 5 image 51. No effusions. Miscellaneous: Hiatal hernia. us Jose Armando Miller MD, PhD CT Fin al Result * CREATININE,ISTAT (08/04/2024 1:23 PM CERTIFIED PHYSICIAN'S ASSISTANT) POCT,CREATININE , ISTAT 1.2 0.6 - 1.3 mg/dL [facility] Blood BLOOD SPECIMEN / Unknown 08/04/2024 1:23 PM CERTIFIED PHYSICIAN'S ASSISTANT 08/04/2024 1:23 PM CERTIFIED PHYSICIAN'S ASSISTANT us Jose Armando Miller MD, PhD CHEMISTRY Fin al Result [facility] [address] [place] [address], [facility] [address] [place] [address] * (ABNORMAL) XR DXA BONE DENSITY 1 SITE AXIAL AND 1 SITE PERIPHERAL (09/12/2023 1:30 PM CERTIFIED PHYSICIAN'S ASSISTANT) Anatomical Region Laterality Modality LUMBAR SPINE Other Impressions 09/18/2023 4:42 PM CERTIFIED PHYSICIAN'S ASSISTANT Osteoporosis. Due to the stability of the [...] exercise. Continue current Denosumab (Prolia) medication treatment. Repeat scan in 2 years. Allison Tran PA-C [facility] 09/18/2023 Narrative 09/18/2023 4:42 PM CERTIFIED PHYSICIAN'S ASSISTANT For Patients: Results are automatically released to your [facility] ([employer]) account once available, in compliance with federal regulations. This means that you may see your results before your provider has had a chance to review them. Please allow 2-3 business days for your provider to comment on the results. XR DXA Bone Mineral Density (BMD) EXAM LOCATION: [address] [address] PATIENT NAME: Raffi Cooper DATE OF : 1950 EXAM DATE: 09/12/2023 REQUESTING PROVIDER: Vincent Dawkins DO GENDER AT : female HEIGHT: 5' 4.02 (08/30/2023) WEIGHT: 197 lb 3.2 oz (08/30/2023) MENOPAUSAL STATUS: Postmenopausal [...] two scanners are made by the same regional clinical research associate. PROCEDURE: Dual-energy x-ray absorptiometry performed with [...] - 1.1 Change from prior in 2020: Increase 8.2%. RESULT FOREARM Left Forearm distal radius BMD: 0.535 g/cm2 T-Score: - 2.3 Z-Score: - 0.1 Change from prior in 2020: Increase 9.6%. WHO criteria: Normal: T-score at or above -1 SD Osteopenia: T-score between -1.1 and -2.4 SD Osteoporosis: T-score at or below -2.5 SD Vincent Dawkins DO DEXA Final Result * sDNA-FIT External (Cologuard) [[id number]] (06/16/2023 8:00 AM CDT) NONINV COLON CA DNA+OCC BLD SCRN STL-IMP Negative Negative 06/26/2023 4:34 PM CDT [facility] (CLIA #:[id number]) Comment: NEGATIVE TEST RESULT. A negative Cologuard result indicates a low likelihood that a colorectal cancer (CRC) or advanced adenoma (adenomatous polyps with more advanced pre-malignant features) is present. The chance that a person with a negative Cologuard test has a colorectal cancer is less than 1 in 1500 (negative predictive value >99.9%) or has an advanced adenoma is less than 5.3% (negative predictive value 94.7%). These data are based on a prospective cross-sectional study of 10,000 individuals at average risk for colorectal cancer who were screened with both Cologuard and colonoscopy. (Nick Diaz et al, N Engl J Med 2014;370(14):9052-7414) The normal value (reference range) for this assay is negative. COLOGUARD RE-SCREENING RECOMMENDATION: Periodic colorectal cancer screening is an important part of preventive healthcare for asymptomatic individuals at average risk for colorectal cancer. Following a negative Cologuard result, the [place] [employer] and U.S. Multi-Society Task Force screening guidelines recommend a Cologuard re-screening interval of 3 years. References: [place] [employer] Guideline for Colorectal Cancer Screening: https://www.cancer.org/cancer/fbliz-hckjpc-jevmcq/jihhmdqnd-bnbrscybi-dmaaxjr/ac s-rec ommendations.html.; Zaheer DK, Sam CR, Gail COHEN, Colorectal Cancer Screening: Recommendations for Physicians and Patients from the U.S. Multi-Society Task Force on Colorectal Cancer Screening , Am J Gastroenterology 2017; 112:2467-3567. TEST DESCRIPTION: Composite algorithmic analysis of stool DNA-biomarkers with hemoglobin immunoassay. Quantitative values of individual biomarkers are not [...] Cameron. et al, N Engl J Med 2014;370(14):3569-9826.) Cologuard may produce a false negative or false positive result (no colorectal cancer or precancerous polyp present at colonoscopy follow up). A negative Cologuard test result does not guarantee the absence of CRC or advanced adenoma (pre-cancer). The current Cologuard screening interval is every 3 years. ([place] [employer] and U.S. Multi-Society Task Force). Cologuard performance data in a 10,000 patient pivotal study using colonoscopy as the reference method can be accessed at the following location: www.Just[employer].com/results. Additional description of the Cologuard test process, warnings and precautions can be found at www.cologuard.com. Stool specimen (specimen) (Rectum) 06/16/2023 8:00 AM CDT 06/18/2023 11:01 PM CDT us Adei Shaqra DO URINE Final Result [facility] (CLIA #:[id number]) [place] [address], * ANTI HCV (08/03/2021 10:21 AM CERTIFIED PHYSICIAN'S ASSISTANT) HEPATITIS C ANTIBODY Non-React arnol Non-React arnol 08/03/2021 7:04 PM CERTIFIED PHYSICIAN'S ASSISTANT [facility] [id number] [facility] Comment:Antibodies to HCV no t detected; does not exclude the possibility of exposure to HCV. Blood BLOOD SPECIMEN / Unknown Venipuncture / Unknown 08/03/2021 10:21 AM CERTIFIED PHYSICIAN'S ASSISTANT 08/03/2021 10:24 AM CERTIFIED PHYSICIAN'S ASSISTANT Vincent Bailonq DO SEND OUTS Final Result [facility] [address] [place] [address], from Last 3 Months or Most Recently Relevant to Health Maintenance Insurance BLUE [employer]OSS [place] BLUE MR PB ONLY MEDICARE PART A HB ONLY MEDICARE PART B HB ONLY [employer] [place] BLUE HB ONLY Advance Directives Documents on File Type Date Recorded Patient Road Builder Expl anation Healthcare Directive 02/05/2015 12:00 AM 1 11/02/2013 * Full Code (Latest Code Status on File) Date Activated Date Inactivated Comments 09/22/2024 4:03 PM 09/23/2024 1:25 PM Question Answer Comments Code Status Discussion: Reviewed Preferences * Full Code Date Activated Date Inactivated Comments 02/06/2015 5:21 PM 02/09/2015 3:42 PM * Full Code Date Activated Date Inactivated Comments 02/06/2015 9:39 AM 02/06/2015 5:21 PM * Full Code Date Activated Date Inactivated Comments 02/05/2015 10:47 PM 02/06/2015 9:39 AM Question Answer Comments Code Status Discussion: Discussed Care Teams Special Deputy Sheriff Relationship Specialty Start Date End Date Vincent [place] [address] PCP - General Family Practice 04/06/22
--- NOTE | 2024-09-30 08:44 | ED_ITS ---
HPI - General Adult General Chief complaint: Chest Pain Stated complaint: Chest pain (heart side) Time Seen by Provider: 09/30/24 08:44 History of Present Illness HPI narrative: arrives with complaints of left side chest pain that awoke her from sleep during the night last night, describes the pain as tightness, reports recent Watchman placement procedure. Alert and oriented, ABCs intact. 74-year-old woman presenting to the emergency department with complaint of chest pressure maybe more of a tightness beginning last night. Recurred again this cuffer and has continued. She has not been lightheaded or experience short of breath. No nausea. Mid to left chest location. Did have a Watchman procedure placed last week. Pain had apparently resolved. She has not had a fever. No cough. Has continued to take Eliquis Related Data Home Medications ?Medication ?Instructions ?Recorded ?Confirmed albuterol sulfate 90 mcg/actuation 1 - 2 puff inhalation Q4H PRN 06/02/23 10/14/23 aerosol inhaler dyspnea aspirin 81 mg capsule 81 mg PO DAILY 06/02/23 10/14/23 atorvastatin 40 mg tablet 40 mg PO HS 06/02/23 10/14/23 fluticasone propionate 50 2 spray intranasal DAILY 06/02/23 10/14/23 mcg/actuation nasal spray,suspension lamotrigine 100 mg tablet 150 mg PO BID 06/02/23 10/14/23 mirtazapine 7.5 mg tablet 7.5 mg PO HS 06/02/23 10/14/23 calcium 600 mg (as 1 tab PO BID 06/03/23 10/14/23 carbonate)-vitamin D3 10 mcg (400 unit) tablet (Calcium 600 + D(3)) denosumab 60 mg/mL subcutaneous 60 mg subcut [id number] 06/03/23 10/14/23 syringe (Prolia) triamcinolone acetonide 0.1 % 1 applic topical 3XD PRN 06/03/23 06/03/23 topical cream Previous Rx's ?Medication ?Instructions ?Recorded potassium chloride 10 mEq 20 meq (2 x 10 mEq) PO DAILYWM 3 06/03/23 capsule,extended release days #6 caps torsemide 10 mg tablet 10 mg PO DAILY #30 tabs 06/03/23 Allergies Allergy/AdvReac Type Severity Reaction Status Date / Time No Known Drug Allergies Allergy Verified 06/02/23 15:34 Review of Systems Status of ROS: Reports: 6 or more systems reviewed and unremarkable except as noted in History and below PFSH [facility] Medical History Osteoporosis ?M81.0 - Age-related osteoporosis without current pathological fracture (ICD- 10) TIA (transient ischemic attack) ?G45.9 - Transient cerebral ischemic attack, unspecified (ICD-10) Atrial fibrillation ?I48.91 - Unspecified atrial fibrillation (ICD-10) Anxiety ?F41.9 - Anxiety disorder, unspecified (ICD-10) Depression ?F32.A - Depression, unspecified (ICD-10) Hypertension ?I10 - Essential (primary) hypertension (ICD-10) 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 of cranial nerves (ICD-10) Lower extremity edema ?R60.0 - Localized edema (ICD-10) Obstructive sleep apnea ?G47.33 - Obstructive sleep apnea (adult) (pediatric) (ICD-10) Seizure disorder ?G40.909 - Epilepsy, unspecified, not intractable, without status epilepticus (ICD-10) AVM (arteriovenous malformation) brain ?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.2 - Arteriovenous malformation of cerebral vessels (ICD-10) Surgical History History of tubal ligation ?Z98.51 - Tubal ligation status (ICD-10) History of D&C ?Z98.890 - Other specified postprocedural states (ICD-10) History of breast biopsy ?Z98.890 - Other specified postprocedural states (ICD-10) History of cholecystectomy ?Z90.49 - Acquired absence of other specified parts of digestive tract (ICD- 10) History of bilateral hip arthroplasty ?Z96.643 - Presence of artificial hip joint, bilateral (ICD-10) Family History Other High blood pressure Seizure disorder Social History Narrative: She lives independently in her own home in [place]. Her daughter and multiple other family members live nearby. Her daughter Elke is healthcare power of communications superintendent. Her code status is full. She is a nonsmoker. She does not drink alcohol. She does drive her own car. She does not use assistive device when she walks. She is able to manage her own affairs. What is your current living situation?: I presently have a place to live Problems where you live: no known problems Problems where you live details: n/a In the past 12 months, utilities in danger of being shut off: no In past 12 months, lack of transportation kept you from medical appts, meetings, work, or getting things needed for daily living: no In the past 12 mos, have been you worried that your food would run out before you had money to buy more?: never true In the past 12 mos, the food you bought just didn't last and you didn't have money to buy more?: never true Highest level of school completed/degree received: high school graduate Smoking Status: Never smoker Do you use any of these nicotine containing products: None How often do you have a drink containing alcohol: never AUDIT-C Alcohol total score: 0 Non-prescribed substance use: denies use Caffeine: Yes How often does anyone, including family, friends and others, physically hurt you : never How often does anyone, including family, friends and others, insult or talk down to you: never How often does anyone, including family, friends and others, threaten you with harm: never How often does anyone, including family, friends and others, scream or curse at you: never service: No Exam Narrative: Exam Narrative: Pleasant. NAD. Appears mildly anxious. Skin is warm and dry. Lungs are clear. Heart in irregular rhythm. Rate is not rapid. There is discomfort that is reproducible across the anterior chest. Abdomen is soft and nontender. Extremities are well perfused. I do not appreciate lower extremity edema. Const: Vital Signs, click to edit/add: Vital Signs - 24 hr 09/30/24 08:27 09/30/24 08:49 09/30/24 09:00 Temperature 97.1 F L Pulse Rate 73 76 Pulse Rate [Pulse Oximeter] 85 Respiratory Rate Blood Pressure Blood Pressure [Le ft Upper Arm] 139/91 H Pulse Oximetry 96 97 96 Oxygen Delivery Me thod Room Air 09/30/24 09:01 09/30/24 09:41 09/30/24 09:45 Temperature Pulse Rate 79 77 Pulse Rate [Pulse Oximeter] Respiratory Rate Blood Pressure 119/85 Blood Pressure [Le ft Upper Arm] Pulse Oximetry 94 98 Oxygen Delivery Me thod 09/30/24 10:00 09/30/24 10:02 09/30/24 10:15 Temperature Pulse Rate 77 80 78 Pulse Rate [Pulse Oximeter] Respiratory Rate Blood Pressure 125/89 Blood Pressure [Le ft Upper Arm] Pulse Oximetry 91 96 97 Oxygen Delivery Me thod 09/30/24 10:30 09/30/24 10:31 09/30/24 10:32 Temperature Pulse Rate 71 78 67 Pulse Rate [Pulse Oximeter] Respiratory Rate Blood Pressure 118/63 Blood Pressure [Le ft Upper Arm] Pulse Oximetry 97 96 94 Oxygen Delivery Me thod 09/30/24 10:45 09/30/24 11:00 09/30/24 11:01 Temperature Pulse Rate 68 85 75 Pulse Rate [Pulse Oximeter] Respiratory Rate 18 Blood Pressure 112/84 Blood Pressure [Le ft Upper Arm] Pulse Oximetry 96 97 97 Oxygen Delivery Me thod 09/30/24 11:15 09/30/24 11:30 09/30/24 11:31 Temperature Pulse Rate 71 73 75 Pulse Rate [Pulse Oximeter] Respiratory Rate Blood Pressure 110/75 Blood Pressure [Le ft Upper Arm] Pulse Oximetry 98 95 96 Oxygen Delivery Me thod 09/30/24 11:45 09/30/24 12:01 09/30/24 12:32 Temperature Pulse Rate 69 Pulse Rate [Pulse Oximeter] Respiratory Rate Blood Pressure 126/69 126/72 Blood Pressure [Le ft Upper Arm] Pulse Oximetry 98 Oxygen Delivery Me thod Documenting provider has reviewed patient's vital signs: yes Course Vital Signs Vital signs: Initial Vital Signs Temperature 97.1 F L 09/30/24 08:27 Temperature Source Temporal Artery Scan 09/30/24 08:27 Pulse Rate 85 09/30/24 08:27 Pulse Rhythm Regular 09/30/24 08:27 Blood Pressure 139/91 H 09/30/24 08:27 Blood Pressure Mean 107 H 09/30/24 08:27 Blood Pressure Position Supine 09/30/24 08:27 Pulse Oximetry 96 09/30/24 08:27 Oxygen Delivery Method Room Air 09/30/24 08:27 Vital Signs Temperature 97.1 F L 09/30/24 08:27 Pulse Rate 85 09/30/24 08:27 Blood Pressure 139/91 H 09/30/24 08:27 Pulse Oximetry 96 09/30/24 08:27 Oxygen Delivery Method Room Air 09/30/24 08:27 Temperature 97.1 F L 09/30/24 08:27 Pulse Rate 69 09/30/24 11:45 Respiratory Rate 18 09/30/24 11:01 Blood Pressure 126/72 09/30/24 12:32 Pulse Oximetry 98 09/30/24 11:45 Oxygen Delivery Method Room Air 09/30/24 08:27 Medications Administered Medications: Discontinued Medications Generic Name Dose Route Start Last Admin Trade Name Vinneiq PRN Reason Stop Dose Admin Acetaminophen 1,000 mg 09/30/24 12:54 09/30/24 13:08 Acetaminophen 500 Mg Tablet PO 09/30/24 12:55 1,000 mg ONCE ONE Administration Medical Decision Making MDM Narrative Medical decision making narrative: Symptoms could be related to underlying infectious etiology, pneumonia, pneumothorax, bleeding related to procedure. Unlikely but possible movement of Watchman. Perhaps tachyarrhythmia; in particular AFib with RVR. Pericarditis or postprocedural pericardial effusion? Pleural effusion? Ischemic cardiovascular injury? Placed on electronic device monitor. EKG does not show indication of pericarditis. Does look to show atrial fibrillation however. Not surprising. Labs with proBNP of 1550. One-view chest x-ray independently reviewed by me appears to show some mild cardiomegaly. Do not appreciate infiltrate or effusion. Radiology over-read below INDICATION: Chest pain status post Watchman COMPARISON: September 04, 2020 TECHNIQUE: A single view study was obtained as a portable CXR, September 30 09/17/2024 FINDINGS: As discussed below IMPRESSION: 1. Heart size normal. 2. Given low lung volumes, the lungs appear to be clear. No pleural effusion or pneumothorax. 3. Vaguely visible hyperdense structure probably a Watchman device in the region of the left atrial appendage. If the exact location of this needs to be determined clinically, a CT would be advised I did discuss these findings with Cardiology. They would support cardiac echo again looking for evidence of pericarditis or pericardial effusion. Was able to coordinate a formal cardiac echo. Per my conversation with ultras onographer/technologist, there was no effusion and good cardiac activity. No evidence of pericarditis. Over time in the emergency department symptoms, discomfort resolved. Was given acetaminophen. Repeat troponin was also negative. Remained rate controlled during time of observation as well. See patient discharge plan for further discussion Medical Records Medical records reviewed: Yes I reviewed the patient's medical records Lab Data Lab results reviewed: Yes I reviewed the patient's lab results Labs: Lab Results 09/30/24 09/30/24 09/30/24 Range/Units 09:00 09:20 10:50 WBC 5.18 (4.50-11.00) K/uL RBC 3.96 L (4.00-5.20) m/uL Hgb 12.5 (12.0-16.0) gm/dL Hct 38.0 (33.0-51.0) % MCV 96 (80-100) fL MCH 32 (26-34) pg MCHC 33 (32-36) gm/dL RDW Coeff of Koko 13.0 (11.5-15.5) % Plt Count 221 (140-440) K/uL Neut % (Auto) 57.4 (42.0-72.0) % Lymph % (Auto) 23.2 (20-44) % [place] % (Auto) 9.5 (0.0-11.0) % Eos % (Auto) 8.9 H (0.0-7.0) % Baso % (Auto) 0.8 (0.0-3.0) % Neut # (Auto) 2.98 (1.7-7.0) K/uL Lymph # (Auto) 1.20 (0.90-2.90) K/uL [place] # (Auto) 0.50 (0.00-0.90) K/UL Eos # (Auto) 0.50 (0.00-0.50) K/uL Baso # (Auto) 0.04 (0.00-0.30) K/uL Abs Immat Gran (auto) 0.01 (0.00-0.30) K/uL Imm/Tot Granulo (auto) 0.2 % Sodium 136 (135-149) mmol/L Potassium 4.2 (3.6-5.1) mmol/L Chloride 103 (96-114) mmol/L Carbon Dioxide 27 (20-32) mmol/L Anion Gap 6 L (7-15) mEq/L BUN 14 (7-30) mg/dL Creatinine 1.0 (0.5-1.5) mg/dL Estimated Creat Clear 45.50 Estimated GFR 59 ml/min Glucose 98 (60-115) mg/dL Calcium 9.1 (8.4-10.6) mg/dL Troponin I < 0.01 L (0.01-0.04) ng/mL C-Reactive Protein < 0.5 L (0.5-1.0) mg/dL NT-Pro-B Natriuret Pep 1550 pg/mL Lab Acknowledgement Test Added POC Troponin I 0.00 L (0.01-0.04) ng/ml 09/30/24 Range/Units 12:25 WBC (4.50-11.00) K/uL RBC (4.00-5.20) m/uL Hgb (12.0-16.0) gm/dL Hct (33.0-51.0) % MCV (80-100) fL MCH (26-34) pg MCHC (32-36) gm/dL RDW Coeff of [place] (11.5-15.5) % Plt Count (140-440) K/uL Neut % (Auto) (42.0-72.0) % Lymph % (Auto) (20-44) % [place] % (Auto) (0.0-11.0) % Eos % (Auto) (0.0-7.0) % Baso % (Auto) (0.0-3.0) % Neut # (Auto) (1.7-7.0) K/uL Lymph # (Auto) (0.90-2.90) K/uL [place] # (Auto) (0.00-0.90) K/UL Eos # (Auto) (0.00-0.50) K/uL Baso # (Auto) (0.00-0.30) K/uL Abs Immat Gran (auto) (0.00-0.30) K/uL Imm/Tot Granulo (auto) % Sodium (135-149) mmol/L Potassium (3.6-5.1) mmol/L Chloride (96-114) mmol/L Carbon Dioxide (20-32) mmol/L Anion Gap (7-15) mEq/L BUN (7-30) mg/dL Creatinine (0.5-1.5) mg/dL Estimated Creat Clear Estimated GFR ml/min Glucose (60-115) mg/dL Calcium (8.4-10.6) mg/dL Troponin I (0.01-0.04) ng/mL C-Reactive Protein (0.5-1.0) mg/dL NT-Pro-B Natriuret Pep pg/mL Lab Acknowledgement POC Troponin I 0.00 L (0.01-0.04) ng/ml ECG Data Attestation: I personally reviewed and interpreted this ECG as follows: (Atrial fibrillation. Rate of 69) Discharge Plan Discharge Clinical Impression: Atypical chest pain, Chest wall pain Patient Disposition: Home w/ Parent or Adult Condition: Improved Additional Instructions: I am happy you are feeling better. Can still at least take acetaminophen up to 1000 mg per dose. Be seen or return sooner for marked increase in persistent pain, increasing shortness of breath, associated lightheadedness. Prescriptions: No Action atorvastatin 40 mg tablet 40 mg PO HS albuterol sulfate 90 mcg/actuation HFA aerosol inhaler 1 - 2 puff INHALATION Q4H PRN (Reason: dyspnea) fluticasone propionate 50 mcg/actuation spray,suspension 2 spray INTRANASAL DAILY lamotrigine 100 mg tablet 150 mg PO BID mirtazapine 7.5 mg tablet 7.5 mg PO HS aspirin 81 mg capsule 81 mg PO DAILY triamcinolone acetonide 0.1 % cream 1 applic topical 3XD PRN calcium carbonate-vitamin D3 [Calcium 600 + D(3)] 600 mg-10 mcg (400 unit) tablet 1 tab PO BID Prolia 60 mg/mL syringe 60 mg subcut [id number] potassium chloride 10 mEq Capsule, Extended Release 20 meq PO DAILYWM 3 Days Qty: 6 0RF torsemide 10 mg tablet 10 mg PO DAILY Qty: 30 0RF Follow Up/Referrals: ZOLTAN WATKINS DO [Primary Care Provider] - Stand Alone Forms: MyHealth Info Instructions
--- NOTE | 2024-09-30 09:00 | CRLHL7_ITS ---
For Patients: As a result of the Century Cures Act, medical imaging exams and procedure reports are released immediately into your electronic medical record. You may view this report before your referring provider. If you have questions, please contact your health care provider. INDICATION: Chest pain status post Watchman COMPARISON: September 04, 2020 TECHNIQUE: A single view study was obtained as a portable CXR, September 30 09/17/2024 FINDINGS: As discussed below IMPRESSION: 1. Heart size normal. 2. Given low lung volumes, the lungs appear to be clear. No pleural effusion or pneumothorax. 3. Vaguely visible hyperdense structure probably a Watchman device in the region of the left atrial appendage. If the exact location of this needs to be determined clinically, a CT would be advised. Dictated by Romulo Garvin MD @ 09/30/2024 9:43:56 AM (Electronically Signed)
[2024-09-30 09:30] LABS: Basophils Absolute Auto 0.04 K/uL (0.00-0.30); Basophils Percent Auto 0.8 % (0.0-3.0); Eosinophils Percent Auto 8.9 % (0.0-7.0); Hemoglobin* 12.5 gm/dL (12.0-16.0); Immature Granulocytes Abs Auto 0.01 K/uL (0.00-0.30); Immature Granulocytes Pct Auto 0.2 %; Lymphocytes Percent Auto 23.2 % (20-44); Mean Corpuscular HGB Conc 33 gm/dL (32-36); Mean Corpuscular Hemoglobin 32 pg (26-34); Mean Corpuscular Volume 96 fL (80-100); Monocytes Percent Auto 9.5 % (0.0-11.0); Neutrophils Absolute Auto 2.98 K/uL (1.7-7.0); Neutrophils Percent Auto 57.4 % (42.0-72.0); Platelet Count* 221 K/uL (140-440); Red Blood Count 3.96 m/uL (4.00-5.20); White Blood Count* 5.18 K/uL (4.50-11.00)
[2024-09-30 09:39] LABS: Slide Review Reflex No
[2024-09-30 09:45] LABS: Chloride* 103 mmol/L (96-114); Potassium* 4.2 mmol/L (3.6-5.1); Sodium* 136 mmol/L (135-149)
[2024-09-30 09:47] LABS: Estimated Glomerular Filt Rate 59 ml/min
[2024-09-30 09:48] LABS: Anion Gap 6 mEq/L (7-15); Blood Urea Nitrogen* 14 mg/dL (7-30); Calcium* 9.1 mg/dL (8.4-10.6); Carbon Dioxide* 27 mmol/L (20-32); Glucose* 98 mg/dL (60-115)
[2024-09-30 10:13] LABS: NT Pro B Type NatriureticPept* 1550 pg/mL; Troponin I* < 0.01 ng/mL (0.01-0.04)
--- OUTSIDE RECORDS SUMMARY | 2024-09-30 10:31 | XMS_ITS | Clinical Summary ---
Author Organization [facility] Address [place], [place] [address] Care Team Providers Care Clinical Exercise Physiologist Name Role Phone Vincent Dawkins DO Primary Care Provider [phone] Allergies Active Allergy Reactions Criticality Noted Date [...] per actuation) nasal solution (FLONASE) Inhale 1 [place] in both nostrils once daily if needed [...] Encounters Date Type Department Care Team Description 09/30/2024 Telephone [facility] [address] [facility] [address] [place] [phone] Bret Mariscal MD 09/28/2024 1:40 PM CHEMICAL PACKAGER Office Visit [facility] [address] [place] [address] Vincent Dawkins Hospital F/U (Afib, ANW, 09/22/24, watchman placed) 09/28/2024 Travel 09/24/2024 Patient Outreach [facility] [address] [place] [address] Summer Vargas, MICHAEL Student Primary RN Care Management; Hospital F/U (Lace=34) 09/22/2024 2:12 PM CHEMICAL PACKAGER Anesthesia Event [facility] [address] [place] [address] Tonny Shi MD Elvester, Danica K MACHINE ADJUSTER HELPER 09/22/2024 12:45 PM CHEMICAL PACKAGER - 09/22/2024 11:59 PM CHEMICAL PACKAGER Hospital Encounter [facility] [address] [place] [address] Jose Armando Miller MD, PhD Persistent atrial fibrillation (HC) 09/22/2024 11:12 AM CHEMICAL PACKAGER - 09/23/2024 11:05 AM CHEMICAL PACKAGER Hospital Encounter [facility] [address] [place] [address] Jamar Boss MD Kushins, Stephen Isaac, MD Schlatter, Charles Patrick, CRNA Paroxysmal atrial fibrillation (HC) (Primary Dx); Presence of Watchman left atrial appendage closure device Discharge Disposition: Home Self Care 09/22/2024 Travel 09/17/2024 Telephone [facility] [address] [facility] [address] [place] [phone] Barbie Hawthorne, RN Pre Watchman Call 09/15/2024 10:45 AM CHEMICAL PACKAGER Ancillary Procedure [facility] [address] [place] [address] 09/15/2024 10:10 AM CHEMICAL PACKAGER Office Visit [facility] [address] [place] [address] Vincent Dawkins DO Hospital F/U 09/15/2024 Travel 09/05/2024 Refill [facility] [address] [place] [address] Vincent Dawkins DO Refill Request (Lamotrigine) 09/04/2024 Orders Only [facility] Scanner 1 scan: (1-Ord) [facility], XR CHEST 2V, 09/04/2024 08/26/2024 Telephone [facility] [address] [place] [address] Vincent Dawkins DO Follow Up (Missed call ) 08/24/2024 8:30 AM CHEMICAL PACKAGER Office Visit [facility] [address] [place] [address] Vincent Dawkins DO Medicare ANNUAL (subsequent) Visit (73 year old ) 08/24/2024 7:40 AM CHEMICAL PACKAGER Ancillary Procedure [facility] [address] [place] [address] 08/24/2024 Travel 08/07/2024 4:00 PM CHEMICAL PACKAGER Telemedicine [facility] [address] [place] [address] Vicky Prince MD Virtual visit 08/04/2024 2:00 PM CHEMICAL PACKAGER Ancillary Procedure [facility] [address] [facility] [address] [place] [address] 08/04/2024 1:40 PM CHEMICAL PACKAGER Orders Only [facility] [address] [facility] [address] [place] [address] Lab 08/04/2024 Travel 08/03/2024 Refill [facility] [address] [place] [address] Vincent Dawkins DO Refill Request (Torsemide) 07/31/2024 Refill [facility] [address] [place] [address] Vincent Dawkins DO Refill Request (Furosemide) 07/31/2024 Telephone [facility] [address] [place] [phone] Barbie Hawthorne, RN Marah Watchman 07/27/2024 Telephone [facility] [address] [place] [phone] Barbie Hawthorne, MICHAEL Watchman 07/22/2024 1:00 PM CHEMICAL PACKAGER Office Visit [facility] [address] [place] [address] Teofilo Rey MD CV Electrophysiology Est (Discuss pos watchman device. Neurology cleared for watchman. ) 07/22/2024 Travel 07/08/2024 Telephone [facility] [address] [place] [address] Teofilo Rey MD Cardiology Appointment 07/06/2024 2:05 PM CDT Office Visit [facility] [address] [place] [address] Vincent Dawkins, DO Derm Problem (A couple [...] drink = 0.6 oz pur e alcohol) [facility] Utilities Answer Date Recorded Do you have [...] Comments Blood Pressure 143/88 09/28/2024 1:35 PM CHEMICAL PACKAGER Pulse 83 09/28/2024 1:35 PM CHEMICAL PACKAGER Temperature 36.8 C (98.2 F) 09/28/2024 1:35 PM CHEMICAL PACKAGER Respiratory Rate 16 09/23/2024 8:57 AM CHEMICAL PACKAGER Oxygen Saturation 99% 09/28/2024 1:35 PM CHEMICAL PACKAGER Inhaled Oxygen Concentration - - Weight 91.3 kg (201 lb 3.2 oz) 09/28/2024 1:35 P M CHEMICAL PACKAGER Height 167.6 cm (5' 6) 09/22/2024 12:42 PM CHEMICAL PACKAGER Body Mass Index 32.47 09/22/2024 12:42 PM CHEMICAL PACKAGER Plan of Treatment Upcoming Encounters Date Type Department Care Team (Late st Contact Info) Description 11/10/2024 1:40 PM CHEMICAL PACKAGER Orders Only [facility] [address] [facility] [address] [place] [address] 11/10/2024 2:00 PM CHEMICAL PACKAGER Ancillary Procedure [facility] [address] [place] [address] 11/11/2024 1:30 PM CHEMICAL PACKAGER Office Visit [facility] [address] [place] [address] Juan, MARCO A Melvin [address] [facility] [address] [place] [address] 01/04/2025 11:00 AM CDT Office Visit [facility] [address] [place] [address] Vincent Dawkins DO [address] [place] [address] 01/06/2025 9:00 AM CDT Office Visit [facility] [place] [facility] [address] [place] [address] Teofilo Narvaez MD [address] [place] [address] Health Maintenance Due Date Last Done Comments BMI (ht and wt on same day) for age 18+ 08/24/2025 08/24/2024, 07/22/2024, 11/13/2023, Additional history exists Medicare Wellness for age 65+ 08/25/2025, 08/23/2023, 08/10/2022, Additional history exists Depression screening for age 12+ 09/22/2025 09/22/2024, 08/26/2024, 08/24/2024, Additional history exists Fecal testing sDNA-FIT ([place] guard) for age 45-75 06/16/2026 06/16/2023 Lipids [...] Additional history exists COVID-19 vaccine series Completed 07/06/20, 07/12/2023, 08/10/2022, Additional history exists Influenza for age 65+ Completed 07/06/2024 , 06/10/2023, 08/10/2022, Additional history exists Medical Devices Implanted Type Area Political Researcher Device Identifier Shelf Expiration Date Model / Serial / Lot Screw Sm Joint 6.5x25mm Canclls Bone - [id number] Implanted:Qty: 1 on 02/06/2015 at [facility] Ortho Imp.,Screw s & Plates Right: Hip [employer] [id number] -1# / / [id number] Shell Hip Od50mm Trident Psl Cluster Arias - [id number] Implanted:Qty: 1 on 02/06/2015 at [facility] Right: Hip [employer] 542-11-50 E# / / [id number] Screw Sm Joint 6.5x50mm Canclls Bone - [id number] Implanted:Qty: 1 on 02/06/2015 at [facility] Right: Hip [employer] [id number] -1# / / [id number] Liner Hip Id36mm Lolly 0deg Trident X3 - [id number] Implanted:Qty: 1 on 02/06/2015 at [facility] Right: Hip [employer] 623-00-36 E# / / [id number] Stem Hip Sz7 127deg Accolade Ii - [id number] Implanted:Qty: 1 on 02/06/2015 at [facility] Right: Hip [employer] 1647-8630 # / / [id number] Head Hip Od36mm +5 Biolox Delta C-Taper Alumina Cer - [id number] Implanted:Qty: 1 on 02/06/2015 at [facility] Right: Hip [employer] 6570-0-23 6# / / [id number] Procedures Procedure Name Priority Date/Time Associated Diagnosis Comments SCAN-CARDIAC STRIP 09/23/2024 7: 33 AM CHEMICAL PACKAGER SCAN-CARDIAC STRIP 09/22/2024 11 :12 PM CHEMICAL PACKAGER SCAN-CARDIAC STRIP 09/22/2024 6: 28 PM CHEMICAL PACKAGER HCHG ACTIVATED CLOTTING TM CV Timed 09/22/2024 3:46 PM CHEMICAL PACKAGER HCHG ACTIVATED CLOTTING TM CV Timed 09/22/2024 3:17 PM CHEMICAL PACKAGER HCHG ACTIVATED CLOTTING TM CV Timed 09/22/2024 3:00 PM CHEMICAL PACKAGER EP OTHER PROCEDURE Routine 09/22/2024 2: 43 PM CHEMICAL PACKAGER ENDOTRACHEAL TUBE Routine 09/22/2024 2:2 7 PM CHEMICAL PACKAGER ENDOTRACHEAL TUBE Routine 09/22/2024 2:2 7 PM CHEMICAL PACKAGER ECHO SARAVANAN TRANSCATHETER INTRAOP PROCEDURE Routine 09/22/2024 1:22 PM CHEMICAL PACKAGER Persistent atrial fibrillation (HC) BASIC METABOLIC PANEL Preop 09/22/2024 1:05 PM CHEMICAL PACKAGER CBC W PLT NO DIFF Preop 09/22/2024 1:0 5 PM CHEMICAL PACKAGER EXTRA TUBE GOLD/SST Today 09/22/2024 1 :01 PM CHEMICAL PACKAGER EKG 12 LEAD Preop 09/22/2024 12:54 PM CHEMICAL PACKAGER [facility] AN IV START Routine 09/22/2024 12:41 PM CHEMICAL PACKAGER [facility] AN IV START Routine 09/22/2024 12:41 PM CHEMICAL PACKAGER [facility] AN IV START Routine 09/22/2024 12:41 PM CHEMICAL PACKAGER [facility] AN IV START Routine 09/22/2024 12:41 PM CHEMICAL PACKAGER SCAN-CARDIAC STRIP 09/22/2024 12 :00 AM CHEMICAL PACKAGER XR CHEST 2 VIEWS PA AND LATERAL Routine 09/15/2024 10:33 AM CHEMICAL PACKAGER Chronic cough SCAN-RADIOLOGY REPORT 09/04/2024 12:00 AM CHEMICAL PACKAGER LAMOTRIGINE (LAMICTAL) Routine 08/24/2024 9:43 AM CHEMICAL PACKAGER Seizure disorder (HC) HEPATIC FUNCTION PANEL Routine 08/24/2024 9:43 AM CHEMICAL PACKAGER Seizure disorder (HC) LIPID PANEL W REFLEX MEASURED LDL Routine 08/24/2024 9:43 AM CHEMICAL PACKAGER Lipid screening BASIC METABOLIC PANEL Routine 08/24/2024 9:43 AM CHEMICAL PACKAGER Medicare annual wellness visit, subsequent CBC WITH AUTO DIFFERENTIAL Routine 08/24/2024 9:43 AM CHEMICAL PACKAGER Pre-op evaluation XR MAMMO JOLIE BILAT SCREEN Routine 08/24/2024 7:54 AM CHEMICAL PACKAGER Visit for screening mammogram CT CARDIAC MORPHOLOGY W DUAL READ HUGO 08/04/2024 3:01 PM CHEMICAL PACKAGER Persistent atrial fibrillation (HC) CREATININE,ISTAT Routine 08/04/2024 1:23 PM CHEMICAL PACKAGER Persistent atrial fibrillation (HC) EKG 12 LEAD Routine 07/22/2024 12:50 PM CHEMICAL PACKAGER Persistent atrial fibrillation (HC) XR DXA BONE DENSITY 1 SITE AXIAL AND 1 SITE PERIPHERAL Routine 09/12/2023 1:30 PM CHEMICAL PACKAGER Age related osteoporosis, unspecified pathological fracture presence SDNA-FIT EXTERNAL (COLOGUARD) Routine 06/16/2023 8:00 AM CDT Screening for colon cancer ANTI HCV Routine 08/03/2021 10:21 AM CHEMICAL PACKAGER Need for hepatitis C screening test from Last 3 Months or Most Recently Relevant to Health Maintenance Results * SCAN-CARDIAC STRIP (09/23/2024 7:33 AM CHEMICAL PACKAGER) us Scanner OTHER Final Result * SCAN-CARDIAC STRIP (09/22/2024 11:12 PM CHEMICAL PACKAGER) us Scanner OTHER Final Result * SCAN-CARDIAC STRIP (09/22/2024 6:28 PM CHEMICAL PACKAGER) us Scanner OTHER Final Result * ACTIVATED CLOTTING TIME PLY261 ACT (09/22/2024 3:46 PM CHEMICAL PACKAGER) Only the most recent of3 resultswithin the time period is included. ACTIVATED CLOTTING TIME, POCT 113 74 - 125 sec 09/22/2024 4:11 PM CHEMICAL PACKAGER [facility] Blood BLOOD SPECIMEN / Unknown 09/22/2024 3:46 PM CHEMICAL PACKAGER 09/22/2024 4:11 PM CHEMICAL PACKAGER us Jamar Boss MD HEMATOLOGY Final Result [facility] [address] [place] [address], * EP OTHER PROCEDURE (09/22/2024 2:43 PM CHEMICAL PACKAGER) Anatomical Region Laterality Modality X-Ray Angiograph y, X-Ray Angiography 09/22/2024 2:43 PM CHEMICAL PACKAGER us Jose Armando Miller MD, PhD CV IMAGING Fin al Result * HCHG TUBE PR1, HCHG STYLET PR1 (09/22/2024 2:27 PM CHEMICAL PACKAGER) Narrative Selene Sheets CRNA - 09/22/2024 2:27 PM CHEMICAL PACKAGER Selene Sheets CRNA 09/22/2024 2:28 PM Procedure: [...] Measured From: teeth Difficulty: 0 (not difficult) us Tonny Shi MD ANESTHESIA PX NOTE DIANE DONALDSON Final Result * ECHO SARAVANAN TRANSCATHETER INTRAOP PROCEDURE (09/22/2024 1:22 PM CHEMICAL PACKAGER) EJECTION FRACTION 55 - 60% Anatomical Region Laterality Modality HEART Ultrasound 09/22/2024 3:31 PM CHEMICAL PACKAGER Narrative 09/23/2024 1:21 PM CHEMICAL PACKAGER TRANSESOPHAGEAL ECHOCARDIOGRAM RAFFI COOPER : 1950 74 years Study Date: 09/22/2024 3:31:54 PM Gender: F BP: 120/70 mmHg Height: 163.00 cm BSA: 1.98 m Weight: 93.00 kg Tech: Referring MD: JOSE ARMANDO MILLER Site: [facility] Reading Location: [facility] Patient Location: Procedure: SARAVANAN, Color Doppler, Spectral [...] repeat measurements were performed. At 0 degrees, vctziaig-om-dpefxzud width = 2.4cm At 45 degrees, roujyitz-ze-lwpjasef width = 2.4cm At 90 degrees, lnhgrqwt-os-nzqtmolx width = 2.4cm At 135 degrees, xznbivew-sc-cvbrlyrk width = 2.5cm Pulmonary vein flows were [...] . Final (Updated) Procedure Note Mehnaz Hale, [facility] - 09/23/2024 TRANSESOPHAGEAL ECHOCARDIOGRAM RAFFI COOPER : 1950 74 years Study Date: 09/22/2024 3:31:54 PM Gender: F BP: 120/70 mmHg Height: 163.00 cm BSA: 1.98 m Weight: 93.00 kg Tech: Epi TAVERAS: JOSE ARMANDO MILLER Site: [facility] Reading Location: [facility] Patient Location: Procedure: SARAVANAN, Color Doppler, Spectral [...] repeat measurements were performed. At 0 degrees, fcvztufw-sg-azmeqsuh width = 2.4cm At 45 degrees, pvelznbg-en-ohfeycrs width = 2.4cm At 90 degrees, zpjdzlmg-hc-eiqdrfso width = 2.4cm At 135 degrees, ouhpgvih-pi-tokpptcw width = 2.5cm Pulmonary vein flows were [...] with Platelets no Differential (09/22/2024 1:05 PM CHEMICAL PACKAGER) WHITE BLOOD COUNT 5.8 4.5 - 11.0 thou/cu mm 09/22/2024 1:19 PM CHEMICAL PACKAGER [facility] RED BLOOD COUNT 4.14 4.00 - 5.20 mil/cu mm 09/22/2024 1:19 PM CHEMICAL PACKAGER [facility] HEMOGLOBIN 12.9 12.0 - 16.0 g/dL 09/22/2024 1:19 PM CHEMICAL PACKAGER [facility] HEMATOCRIT 39.0 33.0 - 51.0 % 09/22/2024 1:19 PM CHEMICAL PACKAGER [facility] MCV 94 80 - 100 fL 09/22/2024 1:19 PM CHEMICAL PACKAGER [facility] MCH 31.2 26.0 - 34.0 pg 09/22/2024 1:19 PM CHEMICAL PACKAGER [facility] MCHC 33.1 32.0 - 36.0 g/dL 09/22/2024 1:19 PM CHEMICAL PACKAGER [facility] RDW 13.1 11.5 - 15.5 % 09/22/2024 1:19 PM CHEMICAL PACKAGER [facility] PLATELET COUNT 236 140 - 440 thou/cu mm 09/22/2024 1:19 PM CHEMICAL PACKAGER [facility] MPV 8.5 6.5 - 11.0 fL 09/22/2024 1:19 PM CHEMICAL PACKAGER [facility] NRBC 0.0 % 09/22/2024 1:19 PM CHEMICAL PACKAGER [facility] ABS NRBC 0.0 thou /cu mm 09/22/2024 1:19 PM [facility] Blood BLOOD SPECIMEN / Unknown Venipuncture / Unknown 09/22/2024 1:05 PM CHEMICAL PACKAGER 09/22/2024 1:12 PM CHEMICAL PACKAGER us Jamar Boss MD HEMATOLOGY Final Result [facility] [address] [place] [address], * (ABNORMAL) Basic Metabolic Panel (09/22/2024 1:05 PM CHEMICAL PACKAGER) Only the most recent of2 resultswithin the time period is included. SODIUM 138 136 - 145 mmol/L 09/22/2024 1:46 PM CHEMICAL PACKAGER [facility] POTASSIUM 4.3 3.5 - 5.1 mmol/L 09/22/2024 1:46 PM [facility] CHLORIDE 104 98 - 107 mmol/L 09/22/2024 1:46 PM CHEMICAL PACKAGER [facility] CO2,TOTAL 23 22 - 29 mmol/L 09/22/2024 1:46 PM CHEMICAL PACKAGER [facility] ANION GAP 11 5 - 18 09/22/2024 1:46 PM [facility] GLUCOSE 93 70 - 99 mg/dL 09/22/2024 1:46 PM [facility] CALCIUM 9.8 8.8 - 10.4 mg/dL 09/22/2024 1:46 PM [facility] Comment: Reference ranges for this test were updated on 07/21/2024 to reflect our healthy population more accurately. Reference range changes are not retroactively applied to results, but previous results using the same methodology can be interpreted in the context of the new reference range. BUN 15 8 - 23 mg/dL 09/22/2024 1:[address] [facility] CREATININE 1.15(H) 0.50 - 0.90 mg/dL 09/22/2024 1:[address] [facility] BUN/CREAT RATIO 13 10 - 20 1:[address] [facility] eGFR 50(L) >90 mL/min/1. 73m2 09/22/2024 1:46 PM [facility] Comment:As of 2021, eG FR is calculated by the CKD-EPI creatinine equation without race adjustment. eGFR can be influenced by muscle mass, exercise, and diet. The reported eGFR is an estimation only and is only applicable if the renal function is stable. Blood BLOOD SPECIMEN / Unknown Venipuncture / Unknown 09/22/2024 1:05 PM CHEMICAL PACKAGER 09/22/2024 1:12 PM CHEMICAL PACKAGER us Jamar Boss MD CHEMISTRY Final Result [facility] [address] [place] [address], [place] * EXTRA TUBE GOLD/SST (09/22/2024 1:01 PM CHEMICAL PACKAGER) Blood BLOOD SPECIMEN / Unknown Venipuncture / Unknown 09/22/2024 1:01 PM CHEMICAL PACKAGER 09/22/2024 1:14 PM CHEMICAL PACKAGER us Jamar Boss MD LABORATORY Final Result [facility] [address] [place] [address], [place] * 12 Lead EKG (09/22/2024 12:54 PM CHEMICAL PACKAGER) Only the most recent of2 resultswithin the [...] NOW QTc 423 ms BEYOND NOW P [place] degrees BEYOND NOW R [place] 21 degrees BEYOND NOW T [place] -18 degrees BEYOND NOW 09/22/2024 12:5 4 PM CHEMICAL PACKAGER 09/23/2024 2:18 PM CHEMICAL PACKAGER Narrative BEYOND NOW - 09/23/2024 2:18 PM CHEMICAL PACKAGER Test Indication: PREOP Jamar Boss MD EKG ORD Final Result Performing Organization Address City/[facility] Co de Phone Number BEYOND NOW [place], [place] * HCHG TUBING PR1, HCHG KIT PR1, HCHG NDL PR1, HCHG NDL PR1 (09/22/2024 12:41 PM CHEMICAL PACKAGER) Narrative Tonny Shi MD - 09/22/2024 12:41 PM CHEMICAL PACKAGER Tonny Shi MD 09/22/2024 12:54 PM IV Start Patient location during procedure: OR Start time: 09/22/2024 12:41 PM End time: 09/22/2024 12:44 PM Nursing unable to start IV: Yes Requesting provider: Jamar Boss MD PIV Site was prepped per hospital policy Laterality: left Local Anesthetic: lidocaine 1%. Needle Size: 18 G Site: hand Insertion Technique: anatomical landmarks Supplies Used: set primary IV tubing Tonny Shi MD ANESTHESIA PX NOTE ORDE RABLES Final Result * SCAN-CARDIAC STRIP (09/22/2024 12:00 AM CHEMICAL PACKAGER) Narrative 09/22/2024 12:00 AM CHEMICAL PACKAGER Ordered by an unspecified provider. us Other Clinical Staff OTHER Final Resul t * XR CHEST 2 VIEWS PA AND LATERAL (09/15/2024 10:33 AM CHEMICAL PACKAGER) Anatomical Region Laterality Modality CHEST, THORAX, Lung, HEART Compu jason Radiography 09/15/2024 3:04 PM CHEMICAL PACKAGER Impressions 09/15/2024 3:04 PM CHEMICAL PACKAGER No airspace disease or fibrosis. Dictated by Kwabena Eden MD @ 09/15/2024 3:04:39 PM (Electronically Signed) Narrative 09/15/2024 3:04 PM CHEMICAL PACKAGER For Patients: As a result of the [...] @ 09/15/2024 3:04:39 PM (Electronically Signed) us Vincent Dawkins DO GENERAL IMAGING Final Result * SCAN-RADIOLOGY REPORT (09/04/2024 12:00 AM CHEMICAL PACKAGER) Anatomical Region Laterality Modality Other us Scanner OTHER Final Result * LAMOTRIGINE (LAMICTAL) (08/24/2024 9:43 AM CHEMICAL PACKAGER) LAMOTRIGINE 9.4 2.5 - 15.0 mcg/mL [facility] Comment: This test was developed and its analytical performance characteristics have been determined by [facility] [place], [place]. It has not been cleared or approved by the U.S. Food and Drug Administration. This assay has been validated pursuant to the CLIA regulations and is used for clinical purposes. Blood BLOOD SPECIMEN / Unknown 08/24/2024 9:43 AM CHEMICAL PACKAGER 08/24/2024 9:44 AM CHEMICAL PACKAGER Vincent Dawkins DO SEND OUTS Final Result [facility] [place] [address] [place], [place] , [facility] [id number] [place], [place] * LIPID PANEL W REFLEX MEASURED LDL (08/24/2024 9:43 AM CHEMICAL PACKAGER) Pathologist [facility] CHOLESTEROL, TOTAL 146 <200 mg/dL [facility] HDL CHOLESTEROL 65 > OR = 50 mg/dL [facility] TRIGLYCERIDES 69 <150 mg/dL [facility] LDL-CHOLESTEROL 66 mg/dL (calc) [facility] Comment: Reference range: <100 Desirable range <100 mg/dL for primary prevention; <70 mg/dL for patients with CHD or diabetic patients with > or = 2 CHD risk factors. LDL-C is now calculated using the Katey calculation, which is a validated novel method providing better accuracy than the Friedewald equation in the estimation of LDL-C. Jc SARAVIA et al. ANNE-MARIE. 2013;310(19): 1380-0761 (http://education.LIQVID/faq/ZWF717) CHOL/HDLC RATIO 2.2 <5.0 (calc) [facility] NON HDL CHOLESTEROL 81 <130 mg/dL (calc) [facility] Comment: For patients with diabetes plus 1 major ASCVD risk factor, treating to a non-HDL-C goal of <100 mg/dL (LDL-C of <70 mg/dL) is considered a therapeutic option. Blood BLOOD SPECIMEN / Unknown 08/24/2024 9:43 AM CHEMICAL PACKAGER 08/24/2024 9:44 AM CHEMICAL PACKAGER Vincent Dawkins DO CHEMISTRY Final Result [facility] [address] [place] [address], [facility] [address] [place] [address] * (ABNORMAL) CBC AND DIFFERENTIAL (08/24/2024 9:43 AM CHEMICAL PACKAGER) Pathologist [facility] WHITE BLOOD CELL COUNT 5.2 3.8 - [...] BLOOD SPECIMEN / Unknown 08/24/2024 9:43 AM CHEMICAL PACKAGER 08/24/2024 9:44 AM CHEMICAL PACKAGER us Vincent Dawkins DO HEMATOLOGY Final Result Performing Organization Address City/State/[facility] Co de Phone Number [facility] [address] [place] [address], [place] [facility] [address] * HEPATIC FUNCTION PANEL (08/24/2024 9:43 AM CHEMICAL PACKAGER) PROTEIN, TOTAL 7.3 6.1 - 8.1 g/dL [facility] ALBUMIN 4.6 3.6 - 5.1 g/dL [facility] GLOBULIN 2.7 1.9 - 3.7 g/dL (calc) [facility] ALBUMIN/GLOBULIN RATIO 1.7 1.0 - 2.5 (calc) [facility] BILIRUBIN, TOTAL 1.0 0.2 - 1.2 mg/dL [facility] BILIRUBIN, DIRECT 0.2 < OR = 0.2 mg/dL [facility] BILIRUBIN, INDIRECT 0.8 0.2 - 1.2 mg/dL (calc) [facility] ALKALINE PHOSPHATASE 98 37 - 153 U/L [facility] AST 20 10 - 35 U/L [facility] ALT 17 6 - 29 U/L [facility] Blood BLOOD SPECIMEN / Unknown 08/24/2024 9:43 AM CHEMICAL PACKAGER 08/24/2024 9:44 AM CHEMICAL PACKAGER us Adei Shaqra DO CHEMISTRY Final Result [facility] [address] [place] [address], [facility] [address] [place] [address] * XR MAMMO JOLIE BILAT SCREEN (08/24/2024 7:54 AM CHEMICAL PACKAGER) Anatomical Region Laterality Modality BREASTS, Breast Left, Breast Right Bilateral Mammography Impressions 08/24/2024 2:20 PM CHEMICAL PACKAGER There is no radiographic evidence for malignancy. Recommend annual mammograms. MAMMOGRAM ASSESSMENT: ACR 1 Negative PATIENTS: You will also receive a letter with your examination results in an easy to read format. If you have questions about your results, please contact your referring provider. Narrative 08/24/2024 2:20 PM CHEMICAL PACKAGER For Patients: As a result of the Cures Act, medical imaging exams and procedure reports are released immediately into your electronic medical record. You may view this report before your referring provider. If you have questions, please contact your health care provider. XR MAMMO JOLIE BILAT SCREEN [[id number]] CLINICAL HISTORY: This is an asymptomatic 73 y.o. patient. INDICATION FOR EXAM: Mammogram Screening. TECHNIQUE: CC & MLO views were obtained. This study was evaluated with the assistance of Computer-Aided Detection. Breast Tomosynthesis was used in interpretation. COMPARISON FILM: Yes 08/23/23 [facility] 08/10/22 [facility] FINDINGS: The breasts are heterogeneously dense, which may obscure small masses. There are no dominant masses, suspicious micro calcifications or areas of architectural distortion. us Adei Shaqra DO MAMMO Final Result * CT CARDIAC MORPHOLOGY W DUAL READ (08/04/2024 3:01 PM CHEMICAL PACKAGER) Anatomical Region Laterality Modality HEART Computed Tomogra phy Impressions 08/05/2024 10:29 AM CHEMICAL PACKAGER 1. Please see dedicated cardiac imaging report [...] @ 08/04/2024 16:17:03 Narrative 08/05/2024 10:29 AM CHEMICAL PACKAGER STUDY: CT CARDIAC MORPHOLOGY Study date: 08/04/2024 [...] PATIENT: Results are automatically released to your [employer]) account once available, in compliance with federal regulations. This means that you may see your results before your provider has had a chance to review them. Please allow 2-3 business days for your provider to comment on the results. Stephen Steven MD [facility] For Patients: As a result of the [...] conjunction with the services provided by the [facility] [place] ([facility]). COMPARISON: None. FINDINGS Mediastinal structures: No suspicious adenopathy. Pulmonary arteries: Bolus timing limits evaluation. Lungs and pleura: Micronodule right anterior lung series 5 image 51. No effusions. Miscellaneous: Hiatal hernia. Jose Armando Miller MD, PhD CT Fin al Result * CREATININE,ISTAT (08/04/2024 1:23 PM CHEMICAL PACKAGER) POCT,CREATININE , ISTAT 1.2 0.6 - 1.3 mg/dL [facility] Blood BLOOD SPECIMEN / Unknown 08/04/2024 1:23 PM CHEMICAL PACKAGER 08/04/2024 1:23 PM CHEMICAL PACKAGER Jose Armando Miller MD, PhD CHEMISTRY Fin al Result [facility] [address] [place] [address], [facility]Urgent Care) [address] [place] [address] * (ABNORMAL) XR DXA BONE DENSITY 1 SITE AXIAL AND 1 SITE PERIPHERAL (09/12/2023 1:30 PM CHEMICAL PACKAGER) Anatomical Region Laterality Modality LUMBAR SPINE Other Impressions 09/18/2023 4:42 PM CHEMICAL PACKAGER Osteoporosis. Due to the stability of the [...] scan in 2 years. Allison Tran PA-C [facility] 09/18/2023 Narrative 09/18/2023 4:42 PM CHEMICAL PACKAGER For Patients: Results are automatically released to your [facility] ([employer]) account once available, in compliance with federal regulations. This means that you may see your results before your provider has had a chance to review them. Please allow 2-3 business days for your provider to comment on the results. XR DXA Bone Mineral Density (BMD) EXAM LOCATION: [address] [address] PATIENT NAME: Raffi Cooper DATE OF : [...] two scanners are made by the same special assemblies supervisor. PROCEDURE: Dual-energy x-ray absorptiometry performed with [...] Osteoporosis: T-score at or below -2.5 SD us Adei Mariza DO DEXA Final Result * sDNA-FIT External (Cologuard) [[id number]] (06/16/2023 8:00 AM CDT) NONINV COLON CA DNA+OCC BLD SCRN STL-IMP Negative Negative 06/26/2023 4:34 PM CDT [facility] (CLIA #:[id number]) Comment: NEGATIVE TEST RESULT. A negative Cologuard [...] (Nick Hill al, N Engl J Med 2014;370(14):4500-0499) The normal value (reference range) for this assay is negative. COLOGUARD RE-SCREENING RECOMMENDATION: Periodic colorectal cancer screening is an important part of preventive healthcare for asymptomatic individuals at average risk for colorectal cancer. Following a negative Cologuard result, the [place] [employer] and U.S. Multi-Society Task Force screening guidelines recommend a Cologuard re-screening interval of 3 years. References: [place] [employer] Guideline for Colorectal Cancer Screening: https://www.cancer.org/cancer/sqdhg-gkgwtj-ztaisz/embzmpjiw-yllbxtdzc-mhmrrnr/ac s-rec ommendations.html.; Zaheer DK, Sam CR, Gail TellezK, Colorectal Cancer Screening: Recommendations for Physicians and Patients from the U.S. Multi-Society Task Force on Colorectal Cancer Screening , Am J Gastroenterology 2017; 112:8179-1638. TEST DESCRIPTION: Composite algorithmic analysis of stool [...] (Nick Hill al, N Engl J Med 2014;370(14):1586-7530.) Cologuard may produce a false negative or false positive result (no colorectal cancer or precancerous polyp present at colonoscopy follow up). A negative Cologuard test result does not guarantee the absence of CRC or advanced adenoma (pre-cancer). The current Cologuard screening interval is every 3 years. ([place] [employer] and U.S. Multi-Society Task Force). Cologuard performance data in a 10,000 patient pivotal study using colonoscopy as the reference method can be accessed at the following location: www.[employer]/results. Additional description of the Cologuard test process, warnings and precautions can be found at www.[employer].com. Stool specimen (specimen) (Rectum) 06/16/2023 8:00 AM CDT 06/18/2023 11:01 PM CDT Adesahara Dawkins DO URINE Final Result [facility] (CLIA #:[id number]) [place] [place] [address], * ANTI HCV (08/03/2021 10:21 AM CHEMICAL PACKAGER) HEPATITIS C ANTIBODY Non-React arnol Non-React arnol 08/03/2021 7:04 PM CHEMICAL PACKAGER [facility] Comment:Antibodies to HCV no t detected; does not exclude the possibility of exposure to HCV. Blood BLOOD SPECIMEN / Unknown Venipuncture / Unknown 08/03/2021 10:21 AM CHEMICAL PACKAGER 08/03/2021 10:24 AM CHEMICAL PACKAGER Vincent Dawkins DO SEND OUTS Final Result [facility] 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
[2024-09-30 11:43] LABS: C Reactive Protein* < 0.5 mg/dL (0.5-1.0)
[2024-09-30] MEDS: ACETAMINOPHEN 500 MG TABLET 1000 MG PO (13:08)
== END 2024-09-30 13:16 | disposition home or self-care (01) ==
PROVIDERS: Emergency Provider Family Medicine; PCP Student in an Organized Health Care Education/Training Program
DX: R07.9 Chest pain, unspecified (principal)
CPT/HCPCS: 36415; 71045; 80048; 83880; 84484; 85025; 86140; 93306; 99284; A9270

== ENCOUNTER 2024-11-02 10:04 | Emergency (ER) | payer MEDICARE, BC, SELFPAY ==
[2024-11-02] VITALS (29 sets, daily range): BP systolic 104–147; BP diastolic 72–102; PULSE 63–82; RESP 9–35; TEMP 36.8; O2SAT 93–98; BMI 34.4
--- OUTSIDE RECORDS SUMMARY | 2024-11-02 10:05 | XMS_ITS | Clinical Summary ---
Author Organization [facility] Address [address] , [address] [place] [address] Phone Care Team Providers Care Staff Home Therapy Rn Name Role Phone System Maintenance Unavailable [phone] Conditions or Problems Problem Name Problem Code Onset Date Status Entry Date Provider Comment Standard Description Annotate TIA 026786569 (SNOMED CT) Active Reg Elias MD Transient cerebral ischemia Acoustic neuroma 520635995 (SNOMED CT) Active Reg Elias MD Acoustic neuroma Memory problems 86131954 (SNOMED CT) Active Reg Elias MD Dementia Vascular malformation 941397744 (SNOMED CT) Active Reg Elias MD Congenital vascular malformation Epilepsy, not intractable G40.909 (ICD-10-CM) Active Reg Elias MD Epilepsy, unspecified, not intractable, without status epilepticus Medications Medication Instructions Start Date Stop Date Generic Name [facility] Provider LAMOTRIGINE 100 MG TABS 150 mg by mouth twice a day 05/19 lamotrigine 98489204835 Michell Dunaway PA-C LAMOTRIGINE 100 MG TABS take 1.5 tablets by mouth twice daily.APPOI NTMENT NEEDED 12/14 lamotrigine 88948094164 Michell Dunaway PA-C calcium carbonate-vitamin D3 600 mg(1,500mg)-400 unit tablet Take 1 tablet by mouth twice a day calcium carbonate-vitamin d3 58987618927 Reg Elias MD HYDROCHLOROTHIAZIDE 25 MG TABS tablet by mouth 04/28 hydrochlorothiazi de 26083476220 Reg Elias MD aspirin 81 mg tablet,delayed release (DR/EC) 81 mg by mouth once a day 05/04 aspirin 94713337052 Reg Elias MD MIRTAZAPINE 7.5 MG TABS Take 1 tablet by mouth every night 02/25 mirtazapine 64616421896 Reg Elias MD ATORVASTATIN CALCIUM 40 MG TABS tablet by mouth 05/04 atorvastatin 81334844134 Reg Elias MD VITAMIN D3 25 MCG (1000 UT) CAPS Take 1 capsule by mouth once a day cholecalciferol (vitamin d3) 35981461503 Reg Elias MD LAMOTRIGINE 100 MG TABS 150 mg by mouth twice a day 05/19 lamotrigine 55850227154 Reg Elias MD LISINOPRIL 5 MG TABS TAKE ONE TABLET BY MOUTH ONE TIME DAILY lisinopril 46575329023 Reg Elias MD HYDROCHLOROTHIAZIDE 25 MG TABS 12/29 HYDROCHLOROTHIAZI DE 02089129534 Reg Elias MD LAMOTRIGINE 100 MG TABS 150 mg BID 05/19 LAMOTRIGINE 26299780523 Reg Elias MD LAMOTRIGINE ER 300 MG [id number] 300 mg QD 05/04 LAMOTRIGINE 61767254119 Reg Elias MD LAMOTRIGINE ER 300 MG [id number] 300 mg QD 05/04 LAMOTRIGINE 52187406325 Reg Elias MD ASPIRIN 81 MG TBEC 81 mg QD 05/04 ASPIRIN 02594181060 Reg Elias MD MIRTAZAPINE 7.5 MG TABS TAKE ONE TABLET BY MOUTH ONE TIME DAILY AT BEDTIME 02/25 MIRTAZAPINE 11380931081 Reg Elias MD ATORVASTATIN CALCIUM 40 MG TABS 05/04 ATORVASTATIN CALCIUM 50286924551 Reg Elias MD PHENYTOIN SODIUM EXTENDED 100 MG CAPS Take 2 capsules by mouth 2 times daily. 05/04 phenytoin extended (DILANTIN) 100 mg ER capsule 95502977262 Reg Elias MD DILANTIN 30 MG CAPS 30 mg HS (together w/ 100 mg caps) 05/05 PHENYTOIN SODIUM EXTENDED 88174269936 Reg Elias MD LAMOTRIGINE 100 MG TABS 150 mg BID 05/19 LAMOTRIGINE 93765452671 Farzaneh Oden APRN [employer] SPECIALIST LAMOTRIGINE 100 MG TABS 100 mg BID 05/19 LAMOTRIGINE 95875731287 Reg Elias MD LAMICTAL 25 MG TABS 25 MG PO BID x 2 weeks, 50 MG PO BID x 2 weeks, 75 MG PO BID x 2 weeks, 100 MG PO BID 05/19 LAMOTRIGINE 46303285716 Reg Elias MD DILANTIN 30 MG CAPS 30 mg HS (together w/ 100 mg caps) 05/05 PHENYTOIN SODIUM EXTENDED 34100624394 Reg Elias MD PHENYTOIN SODIUM EXTENDED 100 MG CAPS Take 2 capsules by mouth 2 times daily. 05/04 phenytoin extended (DILANTIN) 100 mg ER capsule 29118370139 System Maintenance VITAMIN D3 25 MCG (1000 UT) CAPS Take 1 capsule by mouth once daily. 02/28 cholecalciferol (VITAMIN D) 1,000 unit capsule 95065383379 System Maintenance calcium carbonate-vitamin D3, 600 mg-400 unit, (CALCIUM 600 + D) 600 mg(1,500mg) Take 1 tablet by mouth 2 times daily with meals. 07/28 calcium carbonate-vitamin D3, 600 mg-400 unit, (CALCIUM 600 02444755881 System Maintenance Medications Administered No information available. Allergies, Adverse Reactions, Alerts Allergy Name Reaction Description Start Date Severity Statu s Provider LATEX *Unknown Mild Active Reg Elias MD ADHESIVE Rash Mild Active Reg Elias MD Results Date Name Value Unit Range Flag Description Office Visit: SYNCOPE, AVM 0 8/19/19 06:58- 05/04/19 06:58 REFERRING PHYSIC... SMOK STATUS never smoker Tobacco smoking status Lab Report: PHENYTOIN, FREE PHENYTO ISAIAS 0.0013 ug/mL Units converted. See lab report for original value. N Phenytoin Free [Mass/volume] in Serum or Plasma Lab Report: LAMOTRIGINE LAMOTRIGINE 0.0028 ug/mL Units converted. See lab report for original value. L lamoTRIgine [Mass/volume] in Serum or Plasma Internal Other: Verbal Autho rization/Emergency Contact - OBS VERBAL_EMER DONE Verbal authorization and emergency contact Internal Other: Authorizatio n - OBS [id number] Yes GE use only - for [employer] import when terms are not otherwise specified Office Visit: Office Visit 8 M 08/14/21 13:22- 08/14/21 13:22 REFERRING PHYSIC MEDS REVIEW Done Documenta tion of current medications (procedure) Internal Other: Authorizatio n - OBS [email or web address] Yes Authoriza tion: Release of Information - Authorize [facility] - Payment and Healthcare Operations ROIAUTHOTHER Yes Authoriz ation: Release of Information - Authorize Others/Insurance - Payment and Healthcare Operations HIECONSENT Yes Consent To Release information to the Health Information Exchange (HIE) [email or web address] Yes Authorizat ion: Authorization for [facility] to leave messages, voicemail, send text messages, send emails AUTHRELHCARE Yes Authoriz ation: Release/Retrieval of Information to/from Healthcare Facilities, Pharmacy Benefit Payers and Providers AUTHPRIVPRAC Yes Authoriz ation: Notice of privacy practices AUTHBENEFIT Yes Authoriza tion: Assignment of Benefits and Payment Agreement Plan of Care Type Date Detail Pending order Follow up in [facility]i [facility] or telemedicine Pending order Follow up in cli er[facility] or telemedicine Pending Order exclud ed from report: Pending order Follow up Pending order Neurosurgery - N SA Referral Pending order MRI-Brain W/WO Pending order Follow up Pending order Lamotrigine (Oreilly ictal) Pending order We will contact you with test results Pending order Follow up LOGAN Pending order MRI-Brain W/WO Pending order Follow up Pending order Lamotrigine (Oreilly ictal) Pending order Echocardiogram C omplete with Bubble w/o Contrast Pending order Other Test Pending order Follow up Pending order Lamotrigine (Oreilly ictal) Pending order Patient Instruct ions Pending order Other Referral Pending order Follow up Pending order Patient Instruct ions Pending order Lamotrigine (Oreilly ictal) Pending order Patient Instruct ions Pending order Phenytoin Free ( Dilantin) Pending order Obtain imaging r eport and CD Patient education Medications Procedures Code Procedure Name Date Entry Date ORDERS Follow up in clinic or telemedicine 01/04 [facility]-[id number] Documentation of current medicatio ns ORDERS Follow up [facility]-[id number] Neurosurgery - NSA Referral [facility]-[id number] Documentation of current medicatio ns [id number] MRI-Brain W/WO ORDERS Follow up ORDERS Lamotrigine (Lamictal) 10/28 ORDERS We will contact you with test results 09/17/11 ORDERS Follow up [facility]AN [id number] Documentation of current medicatio ns LOINC 97775-3 Fall risk assessment 10/28 [id number] MRI-Brain W/WO ORDERS Follow up [id number] Documentation of current medicatio ns LOINC 25744-3 Fall risk assessment 05/04 ORDERS Other Test ORDERS Lamotrigine (Lamictal) 10/21 ORDERS Follow up [id number] Documentation of current medicatio ns [facility]-[id number] Fall risk assessment (procedure) [facility]-444790060 Fall risk assessment (procedure) ORDERS Echocardiogram Compl ete with Bubble w/o Contrast ORDERS Lamotrigine (Lamictal) 07/21 [facility]-[id number] Other Referral ORDERS Follow up ORDERS Patient Instructions ORDERS Patient Instructions [facility]-[id number] Documentation of current medicatio ns ORDERS Lamotrigine (Lamictal) 06/08 ORDERS Patient Instructions [id number] Fall risk assessment (procedure) [facility]-617827179 Fall risk assessment (procedure) [facility]-[id number] Fall risk assessment (procedure) [facility]-964034928 Fall risk assessment (procedure) [facility]-[id number] Documentation of current medicatio ns ORDERS Phenytoin Free (Dilantin) 20 04/05/19 ORDERS Obtain imaging report and CD Vital Signs Date Name Value Unit Description Height 64.4 [in_us] height E&M BP Diastolic 88 mm[Hg] blood pressu re, diastolic BP Systolic 146 mm[Hg] blood pressur e, systolic Heart Rate 78 /min pulse rate BMI (Body Mass Index) 35.56 kg/m2 Bod y Mass Index (Ratio) Weight Measured 209 [lb_av] weight E& M Immunizations No information available. Advance Directives No information available.
--- OUTSIDE RECORDS SUMMARY | 2024-11-02 10:06 | XMS_ITS | Clinical Summary ---
Author Organization [facility] Address [place], [place] [address] Care Team Providers Care Supervisor Sunglasses Name Role Phone Vincent Dawkins DO Primary Care Provider [phone] Allergies Active Allergy Reactions Criticality Noted Date Comments Amlodipine Edema Medium 04/03/2023 Latex *Unknown 02/06/2015 Per outside notes Lisinopril Cough Low 04/03/2023 Losartan Cough Low 04/03/2023 Adhesive Rash 07/09/2014 Medications albuterol HFA (PRO-AIR; VENTOLIN; PROVENTIL) 90 mcg/actuation inhalerIndications: Chronic cough INHALE ONE OR TWO PUFFS BY MOUTH EVERY FOUR HOURS WHILE AWAKRE 8.5 g 06/15/20 24 Active furosemide (LASIX) 20 mg tabletIndications:A cute on chronic systolic CHF (congestive heart failure) (HC) Take 1 Tablet (20 mg) by mouth once daily in the morning. 90 Tablet 08/24/20 24 Active metoprolol succinate (Toprol XL) 25 mg Sustained-Release tabletIndications:P VC's (premature ventricular contractions) Take 0.5 Tablets (12.5 mg) by mouth once daily. 90 Tablet 3 08/24/20 24 Active mirtazapine (REMERON) 7.5 mg tabletIndications:D epression, major, single episode, moderate (HC),Depression, major, in remission (HC) Take 1 Tablet (7.5 mg) by mouth at bedtime. 90 Tablet 3 08/24/20 24 Active atorvastatin (LIPITOR) 40 mg tabletIndications:H yperlipidemia, unspecified hyperlipidemia type Take 1 Tablet (40 mg) by mouth at bedtime. 90 Tablet 3 08/24/20 24 Active potassium chloride (Klor-Con M20) 20 mEq extended-release tablet (part/cryst)Indicat ions:Irregular heart rhythm Take 1 Tablet (20 mEq) by mouth once daily with a meal. 90 Tablet 3 08/24/20 24 Active lamoTRIgine 100 mg tabletIndications:S eizure disorder (HC) take 1.5 tablets (150mg) by mouth twice daily. 270 Tablet 1 09/09/20 24 Active polyethylene glycoL (Miralax) 17 gram/scoop powder [...] per actuation) nasal solution (FLONASE) Inhale 1 [place] in both nostrils once daily if needed for Rhinitis. Active triamcinolone (ARISTOCORT; KENALOG) 0.1 % cream Apply topically to affected area(s) once daily if needed. Active apixaban (ELIQUIS) 5 mg tabletIndications:p revent thromboembolism in chronic atrial fibrillation Take 1 Tablet (5 mg) by mouth two times daily. 100 Tablet 09/23/19 25 Active Hospital, Clinic, or Other Facility Administered Medication [...] Encounters Date Type Department Care Team Description 11/02/2024 Nurse Triage [facility] Centralized Nurse Triage Vincent Dawkins DO Chest Pain 09/30/2024 11:00 AM SENIOR PROJECT ENGINEER Ancillary Procedure [facility] [address] [place] [address] 09/30/2024 Orders Only [facility] SERVICES Scanner 1 scan: (1-Ord) [facility] CHEST 1V PORTABLE, 09/30/2024 09/30/2024 Telephone [facility] [address] [facility] [address] [place] [phone] Bret Mariscal MD Chest Pain 09/28/2024 1:40 PM SENIOR PROJECT ENGINEER Office Visit [facility] [address] [place] [address] Vincent Dawkins DO Hospital F/U (Afib, ANW, 09/22/24, watchman placed) 09/28/2024 Travel 09/24/[address] [facility] [address] [place] [address] Summer Vargas, MICHAEL Student Primary RN Care Management; Hospital F/U (Lace=34) 09/22/2024 2:12 PM SENIOR PROJECT ENGINEER Anesthesia Event [facility] [address] [place] [address] Tonny Shi MD Elvester, Danica K, PSYCHOMETRIC EXAMINER 09/22/2024 12:45 PM SENIOR PROJECT ENGINEER - 09/22/2024 11:59 PM SENIOR PROJECT ENGINEER Hospital Encounter [facility] [address] [place] [address] Jose Armando Miller MD, PhD Persistent atrial fibrillation (HC) 09/22/2024 11:12 AM SENIOR PROJECT ENGINEER - 09/23/2024 11:05 AM SENIOR PROJECT ENGINEER Hospital Encounter [facility] [address] [place] [address] Jamar Boss MD Kushins, MD Yolis Titus Charles Patrick, CRNA Paroxysmal atrial fibrillation (HC) (Primary Dx); Presence of Watchman left atrial appendage closure device Discharge Disposition: Home Self Care 09/22/2024 Travel 09/17/2024 Telephone [facility] [address] [facility] [address] [place] [phone] Barbie Hawthorne RN Pre Watchman Call 09/15/2024 10:45 AM SENIOR PROJECT ENGINEER Ancillary Procedure [facility] [address] [place] [address] 09/15/2024 10:10 AM SENIOR PROJECT ENGINEER Office Visit [address] [address] Vincent Dawkins DO Hospital F/U 09/15/2024 Travel 09/05/[address] [address] Vincent Dawkins DO Refill Request (Lamotrigine) 09/04/2024 Orders Only [facility] SERVICES Scanner 1 scan: (1-Ord) [facility], XR CHEST 2V, 09/04/2024 08/26/[address] [facility] [address] [place] [address] Vincent Dawkins DO Follow Up (Missed call ) 08/24/2024 8:30 AM SENIOR PROJECT ENGINEER Office Visit [address] [address] Vincent Dawkins DO Medicare ANNUAL (subsequent) Visit (73 year old ) 08/24/2024 7:40 AM SENIOR PROJECT ENGINEER Ancillary Procedure [facility] [address] [place] [address] 08/24/2024 Travel 08/07/2024 4:00 PM SENIOR PROJECT ENGINEER Telemedicine [facility] [address] [place] [address] Vicky Prince MD Virtual visit 08/04/2024 2:00 PM SENIOR PROJECT ENGINEER Ancillary Procedure [facility] [address] [place] [address] 08/04/2024 1:40 PM SENIOR PROJECT ENGINEER Orders Only [facility] [address] [place] [address] Lab 08/04/2024 Travel 08/03/[address] [facility] [address] [place] [address] Vincent Dawkins DO Refill Request (Torsemide) from Last 3 Months Immunizations Name Administration [...] Ambulatory Vulnerability No t on file 09/23/2024 Utilities Answer Date Recorded Do you have trouble paying f or utilities (for example, heat, electricity, water, phone)? 1 01/16/2024 Comments No Sex and Gender Information Value [...] Comments Blood Pressure 143/88 09/28/2024 1:35 PM SENIOR PROJECT ENGINEER Pulse 83 09/28/2024 1:35 PM SENIOR PROJECT ENGINEER Temperature 36.8 C (98.2 F) 09/28/2024 1:35 PM SENIOR PROJECT ENGINEER Respiratory Rate 16 09/23/2024 8:57 AM SENIOR PROJECT ENGINEER Oxygen Saturation 99% 09/28/2024 1:35 PM SENIOR PROJECT ENGINEER Inhaled Oxygen Concentration - - Weight 91.3 kg (201 lb 3.2 oz) 09/28/2024 1:35 P M SENIOR PROJECT ENGINEER Height 167.6 cm (5' 6) 09/22/2024 12:42 PM SENIOR PROJECT ENGINEER Body Mass Index 32.47 09/22/2024 12:42 PM SENIOR PROJECT ENGINEER Plan of Treatment Upcoming Encounters Date Type Department Care Team (Late st Contact Info) Description 11/10/2024 1:40 PM SENIOR PROJECT ENGINEER Orders Only [facility] [address] [facility] [address] [place] [address] 11/10/2024 2:00 PM SENIOR PROJECT ENGINEER Ancillary Procedure [facility] [address] [facility] [address] [place] [address] 11/11/2024 1:30 PM SENIOR PROJECT ENGINEER Office Visit [facility] [address] [facility] [address] [place] [address] [place] [address] [facility] [address] [place] [address] 01/04/2025 11:00 AM CDT Office Visit [facility] [address] [place] [address] Vincent Dawkins DO [address] [place] [address] Health Maintenance Due Date Last Done Comments BMI (ht and wt on same day) for age 18+ 08/24/2025 08/24/2024, 07/22/2024, 11/13/2023, Additional history exists Medicare Wellness for age 65+ 08/25/2025, 08/23/2023, 08/10/2022, Additional history exists Depression screening for age 12+ 09/22/2025 09/22/2024, 08/26/2024, 08/24/2024, Additional history exists Fecal testing sDNA-FIT ([place] guard) for age 45-75 06/16/2026 06/16/2023 Lipids for age 45-75 08/24/2029 08/24/2024, 06/17/2020, 07/14/2019, Additional history exists Tetanus booster 08/04/2031 08/04/2021, 03/15/2008 Pneumococcal series for age 50+ Completed 6, 06/17/2015 Zoster (shingles) series for age 50+ Completed 02/18/2021, 08/26/2020, 07/06/2017 Hepatitis C screening for ag e 18-79 Completed 08/03/2021 Tdap Completed 08/04/2021, 02/16, 03/15/2008 ([facility] RSV vaccine for adults or Completed 07/21/2023 DEXA/DXA scan for age 65+ Completed 2022, 08/03/2021, 06/30/2015, Additional history exists COVID-19 vaccine series Completed 07/06/20, 07/12/2023, 08/10/2022, Additional history exists Influenza for age 65+ Completed 07/06/2024 , 06/10/2023, 08/10/2022, Additional history exists Medical Devices Implanted Type Area Cottrell Blower Device Identifier Shelf Expiration Date Model / Serial / Lot Screw Sm Joint 6.5x25mm Can[employer] Bone - [id number] Implanted:Qty: 1 on 02/06/2015 at [facility] Ortho Imp.,Screw s & Plates Right: Hip [employer] [id number] -1# / / [id number] Shell Hip Od50mm Trident Psl Cluster Arias - [id number] Implanted:Qty: 1 on 02/06/2015 at [facility] Right: Hip [employer] 542-11-50 E# / / [id number] Screw Sm Joint 6.5x50mm Canclls Bone - [id number] Implanted:Qty: 1 on 02/06/2015 at [facility] Right: Hip [employer] [id number] -1# / / [id number] Liner Hip Id36mm Lolly 0deg Trident X3 - [id number] Implanted:Qty: 1 on 02/06/2015 at [facility] Right: Hip [employer] 623-00-36 E# / / [id number] Stem Hip Sz7 127deg Accolade Ii - [id number] Implanted:Qty: 1 on 02/06/2015 at [facility] Right: Hip [employer] [id number] # / / [id number] Head Hip Od36mm +5 Biolox Delta C-Taper Alumina Cer - [id number] Implanted:Qty: 1 on 02/06/2015 at [facility] Right: Hip [employer] 6570-0-23 6# / / [id number] Procedures Procedure Name Priority Date/Time Associated Diagnosis Comments ECHO TTE COMPLETE WO CONTRAST Routine 09/30/2024 12:42 PM SENIOR PROJECT ENGINEER Chest pain SCAN-RADIOLOGY REPORT 09/30/2024 12:00 AM SENIOR PROJECT ENGINEER SCAN-CARDIAC STRIP 09/23/2024 7: 33 AM SENIOR PROJECT ENGINEER SCAN-CARDIAC STRIP 09/22/2024 11 :12 PM SENIOR PROJECT ENGINEER SCAN-CARDIAC STRIP 09/22/2024 6: 28 PM SENIOR PROJECT ENGINEER HCHG ACTIVATED CLOTTING TM CV Timed 09/22/2024 3:46 PM SENIOR PROJECT ENGINEER HCHG ACTIVATED CLOTTING TM CV Timed 09/22/2024 3:17 PM SENIOR PROJECT ENGINEER HCHG ACTIVATED CLOTTING TM CV Timed 09/22/2024 3:00 PM SENIOR PROJECT ENGINEER EP OTHER PROCEDURE Routine 09/22/2024 2: 43 PM SENIOR PROJECT ENGINEER ENDOTRACHEAL TUBE Routine 09/22/2024 2:2 7 PM SENIOR PROJECT ENGINEER ENDOTRACHEAL TUBE Routine 09/22/2024 2:2 7 PM SENIOR PROJECT ENGINEER ECHO SARAVANAN TRANSCATHETER INTRAOP PROCEDURE Routine 09/22/2024 1:22 PM SENIOR PROJECT ENGINEER Persistent atrial fibrillation (HC) BASIC METABOLIC PANEL Preop 09/22/2024 1:05 PM SENIOR PROJECT ENGINEER CBC W PLT NO DIFF Preop 09/22/2024 1:0 5 PM SENIOR PROJECT ENGINEER EXTRA TUBE GOLD/SST Today 09/22/2024 1 :01 PM SENIOR PROJECT ENGINEER EKG 12 LEAD Preop 09/22/2024 12:54 PM SENIOR PROJECT ENGINEER [facility] AN IV START Routine 09/22/2024 12:41 PM SENIOR PROJECT ENGINEER [facility] AN IV START Routine 09/22/2024 12:41 PM SENIOR PROJECT ENGINEER [facility] AN IV START Routine 09/22/2024 12:41 PM SENIOR PROJECT ENGINEER [facility] AN IV START Routine 09/22/2024 12:41 PM SENIOR PROJECT ENGINEER SCAN-CARDIAC STRIP 09/22/2024 12 :00 AM SENIOR PROJECT ENGINEER XR CHEST 2 VIEWS PA AND LATERAL Routine 09/15/2024 10:33 AM SENIOR PROJECT ENGINEER Chronic cough SCAN-RADIOLOGY REPORT 09/04/2024 12:00 AM SENIOR PROJECT ENGINEER LAMOTRIGINE (LAMICTAL) Routine 08/24/2024 9:43 AM SENIOR PROJECT ENGINEER Seizure disorder (HC) HEPATIC FUNCTION PANEL Routine 08/24/2024 9:43 AM SENIOR PROJECT ENGINEER Seizure disorder (HC) LIPID PANEL W REFLEX MEASURED LDL Routine 08/24/2024 9:43 AM SENIOR PROJECT ENGINEER Lipid screening BASIC METABOLIC PANEL Routine 08/24/2024 9:43 AM SENIOR PROJECT ENGINEER Medicare annual wellness visit, subsequent CBC WITH AUTO DIFFERENTIAL Routine 08/24/2024 9:43 AM SENIOR PROJECT ENGINEER Pre-op evaluation XR MAMMO JOLIE BILAT SCREEN Routine 08/24/2024 7:54 AM SENIOR PROJECT ENGINEER Visit for screening mammogram CT CARDIAC MORPHOLOGY W RAD DUAL READ HUGO 08/04/2024 3:01 PM SENIOR PROJECT ENGINEER Persistent atrial fibrillation (HC) CREATININE,ISTAT Routine 08/04/2024 1:23 PM SENIOR PROJECT ENGINEER Persistent atrial fibrillation (HC) XR DXA BONE DENSITY 1 SITE AXIAL AND 1 SITE PERIPHERAL Routine 09/12/2023 1:30 PM SENIOR PROJECT ENGINEER Age related osteoporosis, unspecified pathological fracture presence SDNA-FIT EXTERNAL (COLOGUARD) Routine 06/16/2023 8:00 AM CDT Screening for colon cancer ANTI HCV Routine 08/03/2021 10:21 AM SENIOR PROJECT ENGINEER Need for hepatitis C screening test from Last 3 Months or Most Recently Relevant to Health Maintenance Results * ECHO TTE COMPLETE WO CONTRAST (09/30/2024 12:42 PM SENIOR PROJECT ENGINEER) AORTIC VALVE MEAN PG 4 mmHg EJECTION FRACTION 59 % PEAK TR VELOCITY 2.2 m/s LVEDD 4.0 cm EJECTION FRACTION 55 - 60% Anatomical Region Laterality Modality Ultrasound 09/30/2024 11:5 6 AM SENIOR PROJECT ENGINEER Narrative 09/30/2024 1:04 PM SENIOR PROJECT ENGINEER ECHOCARDIOGRAM RAFFI COOPER : 1950 74 years Study Date: 09/30/2024 11:56:50 AM Gender: F BP: 110/75 mmHg Height: 168.00 cm BSA: 2.01 m Weight: 91.00 kg Tech: TRAV Referring MD: MELO GABRIEL Site: [facility] Reading Location: Mobile IP Patient Location: Inpatient. Procedure: 2D, Color Doppler and Spectral Doppler. Indication for study: Chest Pain Cardiac Rhythm: Irregular.Study quality: Good. Final Impressions: 1. Normal left ventricular size, mildly increased wall thickness, normal global systolic function, calculated EF of 59 %. 2. Severely enlarged left atrium. 3. The mitral valve is normal, mild mitral regurgitation. 4. The ascending aorta is dilated with a maximal diameter of 3.9 cm. Chamber Sizes and Function Normal left ventricular size, mildly increased wall thickness, normal global systolic function, calculated EF of 59 %. No resting regional wall motion abnormality visualized. Left atrial size is severely enlarged. Right ventricular cavity size is normal, global systolic RV function is normal. The right atrium is mildly enlarged. Right atrial area is 20 cm . The pulmonary artery is of normal size and origin. The sinus of Valsalva is normal sized. The ascending aorta is dilated. Valves, RV Pressures and Diastolic Function The aortic valve is trileaflet, no stenosis and no regurgitation. The mitral valve is normal in structure, mild mitral regurgitation. Indeterminate pattern of LV diastolic filling. The tricuspid valve is normal in structure. Tricuspid regurgitation is mild regurgitation. The tricuspid regurgitant velocity is 2.2 m/s, the estimated right ventricular systolic pressure is 20 mmHg plus right atrial pressure. There is normal estimated pulmonary pressure by tricuspid regurgitation velocity and right atrial pressure. The pulmonic valve is normal. No pulmonary regurgitation. TTE images do not appear adequate for transcather intervention with patient supine. Masses, Effusion, Shunts There is no pericardial effusion. The inferior vena cava is not well visualized, respiratory size variation not well visualized. No left to right shunting was detected by limited color flow Doppler interrogation of the interatrial septum. MEASUREMENTS AND CALCULATIONS 2-D Measurements and LV Function: LVID (d) 4.0 cm Planimetered EF 59 % LVID (s) 2.9 cm LV FS% (2D) 28 % IVS (d) 1.2 cm LVOT diameter 2.2 cm LVPW (d) 1.2 cm HR 66 bpm Ao Sinus 3.5 cm LA Vol index 53 ml/m2 Asc Ao 3.9 cm RA area 20 cm RV Max 4C (d) 3.4 cm Diastology: Mitral E Peak 0.8 m/s A Peak 0.4 m/s E/A 2.1 DT 252 msec Aortic Valve: Vmax 1.3 m/s PAULA (V) 2.15 cm VTI 0.30 m PAULA (I) 2.05 cm LVOT V max 0.7 m/s Max PG 7 mmHg LVOT VTI 0.16 m Mean PG 4 mmHg SV 61 ml Dim Index 0.53 SV index 30 ml/m CO 4.0 l/min CI 2.0 l/min/m Mitral Valve: MVA 3.0 cm MV P 1/2 73 msec Tricuspid Valve and estimated PA pressures: TR Vmax 2.2 m/s TAPSE 2.2 cm TR maxG 20 mmHg . This study was interpreted by an [facility] accredited facility. CC: HIM (med records) [facility], Med/Surg - IP [facility]. Final Procedure Note Gm Kaur MD - 09/30/2024 ECHOCARDIOGRAM RAFFI COOPER : 1950 74 years Study Date: 09/30/2024 11:56:50 AM Gender: F BP: 110/75 mmHg Height: 168.00 cm BSA: 2.01 m Weight: 91.00 kg Tech: TRAV Referring MD: MELO GABRIEL Site: [facility] Reading Location: [facility] Patient Location: Inpatient. Procedure: 2D, Color Doppler and Spectral Doppler. Indication for study: Chest Pain Cardiac Rhythm: Irregular.Study quality: Good. Final Impressions: 1. Normal left ventricular size, mildly increased wall thickness, normalglobal systolic function, calculated EF of 59 %. 2. Severely enlarged left atrium. 3. The mitral valve is normal, mild mitral regurgitation. 4. The ascending aorta is dilated with a maximal diameter of 3.9 cm. Chamber Sizes and Function Normal left ventricular size, mildly increased wall thickness, normalglobal systolic function, calculated EF of 59 %. No resting regional wallmotion abnormality visualized. Left atrial size is severely enlarged.Right ventricular cavity size is normal, global systolic RV function isnormal. The right atrium is mildly enlarged. Right atrial area is 20 cm .The pulmonary artery is of normal size and origin. The sinus of Valsalvais normal sized. The ascending aorta is dilated. Valves, RV Pressures and Diastolic Function The aortic valve is trileaflet, no stenosis and no regurgitation. Themitral valve is normal in structure, mild mitral regurgitation.Indeterminate pattern of LV diastolic filling. The tricuspid valve isnormal in structure. Tricuspid regurgitation is mild regurgitation. Thetricuspid regurgitant velocity is 2.2 m/s, the estimated right ventricularsystolic pressure is 20 mmHg plus right atrial pressure. There is normalestimated pulmonary pressure by tricuspid regurgitation velocity and rightatrial pressure. The pulmonic valve is normal. No pulmonary regurgitation.TTE images do not appear adequate for transcather intervention withpatient supine. Masses, Effusion, Shunts There is no pericardial effusion. The inferior vena cava is not wellvisualized, respiratory size variation not well visualized. No left toright shunting was detected by limited color flow Doppler interrogation ofthe interatrial septum. MEASUREMENTS AND CALCULATIONS 2-D Measurements and LV Function: LVID (d) 4.0 cm Planimetered EF 59 % LVID (s) 2.9 cm LV FS% (2D) 28 % IVS (d) 1.2 cm LVOT diameter 2.2 cm LVPW (d) 1.2 cm HR 66 bpm Ao Sinus 3.5 cm LA Vol index 53 ml/m2 Asc Ao 3.9 cm RA area 20 cm RV Max 4C (d) 3.4 cm Diastology: Mitral E Peak 0.8 m/s A Peak 0.4 m/s E/A 2.1 DT 252 msec Aortic Valve: Vmax 1.3 m/s PAULA (V) 2.15 cm VTI 0.30 m PAULA (I) 2.05 cm LVOT V max 0.7 m/s Max PG 7 mmHg LVOT VTI 0.16 m Mean PG 4 mmHg SV 61 ml Dim Index 0.53 SV index 30 ml/m CO 4.0 l/min CI 2.0 l/min/m Mitral Valve: MVA 3.0 cm MV P 1/2 73 msec Tricuspid Valve and estimated PA pressures: TR Vmax 2.2 m/s TAPSE 2.2 cm TR maxG 20 mmHg . This study was interpreted by an [facility] accredited facility. CC: HIM (med records) [facility], Med/Surg - IP [facility]. Final us Carlyle Ries ECHO ORD Final Result * SCAN-RADIOLOGY REPORT (09/30/2024 12:00 AM SENIOR PROJECT ENGINEER) Only the most recent of2 resultswithin the time period is included. Anatomical Region Laterality Modality Other us Scanner OTHER Final Result * SCAN-CARDIAC STRIP (09/23/2024 7:33 AM SENIOR PROJECT ENGINEER) us Scanner OTHER Final Result * SCAN-CARDIAC STRIP (09/22/2024 11:12 PM SENIOR PROJECT ENGINEER) us Scanner OTHER Final Result * SCAN-CARDIAC STRIP (09/22/2024 6:28 PM SENIOR PROJECT ENGINEER) us Scanner OTHER Final Result * ACTIVATED CLOTTING TIME PUM735 ACT (09/22/2024 3:46 PM SENIOR PROJECT ENGINEER) Only the most recent of3 resultswithin the time period is included. [facility] Signature ACTIVATED CLOTTING TIME, POCT 113 74 - 125 sec 09/22/2024 4:11 PM SENIOR PROJECT ENGINEER [facility] Blood BLOOD SPECIMEN / Unknown 09/22/2024 3:46 PM SENIOR PROJECT ENGINEER 09/22/2024 4:11 PM SENIOR PROJECT ENGINEER us Jamar Boss MD HEMATOLOGY Final Result [facility] [address] [place] [address], * EP OTHER PROCEDURE (09/22/2024 2:43 PM SENIOR PROJECT ENGINEER) Anatomical Region Laterality Modality X-Ray Angiograph y, X-Ray Angiography 09/22/2024 2:43 PM SENIOR PROJECT ENGINEER us Jose Armando Miller MD, PhD CV IMAGING Fin al Result * [facility] TUBE PR1, [facility] STYLET PR1 (09/22/2024 2:27 PM SENIOR PROJECT ENGINEER) Narrative Selene Sheets CRNA - 09/22/2024 2:27 PM SENIOR PROJECT ENGINEER Selene Sheets CRNA 09/22/2024 2:28 PM Procedure: [...] SARAVANAN TRANSCATHETER INTRAOP PROCEDURE (09/22/2024 1:22 PM SENIOR PROJECT ENGINEER) EJECTION FRACTION 55 - 60% Anatomical Region Laterality Modality HEART Ultrasound 09/22/2024 3:31 PM SENIOR PROJECT ENGINEER Narrative 09/23/2024 1:21 PM SENIOR PROJECT ENGINEER TRANSESOPHAGEAL ECHOCARDIOGRAM RAFFI COOPER : 1950 74 years Study Date: 09/22/2024 3:31:54 PM Gender: F BP: 120/70 mmHg Height: 163.00 cm BSA: 1.98 m Weight: 93.00 kg Tech: Referring MD: JOSE ARMANDO MILLER Site: [facility] Reading Location: [facility] Patient Location: Procedure: SARAVANAN, Color Doppler, [...] repeat measurements were performed. At 0 degrees, ivskiexr-wc-cvzyjkof width = 2.4cm At 45 degrees, fltwtijz-nc-ikkswrqb width = 2.4cm At 90 degrees, zfwzufha-wq-ghawgrsa width = 2.4cm At 135 degrees, sczrksgc-zo-znzndsrj width = 2.5cm Pulmonary vein flows were [...] . Final (Updated) Procedure Note Mehnaz Hale, [facility] - 09/23/2024 TRANSESOPHAGEAL ECHOCARDIOGRAM RAFFI COOPER : 1950 74 years Study Date: 09/22/2024 3:31:54 PM Gender: F BP: 120/70 mmHg Height: 163.00 cm BSA: 1.98 m Weight: 93.00 kg Tech: Referring MD: JOSE ARMANDO MILLER Site: [facility] Reading Location: [facility] Patient Location: Procedure: SARAVANAN, Color Doppler, [...] repeat measurements were performed. At 0 degrees, bzvplnew-wk-zveaendt width = 2.4cm At 45 degrees, npqpdrbq-kv-czqrhzrh width = 2.4cm At 90 degrees, jqkqkpvp-cn-sfyqeijd width = 2.4cm At 135 degrees, wsjgjrrd-vw-qiomrnzn width = 2.5cm Pulmonary vein flows were [...] Function: HR 82 bpm . Final (Updated) us Jose Armando Miller MD, PhD ECHO ORD Elieser jason Result - Final * CBC with Platelets no Differential (09/22/2024 1:05 PM SENIOR PROJECT ENGINEER) [facility] WHITE BLOOD COUNT 5.8 4.5 - 11.0 thou/cu mm 09/22/2024 1:19 PM SENIOR PROJECT ENGINEER [facility] RED BLOOD COUNT 4.14 4.00 - 5.20 mil/cu mm 09/22/2024 1:19 PM SENIOR PROJECT ENGINEER [facility] HEMOGLOBIN 12.9 12.0 - 16.0 g/dL 09/22/2024 1:19 PM SENIOR PROJECT ENGINEER [facility] HEMATOCRIT 39.0 33.0 - 51.0 % 09/22/2024 1:19 PM SENIOR PROJECT ENGINEER [facility] MCV 94 80 - 100 fL 09/22/2024 1:19 PM [facility] MCH 31.2 26.0 - 34.0 pg 09/22/2024 1:19 PM SENIOR PROJECT ENGINEER [facility] MCHC 33.1 32.0 - 36.0 g/dL 09/22/2024 1:19 PM [facility] RDW 13.1 11.5 - 15.5 % 09/22/2024 1:19 PM [facility] PLATELET COUNT 236 140 - 440 thou/cu mm 09/22/2024 1:19 PM [facility] MPV 8.5 6.5 - 11.0 fL 09/22/2024 1:19 PM SENIOR PROJECT ENGINEER [facility] NRBC 0.0 % 09/22/2024 1:19 PM SENIOR PROJECT ENGINEER [facility] ABS NRBC 0.0 thou /cu mm 09/22/2024 1:19 PM SENIOR PROJECT ENGINEER [facility] Blood BLOOD SPECIMEN / Unknown Venipuncture / Unknown 09/22/2024 1:05 PM SENIOR PROJECT ENGINEER 09/22/2024 1:12 PM SENIOR PROJECT ENGINEER us Jamar Boss MD HEMATOLOGY Final Result [facility] [address] [place] [address], [place] * (ABNORMAL) Basic Metabolic Panel (09/22/2024 1:05 PM SENIOR PROJECT ENGINEER) Only the most recent of2 resultswithin the time period is included. SODIUM 138 136 - 145 mmol/L 09/22/2024 1:46 PM [facility] POTASSIUM 4.3 3.5 - 5.1 mmol/L 09/22/2024 1:46 PM [facility] CHLORIDE 104 98 - 107 mmol/L 09/22/2024 1:46 PM [facility] CO2,TOTAL 23 22 - 29 mmol/L 09/22/2024 1:46 PM [facility] ANION GAP 11 5 - 18 09/22/2024 1:46 PM [facility] GLUCOSE 93 70 - 99 mg/dL 09/22/2024 1:46 PM [facility] CALCIUM 9.8 8.8 - 10.4 mg/dL 09/22/2024 1:46 PM [facility] Comment: Reference ranges for this test were updated on 07/21/2024 to reflect our healthy population more accurately. Reference range changes are not retroactively applied to results, but previous results using the same methodology can be interpreted in the context of the new reference range. BUN 15 8 - 23 mg/dL 09/22/2024 1:46 PM [facility] CREATININE 1.15(H) 0.50 - 0.90 mg/dL 09/22/2024 1:46 PM [facility] BUN/CREAT RATIO 13 10 - 20 1:[address] [facility] eGFR 50(L) >90 mL/min/1. 73m2 09/22/2024 1:[address] [facility] Comment:As of 2021, eG FR is calculated by the CKD-EPI creatinine equation without race adjustment. eGFR can be influenced by muscle mass, exercise, and diet. The reported eGFR is an estimation only and is only applicable if the renal function is stable. Blood BLOOD SPECIMEN / Unknown Venipuncture / Unknown 09/22/2024 1:05 PM SENIOR PROJECT ENGINEER 09/22/2024 1:12 PM SENIOR PROJECT ENGINEER Jamar Boss MD CHEMISTRY Final Result Performing Organization Address City/[facility]/ZIP Co de Phone Number [facility] [address] [place] [address], [place] * EXTRA TUBE GOLD/SST (09/22/2024 1:01 PM SENIOR PROJECT ENGINEER) Blood BLOOD SPECIMEN / Unknown Venipuncture / Unknown 09/22/2024 1:01 PM SENIOR PROJECT ENGINEER 09/22/2024 1:14 PM SENIOR PROJECT ENGINEER Jamar Boss MD LABORATORY Final Result Performing Organization Address [facility] Co de Phone Number [facility] [address] [place] [address], [place] * 12 Lead EKG (09/22/2024 12:54 PM SENIOR PROJECT ENGINEER) Interpretation Atrial flutter with variable A-V block [...] NOW QTc 423 ms BEYOND NOW P [place] degrees BEYOND NOW R [place] 21 degrees BEYOND NOW T [place] -18 degrees BEYOND NOW 09/22/2024 12:5 4 PM SENIOR PROJECT ENGINEER 09/23/2024 2:18 PM SENIOR PROJECT ENGINEER Narrative BEYOND NOW - 09/23/2024 2:18 PM SENIOR PROJECT ENGINEER Test Indication: PREOP us Jamar Boss MD EKG ORD Final Result Performing Organization Address City/[facility]/ZIP Co de Phone Number [facility] NOW [place], [place] * HCHG TUBING PR1, HCHG KIT PR1, HCHG NDL PR1, HCHG NDL PR1 (09/22/2024 12:41 PM SENIOR PROJECT ENGINEER) Narrative Tonny Shi MD - 09/22/2024 12:41 PM SENIOR PROJECT ENGINEER Tonny Shi MD 09/22/2024 12:54 PM IV [...] tubing Tonny Shi MD ANESTHESIA PX NOTE DIANE DONALDSON Final Result * SCAN-CARDIAC STRIP (09/22/2024 12:00 AM SENIOR PROJECT ENGINEER) Narrative 09/22/2024 12:00 AM SENIOR PROJECT ENGINEER Ordered by an unspecified provider. Other Clinical Staff OTHER Final Resul t * XR CHEST 2 VIEWS PA AND LATERAL (09/15/2024 10:33 AM SENIOR PROJECT ENGINEER) Anatomical Region Laterality Modality CHEST, THORAX, Lung, HEART Compu jason Radiography 09/15/2024 3:04 PM SENIOR PROJECT ENGINEER Impressions 09/15/2024 3:04 PM SENIOR PROJECT ENGINEER No airspace disease or fibrosis. Dictated by Melo Eden MD @ 09/15/2024 3:04:39 PM (Electronically Signed) Narrative 09/15/2024 3:04 PM SENIOR PROJECT ENGINEER For Patients: As a result of the [...] or pneumothorax. Chronic wedging L1. Procedure Note Melo Eden MD - 09/15/2024 For Patients: As [...] No airspace disease or fibrosis. Dictated by Melo Eden MD @ 09/15/2024 3:04:39 PM (Electronically Signed) Vincent Bailonwilliam [facility] Final Result * LAMOTRIGINE (LAMICTAL) (08/24/2024 9:43 AM SENIOR PROJECT ENGINEER) Pathologist [facility] LAMOTRIGINE 9.4 2.5 - 15.0 mcg/mL [facility] Comment: This test was developed and its analytical performance characteristics have been determined by [facility] [place], [place]. It has not been cleared or approved by the U.S. Food and Drug Administration. This assay has been validated pursuant to the CLIA regulations and is used for clinical purposes. Blood BLOOD SPECIMEN / Unknown 08/24/2024 9:43 AM SENIOR PROJECT ENGINEER 08/24/2024 9:44 AM SENIOR PROJECT ENGINEER Yeseniasahara Bailonwilliam [facility] Final Result [facility] [address] [place], [place] , [facility] [address] [place], [place] * LIPID PANEL W REFLEX MEASURED LDL (08/24/2024 9:43 AM SENIOR PROJECT ENGINEER) Pathologist [facility] CHOLESTEROL, TOTAL 146 <200 mg/dL [facility] HDL CHOLESTEROL 65 > OR = 50 mg/dL [facility] TRIGLYCERIDES 69 <150 mg/dL [facility] LDL-CHOLESTEROL 66 mg/dL (calc) [facility] Comment: Reference range: <100 Desirable range <100 mg/dL for primary prevention; <70 mg/dL for patients with CHD or diabetic patients with > or = 2 CHD risk factors. LDL-C is now calculated using the Jc-Garcia calculation, which is a validated novel method providing better accuracy than the Friedewald equation in the estimation of LDL-C. Jc SS et al. ANNE-MARIE. 2013;310(19): 2273-1065 (http://education.InterviewBest/faq/MIK327) CHOL/HDLC RATIO 2.2 <5.0 (calc) [facility] NON HDL CHOLESTEROL 81 <130 mg/dL (calc) [facility] Comment: For patients with diabetes plus 1 major ASCVD risk factor, treating to a non-HDL-C goal of <100 mg/dL (LDL-C of <70 mg/dL) is considered a therapeutic option. Blood BLOOD SPECIMEN / Unknown 08/24/2024 9:43 AM SENIOR PROJECT ENGINEER 08/24/2024 9:44 AM SENIOR PROJECT ENGINEER Yeseniai Mariza DO CHEMISTRY Final Result [facility] [address] [place] [address], [facility] [address] * (ABNORMAL) CBC AND DIFFERENTIAL (08/24/2024 9:43 AM SENIOR PROJECT ENGINEER) WHITE BLOOD CELL COUNT 5.2 3.8 - [...] BLOOD SPECIMEN / Unknown 08/24/2024 9:43 AM SENIOR PROJECT ENGINEER 08/24/2024 9:44 AM SENIOR PROJECT ENGINEER us Adei Mariza DO HEMATOLOGY Final Result [facility] [address] [place] [address], [facility] [address] [place] [address] * HEPATIC FUNCTION PANEL (08/24/2024 9:43 AM SENIOR PROJECT ENGINEER) PROTEIN, TOTAL 7.3 6.1 - 8.1 g/dL [facility] ALBUMIN 4.6 3.6 - 5.1 g/dL [facility] GLOBULIN 2.7 1.9 - 3.7 g/dL (calc) [facility] ALBUMIN/GLOBULIN RATIO 1.7 1.0 - 2.5 (calc) [facility] BILIRUBIN, TOTAL 1.0 0.2 - 1.2 mg/dL [facility] BILIRUBIN, DIRECT 0.2 < OR = 0.2 mg/dL [facility] BILIRUBIN, INDIRECT 0.8 0.2 - 1.2 mg/dL (calc) [facility] ALKALINE PHOSPHATASE 98 37 - 153 U/L [facility] AST 20 10 - 35 U/L [facility] ALT 17 6 - 29 U/L [facility] Blood BLOOD SPECIMEN / Unknown 08/24/2024 9:43 AM SENIOR PROJECT ENGINEER 08/24/2024 9:44 AM SENIOR PROJECT ENGINEER us Adei Mariza DO CHEMISTRY Final Result [facility] [address] [place] [address], [facility] [address] [place] [address] * XR MAMMO JOLIE BILAT SCREEN (08/24/2024 7:54 AM SENIOR PROJECT ENGINEER) Anatomical Region Laterality Modality BREASTS, Breast Left, Breast Right Bilateral Mammography Impressions 08/24/2024 2:20 PM SENIOR PROJECT ENGINEER There is no radiographic evidence for malignancy. Recommend annual mammograms. MAMMOGRAM ASSESSMENT: ACR 1 Negative PATIENTS: You will also receive a letter with your examination results in an easy to read format. If you have questions about your results, please contact your referring provider. Narrative 08/24/2024 2:20 PM SENIOR PROJECT ENGINEER For Patients: As a result of the Century Cures Act, medical imaging exams and procedure reports are released immediately into your electronic medical record. You may view this report before your referring provider. If you have questions, please contact your health care provider. XR MAMMO JOLIE BILAT SCREEN [[id number]] CLINICAL HISTORY: This is an asymptomatic 73 [...] of architectural distortion. Vincent Dawkins DO MAMMO Final Result * CT CARDIAC MORPHOLOGY W DUAL READ (08/04/2024 3:01 PM SENIOR PROJECT ENGINEER) Anatomical Region Laterality Modality HEART Computed Tomogra phy Impressions 08/05/2024 10:29 AM SENIOR PROJECT ENGINEER 1. Please see dedicated cardiac imaging report [...] @ 08/04/2024 16:17:03 Narrative 08/05/2024 10:29 AM SENIOR PROJECT ENGINEER STUDY: CT CARDIAC MORPHOLOGY Study date: 08/04/2024 [...] PATIENT: Results are automatically released to your [facility] ([employer]) account once available, in compliance with federal regulations. This means that you may see your results before your provider has had a chance to review them. Please allow 2-3 business days for your provider to comment on the results. Stephen Steven MD [facility] For Patients: As a result of the [...] conjunction with the services provided by the [facility] ([facility]). COMPARISON: None. FINDINGS Mediastinal structures: No suspicious adenopathy. Pulmonary arteries: Bolus timing limits evaluation. Lungs and pleura: Micronodule right anterior lung series 5 image 51. No effusions. Miscellaneous: Hiatal hernia. us Jose Armando Miller MD, PhD CT Fin al Result * CREATININE,ISTAT (08/04/2024 1:23 PM SENIOR PROJECT ENGINEER) POCT,CREATININE , ISTAT 1.2 0.6 - 1.3 mg/dL [facility] Blood BLOOD SPECIMEN / Unknown 08/04/2024 1:23 PM SENIOR PROJECT ENGINEER 08/04/2024 1:23 PM SENIOR PROJECT ENGINEER us Jose Armando Miller MD, PhD CHEMISTRY Fin al Result [facility] [address] [place] [address], [facility] (Urgent Care) [id number] [place] [address] * (ABNORMAL) XR DXA BONE DENSITY 1 SITE AXIAL AND 1 SITE PERIPHERAL (09/12/2023 1:30 PM SENIOR PROJECT ENGINEER) Anatomical Region Laterality Modality LUMBAR SPINE Other Impressions 09/18/2023 4:42 PM SENIOR PROJECT ENGINEER Osteoporosis. Due to the stability of the [...] scan in 2 years. Allison Tran PA-C [facility] 09/18/2023 Narrative 09/18/2023 4:42 PM SENIOR PROJECT ENGINEER For Patients: Results are automatically released to your [facility] ([employer]) account once available, in compliance with federal regulations. This means that you may see your results before your provider has had a chance to review them. Please allow 2-3 business days for your provider to comment on the results. XR DXA Bone Mineral Density (BMD) EXAM LOCATION: [address] [address] PATIENT NAME: Raffi Cooper DATE OF : [...] two scanners are made by the same tea tree farmer. PROCEDURE: Dual-energy x-ray absorptiometry performed with routine [...] at or below -2.5 SD us Adei Shaqra DO DEXA Final Result * sDNA-FIT External (Cologuard) [[id number]] (06/16/2023 8:00 AM CDT) Pathologist [facility] NONINV COLON CA DNA+OCC BLD SCRN STL-IMP Negative Negative 06/26/2023 4:34 PM CDT [facility] (CLIA #:[id number]) Comment: NEGATIVE TEST RESULT. A negative Cologuard [...] (Nick Hill al, N Engl J Med 2014;370(14):2687-7749) The normal value (reference range) for this assay is negative. COLOGUARD RE-SCREENING RECOMMENDATION: Periodic colorectal cancer screening is an important part of preventive healthcare for asymptomatic individuals at average risk for colorectal cancer. Following a negative Cologuard result, the [place] [employer] Society and U.S. Multi-Society Task Force screening guidelines recommend a Cologuard re-screening interval of 3 years. References: [place] [employer] Guideline for Colorectal Cancer Screening: https://www.cancer.org/cancer/aqnpx-rkoyjq-shztfd/lqjcjayfd-vxffrhphm-vwsbxmj/ac s-rec ommendations.html.; Zaheer DK, Sam CR, Gail TellezK, Colorectal Cancer Screening: Recommendations for Physicians and Patients from the U.S. Multi-Society Task Force on Colorectal Cancer Screening , Am J Gastroenterology 2017; 112:2599-8367. TEST DESCRIPTION: Composite algorithmic analysis of stool [...] (Nick Hill al, N Engl J Med 2014;370(14):2821-3482.) Cologuard may produce a false negative or false positive result (no colorectal cancer or precancerous polyp present at colonoscopy follow up). A negative Cologuard test result does not guarantee the absence of CRC or advanced adenoma (pre-cancer). The current Cologuard screening interval is every 3 years. ([place] [employer] and U.S. Multi-Society Task Force). Cologuard performance data in a 10,000 patient pivotal study using colonoscopy as the reference method can be accessed at the following location: www.Cay[employer] Education/results. Additional description of the Cologuard test process, warnings and precautions can be found at www.cologuard.com. Stool specimen (specimen) (Rectum) 06/16/2023 8:00 AM CDT 06/18/2023 11:01 PM CDT Adei Teach The People DO URINE Final Result [facility] (CLIA #:[id number]) [place] [address], * ANTI HCV (08/03/2021 10:21 AM SENIOR PROJECT ENGINEER) HEPATITIS C ANTIBODY Non-React arnol Non-React arnol 08/03/2021 7:04 PM SENIOR PROJECT ENGINEER [facility] Comment:Antibodies to HCV no t detected; does not exclude the possibility of exposure to HCV. Blood BLOOD SPECIMEN / Unknown Venipuncture / Unknown 08/03/2021 10:21 AM SENIOR PROJECT ENGINEER 08/03/2021 10:24 AM SENIOR PROJECT ENGINEER [employer] DO SEND OUTS Final Result Performing Organization Address City/[facility]/ZIP Co de Phone Number [facility] [address] [place] [address], [place] from Last 3 Months or Most Recently Relevant to Health Maintenance Insurance [employer] MR PB ONLY MEDICARE PART A HB ONLY MEDICARE PART B HB ONLY [employer] HB ONLY Advance Directives Documents on File Type Date Recorded Patient Strip Picker Expl anation Healthcare Directive 02/05/2015 12:00 AM [...] Comments Code Status Discussion: Discussed Care Teams Supervisor Sunglasses Relationship Specialty Start Date End Date Vincent Dawkins DO [address] [place] [address] PCP - General Family Practice 04/06/22
--- NOTE | 2024-11-02 10:09 | ED.GENADULT ---
HPI - General Adult General Time Seen by Provider: 10:09 Date Seen: 11/02/24 Chief complaint: Chest Pain Stated complaint: Afib Time Seen by Provider: 11/02/24 10:09 Source: patient, EMS, RN notes reviewed and old records reviewed Mode of arrival: EMS Limitations: no limitations History of Present Illness HPI narrative: Lydia is a very pleasant 74-year-old female with history of TIA withWatchman procedure 1 month ago, atrial fibrillation currently on Eliquis, congestive heart failure, depression and anxiety who comes to the emergency room via [facility] from her home in [place] for evaluation of burning in her chest. Patient notes being here 2 weeks ago for similar type symptoms. (According to chart this was actually 1 month ago on September 30.) She notes that she did take Tums and Tylenol last evening and helped but the pain came back. She describes the discomfort as lasting all day yesterday coming and going and she did not get much sleep overnight because of this. She states she woke up this morning and the pain was still there. she has not had a cough cold or congestion. She did not take any additional Tums or Acetaminophen this morning. EMS did give her 4 baby aspirin and transported to [place]. At this time she shows a burning to be in her left upper chest. She is unsure if this is on her skin or inside but thinks it must be inside. She also notes that she has constipation and is supposed to take MiraLax but because it causes her diarrhea she tends to not take that. When asked about heartburn she has had that in the past. She is unsure if she gets short of breath. She is not nauseated this morning. Lydia has extensive positive review of systems. States that she does have a cough but upon further discussion this is been present for quite some time. She does note lower extremity edema but states that this has been present for some time, is not worse than normal and that she keeps a close eye on her salt intake. Notes that she has numb feet and this is new but upon further discussion she has actually had it for quite some time but is just never discussed with anyone before. Notes that family members have been ill with flu-like symptoms but upon further discussion she has not been exposed to them. Related Data Home Medications ?Medication ?Instructions ?Recorded ?Confirmed albuterol sulfate 90 mcg/actuation 1 - 2 puff inhalation Q4H PRN 09/17/23 01/29/24 aerosol inhaler dyspnea aspirin 81 mg capsule 81 mg PO DAILY 06/02/23 10/14/23 atorvastatin 40 mg tablet 40 mg PO HS 06/02/23 10/14/23 fluticasone propionate 50 2 spray intranasal DAILY 06/02/23 10/14/23 mcg/actuation nasal spray,suspension lamotrigine 100 mg tablet 150 mg PO BID 06/02/23 10/14/23 mirtazapine 7.5 mg tablet 7.5 mg PO HS 06/02/23 10/14/23 calcium 600 mg (as 1 tab PO BID 06/03/23 10/14/23 carbonate)-vitamin D3 10 mcg (400 unit) tablet (Calcium 600 + D(3)) denosumab 60 mg/mL subcutaneous 60 mg subcut [id number] 06/03/23 10/14/23 syringe (BlueSnap) triamcinolone acetonide 0.1 % 1 applic topical 3XD PRN 06/03/23 06/03/23 topical cream apixaban 5 mg tablet (Eliquis) 5 mg PO BID 11/02/24 11/02/24 Previous Rx's ?Medication ?Instructions ?Recorded potassium chloride 10 mEq 20 meq (2 x 10 mEq) PO DAILYWM 3 06/03/23 capsule,extended release days #6 caps torsemide 10 mg tablet 10 mg PO DAILY #30 tabs 06/03/23 Allergies Allergy/AdvReac Type Severity Reaction Status Date / Time Latex, Natural Rubber AdvReac Intermediate Rash Verified 11/02/24 10:15 Review of Systems Status of ROS: Reports: 10 or more systems reviewed and unremarkable except as noted in History and below Const: Denies: fever or chills Eyes: Denies: change in vision ENMT: Denies: neck pain or nasal congestion Cardio: Reports: chest pain and swelling of feet/ankles Resp: Reports: cough GI: Reports: abdominal pain and constipation; Denies: nausea, vomiting or blood in stool : Denies: painful urination Musculo: Denies: neck pain Psych: Reports: anxiety PFSH [facility] Medical History Osteoporosis ?M81.0 - Age-related osteoporosis without current pathological fracture (ICD-10) TIA (transient ischemic attack) ?G45.9 - Transient cerebral ischemic attack, unspecified (ICD-10) Atrial fibrillation ?I48.91 - Unspecified atrial fibrillation (ICD-10) Anxiety ?F41.9 - Anxiety disorder, unspecified (ICD-10) Depression ?F32.A - Depression, unspecified (ICD-10) Hypertension ?I10 - Essential (primary) hypertension (ICD-10) 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 of cranial nerves (ICD-10) Lower extremity edema ?R60.0 - Localized edema (ICD-10) Obstructive sleep apnea ?G47.33 - Obstructive sleep apnea (adult) (pediatric) (ICD-10) Seizure disorder ?G40.909 - Epilepsy, unspecified, not intractable, without status epilepticus (ICD-10) AVM (arteriovenous malformation) brain ?Q28.2 - Arteriovenous malformation of cerebral vessels (ICD-10) Surgical History History of tubal ligation ?Z98.51 - Tubal ligation status (ICD-10) History of D&C ?Z98.890 - Other specified postprocedural states (ICD-10) History of breast biopsy ?Z98.890 - Other specified postprocedural states (ICD-10) History of cholecystectomy ?Z90.49 - Acquired absence of other specified parts of digestive tract (ICD-10) History of bilateral hip arthroplasty ?Z96.643 - Presence of artificial hip joint, bilateral (ICD-10) Family History Other High blood pressure Seizure disorder Social History Narrative: She lives independently in her own home in [place]. Her daughter and multiple other family members live nearby. Her daughter Elke is healthcare power of rn urgent care. Her code status is full. She is a nonsmoker. She does not drink alcohol. She does drive her own car. She does not use assistive device when she walks. She is able to manage her own affairs. What is your current living situation?: I presently have a place to live Problems where you live: no known problems Problems where you live details: n/a In the past 12 months, utilities in danger of being shut off: no In past 12 months, lack of transportation kept you from medical appts, meetings, work, or getting things needed for daily living: no In the past 12 mos, have been you worried that your food would run out before you had money to buy more?: never true In the past 12 mos, the food you bought just didn't last and you didn't have money to buy more?: never true Highest level of school completed/degree received: high school graduate Smoking Status: Never smoker Do you use any of these nicotine containing products: None How often do you have a drink containing alcohol: never AUDIT-C Alcohol total score: 0 Non-prescribed substance use: denies use Caffeine: Yes How often does anyone, including family, friends and others, physically hurt you: never How often does anyone, including family, friends and others, insult or talk down to you: never How often does anyone, including family, friends and others, threaten you with harm: never How often does anyone, including family, friends and others, scream or curse at you: never service: No Exam Narrative: Exam Narrative: Lydia is alert and oriented. Moderately anxious. EOM is full. Face symmetrical. Mentating normally. Speech content is normal. Oral cavity moist mucous membranes neck is supple. Heart with a regular rate but abnormal rhythm and that is irregularly irregular. Abdomen is soft nontender. Lower extremities show scant peripheral edema. Feet are warm. Moving all extremities. Const: Vital Signs, click to edit/add: Vital Signs - 24 hr 11/02/24 10:15 11/02/24 10:32 11/02/24 10:45 Temperature 98.3 F Pulse Rate 66 72 Pulse Rate [Pulse Oximeter] 76 Respiratory Rate 18 17 23 Blood Pressure Blood Pressure [Ri ght Upper Arm] 138/72 Pulse Oximetry 98 98 96 Oxygen Delivery Me thod Room Air 11/02/24 11:00 11/02/24 11:05 11/02/24 11:06 Temperature Pulse Rate 65 68 74 Pulse Rate [Pulse Oximeter] Respiratory Rate 18 16 Blood Pressure 118/73 Blood Pressure [Ri ght Upper Arm] Pulse Oximetry 98 95 96 Oxygen Delivery Me thod 11/02/24 11:15 11/02/24 11:32 11/02/24 11:44 Temperature Pulse Rate 73 71 74 Pulse Rate [Pulse Oximeter] Respiratory Rate 15 22 Blood Pressure 147/97 H 112/86 Blood Pressure [Ri ght Upper Arm] Pulse Oximetry 98 95 95 Oxygen Delivery Me thod 11/02/24 11:45 11/02/24 12:00 11/02/24 12:02 Temperature Pulse Rate 70 69 71 Pulse Rate [Pulse Oximeter] Respiratory Rate 15 12 23 Blood Pressure 109/85 Blood Pressure [Ri ght Upper Arm] Pulse Oximetry 95 97 97 Oxygen Delivery Me thod 11/02/24 12:15 11/02/24 12:30 11/02/24 12:31 Temperature Pulse Rate 63 77 70 Pulse Rate [Pulse Oximeter] Respiratory Rate 13 10 L 12 Blood Pressure 116/82 Blood Pressure [Ri ght Upper Arm] Pulse Oximetry 97 97 97 Oxygen Delivery Me thod Documenting provider has reviewed patient's vital signs: yes Course Course ED Course: At this time differential diagnosis includes but is not limited to angina, acute coronary event, pericarditis, anxiety, pneumonia. Abdominal discomfort that patient described as transient yesterday appears to be associated with some constipation as abdominal exam is benign at this time and she has no pain complaints today. Patient has presented 1st similar complaints in the past. She does note that Tylenol and Tums are helpful and thus will give her dose of this today. Would recommend EKG, troponin, chest x-ray, CBC, comprehensive panel and triple swab. Noted in her chart are notes from prior to her Watchman procedure when it was noted that she was in eligible for anticoagulation secondary to her AVM. She confirms that she did have her Watchman procedure and is currently on Eliquis and has not skipped any doses. Reevaluation(s) Reevaluation #1: I do inform lydia and her daughter Elke who is a nurse that at this time 1st troponin is negative and EKG Is reassuring. Lydia does note that her symptoms are better but still notes a burning across her upper chest. I have added a proBNP 2 patient's orders given the increased vascular congestion noted on chest x-ray. Reevaluation #2: Patient has received Lasix 40 mg IV secondary to vascular congestion. ProBNP was essentially the same as previous values. Patient has urinated and thinks that she is better. She has continued to be in intermittent atrial fibrillation with good rate control. Her 2nd troponin initially done on her point of care was elevated at 0.15 but I was told this was a very small sample and difficult to obtain. Thus, we repeated it again but with the lab troponin I and has come back as negative or within normal limits. Vital Signs Vital signs: Initial Vital Signs Respiratory Effort Normal, Spontaneous, Non-Labored 11/02/24 10:04 Respiratory Depth Normal 11/02/24 10:04 Respiratory Pattern Normal 11/02/24 10:04 Vital Signs Temperature 98.3 F 11/02/24 10:15 Pulse Rate 76 11/02/24 10:15 Respiratory Rate 18 11/02/24 10:15 Blood Pressure 138/72 11/02/24 10:15 Pulse Oximetry 98 11/02/24 10:15 Oxygen Delivery Method Room Air 11/02/24 10:15 Temperature 98.3 F 11/02/24 10:15 Pulse Rate 70 11/02/24 12:31 Respiratory Rate 12 11/02/24 12:31 Blood Pressure 116/82 11/02/24 12:31 Pulse Oximetry 97 11/02/24 12:31 Oxygen Delivery Method Room Air 11/02/24 10:15 Medications Administered Medications: Discontinued Medications Generic Name Dose Route Start Last Admin Trade Name Freq PRN Reason Stop Dose Admin Acetaminophen 650 mg 11/02/24 10:30 11/02/24 11:02 Acetaminophen 325 Mg Tablet PO 11/02/24 10:31 650 mg ONCE ONE Administration Calcium Carbonate 500 mg 11/02/24 10:30 11/02/24 11:02 Calcium Carbonate 500 Mg Chew PO 11/02/24 10:31 500 mg ONCE ONE Administration Calcium Carbonate 500 mg 11/02/24 10:48 11/02/24 11:33 Calcium Carbonate 500 Mg Chew PO 11/02/24 10:49 Not Given ONCE ONE Furosemide 40 mg 11/02/24 12:19 11/02/24 12:30 Furosemide 10 Mg/Ml Inj IVP 11/02/24 12:20 40 mg ONCE ONE Administration Medical Decision Making MDM Narrative Medical decision making narrative: 1. Atypical chest pain -Likely secondary to a combination of reflux and possibly anxiety. Fortunately so EKG is reassuring, weld inspector reassuring as well as 2- troponins. I had the pleasure of speaking to Dr. Patel director enterprise data architecture with [facility]. He was able to look through past tests and noted that coronaries did look good on a recent CT. he 2 feels patient could be safely discharged home. Will have patient do Pepcid Complete 1 tablet every 12 hours or twice a day. She should return or seek medical attention for worsening symptoms. 2. Anticoagulation -Patient currently on Eliquis. According to previous notes this had been contraindicated secondary to brain AVM. However I did speak to director enterprise data architecture specifically regarding this. She continues to be on Eliquis after the Watchman. Plan at this time is for CT morphology on November 10. If it does appear to be a good seal they will be able to discontinue the Eliquis. 3. CHF-proBNP was stable but chest x-ray did show increased markings. Patient was given Lasix 40 mg IV, has had urination here in the ED and again is feeling much improved. At this time would not change her current Lasix dosing at home but continue to monitor. 4. Disposition -home at this time. Feet patient feels comfortable going home. Would have her return for worsening symptoms and as needed. Medical Records Medical records reviewed: Yes I reviewed the patient's medical records Lab Data Lab results reviewed: Yes I reviewed the patient's lab results Labs: Lab Results 11/02/24 11/02/24 11/02/24 Range/Units 10:45 10:50 11:15 WBC 5.43 (4.50-11.00) K/uL RBC 4.25 (4.00-5.20) m/uL Hgb 13.5 (12.0-16.0) gm/dL Hct 40.7 (33.0-51.0) % MCV 96 (80-100) fL MCH 32 (26-34) pg MCHC 33 (32-36) gm/dL RDW Coeff of Koko 13.0 (11.5-15.5) % Plt Count 208 (140-440) K/uL Neut % (Auto) 63.3 (42.0-72.0) % Lymph % (Auto) 23.2 (20-44) % Glenn % (Auto) 9.2 (0.0-11.0) % Eos % (Auto) 3.5 (0.0-7.0) % Baso % (Auto) 0.6 (0.0-3.0) % Neut # (Auto) 3.44 (1.7-7.0) K/uL Lymph # (Auto) 1.26 (0.90-2.90) K/uL Glenn # (Auto) 0.50 (0.00-0.90) K/UL Eos # (Auto) 0.19 (0.00-0.50) K/uL Baso # (Auto) 0.03 (0.00-0.30) K/uL Abs Immat Gran (auto) 0.01 (0.00-0.30) K/uL Imm/Tot Granulo (auto) 0.2 % Sodium 137 (135-149) mmol/L Potassium 4.6 (3.6-5.1) mmol/L Chloride 101 (96-114) mmol/L Carbon Dioxide 28 (20-32) mmol/L Anion Gap 8 (7-15) mEq/L BUN 16 (7-30) mg/dL Creatinine 1.2 (0.5-1.5) mg/dL Estimated Creat Clear 36.45 Estimated GFR 47 ml/min Glucose 113 (60-115) mg/dL Calcium 9.7 (8.4-10.6) mg/dL Magnesium 2.1 (1.5-2.6) mg/dL Total Bilirubin 0.8 (0.1-1.5) mg/dL AST 22 (12-35) U/L ALT 23 (4-35) U/L Alkaline Phosphatase 79 (40-150) U/L Troponin I (0.01-0.04) ng/mL NT-Pro-B Natriuret Pep 1510 pg/mL Total Protein 7.3 (6.0-8.3) g/dL Albumin 4.5 (3.3-5.0) g/dL 25-OH Vitamin D Total 36 (30-80) ng/mL Urine Color (Yellow) Urine Appearance (Clear) Urine pH (5.0-8.5) Ur Specific [place] (1.000-1.030) Urine Protein (Negative) Urine Glucose (UA) (Negative) Urine Ketones (Negative) Urine Blood (Negative) Urine Nitrite (Negative) Urine Bilirubin (Negative) Urine Urobilinogen (0.2-1.0) Ur Leukocyte Esterase (Negative) Urine RBC (0-2) Urine WBC (0-5) Ur Squamous Epith Cells (None-Few) Urine Bacteria (None) SARS-CoV-2 (PCR) Negative SARS-CoV-2 (Negative) Influenza Type A (PCR) Negative PCR FLU A (Negative) Influenza Type B (PCR) Negative PCR FLU B (Negative) RSV (PCR) Negative PCR RSV (Negative) Lab Acknowledgement Test Added POC Troponin I 0.00 L (0.01-0.04) ng/ml 11/02/24 11/02/24 11/02/24 Range/Units 11:25 12:50 13:15 WBC (4.50-11.00) K/uL RBC (4.00-5.20) m/uL Hgb (12.0-16.0) gm/dL Hct (33.0-51.0) % MCV (80-100) fL MCH (26-34) pg MCHC (32-36) gm/dL RDW Coeff of Koko (11.5-15.5) % Plt Count (140-440) K/uL Neut % (Auto) (42.0-72.0) % Lymph % (Auto) (20-44) % Glenn % (Auto) (0.0-11.0) % Eos % (Auto) (0.0-7.0) % Baso % (Auto) (0.0-3.0) % Neut # (Auto) (1.7-7.0) K/uL Lymph # (Auto) (0.90-2.90) K/uL Glenn # (Auto) (0.00-0.90) K/UL Eos # (Auto) (0.00-0.50) K/uL Baso # (Auto) (0.00-0.30) K/uL Abs Immat Gran (auto) (0.00-0.30) K/uL Imm/Tot Granulo (auto) % Sodium (135-149) mmol/L Potassium (3.6-5.1) mmol/L Chloride (96-114) mmol/L Carbon Dioxide (20-32) mmol/L Anion Gap (7-15) mEq/L BUN (7-30) mg/dL Creatinine (0.5-1.5) mg/dL Estimated Creat Clear Estimated GFR ml/min Glucose (60-115) mg/dL Calcium (8.4-10.6) mg/dL Magnesium (1.5-2.6) mg/dL Total Bilirubin (0.1-1.5) mg/dL AST (12-35) U/L ALT (4-35) U/L Alkaline Phosphatase (40-150) U/L Troponin I < 0.01 L (0.01-0.04) ng/mL NT-Pro-B Natriuret Pep pg/mL Total Protein (6.0-8.3) g/dL Albumin (3.3-5.0) g/dL 25-OH Vitamin D Total (30-80) ng/mL Urine Color Light yellow (Yellow) Urine Appearance Clear (Clear) Urine pH 5.5 (5.0-8.5) Ur Specific [place] <= 1.005 (1.000-1.030) Urine Protein Negative (Negative) Urine Glucose (UA) Negative (Negative) Urine Ketones Negative (Negative) Urine Blood Trace-intact A (Negative) Urine Nitrite Negative (Negative) Urine Bilirubin Negative (Negative) Urine Urobilinogen 0.2 (0.2-1.0) Ur Leukocyte Esterase Trace A (Negative) Urine RBC 0-2 (0-2) Urine WBC 0-2 (0-5) Ur Squamous Epith Cells Few (None-Few) Urine Bacteria Few A (None) SARS-CoV-2 (PCR) (Negative) Influenza Type A (PCR) (Negative) Influenza Type B (PCR) (Negative) RSV (PCR) (Negative) Lab Acknowledgement POC Troponin I Cancelled (0.01-0.04) ng/ml Imaging Data Chest x-ray: Attestation: I have reviewed the pertinent imaging results. My impression: No obvious infiltrates or widened mediastinum. Radiologist's impression: There is hyperinflation and chronic interstitial change. There is mild pulmonary vascular congestion. No pneumothorax or pleural effusion. The cardiomediastinal silhouette is within normal limits. The bony thorax is grossly intact. Impression: 1. Mild pulmonary vascular congestion. ECG Data Attestation: I personally reviewed and interpreted this ECG as follows: Prior ECG tracings: available for review Interpretation: EKG by my read shows atrial fibrillation rate controlled at 73. QT interval within normal limits. No acute ST or T-wave changes. No significant changes from EKG on September 30. Discharge Plan Discharge Clinical Impression: Atypical chest pain, Acid reflux CHF (congestive heart failure) Qualifiers: Heart failure type: unspecified Heart failure chronicity: acute Qualified Code(s): I50.9 - Heart failure, unspecified Patient Disposition: Home w/ Parent or Adult Condition: Improved Additional Instructions: suggest the use of Pepcid Complete twice a day to help control stomach acid. I am hopeful this will help to control the chest discomfort. You may continue to take Tylenol as needed. Your upcoming appointment on November 10 is to ensure good seal of the Watchman. Hopefully that you can then discontinue the Eliquis. Return to the emergency room for worsening symptoms and as needed. Prescriptions: No Action Eliquis 5 mg tablet 5 mg PO BID atorvastatin 40 mg tablet 40 mg PO HS albuterol sulfate 90 mcg/actuation HFA aerosol inhaler 1 - 2 puff INHALATION Q4H PRN (Reason: dyspnea) fluticasone propionate 50 mcg/actuation spray,suspension 2 spray INTRANASAL DAILY lamotrigine 100 mg tablet 150 mg PO BID mirtazapine 7.5 mg tablet 7.5 mg PO HS aspirin 81 mg capsule 81 mg PO DAILY triamcinolone acetonide 0.1 % cream 1 applic topical 3XD PRN calcium carbonate-vitamin D3 [Calcium 600 + D(3)] 600 mg-10 mcg (400 unit) tablet 1 tab PO BID Prolia 60 mg/mL syringe 60 mg subcut [id number] potassium chloride 10 mEq Capsule, Extended Release 20 meq PO DAILYWM 3 Days Qty: 6 0RF torsemide 10 mg tablet 10 mg PO DAILY Qty: 30 0RF Follow Up/Referrals: ZOLTAN WATKINS DO [Primary Care Provider] - Stand Alone Forms: [facility] Info Instructions
--- NOTE | 2024-11-02 10:31 | CRLHL7_ITS ---
For Patients: As a result of the Century Cures Act, medical imaging exams and procedure reports are released immediately into your electronic medical record. You may view this report before your referring provider. If you have questions, please contact your health care provider. Indication: Chest pain Comparison: Single view chest dated Sep 30, 2024. Technique: Single AP view chest Findings: There is hyperinflation and chronic interstitial change. There is mild pulmonary vascular congestion. No pneumothorax or pleural effusion. The cardiomediastinal silhouette is within normal limits. The bony thorax is grossly intact. Impression: 1. Mild pulmonary vascular congestion. Dictated by Claude Benitez MD @ 11/02/2024 11:10:26 AM (Electronically Signed)
--- OUTSIDE RECORDS SUMMARY | 2024-11-02 10:38 | XMS_ITS | Clinical Summary ---
Author Organization [facility] Address [address] , [address] [place] [address] Phone Care Team Providers Care Inventory Manager Name Role Phone System Maintenance Unavailable [phone] Conditions or Problems Problem Name Problem Code Onset Date Status Entry Date Provider Comment Standard Description Annotate TIA 869784010 (SNOMED CT) Active Reg Elias MD Transient cerebral ischemia Acoustic neuroma 316933531 (SNOMED CT) Active Reg Elias MD Acoustic neuroma Memory problems 37568737 (SNOMED CT) Active Reg Elias MD Dementia Vascular malformation 131229163 (SNOMED CT) Active Reg Elias MD Congenital vascular malformation Epilepsy, not intractable G40.909 (ICD-10-CM) Active Reg Elias MD Epilepsy, unspecified, not intractable, without status epilepticus Medications Medication Instructions Start Date Stop Date Generic Name [facility] Provider LAMOTRIGINE 100 MG TABS 150 mg by mouth twice a day 05/19 lamotrigine [id number] Michell Dunaway PA-C LAMOTRIGINE 100 MG TABS take 1.5 tablets by mouth twice daily.APPOI NTMENT NEEDED 12/14 lamotrigine 33135708646 Michell Dunaway PA-C calcium carbonate-vitamin D3 600 mg(1,500mg)-400 unit tablet Take 1 tablet by mouth twice a day calcium carbonate-vitamin d3 21657314893 Reg Elias MD HYDROCHLOROTHIAZIDE 25 MG TABS tablet by mouth 04/28 hydrochlorothiazi de 79252997404 Reg Elias MD aspirin 81 mg tablet,delayed release (DR/EC) 81 mg by mouth once a day 05/04 aspirin [id number] Reg Elias MD MIRTAZAPINE 7.5 MG TABS Take 1 tablet by mouth every night 02/25 mirtazapine 80144309345 Reg Elias MD ATORVASTATIN CALCIUM 40 MG TABS tablet by mouth 05/04 atorvastatin 70647394698 Reg Elias MD VITAMIN D3 25 MCG (1000 UT) CAPS Take 1 capsule by mouth once a day cholecalciferol (vitamin d3) 01941627974 Reg Elias MD LAMOTRIGINE 100 MG TABS 150 mg by mouth twice a day 05/19 lamotrigine 73125418041 Reg Elias MD LISINOPRIL 5 MG TABS TAKE ONE TABLET BY MOUTH ONE TIME DAILY lisinopril 23984001296 Reg Elias MD HYDROCHLOROTHIAZIDE 25 MG TABS 12/29 HYDROCHLOROTHIAZI DE 24240080209 Reg Elias MD LAMOTRIGINE 100 MG TABS 150 mg BID 05/19 LAMOTRIGINE 29061230760 Reg Elias MD LAMOTRIGINE ER 300 MG [id number] 300 mg QD 05/04 LAMOTRIGINE 04143844898 Reg Elias MD LAMOTRIGINE ER 300 MG [id number] 300 mg QD 05/04 LAMOTRIGINE 16480362700 Reg Elias MD ASPIRIN 81 MG TBEC 81 mg QD 05/04 ASPIRIN 96406896523 Reg Elias MD MIRTAZAPINE 7.5 MG TABS TAKE ONE TABLET BY MOUTH ONE TIME DAILY AT BEDTIME 02/25 MIRTAZAPINE 45414056763 Reg Elias MD ATORVASTATIN CALCIUM 40 MG TABS 05/04 ATORVASTATIN CALCIUM 00141906618 Reg Elias MD PHENYTOIN SODIUM EXTENDED 100 MG CAPS Take 2 capsules by mouth 2 times daily. 05/04 phenytoin extended (DILANTIN) 100 mg ER capsule 17249476283 Reg Elias MD DILANTIN 30 MG CAPS 30 mg HS (together w/ 100 mg caps) 05/05 PHENYTOIN SODIUM EXTENDED 84179037003 Reg Elias MD LAMOTRIGINE 100 MG TABS 150 mg BID 05/19 LAMOTRIGINE [id number] Farzaneh Oden APRN [employer] LAMOTRIGINE 100 MG TABS 100 mg BID 05/19 LAMOTRIGINE 37738888291 Reg Elias MD LAMICTAL 25 MG TABS 25 MG PO BID x 2 weeks, 50 MG PO BID x 2 weeks, 75 MG PO BID x 2 weeks, 100 MG PO BID 05/19 LAMOTRIGINE [id number] Reg Elias MD DILANTIN 30 MG CAPS 30 mg HS (together w/ 100 mg caps) 05/05 PHENYTOIN SODIUM EXTENDED 47121284479 Reg Elias MD PHENYTOIN SODIUM EXTENDED 100 MG CAPS Take 2 capsules by mouth 2 times daily. 05/04 phenytoin extended (DILANTIN) 100 mg ER capsule [id number] System Maintenance VITAMIN D3 25 MCG (1000 UT) CAPS Take 1 capsule by mouth once daily. 02/28 cholecalciferol (VITAMIN D) 1,000 unit capsule [id number] System Maintenance calcium carbonate-vitamin D3, 600 mg-400 unit, (CALCIUM 600 + D) 600 mg(1,500mg) Take 1 tablet by mouth 2 times daily with meals. 07/28 calcium carbonate-vitamin D3, 600 mg-400 unit, (CALCIUM 600 [id number] System Maintenance Medications Administered No information available. [...] Follow up in clinic or telemedicine 01/04 [facility]-[id number] Documentation of current medicatio ns ORDERS Follow up [facility]-[id number] Neurosurgery - NSA Referral [facility]-[id number] Documentation of current medicatio ns [id number] MRI-Brain W/WO ORDERS Follow up ORDERS Lamotrigine (Lamictal) 10/28 ORDERS We will contact you with test results 09/17/11 ORDERS Follow up [id number] Documentation of current medicatio ns LOINC 21889-5 Fall risk assessment 10/28 [id number] MRI-Brain W/WO ORDERS Follow up [id number] Documentation of current medicatio ns LOINC 24961-4 Fall risk assessment 05/04 ORDERS Other Test ORDERS Lamotrigine (Lamictal) 10/21 ORDERS Follow up [id number] Documentation of current medicatio ns [id number] Fall risk assessment (procedure) [id number] Fall risk assessment (procedure) ORDERS Echocardiogram Compl ete with Bubble w/o Contrast ORDERS Lamotrigine (Lamictal) 07/21 [id number] Other Referral ORDERS Follow up ORDERS Patient Instructions ORDERS Patient Instructions [id number] Documentation of current medicatio ns ORDERS Lamotrigine (Lamictal) 06/08 ORDERS Patient Instructions [id number] Fall risk assessment (procedure) [id number] Fall risk assessment (procedure) [id number] Fall risk assessment (procedure) [id number] Fall risk assessment (procedure) [id number] Documentation of current medicatio ns ORDERS Phenytoin [...]
--- OUTSIDE RECORDS SUMMARY | 2024-11-02 10:38 | XMS_ITS | Clinical Summary ---
Author Organization [facility] Address [place], [place] [address] Care Team Providers Care Manager Staffing Name Role Phone Vincent Dawkins DO Primary Care Provider [phone] Allergies Active Allergy Reactions Criticality Noted Date [...] per actuation) nasal solution (FLONASE) Inhale 1 [place] in both nostrils once daily if needed [...] Department Care Team Description 11/02/2024 Nurse Triage [facility] Centralized Nurse Triage Vincent Dawkins DO Chest Pain 09/30/2024 11:00 AM WARP TRUCKER Ancillary Procedure [facility] [address] [place] [address] 09/30/2024 Orders Only [facility] HIM SERVICES Scanner 1 scan: (1-Ord) [facility] CHEST 1V PORTABLE, 09/30/2024 09/30/2024 Telephone [facility] [address] [facility] [address] [place] [phone] Bret Mariscal MD Chest Pain 09/28/2024 1:40 PM WARP TRUCKER Office Visit [facility] [address] [place] [address] Vincent Dawkins DO Hospital F/U (Afib, ANW, 09/22/24, watchman placed) 09/28/2024 Travel 09/24/[address] [facility] [address] [place] [address] Summer Vargas, MICHAEL Student Primary RN Care Management; Hospital F/U (Lace=34) 09/22/2024 2:12 PM WARP TRUCKER Anesthesia Event [facility] [address] [place] [address] Tonny Sih MD Elvester, Danica K, OIL GAS AND PIPE TESTER 09/22/2024 12:45 PM WARP TRUCKER - 09/22/2024 11:59 PM WARP TRUCKER Hospital Encounter [facility] [address] [place] [address] Jose Armando Miller MD, PhD Persistent atrial fibrillation (HC) 09/22/2024 11:12 AM WARP TRUCKER - 09/23/2024 11:05 AM WARP TRUCKER Hospital Encounter [facility] [address] [place] [address] Jamar Boss MD Kushins, MD Yolis Titus Charles Patrick, CRNA Paroxysmal atrial fibrillation (HC) (Primary Dx); Presence of Watchman left atrial appendage closure device Discharge Disposition: Home Self Care 09/22/2024 Travel 09/17/2024 Telephone [facility] [address] [facility] [address] [place] [phone] Barbie Hawthorne RN Pre Watchman Call 09/15/2024 10:45 AM WARP TRUCKER Ancillary Procedure [facility] [address] [place] [address] 09/15/2024 10:10 AM WARP TRUCKER Office Visit [address] [address] Vincent Dawkins DO Hospital F/U 09/15/2024 Travel 09/05/[address] [address] Vincent Dawkins DO Refill Request (Lamotrigine) 09/04/2024 Orders Only [facility] HIM SERVICES Scanner 1 scan: (1-Ord) [facility], XR CHEST 2V, 09/04/2024 08/26/[address] [facility] [address] [place] [address] Vincent Dawkins DO Follow Up (Missed call ) 08/24/2024 8:30 AM WARP TRUCKER Office Visit [address] [address] Vincent Dawkins DO Medicare ANNUAL (subsequent) Visit (73 year old ) 08/24/2024 7:40 AM WARP TRUCKER Ancillary Procedure [facility] [address] [facility] [place] [address] 08/24/2024 Travel 08/07/2024 4:00 PM WARP TRUCKER Telemedicine [facility] [address] [place] [address] Vicky Prince MD Virtual visit 08/04/2024 2:00 PM WARP TRUCKER Ancillary Procedure [facility] [address] [place] [address] 08/04/2024 1:40 PM WARP TRUCKER Orders Only [facility] [address] [place] [address] Lab 08/04/2024 Travel 08/03/[address] [facility] [address] [facility] [address] Vincent Dawkins DO Refill Request (Torsemide) from [...] Comments Blood Pressure 143/88 09/28/2024 1:35 PM WARP TRUCKER Pulse 83 09/28/2024 1:35 PM WARP TRUCKER Temperature 36.8 C (98.2 F) 09/28/2024 1:35 PM WARP TRUCKER Respiratory Rate 16 09/23/2024 8:57 AM WARP TRUCKER Oxygen Saturation 99% 09/28/2024 1:35 PM WARP TRUCKER Inhaled Oxygen Concentration - - Weight 91.3 kg (201 lb 3.2 oz) 09/28/2024 1:35 P M WARP TRUCKER Height 167.6 cm (5' 6) 09/22/2024 12:42 PM WARP TRUCKER Body Mass Index 32.47 09/22/2024 12:42 PM WARP TRUCKER Plan of Treatment Upcoming Encounters Date Type Department Care Team (Late st Contact Info) Description 11/10/2024 1:40 PM WARP TRUCKER Orders Only [facility] [address] [facility] [address] [place] [address] 11/10/2024 2:00 PM WARP TRUCKER Ancillary Procedure [facility] [address] [facility] [address] [place] [address] 11/11/2024 1:30 PM WARP TRUCKER Office Visit [facility] [address] [facility] [address] [place] [address] [place] [address] [facility] [address] [place] [address] 01/04/2025 11:00 AM CDT Office [facility] [address] [place] [address] Vincent Dawkins DO [address] [place] [address] Health Maintenance Due Date Last Done Comments BMI (ht and wt on same day) for age 18+ 08/24/2025 08/24/2024, 07/22/2024, 11/13/2023, Additional history exists Medicare Wellness for age 65+ 08/25/2025, 08/23/2023, 08/10/2022, Additional history exists Depression screening for age 12+ 09/22/2025 09/22/2024, 08/26/2024, 08/24/2024, Additional history exists Fecal testing sDNA-FIT ([place] guard) for age 45-75 06/16/2026 06/16/2023 Lipids for age 45-75 08/24/2029 08/24/2024, 06/17/2020, 07/14/2019, Additional history exists Tetanus booster 08/04/2031 08/04/2021, 03/15/2008 Pneumococcal series for age 50+ Completed 6, 06/17/2015 Zoster (shingles) series for age 50+ Completed 02/18/2021, 08/26/2020, 07/06/2017 Hepatitis C screening for ag e 18-79 Completed 08/03/2021 Tdap Completed 08/04/2021, 02/16, 03/15/2008 (Completed outside of [facility]) RSV vaccine for adults or Completed 07/21/2023 DEXA/DXA scan for age 65+ Completed 2022, 08/03/2021, 06/30/2015, Additional history exists COVID-19 vaccine series Completed 07/06/20, 07/12/2023, 08/10/2022, Additional history exists Influenza for age 65+ Completed 07/06/2024 , 06/10/2023, 08/10/2022, Additional history exists Medical Devices Implanted Type Area Hand Picker Device Identifier Shelf Expiration Date Model / Serial / Lot Screw Sm Joint 6.5x25mm Canclls Bone - [id number] Implanted:Qty: 1 on 02/06/2015 at [facility] Ortho Imp.,Screw s & Plates Right: Hip [employer] [id number] -1# / / [id number] Shell Hip Od50mm Trident Psl Cluster Arias - [id number] Implanted:Qty: 1 on 02/06/2015 at [facility] Right: Hip [employer] 542-11-50 E# / / [id number] Screw Sm Joint 6.5x50mm Canclls Bone - [id number] Implanted:Qty: 1 on 02/06/2015 at [facility] Right: Hip [employer] [id number] -1# / / [id number] Liner Hip Id36mm Lolly 0deg Trident X3 - [id number] Implanted:Qty: 1 on 02/06/2015 at [facility] Right: Hip [employer] 623-00-36 E# / / [id number] Stem Hip Sz7 127deg Accolade Ii - [id number] Implanted:Qty: 1 on 02/06/2015 at [facility] Right: Hip [employer] [id number] # / / [id number] Head Hip Od36mm +5 Biolox Delta C-Taper Alumina Cer - [id number] Implanted:Qty: 1 on 02/06/2015 at [facility] Right: Hip [employer] 6570-0-23 6# / / [id number] Procedures Procedure Name Priority Date/Time Associated Diagnosis Comments ECHO TTE COMPLETE WO CONTRAST Routine 09/30/2024 12:42 PM WARP TRUCKER Chest pain SCAN-RADIOLOGY REPORT 09/30/2024 12:00 AM WARP TRUCKER SCAN-CARDIAC STRIP 09/23/2024 7: 33 AM WARP TRUCKER SCAN-CARDIAC STRIP 09/22/2024 11 :12 PM WARP TRUCKER SCAN-CARDIAC STRIP 09/22/2024 6: 28 PM WARP TRUCKER HCHG ACTIVATED CLOTTING TM CV Timed 09/22/2024 3:46 PM WARP TRUCKER HCHG ACTIVATED CLOTTING TM CV Timed 09/22/2024 3:17 PM WARP TRUCKER HCHG ACTIVATED CLOTTING TM CV Timed 09/22/2024 3:00 PM WARP TRUCKER EP OTHER PROCEDURE Routine 09/22/2024 2: 43 PM WARP TRUCKER ENDOTRACHEAL TUBE Routine 09/22/2024 2:2 7 PM WARP TRUCKER ENDOTRACHEAL TUBE Routine 09/22/2024 2:2 7 PM WARP TRUCKER ECHO SARAVANAN TRANSCATHETER INTRAOP PROCEDURE Routine 09/22/2024 1:22 PM WARP TRUCKER Persistent atrial fibrillation (HC) BASIC METABOLIC PANEL Preop 09/22/2024 1:05 PM WARP TRUCKER CBC W PLT NO DIFF Preop 09/22/2024 1:0 5 PM WARP TRUCKER EXTRA TUBE GOLD/SST Today 09/22/2024 1 :01 PM WARP TRUCKER EKG 12 LEAD Preop 09/22/2024 12:54 PM WARP TRUCKER [facility] AN IV START Routine 09/22/2024 12:41 PM WARP TRUCKER [facility] AN IV START Routine 09/22/2024 12:41 PM WARP TRUCKER [facility] AN IV START Routine 09/22/2024 12:41 PM WARP TRUCKER [facility] AN IV START Routine 09/22/2024 12:41 PM WARP TRUCKER SCAN-CARDIAC STRIP 09/22/2024 12 :00 AM WARP TRUCKER XR CHEST 2 VIEWS PA AND LATERAL Routine 09/15/2024 10:33 AM WARP TRUCKER Chronic cough SCAN-RADIOLOGY REPORT 09/04/2024 12:00 AM WARP TRUCKER LAMOTRIGINE (LAMICTAL) Routine 08/24/2024 9:43 AM WARP TRUCKER Seizure disorder (HC) HEPATIC FUNCTION PANEL Routine 08/24/2024 9:43 AM WARP TRUCKER Seizure disorder (HC) LIPID PANEL W REFLEX MEASURED LDL Routine 08/24/2024 9:43 AM WARP TRUCKER Lipid screening BASIC METABOLIC PANEL Routine 08/24/2024 9:43 AM WARP TRUCKER Medicare annual wellness visit, subsequent CBC WITH AUTO DIFFERENTIAL Routine 08/24/2024 9:43 AM WARP TRUCKER Pre-op evaluation XR MAMMO JOLIE BILAT SCREEN Routine 08/24/2024 7:54 AM WARP TRUCKER Visit for screening mammogram CT CARDIAC MORPHOLOGY W RAD DUAL READ HUGO 08/04/2024 3:01 PM WARP TRUCKER Persistent atrial fibrillation (HC) CREATININE,ISTAT Routine 08/04/2024 1:23 PM WARP TRUCKER Persistent atrial fibrillation (HC) XR DXA BONE DENSITY 1 SITE AXIAL AND 1 SITE PERIPHERAL Routine 09/12/2023 1:30 PM WARP TRUCKER Age related osteoporosis, unspecified pathological fracture presence SDNA-FIT EXTERNAL (COLOGUARD) Routine 06/16/2023 8:00 AM CDT Screening for colon cancer ANTI HCV Routine 08/03/2021 10:21 AM WARP TRUCKER Need for hepatitis C screening test from Last 3 Months or Most Recently Relevant to Health Maintenance Results * ECHO TTE COMPLETE WO CONTRAST (09/30/2024 12:42 PM WARP TRUCKER) AORTIC VALVE MEAN PG 4 mmHg EJECTION FRACTION 59 % PEAK TR VELOCITY 2.2 m/s LVEDD 4.0 cm EJECTION FRACTION 55 - 60% Anatomical Region Laterality Modality Ultrasound 09/30/2024 11:5 6 AM WARP TRUCKER Narrative 09/30/2024 1:04 PM WARP TRUCKER ECHOCARDIOGRAM RAFFI COOPER : 1950 74 years Study Date: 09/30/2024 11:56:50 AM Gender: F BP: 110/75 mmHg Height: 168.00 cm BSA: 2.01 m Weight: 91.00 kg Tech: TRAV Referring MD: MELO GABRIEL Site: [facility] Reading Location: Mobile [...] . This study was interpreted by an [facility] accredited facility. CC: HIM (med records) [facility], Med/Surg - IP [facility]. Final Procedure Note Gm Kaur MD - 09/30/2024 ECHOCARDIOGRAM RAFFI COOPER : 1950 74 years Study Date: 09/30/2024 11:56:50 AM Gender: F BP: 110/75 mmHg Height: 168.00 cm BSA: 2.01 m Weight: 91.00 kg Tech: TRAV Referring MD: MELO GABRIEL Site: [facility] Reading Location: [facility] Patient Location: Inpatient. Procedure: 2D, Color Doppler [...] [facility] accredited facility. CC: HIM (med records) [facility], Med/Surg - IP [facility]. Final us Carlyle Ries ECHO ORD Final Result * SCAN-RADIOLOGY REPORT (09/30/2024 12:00 AM WARP TRUCKER) Only the most recent of2 resultswithin the time period is included. Anatomical Region Laterality Modality Other us Scanner OTHER Final Result * SCAN-CARDIAC STRIP (09/23/2024 7:33 AM WARP TRUCKER) us Scanner OTHER Final Result * SCAN-CARDIAC STRIP (09/22/2024 11:12 PM WARP TRUCKER) us Scanner OTHER Final Result * SCAN-CARDIAC STRIP (09/22/2024 6:28 PM WARP TRUCKER) us Scanner OTHER Final Result * ACTIVATED CLOTTING TIME TPB002 ACT (09/22/2024 3:46 PM WARP TRUCKER) Only the most recent of3 resultswithin the time period is included. [facility] Signature ACTIVATED CLOTTING TIME, POCT 113 74 - 125 sec 09/22/2024 4:11 PM WARP TRUCKER [facility] Blood BLOOD SPECIMEN / Unknown 09/22/2024 3:46 PM WARP TRUCKER 09/22/2024 4:11 PM WARP TRUCKER us Jamar Boss MD HEMATOLOGY Final Result [facility] [address] [place] [address], * EP OTHER PROCEDURE (09/22/2024 2:43 PM WARP TRUCKER) Anatomical Region Laterality Modality X-Ray Angiograph y, X-Ray Angiography 09/22/2024 2:43 PM WARP TRUCKER us Jose Armando Miller MD, PhD CV IMAGING Fin al Result * HCHG TUBE PR1, HCHG STYLET PR1 (09/22/2024 2:27 PM WARP TRUCKER) Narrative Selene Sheets CRNA - 09/22/2024 2:27 PM WARP TRUCKER Selene Sheets CRNA 09/22/2024 2:28 PM Procedure: [...] SARAVANAN TRANSCATHETER INTRAOP PROCEDURE (09/22/2024 1:22 PM WARP TRUCKER) EJECTION FRACTION 55 - 60% Anatomical Region Laterality Modality HEART Ultrasound 09/22/2024 3:31 PM WARP TRUCKER Narrative 09/23/2024 1:21 PM WARP TRUCKER TRANSESOPHAGEAL ECHOCARDIOGRAM RAFFI COOPER : 1950 74 years Study Date: 09/22/2024 3:31:54 PM Gender: F BP: 120/70 mmHg Height: 163.00 cm BSA: 1.98 m Weight: 93.00 kg Tech: Referring MD: JOSE ARMANDO MILLER Site: [facility] Reading Location: [facility] Patient Location: Procedure: SARAVANAN, Color Doppler, Spectral [...] repeat measurements were performed. At 0 degrees, coktvhmx-zy-thqfweho width = 2.4cm At 45 degrees, qxkgooze-jv-zpgvenjb width = 2.4cm At 90 degrees, jhkhdbee-ia-tfrjutwm width = 2.4cm At 135 degrees, neyquqgq-wu-ljmaewdz width = 2.5cm Pulmonary vein flows were [...] bpm . Final (Updated) Procedure Note Mehnaz Hael, [facility] - 09/23/2024 TRANSESOPHAGEAL ECHOCARDIOGRAM RAFFI COOPER : 1950 74 years Study Date: 09/22/2024 3:31:54 PM Gender: F BP: 120/70 mmHg Height: 163.00 cm BSA: 1.98 m Weight: 93.00 kg Tech: Referring MD: JOSE ARMANDO MILLER Site: [facility] Reading Location: [facility] Patient Location: Procedure: SARAVANAN, Color Doppler, Spectral [...] repeat measurements were performed. At 0 degrees, koxvglls-eb-zskislyw width = 2.4cm At 45 degrees, xydcfhga-im-xvtdeyvs width = 2.4cm At 90 degrees, jkqrkljk-vm-twwfpskp width = 2.4cm At 135 degrees, qmekxffy-di-eewdsqjr width = 2.5cm Pulmonary vein flows were [...] with Platelets no Differential (09/22/2024 1:05 PM WARP TRUCKER) [facility] WHITE BLOOD COUNT 5.8 4.5 - 11.0 thou/cu mm 09/22/2024 1:19 PM WARP TRUCKER [facility] RED BLOOD COUNT 4.14 4.00 - 5.20 mil/cu mm 09/22/2024 1:19 PM WARP TRUCKER [facility] HEMOGLOBIN 12.9 12.0 - 16.0 g/dL 09/22/2024 1:19 PM WARP TRUCKER [facility] HEMATOCRIT 39.0 33.0 - 51.0 % 09/22/2024 1:19 PM WARP TRUCKER [facility] MCV 94 80 - 100 fL 09/22/2024 1:19 PM [facility] MCH 31.2 26.0 - 34.0 pg 09/22/2024 1:19 PM WARP TRUCKER [facility] MCHC 33.1 32.0 - 36.0 g/dL 09/22/2024 1:19 PM [facility] RDW 13.1 11.5 - 15.5 % 09/22/2024 1:19 PM [facility] PLATELET COUNT 236 140 - 440 thou/cu mm 09/22/2024 1:19 PM [facility] MPV 8.5 6.5 - 11.0 fL 09/22/2024 1:19 PM WARP TRUCKER [facility] NRBC 0.0 % 09/22/2024 1:19 PM WARP TRUCKER [facility] ABS NRBC 0.0 thou /cu mm 09/22/2024 1:19 PM WARP TRUCKER [facility] Blood BLOOD SPECIMEN / Unknown Venipuncture / Unknown 09/22/2024 1:05 PM WARP TRUCKER 09/22/2024 1:12 PM WARP TRUCKER us Jamar Boss MD HEMATOLOGY Final Result [facility] [address] [place] [address], [place] * (ABNORMAL) Basic Metabolic Panel (09/22/2024 1:05 PM WARP TRUCKER) Only the most recent of2 resultswithin the time period is included. SODIUM 138 136 - 145 mmol/L 09/22/2024 1:46 PM [facility] POTASSIUM 4.3 3.5 - 5.1 mmol/L 09/22/2024 1:46 PM [facility] CHLORIDE 104 98 - 107 mmol/L 09/22/2024 1:46 PM [facility] CO2,TOTAL 23 22 - 29 mmol/L 09/22/2024 1:46 PM [facility] ANION GAP 11 5 - 18 09/22/2024 1:46 PM [facility] GLUCOSE 93 70 - 99 mg/dL 09/22/2024 1:46 PM [facility] CALCIUM 9.8 8.8 - 10.4 mg/dL 09/22/2024 1:46 PM [facility] Comment: Reference ranges for this test were updated on 07/21/2024 to reflect our healthy population more accurately. Reference range changes are not retroactively applied to results, but previous results using the same methodology can be interpreted in the context of the new reference range. BUN 15 8 - 23 mg/dL 09/22/2024 1:46 PM [facility] CREATININE 1.15(H) 0.50 - 0.90 mg/dL 09/22/2024 1:46 PM [facility] BUN/CREAT RATIO 13 10 - 20 1:46 PM [facility] eGFR 50(L) >90 mL/min/1. 73m2 09/22/2024 1:46 PM [facility] Comment:As of 2021, eG FR is calculated by the CKD-EPI creatinine equation without race adjustment. eGFR can be influenced by muscle mass, exercise, and diet. The reported eGFR is an estimation only and is only applicable if the renal function is stable. Blood BLOOD SPECIMEN / Unknown Venipuncture / Unknown 09/22/2024 1:05 PM WARP TRUCKER 09/22/2024 1:12 PM WARP TRUCKER Jamar Boss MD CHEMISTRY Final Result Performing Organization Address City/[facility]/ZIP Co de Phone Number [facility] [address] [place] [address], [place] * EXTRA TUBE GOLD/SST (09/22/2024 1:01 PM WARP TRUCKER) Blood BLOOD SPECIMEN / Unknown Venipuncture / Unknown 09/22/2024 1:01 PM WARP TRUCKER 09/22/2024 1:14 PM WARP TRUCKER Jamar Boss MD LABORATORY Final Result Performing Organization Address [facility] Co de Phone Number [facility] [address] [place] [id number], [place] * 12 Lead EKG (09/22/2024 12:54 PM WARP TRUCKER) Interpretation Atrial flutter with variable A-V block [...] NOW QTc 423 ms BEYOND NOW P [place] degrees BEYOND NOW R [place] 21 degrees BEYOND NOW T [place] -18 degrees BEYOND NOW 09/22/2024 12:5 4 PM WARP TRUCKER 09/23/2024 2:18 PM WARP TRUCKER Narrative BEYOND NOW - 09/23/2024 2:18 PM WARP TRUCKER Test Indication: PREOP us Jamar Boss MD EKG ORD Final Result Performing Organization Address City/[facility]/ZIP Co de Phone Number BEYOND NOW [place], [place] * HCHG TUBING PR1, HCHG KIT PR1, HCHG NDL PR1, HCHG NDL PR1 (09/22/2024 12:41 PM WARP TRUCKER) Narrative Tonny Shi MD - 09/22/2024 12:41 PM WARP TRUCKER Tonny Shi MD 09/22/2024 12:54 PM IV [...] Result * SCAN-CARDIAC STRIP (09/22/2024 12:00 AM WARP TRUCKER) Narrative 09/22/2024 12:00 AM WARP TRUCKER Ordered by an unspecified provider. Other Clinical Staff OTHER Final Resul t * XR CHEST 2 VIEWS PA AND LATERAL (09/15/2024 10:33 AM WARP TRUCKER) Anatomical Region Laterality Modality CHEST, THORAX, Lung, HEART Compu jason Radiography 09/15/2024 3:04 PM WARP TRUCKER Impressions 09/15/2024 3:04 PM WARP TRUCKER No airspace disease or fibrosis. Dictated by Melo Eden MD @ 09/15/2024 3:04:39 PM (Electronically Signed) Narrative 09/15/2024 3:04 PM WARP TRUCKER For Patients: As a result of the [...] Result * LAMOTRIGINE (LAMICTAL) (08/24/2024 9:43 AM WARP TRUCKER) Pathologist [facility] LAMOTRIGINE 9.4 2.5 - 15.0 mcg/mL [facility] Comment: This test was developed and its analytical performance characteristics have been determined by [employer] [place], [place]. It has not been cleared or approved by the U.S. Food and Drug Administration. This assay has been validated pursuant to the CLIA regulations and is used for clinical purposes. Blood BLOOD SPECIMEN / Unknown 08/24/2024 9:43 AM WARP TRUCKER 08/24/2024 9:44 AM WARP TRUCKER Yeseniasahara Bailonwilliam PARKER SEND OUTS Final Result [employer] [facility]LYLA PLANO [address] [place], [place] , [facility] [address] [place], [place] * LIPID PANEL W REFLEX MEASURED LDL (08/24/2024 9:43 AM WARP TRUCKER) Pathologist [facility] CHOLESTEROL, TOTAL 146 <200 mg/dL [facility] [...] LDL-C. Jc SS et al. ANNE-MARIE. 2013;310(19): 9339-1407 (http://education.[employer]/faq/JIT576) CHOL/HDLC RATIO 2.2 <5.0 (calc) [facility] NON HDL CHOLESTEROL 81 <130 mg/dL (calc) [facility] Comment: For patients with diabetes plus 1 major ASCVD risk factor, treating to a non-HDL-C goal of <100 mg/dL (LDL-C of <70 mg/dL) is considered a therapeutic option. Blood BLOOD SPECIMEN / Unknown 08/24/2024 9:43 AM WARP TRUCKER 08/24/2024 9:44 AM WARP TRUCKER Yeseniai Mariza DO CHEMISTRY Final Result [facility] [address] [place] [address], [facility] [address] * (ABNORMAL) CBC AND DIFFERENTIAL (08/24/2024 9:43 AM WARP TRUCKER) WHITE BLOOD CELL COUNT 5.2 3.8 - [...] BLOOD SPECIMEN / Unknown 08/24/2024 9:43 AM WARP TRUCKER 08/24/2024 9:44 AM WARP TRUCKER us Adei Mariza DO HEMATOLOGY Final Result [facility] [address] [place] [address], [facility] [address] [place] [address] * HEPATIC FUNCTION PANEL (08/24/2024 9:43 AM WARP TRUCKER) PROTEIN, TOTAL 7.3 6.1 - 8.1 g/dL [...] BLOOD SPECIMEN / Unknown 08/24/2024 9:43 AM WARP TRUCKER 08/24/2024 9:44 AM WARP TRUCKER us Adei Mariza DO CHEMISTRY Final Result [facility] [address] [place] [address], [facility] [address] [place] [address] * XR MAMMO JOLIE BILAT SCREEN (08/24/2024 7:54 AM WARP TRUCKER) Anatomical Region Laterality Modality BREASTS, Breast Left, Breast Right Bilateral Mammography Impressions 08/24/2024 2:20 PM WARP TRUCKER There is no radiographic evidence for malignancy. Recommend annual mammograms. MAMMOGRAM ASSESSMENT: ACR 1 Negative PATIENTS: You will also receive a letter with your examination results in an easy to read format. If you have questions about your results, please contact your referring provider. Narrative 08/24/2024 2:20 PM WARP TRUCKER For Patients: As a result of the Century Cures Act, medical imaging exams and procedure reports are released immediately into your electronic medical record. You may view this report before your referring provider. If you have questions, please contact your health care provider. XR MAMMO JOLIE BILAT SCREEN [[id number]] CLINICAL HISTORY: This is an asymptomatic 73 [...] MORPHOLOGY W DUAL READ (08/04/2024 3:01 PM WARP TRUCKER) Anatomical Region Laterality Modality HEART Computed Tomogra phy Impressions 08/05/2024 10:29 AM WARP TRUCKER 1. Please see dedicated cardiac imaging report [...] @ 08/04/2024 16:17:03 Narrative 08/05/2024 10:29 AM WARP TRUCKER STUDY: CT CARDIAC MORPHOLOGY Study date: 08/04/2024 [...] PATIENT: Results are automatically released to your [employer] account once available, in compliance with federal regulations. This means that you may see your results before your provider has had a chance to review them. Please allow 2-3 business days for your provider to comment on the results. Stephen Steven MD [facility] For Patients: As a result of the [...] conjunction with the services provided by the [facility] [place] ([facility]). COMPARISON: None. FINDINGS Mediastinal structures: No suspicious adenopathy. Pulmonary arteries: Bolus timing limits evaluation. Lungs and pleura: Micronodule right anterior lung series 5 image 51. No effusions. Miscellaneous: Hiatal hernia. us Jose Armando Miller MD, PhD CT Fin al Result * CREATININE,ISTAT (08/04/2024 1:23 PM [facility]) POCT,CREATININE , ISTAT 1.2 0.6 - 1.3 mg/dL [facility] Blood BLOOD SPECIMEN / Unknown 08/04/2024 1:23 PM [facility] 08/04/2024 1:23 PM [facility] us Jose Armando Miller MD, PhD CHEMISTRY Fin al Result [facility] [address] [place] [address], [facility]) [address] [place] [phone] * (ABNORMAL) XR DXA BONE DENSITY 1 SITE AXIAL AND 1 SITE PERIPHERAL (09/12/2023 1:30 PM [facility]) Anatomical Region Laterality Modality LUMBAR SPINE Other Impressions 09/18/2023 4:42 PM [facility] Osteoporosis. Due to the stability of the [...] scan in 2 years. Allison Tran PA-C [facility] 09/18/2023 Narrative 09/18/2023 4:42 PM [facility]ER For Patients: Results are automatically released to your [facility] account once available, in compliance with federal regulations. This means that you may see your results before your provider has had a chance to review them. Please allow 2-3 business days for your provider to comment on the results. XR DXA Bone Mineral Density (BMD) EXAM LOCATION: [address] [address] PATIENT NAME: Raffi Cooper DATE OF : [...] two scanners are made by the same frame runner. PROCEDURE: Dual-energy x-ray absorptiometry performed with routine [...] DEXA Final Result * sDNA-FIT External (Cologuard) [[id number]] (06/16/2023 8:00 AM CDT) Pathologist [facility] NONINV COLON CA DNA+OCC BLD SCRN STL-IMP Negative Negative 06/26/2023 4:34 PM CDT [facility] (CLIA #:[id number]) Comment: NEGATIVE TEST RESULT. A negative Cologuard [...] (Nick Hill al, N Engl J Med 2014;370(14):0636-3585) The normal value (reference range) for this assay is negative. COLOGUARD RE-SCREENING RECOMMENDATION: Periodic colorectal cancer screening is an important part of preventive healthcare for asymptomatic individuals at average risk for colorectal cancer. Following a negative Cologuard result, the [place] [employer] and U.S. Multi-Society Task Force screening guidelines recommend a Cologuard re-screening interval of 3 years. References: [place] [employer] Guideline for Colorectal Cancer Screening: https://www.cancer.org/cancer/gwbux-zuscvk-egskix/xrbgyouoq-fklhcrpqe-dwdziwu/ac s-rec ommendations.html.; Zaheer DK, Sam CR, Gail TellezK, Colorectal Cancer Screening: Recommendations for Physicians and Patients from the U.S. Multi-Society Task Force on Colorectal Cancer Screening , Am J Gastroenterology 2017; 112:5831-2637. TEST DESCRIPTION: Composite algorithmic analysis of stool [...] (Nick Hill al, N Engl J Med 2014;370(14):5188-8967.) Cologuard may produce a false negative or false positive result (no colorectal cancer or precancerous polyp present at colonoscopy follow up). A negative Cologuard test result does not guarantee the absence of CRC or advanced adenoma (pre-cancer). The current Cologuard screening interval is every 3 years. ([place] [employer] and U.S. Multi-Society Task Force). Cologuard performance data in a 10,000 patient pivotal study using colonoscopy as the reference method can be accessed at the following location: www.[employer]/results. Additional description of the Cologuard test process, warnings and precautions can be found at www.cologuard.com. Stool specimen (specimen) (Rectum) 06/16/2023 8:00 AM CDT 06/18/2023 11:01 PM CDT Adei [employer] - [employer] DO URINE Final Result [facility] (CLIA #:[id number]) [place] [address], * ANTI HCV (08/03/2021 10:21 AM [facility] TR[facility]ER) HEPATITIS C ANTIBODY Non-React arnol Non-React arnol 08/03/2021 7:04 PM W[facility] TR[facility]ER [facility] Comment:Antibodies to HCV no t detected; does not exclude the possibility of exposure to HCV. Blood BLOOD SPECIMEN / Unknown Venipuncture / Unknown 08/03/2021 10:21 AM [facility] TR[facility]ER 08/03/2021 10:24 AM [employer] TR[employer]ER [employer] DO SEND OUTS Final Result Performing Organization Address City/[facility]/ZIP Co de Phone Number [facility] [address] [place] [address], [place] from Last 3 Months or Most Recently Relevant to Health Maintenance Insurance [employer] [place] [employer] PB ONLY MEDICARE PART A HB ONLY MEDICARE PART B HB ONLY [employer] [place] BLUE HB ONLY Advance Directives Documents on File Type Date Recorded Patient [employer] Expl anation Healthcare Directive 02/05/2015 12:00 AM [...] Comments Code Status Discussion: Discussed Care Teams Manager Staffing Relationship Specialty Start Date End Date Vincent Dawkins DO [address] [place] [address] PCP - General Family Practice 04/06/22
[2024-11-02 10:57] LABS: Basophils Absolute Auto 0.03 K/uL (0.00-0.30); Basophils Percent Auto 0.6 % (0.0-3.0); Eosinophils Absolute Auto 0.19 K/uL (0.00-0.50); Eosinophils Percent Auto 3.5 % (0.0-7.0); Hematocrit 40.7 % (33.0-51.0); Hemoglobin* 13.5 gm/dL (12.0-16.0); Immature Granulocytes Abs Auto 0.01 K/uL (0.00-0.30); Immature Granulocytes Pct Auto 0.2 %; Lymphocytes Absolute Auto 1.26 K/uL (0.90-2.90); Lymphocytes Percent Auto 23.2 % (20-44); Mean Corpuscular HGB Conc 33 gm/dL (32-36); Mean Corpuscular Hemoglobin 32 pg (26-34); Mean Corpuscular Volume 96 fL (80-100); Monocytes Percent Auto 9.2 % (0.0-11.0); Neutrophils Absolute Auto 3.44 K/uL (1.7-7.0); Neutrophils Percent Auto 63.3 % (42.0-72.0); Platelet Count* 208 K/uL (140-440); Red Blood Count 4.25 m/uL (4.00-5.20); White Blood Count* 5.43 K/uL (4.50-11.00)
[2024-11-02 11:01] LABS: Slide Review Reflex No
[2024-11-02] MEDS: CALCIUM CARBONATE 500 MG CHEW PO (11:02)
[2024-11-02] MEDS: ACETAMINOPHEN 325 MG TABLET 650 MG PO (11:02)
[2024-11-02 11:10] LABS: Albumin* 4.5 g/dL (3.3-5.0); Chloride* 101 mmol/L (96-114)
[2024-11-02 11:11] LABS: Potassium* 4.6 mmol/L (3.6-5.1); Sodium* 137 mmol/L (135-149)
[2024-11-02 11:13] LABS: Anion Gap 8 mEq/L (7-15); Aspartate Amino Transferase* 22 U/L (12-35); Bilirubin Total* 0.8 mg/dL (0.1-1.5); Blood Urea Nitrogen* 16 mg/dL (7-30); Carbon Dioxide* 28 mmol/L (20-32); Creatinine* 1.2 mg/dL (0.5-1.5); Est. Creatinine Clearance* 36.45; Estimated Glomerular Filt Rate 47 ml/min; Total Protein* 7.3 g/dL (6.0-8.3)
[2024-11-02 11:14] LABS: Alanine Aminotransferase* 23 U/L (4-35); Alkaline Phosphatase* 79 U/L (40-150); Calcium* 9.7 mg/dL (8.4-10.6); Glucose* 113 mg/dL (60-115); Magnesium* 2.1 mg/dL (1.5-2.6)
[2024-11-02 11:33] LABS: PCR FLU A Negative PCR FLU A (Negative); PCR FLU B Negative PCR FLU B (Negative); PCR RSV Negative PCR RSV (Negative); SARS PCR* Negative SARS-CoV-2 (Negative)
[2024-11-02 11:37] LABS: Vitamin D 25 Hydroxy* 36 ng/mL (30-80)
[2024-11-02 11:38] LABS: Appearance Urine Clear (Clear); Bilirubin Urine Negative (Negative); Blood Urine Trace-intact (Negative); Color Urine Light yellow (Yellow); Glucose Urine Negative (Negative); Ketones Urine Negative (Negative); Leukocyte Esterase Urine Trace (Negative); Nitrite Urine Negative (Negative); Protein Urine Negative (Negative); Specific Gravity Urine <= 1.005 (1.000-1.030); Urobilinogen Urine 0.2 (0.2-1.0); pH Urine 5.5 (5.0-8.5)
[2024-11-02 11:49] LABS: NT Pro B Type NatriureticPept* 1510 pg/mL
[2024-11-02 12:05] LABS: Bacteria Urine Few; RBC Urine 0-2 (0-2); Squamous Epithelial Cell Urine Few (None-Few); WBC Urine 0-2 (0-5)
[2024-11-02] MEDS: FUROSEMIDE 10 MG/ML inj 40 MG IVP (12:30)
[2024-11-02 14:10] LABS: Troponin I* < 0.01 ng/mL (0.01-0.04)
== END 2024-11-02 14:41 | disposition home or self-care (01) ==
PROVIDERS: Emergency Provider Family Medicine; PCP Student in an Organized Health Care Education/Training Program
DX: I50.9 Heart failure, unspecified (principal); K21.9 Gastro-esophageal reflux disease without esophagitis
CPT/HCPCS: 36415; 71045; 80053; 81001; 82306; 83735; 83880; 84484; 85025; 87086; 87631; 93005; 99285; A9270; J1940

== ENCOUNTER 2025-01-01 07:46 | Outpatient (CLI) | payer MEDICARE, BC, SELFPAY ==
--- NOTE | 2025-01-01 08:15 | CRLHL7_ITS ---
For Patients: As a result of the Cures Act, medical imaging exams and procedure reports are released immediately into your electronic medical record. You may view this report before your referring provider. If you have questions, please contact your health care provider. Indication: Arteriovenous malformation follow up. Technique: Multiplanar, multisequence MRI of the brain was performed without and with intravenous contrast. Contrast: 20 cc Dotarem. Comparison: Multiple prior MRIs of the brain, most recent dated 01/02/2024. Findings: Re-demonstration of inferolateral left frontal lobe arteriovenous malformation. Again the nidus measures approximately 13 x 13 mm. There are multiple draining cortical veins in this region as well as within the left greater than right cerebral hemispheres. There is mild surrounding T2 FLAIR hyperintensity, consistent with gliosis. Mild parenchymal volume loss. Scattered T2 FLAIR hyperintense foci within the subcortical and periventricular white matter, favored to represent chronic ischemic microvascular disease. Note is made of an 11 x 4 mm enhancing lesion within the right internal auditory canal which is unchanged. Impression: 1. 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 2. 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 3. Stable mild chronic ischemic microvascular disease. 4. No significant change from prior study 01/02/2024. Dictated by Ifeanyi Dooley MD @ 01/01/2025 10:48:15 AM (Electronically Signed)
== END 2025-01-01 07:47 | disposition home or self-care (01) ==
PROVIDERS: PCP Student in an Organized Health Care Education/Training Program; Visit Provider Psychiatry & Neurology Neurology
DX: Q27.30 Arteriovenous malformation, site unspecified (principal); I67.82 Cerebral ischemia
CPT/HCPCS: 70553; A9575